=== PATIENT | female | born 1970 | race Caucasian/White ===

== ENCOUNTER → 2017-07-29 06:56 | Outpatient (CLI) | payer OTHER, SELFPAY ==
[2017-07-29 09:32] LABS: Progesterone Level 25.74 ng/mL (See Comment)
[2017-07-29 12:16] LABS: Estradiol 66.1 pg/mL; Free T3 7.5 pg/mL (2.18-3.98); T4 Free Direct 1.02 ng/dL (0.76-1.46); Thyroid Stim Hormone (TSH) < 0.01 uIU/mL (0.358-3.74)
[2017-08-05 11:05] LABS: Thyroglobulin RIA 2.9 ng/mL (.)
== END ==
PROVIDERS: Family Provider Internal Medicine; PCP Internal Medicine; Visit Provider Specialist
DX: E03.8 Other specified hypothyroidism (principal); N95.1 Menopausal and female climacteric states
CPT/HCPCS: 36415; 82670; 84144; 84403; 84432; 84439; 84443; 84481; 86800

== ENCOUNTER → 2017-11-23 10:04 | Outpatient (CLI) | payer OTHER, SELFPAY ==
[2017-11-23 12:10] LABS: Estradiol 43.5 pg/mL; Free T3 4.7 pg/mL (2.18-3.98); Thyroid Stim Hormone (TSH) 0.77 uIU/mL (0.358-3.74)
[2017-11-24 07:06] LABS: DHEA Sulfate 226.9 ug/dL (41.2-243.7)
[2017-11-25 12:39] LABS: Thyroid Peroxidase AB 56 IU/mL (0-34)
[2017-11-27 09:06] LABS: Progesterone Level 12.93 ng/mL (See Comment)
== END ==
PROVIDERS: Family Provider Internal Medicine; PCP Internal Medicine; Visit Provider Specialist
DX: E03.8 Other specified hypothyroidism (principal); N95.8 Other specified menopausal and perimenopausal disorders
CPT/HCPCS: 36415; 82627; 82670; 84144; 84403; 84439; 84443; 84481; 86376; 82626

== ENCOUNTER → 2018-01-13 07:36 | Outpatient (CLI) | payer OTHER, SELFPAY ==
--- NOTE | 2018-01-13 07:39 | BI_ITS ---
MAMMOGRAPHY - BILATERAL SCREENING REASON FOR EXAM: Female, 47 years old. Routine annual screening examination. PERTINENT HISTORY: Non-contributory. TECHNIQUE: Digital bilateral breast keyana (3D mammographic acquisition) in the CC and MLO projections. 2-D mediolateral oblique (MLO) and craniocaudad (CC) views of both breasts were obtained. CAD: Full Field Digital Mammography with Computer Added Detection was performed. COMPARISON: Comparison is made with prior study dated January 10, 2017 and January 27, 2016. FINDINGS: Breast Composition: There are scattered areas of fibroglandular density. There are no dominant masses or suspicious calcifications. Stable benign-appearing bilateral axillary lymph nodes. No other significant abnormalities are identified. There has been no significant change since the prior study. BI/SCREENING MAMM (CAD), BILAT IMPRESSION: Stable bilateral screening mammogram. Yearly follow-up mammogram recommended. (A) ASSESSMENT CATEGORY: BIRADS Category 2: Benign. A letter regarding these results will be sent to the patient by the facility within 30 days. Approximately 10% of breast cancers are not detected by mammography. A normal mammogram should not delay biopsy of a clinically suspicious abnormality. [id number] Electronically Signed: Roddy Dennis MD at 15:51 EDT Tel [phone], Service support ,
== END ==
PROVIDERS: Family Provider Internal Medicine; PCP Internal Medicine; Referring Provider Internal Medicine; Visit Provider Internal Medicine
DX: Z12.31 Encounter for screening mammogram for malignant neoplasm of breast (principal)
CPT/HCPCS: 77063; 77067

== ENCOUNTER → 2018-02-24 08:42 | Outpatient (CLI) | payer OTHER, SELFPAY ==
[2018-02-24 10:13] LABS: Estradiol 47.8 pg/mL
[2018-02-24 11:28] LABS: Vitamin D,25 Hydroxy 22.9 ng/mL (29.95-100.01)
[2018-02-27 10:03] LABS: Thyroid Peroxidase AB 43 IU/mL (0-34)
--- OUTSIDE RECORDS SUMMARY | 2018-04-19 10:08 | XMS RPT_ITS | Continuity of Care Document ---
:1970 Author Organization [facility] Address [address] [place] [address] Phone Care Team Providers Name Role Phone Raysa De Guzman DO Unavailable Long Dayana HUMMEL Unavailable Unavailable Katia Wahl Unavailable Unavailable Unavailable Unavailable Problems Name Dates Details Acute maxillary sinusitis, recurrence not specified (J01.00, 461.0) Status: Active Annual physical exam (Z00.00, V70.0) Status: Active BMI 40.0-44.9, adult (Z68.41, V85.41) Status: Active Cervical radiculopathy (M54.12, 723.4) Status: Active Dermatitis (L30.9, 692.9) Status: Active Dysuria (R30.0, 788.1) Status: Active Elevated blood-pressure reading without diagnosis of hypertension (R03.0, 796.2) Status: Active Encounter for screening for lipid disorder (Z13.220, V77.91) Status: Active Encounter for screening mammogram for breast cancer (Renamed from Encounter for screening mammogram for malignant neoplasm of breast) (Z12.31, V76.12) Status: Active Encounter for well adult exam with abnormal findings (Renamed from Encounter for general adult medical examination with abnormal findings) (Z00.01, V70.0) Status: Active Exposure (994.9) Comments: to influenza with children Status: Active Exposure to the flu (Z20.828, V01.79) Status: Active FAMILY HISTORY OF DIABETES MELLITUS (Z83.3, V18.0) Status: Active FAMILY HISTORY OF ISCHEMIC HEART DISEASE (Z82.49, V17.3) Status: Active Fatigue (R53.83, 780.79) Status: Active Hirsutism (L68.0, 704.1) Status: Active Hyperlipidemia (E78.5, 272.4) Status: Active Hypothyroidism (E03.9, 244.9) Comments: manage by dr Aravind Carranza - manages hormones and thyriod Status: Active Non-smoker (Z78.9, V49.89) Status: Active Obesity,unspecified (E66.9, 278.00) Status: Active Pharyngitis, acute (J02.9, 462) 12-Jan-2011 Status: Active PMS (premenstrual syndrome) (625.4) Comments: severe Status: Active Pruritic disorder (L29.9, 698.9) Status: Active Screening for malignant neoplasm of breast (Z12.39, V76.10) Status: Active Screening for malignant neoplasm of breast (Z12.39, V76.10) Status: Active SOB (R06.02, 786.05) Comments: difficulty taking deep breathon progesterone Status: Active Spasm of cervical paraspinous muscle (M62.838, 728.85) Status: Active Unspecified Diagnosis Status: Active Unspecified Diagnosis Status: Active Vitamin D deficiency (E55.9, 268.9) Status: Active Weight gain (R63.5, 783.1) Status: Active Medications Name Dates Details ARMOUR THYROID, 60MG (Oral Tablet) Active 1 qd (60 MG) Comments: Dr. Dinesh Kellogg ASPIRIN, 81MG (Oral Tablet) 1 Tablet qd for 90 days Refills: 0 Ordered:24-Jun-2014 Alicia De Guzman DO, DO, Kathleen Start : 24-Jun-2014 Active Metoprolol Tartrate 25 MG Oral Tablet 1 (one) Tablet PO Daily for 30 days Quantity: 30 {Tablet} Refills: 3 Ordered:21-Feb-2018 Alicia De Guzman DO, DO, Kathleen Start : 21-Feb-2018 Active Naltrexone HCl 50 MG Oral Tablet 4.5 mg daily for 90 days Quantity: 90 {Each} Refills: 2 Ordered:23-Jan-2018 Alicia De Guzman DO, DO, Kathleen Start : 23-Jan-2018 Active Progesterone 200mg subling. qd Active VITAMIN D3, 1000UNIT (Oral Capsule) 4 Capsule qd for 30 days Refills: 0 Ordered:24-Jun-2014 Alicia De Guzman DO, DO, Kathleen Start : 24-Jun-2014 Active Albuterol Sulfate 1.25 MG/3ML Inhalation Nebulization Solution 1 (one) Nebulized Soln Nebulized Soln q 6 hours prn for 0 days Quantity: 1 {Box} Refills: 0 Ordered:10-Apr-2017 Mita Salinas LPN Start : 28-Mar-2016 End : 10-Apr-2017 Inactive HERNANDEZ-D ALLERGY & CONGESTION, 60-120MG (Oral Tablet Extended Release 12 Hour) 1 Tablet ER 12HR bid prn for 0 days Quantity: 60 {Tablet_ER_12HR} Refills: 2 Ordered:21-Apr-2014 Mita Salinas LPN Start : 02-Jan-2013 End : 21-Apr-2014 Inactive AMOXIL, 875MG (Oral Tablet) 1 (one) Tablet Twice daily for 0 days Quantity: 20 {Tablet} Refills: 0 Ordered:27-Jul-2009 Mita Salinas LPN Start : 10-Feb-2009 Inactive Augmentin 875-125 MG Oral Tablet 1 (one) Tablet bid for 0 days Quantity: 28 {Tablet} Refills: 0 Ordered:30-Mar-2016 Annalee Devries Start : 28-Mar-2016 End : 30-Mar-2016 Inactive AUGMENTIN, 875-125MG (Oral Tablet) 1 Tablet Twice daily for 14 days Quantity: 28 {Tablet} Refills: 0 Ordered:06-May-2013 Fabiana JONES Natalee Start : 06-May-2013 End : 20-May-2013 Inactive Belviq 10 MG Oral Tablet 1 (one) Tablet Tablet bid for 0 days Quantity: 60 {Tablet} Refills: 3 Ordered:10-Apr-2017 Mita Salinas LPN Start : 18-Jan-2015 End : 10-Apr-2017 Inactive Comments:sixty BIAXIN XL PAC, 500MG (Oral Tablet Extended Release 24 Hour) 2 (two) Tablet ER 24HR daily for 14 days Quantity: 28 {Tablet_ER_24HR} Refills: 0 Ordered:27-Jul-2009 Violetta Jung CNP Start : 27-Jul-2009 End : 10-Aug-2009 Inactive BIAXIN XL, 500MG (Oral Tablet Extended Release 24 Hour) 2 (two) Tablet ER 24HR qd for 0 days Quantity: 20 {Tablet_ER_24HR} Refills: 0 Ordered:21-Jan-2009 Mita Salinas LPN Start : 21-Jan-2009 End : 10-Feb-2009 Inactive BIAXIN, 500MG (Oral Tablet) 1 Tablet Twice daily for 0 days Quantity: 20 {Tablet} Refills: 0 Ordered:30-Jun-2007 Mita Salinas LPN Start : 30-Jun-2007 End : 15-Jul-2008 Inactive Comments:please substitute generic BLEPH-10, 10% (Ophthalmic Solution) 2 (two) Q 3hr while awake for 0 days Quantity: 1 {Solution} Refills: 0 Ordered:30-Jun-2007 Mita Salinas LPN Start : 30-Jun-2007 End : 15-Jul-2008 Inactive BYSTOLIC, 5MG (Oral Tablet) 1 Tablet qd for 0 days Quantity: 30 {Tablet} Refills: 0 Ordered:07-May-2012 Mita Salinas LPN Start : 11-Apr-2012 End : 07-May-2012 Inactive Crestor 10 MG Oral Tablet 1 (one) Tablet qd for 90 days Quantity: 90 {Tablet} Refills: 0 Ordered:30-Jul-2017 Alicia De Guzman DO, DO, Kathleen Start : 30-Jul-2017 End : 28-Oct-2017 Inactive DIFLUCAN, 150MG (Oral Tablet) 1 Tablet qd for 0 days Quantity: 1 {Tablet} Refills: 0 Ordered:26-Jul-2008 Mita Salinas LPN End : 19-Nov-2008 Inactive Doxycycline Hyclate 100 MG Oral Tablet 1 (one) Tablet bid for 8 days Quantity: 16 {Tablet} Refills: 0 Ordered:05-Apr-2016 Dayana Richards LPN Start : 05-Apr-2016 End : 13-Apr-2016 Inactive ELIDEL, 1% (External Cream) apply Cream bid for 0 days Quantity: 30 {Cream} Refills: 1 Ordered:28-Aug-2010 Mita Salinas LPN Start : 19-Dec-2009 End : 28-Aug-2010 Inactive ETODOLAC ER, 400MG (Oral Tablet Extended Release 24 Hour) 2 (two) Tablet ER 24HR qd with food week of menses for 0 days Quantity: 30 {Tablet_ER_24HR} Refills: 3 Ordered:06-May-2013 Annalee Devries Start : 09-Jan-2013 End : 06-May-2013 Inactive FLEXERIL, 10MG (Oral Tablet) 1-1/2 Tablet QHS / HS for 0 days Quantity: 5 {Tablet} Refills: 0 Ordered:19-Nov-2008 Mita Salinas LPN Start : 19-Nov-2008 End : 10-Feb-2009 Inactive LASIX, 20MG (Oral Tablet) 1 Tablet qd for 0 days Quantity: 2 {Tablet} Refills: 0 Ordered:10-Mar-2012 Mita Salinas LPN Start : 06-Sep-2011 End : 10-Mar-2012 Inactive LEVOTHYROXINE SODIUM, 150MCG (Oral Tablet) 1 (one) Tablet daily except for Saturday for 30 days Quantity: 90 {Tablet} Refills: 1 Ordered:01-Aug-2011 Mita Salinas LPN Start : 22-Jan-2011 End : 01-Aug-2011 Inactive LEVOXYL, 125MCG (Oral Tablet) 1 Tablet QD for 0 days Quantity: 90 {Tablet} Refills: 3 Ordered:25-Apr-2006 Eliz Phillips Start : 25-Apr-2006 End : 25-Jun-2006 Inactive LODINE XL, 400MG (Oral Tablet Extended Release 24 Hour) 2 (two) Tablet ER 24HR Daily for 0 days Quantity: 20 {Tablet_ER_24HR} Refills: 0 Ordered:19-Nov-2008 Mita Salinas LPN Start : 19-Nov-2008 End : 10-Feb-2009 Inactive Magnesium 200 MG Oral Tablet 1 (one) Tablet qd for 30 days Refills: 0 Ordered:23-Jan-2018 Dayana Richards LPN Start : 24-Jun-2014 End : 23-Jan-2018 Inactive MAGNESIUM OXIDE, 400MG (Oral Capsule) 1 (one) Capsule qd for 30 days Refills: 0 Ordered:24-Jun-2014 Mita Salinas LPN Start : 21-Apr-2014 End : 24-Jun-2014 Inactive MELOXICAM, 15MG (Oral Tablet) 1 (one) Tablet daily for 0 days Quantity: 30 {Tablet} Refills: 0 Ordered:21-Apr-2014 Mita Salinas LPN Start : 12-Oct-2013 End : 21-Apr-2014 Inactive Comments:with food MERIDIA, 10MG (Oral Capsule) 1 (one) Capsule prn for 0 days Refills: 0 Ordered:15-Jul-2008 Mita Salinas LPN Start : 20-Nov-2006 End : 15-Jul-2008 Inactive NASONEX, 50MCG/ACT (Nasal Suspension) 2 (two) Suspension qd for 0 days Quantity: 1 {Suspension} Refills: 2 Ordered:07-May-2012 Mita Salinas LPN Start : 12-Jan-2011 End : 07-May-2012 Inactive PATANOL, 0.1% (Ophthalmic Solution) 1 (one) Solution gtt bid each eye for 0 days Quantity: 1 {Solution} Refills: 2 Ordered:10-Mar-2012 Mita Salinas LPN Start : 19-Dec-2009 End : 10-Mar-2012 Inactive PREGNENOLONE (Powder) 25mg qd Inactive Comments:Dr. Montiel PYRIDIUM, 100MG (Oral Tablet) 1 Tablet TID for 3 days Quantity: 9 {Tablet} Refills: 0 Ordered:07-Jun-2009 Mast Carlotta LAGOS Start : 07-Jun-2009 End : 10-Jun-2009 Inactive SYNTHROID, 112MCG (Oral Tablet) 1 Tablet qd for 0 days Quantity: 90 {Tablet} Refills: 2 Ordered:06-May-2013 Annalee Devries Start : 29-Dec-2012 End : 06-May-2013 Inactive TAMIFLU, 75MG (Oral Capsule) 1 Capsule qd for 10 days Quantity: 10 {Capsule} Refills: 0 Ordered:09-Apr-2014 Roma Valdez MD Start : 09-Apr-2014 End : 19-Apr-2014 Inactive TOPICORT, 0.25% (External Cream) apply verysparingly around eye Cream bid for 7 days Quantity: 35 {Cream} Refills: 0 Ordered:20-Jan-2010 Alicia De Guzman DO, DO, Kathleen Start : 20-Jan-2010 End : 27-Jan-2010 Inactive VITAMIN B COMPLEX (Oral Tablet) 1 (one) Tablet Tablet daily for 360 days Quantity: 30 {Tablet} Refills: 3 Ordered:24-Jun-2014 Mita Salinas LPN Start : 12-Oct-2013 End : 24-Jun-2014 Inactive Vitamin B12 100 MCG Oral Tablet 1 (one) Tablet qd sl for 30 days Refills: 0 Ordered:23-Jan-2018 Long Dayana HUMMEL Start : 24-Jun-2014 End : 23-Jan-2018 Inactive VITAMIN D3, 2000UNIT (Oral Capsule) 2 (two) Capsule Capsule qd for 360 days Refills: 0 Ordered:06-Jan-2014 Annalee Devries Start : 09-Jan-2013 End : 04-Jan-2014 Inactive HERNANDEZ-D 12 HOUR, 60-120MG (Oral Tablet Extended Release 12 Hour) 1 Tablet ER 12HR q12 hrs prn for 0 days Quantity: 30 {Tablet_ER_12HR} Refills: 0 Ordered:14-Jun-2010 Pat Hopper Start : 14-Jun-2010 End : 29-Nov-2010 Discontinued Comments:This order discontinued per [facility]. Levaquin 500 MG Oral Tablet 1 (one) Tablet qd for 7 days Quantity: 7 {Tablet} Refills: 0 Ordered:05-Apr-2016 Solitario Stubbs MD Start : 05-Apr-2016 End : 05-Apr-2016 Discontinued Comments:tendonitis RHINOCORT AQUA, 32MCG/ACT (Nasal Suspension) 1 (one) [place](s) Daily for 0 days Quantity: 1 {Suspension} Refills: 0 Ordered:12-Mar-2006 Eliz Phillips Start : 12-Mar-2006 End : 18-Sep-2006 Discontinued Allergies and Adverse Reactions Name Dates Details Levaquin *FLUOROQUINOLONES* (Allergy) Status: Active Comments: tendonitis No Known Drug Allergies (Allergy) Onset: 05-Apr-2016 Status: Inactive Seasonal (Allergy) Status: Active Past Medical History Name Dates Details Abnormal TSH (R79.89, 790.6) Status: Inactive as of 10-Apr-2017 Acute low back pain (M54.5, 724.2) Comments: musculoskeletal Status: Inactive as of 10-Apr-2017 Allergic reaction (T78.40XA, 995.3) Status: Inactive as of 10-Apr-2017 Allergic rhinitis (J30.9, 477.9) Status: Inactive as of 10-Apr-2017 Bronchitis (J40, 490) Status: Resolved as of 11-Aug-2008 Chest pain (R07.9, 786.59) Status: Inactive as of 07-May-2012 Cough (R05, 786.2) Status: Inactive as of 07-May-2012 Cutaneous skin tags (L91.8, 701.9) Status: Inactive as of 10-Apr-2017 Cystitis, acute (N30.00, 595.0) Status: Inactive as of 07-May-2012 Dysfunctional uterine bleeding (N93.8, 626.8) Status: Inactive as of 07-May-2012 Edema (R60.9, 782.3) Status: Inactive as of 07-May-2012 Headache (R51, 784.0) Status: Inactive as of 07-May-2012 Pain of hand, unspecified laterality (M79.643, 729.5) Status: Inactive as of 07-May-2012 Sinusitis, acute (J01.90, 461.9) Status: Inactive as of 07-May-2012 Stye (373.11) Status: Inactive as of 07-May-2012 Unspecified conjunctivitis (H10.9, 372.30) Status: Resolved as of 11-Aug-2008 Well woman exam with routine gynecological exam (Z01.419, V72.31) Status: Inactive as of 07-May-2012 Wheezing (R06.2, 786.07) Comments: recheck after treatment wheezing gone and she felt better Status: Inactive as of 21-Mar-2017 Procedures Date Value Details 13-Jan-2018 SCREENING MAMM (CAD), BILAT Result: Comments: See Note; NOTES: [facility] [place] Imaging Services [address] [place] [id number] SCREENING MAMM (CAD), BILAT MR#: [id number] Acct: [id number] Name: TITA CAMPOS Rep #: [id number] : 1970 F 47 From: Roddy Du MD PCP: Raysa De Guzman DO Status: REG CLI Study: SCREENING MAMM (CAD), BILAT Date of Exam: 01/13/18 Exam# [id number] Ordering Dr: Anurag De Guzman DO MAMMOGRAPHY - BILATERAL SCREENING REASON FOR EXAM: Female, 47 years old. Routine annual screening examination. PERTINENT HISTORY: Non-contributory. TECHNIQUE: Digital bilateral breast keyana (3D mammographic acquisition) in the CC and MLO projections. 2-D mediolateral oblique (MLO) and craniocaudad (CC) views of both breasts were obtained. CAD: Full Field Digital Mammography with Computer Adde d Detection was performed. COMPARISON: Comparison is made with prior study dated January 10, 2017 and January 27, 2016. FINDINGS: Breast Composition: There are scat tered areas of fibroglandular density. There are no dominant masses or suspicious calcifications. Stable benign-appearing bilateral axillary lymph nodes. No other significant abnormalities are identif ied. There has been no significant change since the prior study. BI/SCREENING MAMM (CAD), BILAT IMPRESSION: Stable bilateral screening mammogram. Yearly follow-up mammogram recommended. (A) ASSESSMENT CATEGORY: BIRADS Category 2: Benign. A letter regarding these results will be sent to the patient by the fac ility within 30 days. Approximately 10% of breast cancers are not detected by mammography. A normal mammogram should not delay biopsy of a clinically suspicious abnormality. [id number] Electronically Sig vanna: Roddy Du MD at 15:51 EDT Tel [phone], Service support , CC: Raysa De Guzman DO Nursery Worker: Signed 10-Jan-2017 SCREENING MAMM (CAD), BILAT Result: Comments: See Note; NOTES: [facility] [place] Imaging Services [address] [place] [id number] SCREENING MAMM (CAD), BILAT MR#: [id number] Acct: [id number] Name: TITA CAMPOS Rep #: [id number] : 1970 F 46 From: Roddy Du MD PCP: Raysa De Guzman DO Status: REG CLI Study: SCREENING MAMM (CAD), BILAT Date of Exam: 01/10/17 Exam# [id number] Ordering Dr: Rossy De Guzman DO MAMMOGRAPHY - BILATERAL SCREENING REASON FOR EXAM: Female, 46 years old. Routine annual screening examination. PERTINENT HISTORY: Aunt with breast cancer. TECHNIQUE: Digital bilateral breast keyana (3D mammographic acquisition) in the CC and MLO projections. 2-D mediolateral oblique (MLO) and craniocaudad (CC) views of both breasts were obtained. CAD: Full Field Digital Mammography with Compu ter Added Detection was performed. COMPARISON: Comparison is made with prior study dated January 27, 2016 and January 20, 2015. FINDINGS: Breast Composition: There are scattered areas of fibroglandular density. There are no dominant masses or suspicious calcifications. No other significant abnormalities are identified. There has been no significant change since the prior study. HPBI/SCREENING MAMM (CAD), BILAT IMPRESSION: Stable bilateral screening mammogram. Yearly follow-up mammogram recommended. (A) ASSESSMENT CATEGORY: BIRADS Category 1: Negative. A letter regarding these results will be sent to the patient by the facility within 30 days. Approximately 10% of breast cancers are not detected by mammography. A normal mammogram should not delay biopsy of a clinically suspicious abnormality. [id number] Electronically Signed: Roddy Du MD at 7: 51 EDT Tel [phone], Service support , CC: Raysa De Guzman DO Nursery Worker: Signed 27-Jan-2016 Bilat Scrn Digital AND CAD Result: Comments: See Note; NOTES: [facility] [place] Imaging Services [address] [place] [address] Verdana 4d Bilat Scrn Digital AND CAD MR#: [id number] Acct: [id number] Name: FELI CAMPOS Rep #: [id number] : 1970 F 45 From: Roddy Du MD PCP: Raysa De Guzman DO Status: REG CLI Study: Bilat Scrn Digital AND CAD Date of Exam: 01/27/16 Exam# [id number] Ordering Dr: Raysa David DO MAMMOGRAPHY - BILATERAL SCREENING REASON FOR EXAM: Female, 45 years old. Routine annual screening examination. PERTINENT HISTORY: Aunt with breast cancer. TECHNIQUE: Digital bilate ral breast keyana (3D mammographic acquisition) in the CC and MLO projections. 2- D mediolateral oblique (MLO) and craniocaudad (CC) views of both breasts were obtained. CAD: Full Field Digital Mammography with Computer Added Detection was performed. COMPARISON: Comparison is made with prior study dated January 18, 2015 and January 16, 2014. FINDINGS: Breast Composit ion: There are scattered areas of fibroglandular density. There are no dominant masses or suspicious calcifications. No other significant abnormalities are identified. There has been no significant ch isidoro since the prior study. 0010 BI/Bilat Scrn Digital AND CAD IMPRESSION: Stable bilateral screening mammogram. Yearly follow-up mammogram recomme nded. (A) ASSESSMENT CATEGORY: BIRADS Category 1: Negative. A letter regarding these results will be sent to the patient by the facility within 30 days. Approximat benny 10% of breast cancers are not detected by mammography. A normal mammogram should not delay biopsy of a clinically suspicious abnormality. [id number] Electronically Signed: Roddy Du MD 01/26 at 11:49 EDT Tel [phone], Service support [phone], CC: Raysa De Guzman DO Nursery Worker: Signed 20-Jan-2015 Breast Complete Unilateral Result: Comments: See Note; NOTES: [facility] [place] Imaging Services [address] [place] [address] Dane 4d Breast Complete Unilateral MR#: [id number] Acct: [id number] Name: TITA CAMPOS Rep #: [id number] : 1970 F 44 From: Roddy Du MD PCP: Raysa De Guzman DO Status: REG CLI Study: Breast Complete Unilateral Date of Exam: 01/20/15 Exam# [id number] O erasmo Dr: Raysa De Guzman DO STUDY: ULTRASOUND BREAST - LEFT REASON FOR EXAM: Female, 44 years old. Abnormal screening mammogram. TECHNIQUE: Axial and longitudinal images of the LEFT breast w ere performed with a high resolution ultrasound transducer. COMPARISON: Comparison is made with prior mammogram done earlier in the day. FINDINGS: LEFT Breas t: The entire left breast was examined. No solid or cystic mass lesion is seen. This is a unremarkable examination. Additional mammographic views will be obtained. _ IMPRESSION: Unremarkable ultrasound of the left breast. Additional mammographic views of the left breast will be obtained. ASSESSMENT CATEGORY: BIRADS Categ ory 1: Negative. A letter regarding these results will be sent to the patient by the facility within 30 days. Electronically Signed: Roddy Du MD at 11:24 EDT Tel [phone], Service support [phone], CC: Raysa De Guzman DO Nursery Worker: Signed 20-Jan-2015 Unilat Lt Diag Digital AND CAD Result: Comments: See Note; NOTES: [facility] [place] Imaging Services [address] [place] [address] Verdana 4d Unilat Lt Diag Digital AND CAD MR#: [id number] Acct: [id number] Na me: TITA CAMPOS Rep #: [id number] : 1970 F 44 From: Roddy Du MD PCP: Raysa De Guzman DO Status: REG CLI Study: Unilat Lt Diag Digital AND CAD Date of Exam: 01/20/15 Exam# [id number] Ordering Dr: Raysa De Guzman DO ADDENDUM by Roddy Du MD on 01/20/15 at 1503 ADDENDUM ========= This is an addendum report. Following the ultrasound examination of the breast, rolled medial and lateral views of the left breast were obtained. The questionable abnormality is not prod ucible and represents superimposition of tissue. Electronically Signed: Roddy Du MD at 15:03 EDT Tel [phone], Service support [phone], 5 [phone] Date cc: Raysa De Guzman DO * Signed MAMMOGRAPHY - UNILATERAL DIAGNOSTIC: LEFT BREAST REASON FOR EXAM: Female, 44 years old. Abnormal screening mammogram. PERTINENT HIST ORY: Non-contributory. TECHNIQUE: Digital examination. The patient was recalled for additional views. A repeat craniocaudad view as well as compression spot views of the left breast were obtained. C AD: CAD was performed on this study. COMPARISON: Comparison is made with prior study dated January 18, 2015 and January 16, 2014. FINDINGS: Breast Composition: There are scattered areas of fibroglandular density. Persistent focal area of architectural distortion is seen in the lateral aspect of the left breast. Correlation with ultrasound is recommended. No other significant abnormalities are identified. IMPRESSION: Persistent focal area of architectural distortion is seen in the left breast as described. Correl ation with ultrasound is recommended. ASSESSMENT CATEGORY: BIRADS Category 0: Incomplete. Need additional imaging evaluation. A letter regarding these results w ill be sent to the patient by the facility within 30 days. Approximately 10% of breast cancers are not detected by mammography. A normal mammogram should not delay biopsy of a clinically suspicious abnormality. Electronically Signed: Roddy Du MD at 9:59 EDT Tel [phone], Service support [phone], CC: Raysa De Guzman DO Nursery Worker: Signed 20-Jan-2015 Unilat Lt Diag Digital AND CAD Result: Comments: See Note; NOTES: [facility] [place] Imaging Services [address] [place] [address] Verdana 4d Unilat Lt Diag Digital AND CAD MR#: [id number] Acct: [id number] Na me: TITA CAMPOS Rep #: [id number] : 1970 F 44 From: Roddy Du MD PCP: Raysa De Guzman DO Status: REG CLI Study: Unilat Lt Diag Digital AND CAD Date of Exam: 01/20/15 Exam# [id number] Ordering Dr: Raysa De Guzman DO MAMMOGRAPHY - UNILATERAL DIAGNOSTIC: LEFT BREAST REASON FOR EXAM: Female, 44 years old. Abnormal screening mammogram. PERTINENT HISTORY: Non-contributory. TECHNIQUE: Digital examination. The patient was recalled for additional views. A repeat craniocaudad view as well as compression spot views of the left breast were obtained. CAD: CAD was performed on this study. COMPARISON: Comparison is made with prior study dated January 18, 2015 and January 16, 2014. FINDINGS: Breast Composition: There are scattered a reas of fibroglandular density. Persistent focal area of architectural distortion is seen in the lateral aspect of the left breast. Correlation with ultrasound is recommended. No other significant abnormalities are identified. IMPRESSION: Persistent focal area of architectural distortion is seen in the left breast as described. Correlation with ultrasound is recommended. ASSESSMENT CATEGORY: BIRADS Category 0: Incomplete. Need additional imaging evaluation. A letter regarding these results will be sent to the [facility] ient by the facility within 30 days. Approximately 10% of breast cancers are not detected by mammography. A normal mammogram should not delay biopsy of a clinically suspicious abnormality. Electr onically Signed: Roddy Du MD at 9:59 EDT Tel [phone], Service support [phone], CC: Raysa De Guzman DO Nursery Worker: Signed 18-Jan-2015 Bilat Scrn Digital AND CAD Result: Comments: See Note; NOTES: [facility] [place] Imaging Services [address] [place] [address] Verdana 4d Bilat Scrn Digital AND CAD MR#: [id number] Acct: [id number] Name: TITA CAMPOS Rep #: [id number] : 1970 F 44 From: Roddy Du MD PCP: Raysa De Guzman DO Status: REG CLI Study: Bilat Scrn Digital AND CAD Date of Exam: 01/18/15 Exam# [id number] O ering Dr: Raysa De Guzman DO MAMMOGRAPHY - BILATERAL SCREENING REASON FOR EXAM: Female, 44 years old. Routine annual screening examination. PERTINENT HISTORY: Aunt with breast cancer. TECH NIQUE: Digital examination. Mediolateral oblique (MLO) and craniocaudad (CC) views of both breasts were obtained. CAD: CAD was performed on this study. COMPARISON: Comparison is made with prior stud y dated January 16, 2014 and January 09, 2013. FINDINGS: Breast Composition: There are scattered areas of fibroglandular density. There now is evidence of a 6. 1 mm slightly irregular nodular density seen along the lateral portion of the cranial caudad view of the left breast. The patient will be recalled for additional views including compression spot view s. This is not seen on the mediolateral oblique view. No cluster of microcalcifications present. No other significant abnormalities are identified. IMPRESSION: 6.1 mm slightly irregular nodular density in the left breast as described seen only on the craniocaudad view. The patient will be recalled for additional views. Recall Side: Left Breast ASSESSMENT CATEGORY: BIRADS Category 0: Incomplete. Need additional imaging evaluation. A letter regarding these results will be sent to the patient by the facility within 30 days. Approximately 10% of breast cancers are not detected by mammography. A normal mammogram should not delay biopsy of a clinically suspicious abnormality. Electronically Signed: Roddy hauser MD at 10:59 EDT Tel [phone], Service support [phone], CC: Raysa De Guzman DO Nursery Worker: Signed 16-Jan-2014 Bilat Scrn Digital & CAD Result: Comments: See Note; NOTES: [facility] [place] Imaging Services [address] [place] [address] Breast Imaging Report MR#: [id number] Acct: [id number] Name: TITA CAMPOS Rep #: [id number] : 1970 F 43 From: Roddy Du MD PCP: Raysa De Guzman DO Status: REG CLI Exam# [id number] Ordering Dr: Raysa De Guzman DO MAMMOGRAPHY - BILATERAL SCREENING REASON F OR EXAM: Female, 43 years old. Routine annual screening examination. PERTINENT HISTORY: Aunt with breast cancer. TECHNIQUE: Digital examination. Mediolateral oblique (MLO) and craniocaudad (CC) vi ews of both breasts were obtained. CAD: CAD was performed on this study. COMPARISON: Comparison is made with prior study dated January 09, 2013 and August 23, 2011. FINDINGS: Breast Composition: There are scattered areas of fibroglandular density. There are no dominant masses or suspicious calcifications. No other significant abnormalities are identified. T here has been no significant change since the prior study. IMPRESSION: Stable bilateral screening mammogram. Yearly follow-up recommended. (A) ASSESSMENT CATEGORY: BIRADS Category 2: Benign finding(s). A letter regarding these results will be sent to the patient by the facility within 30 days. Approximately 10% of [address] cancers are not detected by mammography. A normal mammogram should not delay biopsy of a clinically suspicious abnormality. Electronically Signed: Roddy Du MD at 8:31 EDT Tel [phone], Service support [phone], CC: Raysa De Guzman DO Nursery Worker: Signed 12-Oct-2013 L/S Spine Min 4 Views Result: Comments: See Note; NOTES: [facility] [place] Imaging Services [address] [place] [id number] Radiology Report MR#: [id number] Acct: [id number] Name: TITA CAMPOS Rep #: [id number] : 1970 F 43 From: Cynthia Webster MD PCP: Status: REG CLI Study: L/S Spine Min 4 Views Date of Exam: 10/12/13 Exam# [id number] Ordering Dr: Violetta Jung STUDY: X-RAY - LUMBAR SPINE REASON FOR EXAM: Female, 43 years old. Lower back pain TECHNIQUE: 5 view(s) of the lumbar spine were obtained. COMPARISON: None FINDINGS: There is straighten ing of the normal lumbar lordosis. There is no substantial scoliosis. There is a normal alignment of the vertebrae. Normal vertebral bodies and endplates. Mild disc narrowing is noted at L4-5. The soft tissue structures are unremarkable. IMPRESSION: Mild disc narrowing at L4-5. Electronically Signed: Massimo Webster MD at 11:35 EDT Tel , Service support [phone], RAD/L/S Spine Min 4 Views IMPRESSION: Mild disc narrowing at L4-5. Electronically Signed: Massimo Webster MD 1 at 11:35 EDT Tel , Service support [phone], CC: Violetta Jung Nursery Worker: Signed 09-Jan-2013 Bilat Scrn Digital & CAD Result: Comments: See Note; NOTES: [facility] [place] Imaging Services [address] [place] [address] Breast Imaging Report MR#: [id number] Acct: [id number] Name: FERNANDOTITA Santy Rep #: [id number] : 1970 F 42 From: Roddy Du MD PCP: Status: REG CLI Exam# [id number] Ordering Dr: Raysa De Guzman DO MAMMOGRAPHY - BILATERAL SCREENING REASON FOR EXAM: Female, 42 years old. Routine annual screening examination. PERTINENT HISTORY: Aunt with breast cancer. TECHNIQUE: Digital examination. Mediolateral oblique (MLO) and craniocaudad (CC) views of both breasts were obtained. CAD: CAD was performed on this study. COMPARISON: Comparison is made with prior study dated August 23, 2011 and August 28, 2010. FINDINGS: The breas t composition is almost Entirely fat. Glandular tissue is less than 25%. There are no dominant masses or suspicious calcifications. No other significant abnormalities are identified. There has been no significant change since the prior study. IMPRESSION: Stable bilateral screening mammogram. Yearly follow-up recommended. (A) ASSESSMENT CATEGORY: BIRADS Category 2: Benign finding(s). A letter regarding these results will be sent to the patient by the facility within 30 days. Approximately 10% of breast cancers ar e not detected by mammography. A normal mammogram should not delay biopsy of a clinically suspicious abnormality. Signed: Roddy Du M.D. January 09, 2013 at 9:43:50 AM EDT [phone] Electronically Signed GP/GP If you are the referring physician and would like to consult with the radiologist who provided this interpretation, please contact Roddy Du M.D. at [phone]. If this radiologist is unavailable, you will be directed to another radiologist to assist. If you are a patient with a question regarding this report, please contact your referring physician lindsay ames. Professional Interpretation Provided By: [employer], Phone , These documents contain legally protected and confidential health information intended only for the use of the individual or entity named above. If you are not the intended recipient, you are hereby notified that any disclosure, copying, distribution, or other use of these documents is strictl y prohibited. If you have received this information in error, please notify the sender immediately and arrange for the return or destruction of these documents. CC: Raysa De Guzman DO Nursery Worker: Signed Immunization Name Dates Details DTP on: Nov-2011 Comments: Given at [facility] - see scanned in documentation - was a DPT Family History Unknown Family Member Name Dates Details Father Comments: High cholesterol Status: Active Mother Comments: Drug abuse, Emoitonal problems, Heart/lung disease, HBP, high cholesterol Status: Active Social History Name Dates Details Alcohol Use Comments: Occasional alcohol use Status: Active Caffeine Use Comments: 2 QD Status: Active Exercise History Comments: Light Status: Active Living Situation Comments: , Lives with spouse Status: Active No Drug Use Status: Active Non Smoker/No Tobacco Use Status: Active Tobacco use: Never smoker. Status: Active Smoking Status Name Dates Details Never smoker Vital Signs Date Test Result Details :19 Temperature 98.4 f Comments: Method: Temporal Pulse 88 /min Comments: Pattern: Regular Respiration Rate 15 /min Comments: Pattern: Unlabored O2 SAT 98 % Comments: Room air BP Systolic 148 mm[Hg] Comments: Patient Position: Sitting; Cuff Location: Left Arm; Cuff Size: Standard BP Diastolic 86 mm[Hg] Comments: Patient Position: Sitting; Cuff Location: Left Arm; Cuff Size: Standard Weight 249.125 lb Height 65 in Body Mass Index Calculated 41.46 kg/m2 Body Surface Area Calculated 2.17 m2 :26 Pulse 80 /min Comments: Pattern: Regular Respiration Rate 18 /min Comments: Pattern: Unlabored O2 SAT 98 % Comments: Room air BP Systolic 138 mm[Hg] Comments: Patient Position: Sitting; Cuff Location: Left Arm; Cuff Size: Large BP Diastolic 88 mm[Hg] Comments: Patient Position: Sitting; Cuff Location: Left Arm; Cuff Size: Large Weight 249.125 lb Height 65 in Body Mass Index Calculated 41.46 kg/m2 Body Surface Area Calculated 2.17 m2 :30 Temperature 97.3 f Comments: Method: Temporal Pulse 72 /min Comments: Pattern: Regular Respiration Rate 15 /min Comments: Pattern: Unlabored O2 SAT 98 % Comments: Room air BP Systolic 124 mm[Hg] Comments: Patient Position: Sitting; Cuff Location: Left Arm; Cuff Size: Standard BP Diastolic 75 mm[Hg] Comments: Patient Position: Sitting; Cuff Location: Left Arm; Cuff Size: Standard Weight 249 lb Height 65 in Body Mass Index Calculated 41.44 kg/m2 Body Surface Area Calculated 2.17 m2 :57 Temperature 97.6 f Comments: Method: Temporal Pulse 76 /min Comments: Pattern: Regular Respiration Rate 17 /min Comments: Pattern: Unlabored O2 SAT 98 % Comments: Room air BP Systolic 148 mm[Hg] Comments: Patient Position: Sitting; Cuff Location: Left Arm; Cuff Size: Large BP Diastolic 92 mm[Hg] Comments: Patient Position: Sitting; Cuff Location: Left Arm; Cuff Size: Large Weight 244 lb Height 65 in Body Mass Index Calculated 40.6 kg/m2 Body Surface Area Calculated 2.15 m2 :15 Temperature 96.8 f Comments: Method: Tympanic Pulse 66 /min Comments: Pattern: Regular Respiration Rate 18 /min Comments: Pattern: Unlabored O2 SAT 99 % Comments: Room air BP Systolic 122 mm[Hg] Comments: Patient Position: Sitting; Cuff Location: Left Arm; Cuff Size: Standard BP Diastolic 66 mm[Hg] Comments: Patient Position: Sitting; Cuff Location: Left Arm; Cuff Size: Standard Weight 207 lb Height 65 in Body Mass Index Calculated 34.45 kg/m2 Body Surface Area Calculated 2.01 m2 :18 Pulse 71 /min Comments: Pattern: Regular Respiration Rate 18 /min Comments: Pattern: Unlabored O2 SAT 98 % Comments: Room air BP Systolic 122 mm[Hg] Comments: Patient Position: Sitting; Cuff Location: Left Arm; Cuff Size: Large BP Diastolic 80 mm[Hg] Comments: Patient Position: Sitting; Cuff Location: Left Arm; Cuff Size: Large Weight 235 lb Height 65 in Body Mass Index Calculated 39.11 kg/m2 Body Surface Area Calculated 2.12 m2 :34 Pulse 76 /min Comments: Pattern: Regular Respiration Rate 18 /min Comments: Pattern: Unlabored O2 SAT 98 % Comments: Room air BP Systolic 140 mm[Hg] Comments: Patient Position: Sitting; Cuff Location: Left Arm; Cuff Size: Large BP Diastolic 88 mm[Hg] Comments: Patient Position: Sitting; Cuff Location: Left Arm; Cuff Size: Large Weight 252.4375 lb Height 65 in Body Mass Index Calculated 42.01 kg/m2 Body Surface Area Calculated 2.18 m2 :30 Temperature 98.9 f Comments: Method: Oral Pulse 68 /min Comments: Pattern: Regular Respiration Rate 18 /min O2 SAT 98 % Comments: Room air BP Systolic 138 mm[Hg] Comments: Patient Position: Sitting; Cuff Location: Left Arm; Cuff Size: Standard BP Diastolic 86 mm[Hg] Comments: Patient Position: Sitting; Cuff Location: Left Arm; Cuff Size: Standard Weight 241 lb Height 65 in Body Mass Index Calculated 40.1 kg/m2 Body Surface Area Calculated 2.14 m2 :02 Temperature 98.8 f Comments: Method: Oral Pulse 74 /min Comments: Pattern: Regular Respiration Rate 16 /min Comments: Pattern: Unlabored O2 SAT 98 % Comments: Room air BP Systolic 132 mm[Hg] Comments: Patient Position: Sitting; Cuff Location: Left Arm; Cuff Size: Standard BP Diastolic 68 mm[Hg] Comments: Patient Position: Sitting; Cuff Location: Left Arm; Cuff Size: Standard Weight 241 lb Height 65 in Body Mass Index Calculated 40.1 kg/m2 Body Surface Area Calculated 2.14 m2 :14 Temperature 98.4 f Comments: Method: Oral Pulse 63 /min Comments: Pattern: Regular Respiration Rate 20 /min Comments: Pattern: Unlabored O2 SAT 99 % Comments: Room air BP Systolic 120 mm[Hg] Comments: Patient Position: Sitting; Cuff Location: Left Arm; Cuff Size: Large BP Diastolic 80 mm[Hg] Comments: Patient Position: Sitting; Cuff Location: Left Arm; Cuff Size: Large Weight 241 lb Height 65 in Body Mass Index Calculated 40.1 kg/m2 Body Surface Area Calculated 2.14 m2 :11 BP Systolic 120 mm[Hg] Comments: Patient Position: Sitting; Cuff Location: Left Arm; Cuff Size: Standard BP Diastolic 82 mm[Hg] Comments: Patient Position: Sitting; Cuff Location: Left Arm; Cuff Size: Standard :23 Temperature 98.2 f Comments: Method: Oral Pulse 64 /min Comments: Pattern: Regular Respiration Rate 20 /min Comments: Pattern: Unlabored BP Systolic 142 mm[Hg] Comments: Patient Position: Sitting; Cuff Location: Left Arm; Cuff Size: Large BP Diastolic 90 mm[Hg] Comments: Patient Position: Sitting; Cuff Location: Left Arm; Cuff Size: Large Weight 244.25 lb Height 65 in Body Mass Index Calculated 40.64 kg/m2 Body Surface Area Calculated 2.15 m2 :23 Pulse 60 /min Comments: Pattern: Regular Respiration Rate 18 /min Comments: Pattern: Unlabored BP Systolic 150 mm[Hg] Comments: Patient Position: Sitting; Cuff Location: Left Arm; Cuff Size: Large BP Diastolic 108 mm[Hg] Comments: Patient Position: Sitting; Cuff Location: Left Arm; Cuff Size: Large Weight 224.375 lb Height 65 in Body Mass Index Calculated 37.34 kg/m2 Body Surface Area Calculated 2.08 m2 :46 Temperature 98.3 f Comments: Method: Oral Pulse 64 /min Comments: Pattern: Regular Respiration Rate 20 /min Comments: Pattern: Unlabored BP Systolic 138 mm[Hg] Comments: Patient Position: Sitting; Cuff Location: Left Arm; Cuff Size: Large BP Diastolic 90 mm[Hg] Comments: Patient Position: Sitting; Cuff Location: Left Arm; Cuff Size: Large Weight 224.375 lb Height 65 in Body Mass Index Calculated 37.34 kg/m2 Body Surface Area Calculated 2.08 m2 :56 Pulse 72 /min Comments: Pattern: Regular Respiration Rate 20 /min Comments: Pattern: Unlabored BP Systolic 122 mm[Hg] Comments: Patient Position: Sitting; Cuff Location: Left Arm; Cuff Size: Large BP Diastolic 80 mm[Hg] Comments: Patient Position: Sitting; Cuff Location: Left Arm; Cuff Size: Large Weight 224.375 lb Height 65 in Body Mass Index Calculated 37.34 kg/m2 Body Surface Area Calculated 2.08 m2 :31 Temperature 98.7 f Comments: Method: Oral Pulse 72 /min Comments: Pattern: Regular Respiration Rate 20 /min Comments: Pattern: Unlabored BP Systolic 128 mm[Hg] Comments: Patient Position: Sitting; Cuff Location: Left Arm; Cuff Size: Large BP Diastolic 70 mm[Hg] Comments: Patient Position: Sitting; Cuff Location: Left Arm; Cuff Size: Large Weight 224.375 lb Height 65 in Body Mass Index Calculated 37.34 kg/m2 Body Surface Area Calculated 2.08 m2 :00 Pulse 68 /min Comments: Pattern: Regular Respiration Rate 20 /min Comments: Pattern: Unlabored BP Systolic 128 mm[Hg] Comments: Patient Position: Sitting; Cuff Location: Left Arm; Cuff Size: Large BP Diastolic 80 mm[Hg] Comments: Patient Position: Sitting; Cuff Location: Left Arm; Cuff Size: Large Weight 227.1875 lb Height 65 in Body Mass Index Calculated 37.81 kg/m2 Body Surface Area Calculated 2.09 m2 :48 Pulse 72 /min Comments: Pattern: Regular Respiration Rate 20 /min Comments: Pattern: Unlabored BP Systolic 118 mm[Hg] Comments: Patient Position: Sitting; Cuff Location: Left Arm; Cuff Size: Large BP Diastolic 62 mm[Hg] Comments: Patient Position: Sitting; Cuff Location: Left Arm; Cuff Size: Large Weight 214 lb :02 Temperature 98.5 f Comments: Method: Oral Pulse 62 /min Comments: Pattern: Regular Respiration Rate 18 /min Comments: Pattern: Unlabored BP Systolic 108 mm[Hg] Comments: Patient Position: Sitting; Cuff Location: Left Arm; Cuff Size: Standard BP Diastolic 68 mm[Hg] Comments: Patient Position: Sitting; Cuff Location: Left Arm; Cuff Size: Standard Weight 214 lb :40 Temperature 97.8 f Comments: Method: Oral Pulse 64 /min Comments: Pattern: Regular Respiration Rate 20 /min Comments: Pattern: Unlabored BP Systolic 122 mm[Hg] Comments: Patient Position: Sitting; Cuff Location: Left Arm; Cuff Size: Large BP Diastolic 78 mm[Hg] Comments: Patient Position: Sitting; Cuff Location: Left Arm; Cuff Size: Large Weight 189 lb Height 65.5 in Body Mass Index Calculated 30.97 kg/m2 Body Surface Area Calculated 1.94 m2 :58 Pulse 72 /min Comments: Pattern: Regular Respiration Rate 20 /min Comments: Pattern: Unlabored BP Systolic 122 mm[Hg] Comments: Patient Position: Sitting; Cuff Location: Left Arm; Cuff Size: Large BP Diastolic 78 mm[Hg] Comments: Patient Position: Sitting; Cuff Location: Left Arm; Cuff Size: Large Weight 189 lb Height 65.5 in Body Mass Index Calculated 30.97 kg/m2 Body Surface Area Calculated 1.94 m2 Head Circumference 0.00 cm :17 Temperature 98.3 f Comments: Method: Undefined Pulse 64 /min Comments: Pattern: Regular Respiration Rate 18 /min Comments: Pattern: Undefined O2 SAT 99 % Comments: Room air BP Systolic 118 mm[Hg] Comments: Patient Position: Sitting; Cuff Location: Left Arm; Cuff Size: Large BP Diastolic 80 mm[Hg] Comments: Patient Position: Sitting; Cuff Location: Left Arm; Cuff Size: Large Weight 0 lb Height 0 in Head Circumference 0.00 cm :21 Pulse 64 /min Comments: Pattern: Regular Respiration Rate 18 /min Comments: Pattern: Unlabored BP Systolic 132 mm[Hg] Comments: Patient Position: Sitting; Cuff Location: Left Arm; Cuff Size: Large BP Diastolic 80 mm[Hg] Comments: Patient Position: Sitting; Cuff Location: Left Arm; Cuff Size: Large Weight 189 lb Height 65.5 in Body Mass Index Calculated 30.97 kg/m2 Body Surface Area Calculated 1.94 m2 Head Circumference 0.00 cm :44 Pulse 68 /min Comments: Pattern: Regular Respiration Rate 20 /min Comments: Pattern: Unlabored BP Systolic 122 mm[Hg] Comments: Patient Position: Sitting; Cuff Location: Left Arm; Cuff Size: Large BP Diastolic 82 mm[Hg] Comments: Patient Position: Sitting; Cuff Location: Left Arm; Cuff Size: Large Weight 189 lb Height 65.5 in Body Mass Index Calculated 30.97 kg/m2 Body Surface Area Calculated 1.94 m2 Head Circumference 0.00 cm :28 Temperature 98.5 f Comments: Method: Oral Pulse 60 /min Comments: Pattern: Regular Respiration Rate 20 /min Comments: Pattern: Unlabored BP Systolic 122 mm[Hg] Comments: Patient Position: Sitting; Cuff Location: Left Arm; Cuff Size: Standard BP Diastolic 80 mm[Hg] Comments: Patient Position: Sitting; Cuff Location: Left Arm; Cuff Size: Standard Weight 165.1875 lb Height 65.5 in Body Mass Index Calculated 27.07 kg/m2 Body Surface Area Calculated 1.83 m2 Head Circumference 0.00 cm :16 Temperature 97.6 f Comments: Method: Oral Pulse 74 /min Comments: Pattern: Regular Respiration Rate 18 /min Comments: Pattern: Unlabored BP Systolic 116 mm[Hg] Comments: Patient Position: Sitting; Cuff Location: Left Arm; Cuff Size: Standard BP Diastolic 78 mm[Hg] Comments: Patient Position: Sitting; Cuff Location: Left Arm; Cuff Size: Standard Weight 0 lb Height 0 in Head Circumference 0.00 cm :24 Pulse 60 /min Comments: Pattern: Regular Respiration Rate 16 /min Comments: Pattern: Unlabored BP Systolic 110 mm[Hg] Comments: Patient Position: Sitting; Cuff Location: Left Arm; Cuff Size: Standard BP Diastolic 60 mm[Hg] Comments: Patient Position: Sitting; Cuff Location: Left Arm; Cuff Size: Standard Weight 165.1875 lb Height 65.5 in Body Mass Index Calculated 27.07 kg/m2 Body Surface Area Calculated 1.83 m2 Head Circumference 0.00 cm :10 Pulse 72 /min Comments: Pattern: Regular Respiration Rate 16 /min Comments: Pattern: Unlabored BP Systolic 132 mm[Hg] Comments: Patient Position: Sitting; Cuff Location: Left Arm; Cuff Size: Standard BP Diastolic 76 mm[Hg] Comments: Patient Position: Sitting; Cuff Location: Left Arm; Cuff Size: Standard Weight 168.5625 lb Height 0 in Head Circumference 0.00 cm :46 Temperature 98 f Comments: Method: Oral Pulse 76 /min Comments: Pattern: Regular Respiration Rate 18 /min Comments: Pattern: Unlabored BP Systolic 120 mm[Hg] Comments: Patient Position: Sitting; Cuff Location: Right Arm; Cuff Size: Standard BP Diastolic 84 mm[Hg] Comments: Patient Position: Sitting; Cuff Location: Right Arm; Cuff Size: Standard Weight 181 lb Height 65.5 in Body Mass Index Calculated 29.66 kg/m2 Body Surface Area Calculated 1.91 m2 Head Circumference 0.00 cm :39 Temperature 98.3 f Comments: Method: Oral Pulse 64 /min Comments: Pattern: Regular Respiration Rate 16 /min Comments: Pattern: Unlabored BP Systolic 122 mm[Hg] Comments: Patient Position: Sitting; Cuff Location: Right Arm; Cuff Size: Standard BP Diastolic 82 mm[Hg] Comments: Patient Position: Sitting; Cuff Location: Right Arm; Cuff Size: Standard Weight 185 lb Height 65 in Body Mass Index Calculated 30.79 kg/m2 Body Surface Area Calculated 1.91 m2 Head Circumference 0.00 cm :47 Temperature 98 f Comments: Method: Oral Pulse 60 /min Comments: Pattern: Regular Respiration Rate 14 /min Comments: Pattern: Unlabored BP Systolic 128 mm[Hg] Comments: Patient Position: Sitting; Cuff Location: Left Arm; Cuff Size: Standard BP Diastolic 76 mm[Hg] Comments: Patient Position: Sitting; Cuff Location: Left Arm; Cuff Size: Standard Weight 198 lb Height 65 in Body Mass Index Calculated 32.95 kg/m2 Body Surface Area Calculated 1.97 m2 Head Circumference 0.00 cm :32 Temperature 97.7 f Comments: Method: Oral Pulse 68 /min Comments: Pattern: Regular Respiration Rate 16 /min Comments: Pattern: Unlabored BP Systolic 122 mm[Hg] Comments: Patient Position: Sitting; Cuff Location: Left Arm; Cuff Size: Standard BP Diastolic 78 mm[Hg] Comments: Patient Position: Sitting; Cuff Location: Left Arm; Cuff Size: Standard Weight 211.5625 lb Height 0 in Head Circumference 0.00 cm :38 Temperature 98 f Comments: Method: Oral Pulse 66 /min Comments: Pattern: Regular Respiration Rate 17 /min Comments: Pattern: Unlabored BP Systolic 120 mm[Hg] Comments: Patient Position: Sitting; Cuff Location: Left Arm; Cuff Size: Standard BP Diastolic 78 mm[Hg] Comments: Patient Position: Sitting; Cuff Location: Left Arm; Cuff Size: Standard Weight 217.0625 lb Height 0 in Head Circumference 0.00 cm :18 Temperature 98.4 f Comments: Method: Oral Pulse 64 /min Comments: Pattern: Regular Respiration Rate 17 /min Comments: Pattern: Unlabored BP Systolic 118 mm[Hg] Comments: Patient Position: Sitting; Cuff Location: Left Arm; Cuff Size: Standard BP Diastolic 74 mm[Hg] Comments: Patient Position: Sitting; Cuff Location: Left Arm; Cuff Size: Standard Weight 227.125 lb Height 0 in Head Circumference 0.00 cm :47 Temperature 98.3 f Comments: Method: Undefined Pulse 64 /min Comments: Pattern: Regular Respiration Rate 16 /min Comments: Pattern: Undefined BP Systolic 122 mm[Hg] Comments: Patient Position: Sitting; Cuff Location: Left Arm; Cuff Size: Standard BP Diastolic 74 mm[Hg] Comments: Patient Position: Sitting; Cuff Location: Left Arm; Cuff Size: Standard Weight 238 lb Height 0 in Head Circumference 0.00 cm :29 Temperature 97.7 f Comments: Method: Oral Pulse 60 /min Comments: Pattern: Regular Respiration Rate 17 /min Comments: Pattern: Unlabored BP Systolic 118 mm[Hg] Comments: Patient Position: Sitting; Cuff Location: Left Arm; Cuff Size: Standard BP Diastolic 82 mm[Hg] Comments: Patient Position: Sitting; Cuff Location: Left Arm; Cuff Size: Standard Weight 236.125 lb Height 65 in Body Mass Index Calculated 39.29 kg/m2 Body Surface Area Calculated 2.12 m2 Head Circumference 0.00 cm [id number] Temperature 98.4 f Comments: Method: Oral Pulse 68 /min Comments: Pattern: Regular Respiration Rate 18 /min Comments: Pattern: Undefined BP Systolic 108 mm[Hg] Comments: Patient Position: Sitting; Cuff Location: Left Arm; Cuff Size: Standard BP Diastolic 74 mm[Hg] Comments: Patient Position: Sitting; Cuff Location: Left Arm; Cuff Size: Standard Weight 237 lb Height 65 in Body Mass Index Calculated 39.44 kg/m2 Body Surface Area Calculated 2.13 m2 Head Circumference 0.00 cm Results Date Description Value Details :33 DHEA Sulfate Comments: Has Patient had Radioactive Injection for X-ray?: [facility] (refer to report for specific site)refer to report for address and phone number DHEA SULF 4020 226.9 ug/dL (Normal) Range: 41.2-243.7 :33 Estradiol Comments: [facility] [id number] [place], [address] ESTRADIOL 43.5 pg/mL (Normal) Comments: NORMAL REFERENCE RANGES FEMALE FOLLICULAR 21.4 - 164.8 pg/mL MID-CYCLE PEAK 49.9 - 367.2 pg/mL LUTEAL 40.2 - 259.0 pg/mL POST-MENOPAUSAL ON MHT <11.0 - 462.1 pg/mL NOT ON MHT <11.0 - 58.3 pg/mL MALE <11.0 - 52 .5 pg/mLNOTE:[facility] HAS CONFIRMED THE DRUG FULVETRANT (FASLODEX) MAYCAUSE FALSELY ELEVATED ESTRADIOL RESULTS WHEN USING THISTEST METHOD. IF PATIENT IS TAKING FULVESTRANT AN ALTERNATIVEMETHOD SHOULD BE USED TO DETERMINE ESTRADIOL CONCENTRATION. :33 Free T3 Comments: [facility] [address] [place], [address] FREE T3 4.7 pg/mL (Abnormal) Range: 2.18-3.98 :33 Progesterone Level Comments: [facility] [address] [place], [address] Progesterone 12.93 ng/mL (Normal) Comments: Progesterone Reference Table: UNITS Female: Follicular 0.15 - 1.40 ng/mL Luteal 3.34 - 25.56 ng/mL Mid-luteal 4.44 - 28.03 ng/mL Postmenopausal 0.0 - 0.73 ng/mL : 1st Trimester 11.22 - 90.00 ng /mL 2nd Trimester 25.55 - 89.40 ng/mL 3rd Trimester 48.40 -422.50 ng/mL 5-Ubx-099377:33 T4 Free Direct Comments: [facility] [address] [place], [address] T4 FREE DIRECT 0.70 ng/dL (Abnormal) Range: 0.76-1.46 5-Amt-123287:33 Testosterone, Serum Total Comments: [facility] [address] [place], [address] Testosterone 24.47 ng/dL (Normal) Comments: NORMAL REFERENCE RANGES MALE AGE <50 123.06 - 813.86 ng/dL MALE AGE >50 89.98 - 780.10 ng/dL FEMALE PREMENOPAUSE AGE 21 - 60 9.01 - 47.94 ng/dL FEMALE POSTMENOPAUSE AGE 45 - 89 <7.00 - 45.62 ng/dL REFERENCE RANGE AND METHODOLOGY CHANGED 03/13/201723-Nov-20179-Gut-276574:33 Thyroid Peroxidase AB Comments: Has Patient had Radioactive Injection for X-ray?: [facility] (refer to report for specific site)refer to report for address and phone number TPO AB 6678 56 {IU/mL} (Abnormal) Range: 0-34 Comments: Performed at: [facility] [address] [id number] Director: Deven Morris PhD, Phone: [phone] 1-Qvh-972427:33 Thyroid Stim Hormone (TSH) Comments: [facility] [address] [place], [address] TSH 0.77 {uIU/mL} (Normal) Range: 0.358-3.74 :01 Estradiol Comments: [facility] [address] [place], [place], [address] ESTRADIOL 66.1 pg/mL (Normal) Comments: NORMAL REFERENCE RANGES FEMALE FOLLICULAR 21.4 - 164.8 pg/mL MID-CYCLE PEAK 49.9 - 367.2 pg/mL LUTEAL 40.2 - 259.0 pg/mL POST-MENOPAUSAL ON MHT <11.0 - 462.1 pg/mL NOT ON MHT <11.0 - 58.3 pg/mL MALE <11.0 - 52 .5 pg/mLNOTE:[employer] HAS CONFIRMED THE DRUG FULVETRANT (FASLODEX) MAYCAUSE FALSELY ELEVATED ESTRADIOL RESULTS WHEN USING THISTEST METHOD. IF PATIENT IS TAKING FULVESTRANT AN ALTERNATIVEMETHOD SHOULD BE USED TO DETERMINE ESTRADIOL CONCENTRATION. :01 Free T3 Comments: [facility] [address] [place], [place], [id number] FREE T3 7.5 pg/mL (Abnormal) Range: 2.18-3.98 :01 Progesterone Level Comments: [address] [place], [place], [id number] Progesterone 25.74 ng/mL (Normal) Comments: Progesterone Reference Table: UNITS Female: Follicular 0.15 - 1.40 ng/mL Luteal 3.34 - 25.56 ng/mL Mid-luteal 4.44 - 28.03 ng/mL Postmenopausal 0.0 - 0.73 ng/mL : 1st Trimester 11.22 - 90.00 ng /mL 2nd Trimester 25.55 - 89.40 ng/mL 3rd Trimester 48.40 -422.50 ng/mL :01 T4 Free Direct Comments: [facility] [address] [place], [place], [address] T4 FREE DIRECT 1.02 ng/dL (Normal) Range: 0.76-1.46 :01 Testosterone, Serum Total Comments: [facility] [address] [place], [place], [address] Testosterone 22.30 ng/dL (Normal) Comments: NORMAL REFERENCE RANGES MALE AGE <50 123.06 - 813.86 ng/dL MALE AGE >50 89.98 - 780.10 ng/dL FEMALE PREMENOPAUSE AGE 21 - 60 9.01 - 47.94 ng/dL FEMALE POSTMENOPAUSE AGE 45 - 89 <7.00 - 45.62 ng/dL REFERENCE RANGE AND METHODOLOGY CHANGED 03/13/201729-Jul-20177:01 Thyroglobulin w/Anti-TG AB Comments: [facility] (refer to report for specific site)refer to report for address and phone number TG-SHARYN 2.9 ng/mL (Normal) Comments: Reference Range:Pubertal Childrenand Adults: <40According to the National Academy of Clinical Biochemistry,the reference interval for Thyroglobulin (TG) should berelated to euthyroid patients and not for patients whounderwent thyroidectomy. TG reference intervals for thesepatients depend on the residual mass of the thyroid tissueleft after surgery. Establishing a post-operative baselineis recomme nded. The assay quantitation limit is 2.0 ng/mL.Performed at: [facility] [address] [id number] Director: Deven Morris PhD, Phone: [phone] at: [facility] [address] [place] [address] [id number] Director: Jd Vernon MD, Phone: [phone] ANTI-TG AB 153.0 {IU/mL} (Abnormal) Range: 0.0-0.9 Comments: Thyroglobulin Antibody measured by Jass CoulterMethodology 29-Jul-20177:01 Thyroid Stim Hormone (TSH) Comments: [facility] [address] [place] [address], [address] TSH < 0.01 {uIU/mL} (Abnormal) Range: 0.358-3.74 66-Yjp-94675:19 CALCIFEDIOL (70189) Comments: PATIENT WAS FASTINGPERFORMED BY: [facility] [id number] Vitamin D, 25-Hydroxy 26.5 ng/mL (Abnormal) Range: 30.0-100.0 Comments: Vitamin D deficiency has been defined by the [place] ofMedicine and an Endocrine Society practice guideline as alevel of serum 25-OH vitamin D less than 20 ng/mL (1,2).The Endocrine Society went on to further define vitamin Dinsufficiency as a level between 21 and 29 ng/mL (2).1. IOM ([place] of Medicine). 2010. Dietary reference intakes for calcium and D. [place]: The National Academies Press.2. Yasemin MF, Coy CORNEJO, Edie BLACKWELL, et al. Evaluation, treatment, and prevention of vitamin D deficiency: an Endocrine Society clinical practice guideline. JCEM. 2010; 96(7):1911-30. 25-Tyw-71026:19 LIPID PANEL (85660) Comments: PATIENT WAS FASTINGPERFORMED BY: [facility] Oifqlv0231 [facility] [id number] LDL/HDL Ratio 2.1 {ratio_units} (Normal) Range: 0.0-3.2 Comments: LDL/HDL Ratio Men Women 1/2 Avg.Risk 1.0 1.5 Av g.Risk 3.6 3.2 2X Avg.Risk 6.2 5.0 3X Avg.Risk 8.0 6.1 LDL Cholesterol Calc 124 mg/dL (Abnormal) Range: 0-99 VLDL Cholesterol Ghulam 20 mg/dL (Normal) Range: 5-40 HDL Cholesterol 60 mg/dL (Normal) Triglycerides 99 mg/dL (Normal) Range: 0-149 Cholesterol, Total 204 mg/dL (Abnormal) Range: 100-199 79-Mmg-709863:29 Estradiol Comments: [facility] [address] [place], [address] ESTRADIOL 40.8 pg/mL (Normal) Comments: NORMAL REFERENCE RANGES FEMALE FOLLICULAR 21.4 - 164.8 pg/mL MID-CYCLE PEAK 49.9 - 367.2 pg/mL LUTEAL 40.2 - 259.0 pg/mL POST-MENOPAUSAL ON MHT <11.0 - 462.1 pg/mL NOT ON MHT <11.0 - 58.3 pg/mL MALE <11.0 - 52 .5 pg/mLNOTE:[employer] HAS CONFIRMED THE DRUG FULVETRANT (FASLODEX) MAYCAUSE FALSELY ELEVATED ESTRADIOL RESULTS WHEN USING THISTEST METHOD. IF PATIENT IS TAKING FULVESTRANT AN ALTERNATIVEMETHOD SHOULD BE USED TO DETERMINE ESTRADIOL CONCENTRATION. 53-Rzz-274742:29 Free T3 Comments: [facility] [address] [place], [address] FREE T3 4.3 pg/mL (Abnormal) Range: 2.18-3.98 57-Lyj-281651:29 Progesterone Level Comments: [facility] Cwejrsyxlv8[address] [place], [id number] Progesterone 11.02 ng/mL (Normal) Comments: Progesterone Reference Table: UNITS Female: Follicular 0.15 - 1.40 ng/mL Luteal 3.34 - 25.56 ng/mL Mid-luteal 4.44 - 28.03 ng/mL Postmenopausal 0.0 - 0.73 ng/mL : 1st Trimester 11.22 - 90.00 ng /mL 2nd Trimester 25.55 - 89.40 ng/mL 3rd Trimester 48.40 -422.50 ng/mL 94-Sua-384961:29 T4 Free Direct Comments: [facility] [address] [place], [address] T4 FREE DIRECT 0.80 ng/dL (Normal) Range: 0.76-1.46 42-Mxu-936422:29 Testosterone, Serum Total Comments: [facility] [address] [place], [id number] Testosterone 21.72 ng/dL (Normal) Comments: NORMAL REFERENCE RANGES MALE AGE <50 123.06 - 813.86 ng/dL MALE AGE >50 89.98 - 780.10 ng/dL FEMALE PREMENOPAUSE AGE 21 - 60 9.01 - 47.94 ng/dL FEMALE POSTMENOPAUSE AGE 45 - 89 <7.00 - 45.62 ng/dL REFERENCE RANGE AND METHODOLOGY CHANGED 03/13/201719-Mar-201709-Yss-339187:29 Thyroid Stim Hormone (TSH) Comments: [facility] [address] [place], [address] TSH 0.64 {uIU/mL} (Normal) Range: 0.358-3.74 79-Ygb-50468:51 Estradiol Comments: Has Patient had X-rays with Contrast this admission? [facility] [address] [place], [id number] ESTRADIOL 36.1 pg/mL (Normal) Comments: NORMAL REFERENCE RANGES FEMALE FOLLICULAR 21.4 - 164.8 pg/mL MID-CYCLE PEAK 49.9 - 367.2 pg/mL LUTEAL 40.2 - 259.0 pg/mL POST-MENOPAUSAL ON MHT <11.0 - 462.1 pg/mL NOT ON MHT <11.0 - 58.3 pg/mL MALE <11.0 - 52 .5 pg/mLNOTE:SIEMENS HAS CONFIRMED THE DRUG FULVETRANT (FASLODEX) MAYCAUSE FALSELY ELEVATED ESTRADIOL RESULTS WHEN USING THISTEST METHOD. IF PATIENT IS TAKING FULVESTRANT AN ALTERNATIVEMETHOD SHOULD BE USED TO DETERMINE ESTRADIOL CONCENTRATION. :51 Free T3 Comments: Has Patient had X-rays with Contrast this admission? [facility] [address] [place], [place], [phone] FREE T3 5.8 pg/mL (Abnormal) Range: 2.18-3.98 :51 Progesterone Level Comments: [facility] [address] [place], [address] Progesterone 19.85 ng/mL (Normal) Comments: Progesterone Reference Table: UNITS Female: Follicular 0.15 - 1.40 ng/mL Luteal 3.34 - 25.56 ng/mL Mid-luteal 4.44 - 28.03 ng/mL Postmenopausal 0.0 - 0.73 ng/mL : 1st Trimester 11.22 - 90.00 ng /mL 2nd Trimester 25.55 - 89.40 ng/mL 3rd Trimester 48.40 -422.50 ng/mL :51 T4 Free Direct Comments: Has Patient had X-rays with Contrast this admission? [facility] [address] [place], [place], [address] T4 FREE DIRECT 0.99 ng/dL (Normal) Range: 0.76-1.46 :51 Testosterone, Serum Total Comments: [facility] [address] [place], [place], [address] Testosterone 51 ng/dL (Normal) Range: 14-76 :51 Thyroid Stim Hormone (TSH) Comments: Has Patient had X-rays with Contrast this admission? [facility] [address] [place], [address] TSH 0.26 {uIU/mL} (Abnormal) Range: 0.358-3.74 34-Nvz-996305:04 Estradiol Comments: [facility] [address] [place], [address] ESTRADIOL 52.8 pg/mL (Normal) Comments: NORMAL REFERENCE RANGES FEMALE FOLLICULAR 21.4 - 164.8 pg/mL MID-CYCLE PEAK 49.9 - 367.2 pg/mL LUTEAL 40.2 - 259.0 pg/mL POST-MENOPAUSAL ON MHT <11.0 - 462.1 pg/mL NOT ON MHT <11.0 - 58.3 pg/mL MALE <11.0 - 52 .5 pg/mLNOTE:SIEMENS HAS CONFIRMED THE DRUG FULVETRANT (FASLODEX) MAYCAUSE FALSELY ELEVATED ESTRADIOL RESULTS WHEN USING THISTEST METHOD. IF PATIENT IS TAKING FULVESTRANT AN ALTERNATIVEMETHOD SHOULD BE USED TO DETERMINE ESTRADIOL CONCENTRATION. :04 Free T3 Comments: [facility] [address] [place], [address] FREE T3 2.4 pg/mL (Normal) Range: 2.18-3.98 :04 T4 Free Direct Comments: [facility] [address] [place], [address] T4 FREE DIRECT 0.80 ng/dL (Normal) Range: 0.76-1.46 38-Aof-204629:04 Testosterone, Serum Total Comments: [facility] [address] [place], [address] Testosterone 45 ng/dL (Normal) Range: 14-76 74-Aei-629335:04 Thyroid Stim Hormone (TSH) Comments: [facility] V[address] [place], [address] TSH 0.38 {uIU/mL} (Normal) Range: 0.358-3.74 :24 Estradiol Comments: [facility] [address] [place], [place], [address] ESTRADIOL 103.1 pg/mL (Normal) Comments: NORMAL REFERENCE RANGES FEMALE FOLLICULAR 21.4 - 164.8 pg/mL MID-CYCLE PEAK 49.9 - 367.2 pg/mL LUTEAL 40.2 - 259.0 pg/mL POST-MENOPAUSAL ON MHT <11.0 - 462.1 pg/mL NOT ON MHT <11.0 - 58.3 pg/mL MALE <11.0 - 52 .5 pg/mLNOTE:SIEMENS HAS CONFIRMED THE DRUG FULVETRANT (FASLODEX) MAYCAUSE FALSELY ELEVATED ESTRADIOL RESULTS WHEN USING THISTEST METHOD. IF PATIENT IS TAKING FULVESTRANT AN ALTERNATIVEMETHOD SHOULD BE USED TO DETERMINE ESTRADIOL CONCENTRATION. :24 Free T3 Comments: [address], [phone] FREE T3 5.7 pg/mL (Abnormal) Range: 2.18-3.98 :24 Progesterone Level Comments: [address], [id number] Progesterone 34.71 ng/mL (Normal) Comments: Progesterone Reference Table: UNITS Female: Follicular 0.15 - 1.40 ng/mL Luteal 3.34 - 25.56 ng/mL Mid-luteal 4.44 - 28.03 ng/mL Postmenopausal 0.0 - 0.73 ng/mL : 1st Trimester 11.22 - 90.00 ng /mL 2nd Trimester 25.55 - 89.40 ng/mL 3rd Trimester 48.40 -422.50 ng/mL :24 T4 Free Direct Comments: [facility] [address] [place] [address], [id number] T4 FREE DIRECT 0.88 ng/dL (Normal) Range: 0.76-1.46 :24 Thyroid Stim Hormone (TSH) Comments: [address] [place], [place], [address] TSH 0.67 {uIU/mL} (Normal) Range: 0.358-3.74 :56 DHEA Sulfate Comments: Has Patient had X-rays with Contrast this admission? NHas Patient had Radioactive Injection for X-ray?: [facility] (refer to report for specific site)refer to report for address and phone number DHEA SULF 4020 209.1 ug/dL (Normal) Range: 41.2-243.7 :56 Estrogen, Total, Serum Comments: Has Patient had X-rays with Contrast this admission? NHas Patient had Radioactive Injection for X-ray?: [facility] (refer to report for specific site)refer to report for address and phone number ESTROGEN 4549 78 pg/mL (Normal) Comments: Prepubertal <40 Female Cycle: 1-10 Days 61 - 394 11-20 Days 122 - 437 21-30 Days 156 - 350 Post-Menopausal <40 HMG Treatment for Ovulation Induction: 400 - 800Performed at: [facility] [id number] Director: Deven Morris PhD, Phone: [phone] at: [facility] [address] [id number] Director: David Pfeiffer MD, Phone: [phone] :56 Follicle Stimulating Hormone Comments: [facility] [address] [place], [address] FSH 5.5 m[iU]/mL (Normal) Comments: NORMAL REFERENCE RANGES FEMALE FOLLICULAR 2.3 - 12.6 mIU/mL MID-CYCLE PEAK 5.2 - 17.5 mIU/mL LUTEAL 1.7 - 12.9 mIU/mL POST-MENOPAUSAL ON MHT 5.9 - 72.8 mIU/mL NOT ON MHT 12.7 - 132.2 mlU/mL MALE 0.7 - 10.8 mIU/mLNEW TEST METHOD AND REFERENCE RANGES AUGUST 13, 2011:56 Progesterone Level Comments: [facility] [address] [place], [address] Progesterone 12.02 ng/mL (Normal) Comments: Progesterone Reference Table: UNITS Female: Follicular 0.15 - 1.40 ng/mL Luteal 3.34 - 25.56 ng/mL Mid-luteal 4.44 - 28.03 ng/mL Postmenopausal 0.0 - 0.73 ng/mL : 1st Trimester 11.22 - 90.00 ng /mL 2nd Trimester 25.55 - 89.40 ng/mL 3rd Trimester 48.40 -422.50 ng/mL 83-Ctr-185097:56 T3 Total - Triiodothyronine Comments: [facility] [address] [place], [place], [address] T3 Total 1.25 ng/mL (Normal) Range: 0.6-1.81 :56 T4 Total, Thyroxin Comments: [facility] [address] [place], [address] T4 THYROXIN 5.9 ug/dL (Normal) Range: 4.8-13.9 :56 Testosterone, Total / Free Comments: Has Patient had X-rays with Contrast this admission? NHas Patient had Radioactive Injection for X-ray?: [facility] (refer to report for specific site)refer to report for address and phone number TESTOSTER %FREE 2.16 % (Normal) Range: 0.50-2.80 TESTOSTER,FREE 0.39 ng/dL (Normal) Range: 0.10-0.85 COMMENT Test not performed (Normal) TESTOSTER,TOTAL 18 ng/dL (Normal) Range: 8-48 :56 Thyroid Stim Hormone (TSH) Comments: [facility] [address] [place], [place], [address] TSH 4.19 {uIU/mL} (Abnormal) Range: 0.358-3.74 49-Agy-83933:59 CALCIFIDIOL (70668) VIT D 25 Comments: PATIENT WAS FASTINGPERFORMED BY: [facility]vafpf4702 [facility] [id number] Vitamin D, 25-Hydroxy 31.8 ng/mL (Normal) Range: 30.0-100.0 Comments: Vitamin D deficiency has been defined by the [place] ofMedicine and an Endocrine Society practice guideline as alevel of serum 25-OH vitamin D less than 20 ng/mL (1,2).The Endocrine Society went on to further define vitamin Dinsufficiency as a level between 21 and 29 ng/mL (2).1. IOM ([place] of Medicine). 2010. Dietary reference intakes for calcium and D. [place]: The National Academies Press.2. Yasemin MF, Coy CORNEJO, Edie BLACKWELL, et al. Evaluation, treatment, and prevention of vitamin D deficiency: an Endocrine Society clinical practice guideline. JCEM. 2010; 96(7):1911-30. 25-Nmt-59422:59 LIPID PANEL (46956) Comments: PATIENT WAS FASTINGPERFORMED BY: [facility] [id number] Information: [id number] LDL/HDL Ratio 2.5 {ratio_units} (Normal) Range: 0.0-3.2 Comments: LDL/HDL Ratio Men Women 1/2 Avg.Risk 1.0 1.5 Av g.Risk 3.6 3.2 2X Avg.Risk 6.2 5.0 3X Avg.Risk 8.0 6.1 LDL Cholesterol Calc 153 mg/dL (Abnormal) Range: 0-99 Comments: Please note reference interval change VLDL Cholesterol Ghulam 22 mg/dL (Normal) Range: 5-40 HDL Cholesterol 61 mg/dL (Normal) Comments: According to ATP-III Guidelines, HDL-C >59 mg/dL is considered anegative risk factor for CHD. Triglycerides 109 mg/dL (Normal) Range: 0-149 Comments: Please note reference interval change Cholesterol, Total 236 mg/dL (Abnormal) Range: 100-199 Comments: Please note reference interval change 59-Qbm-243707:20 DHEA Sulfate Comments: Has Patient had Radioactive Injection for X-ray?: [facility] (refer to report for specific site)refer to report for address and phone number DHEA SULF 4020 227.4 ug/dL (Normal) Range: 57.3-279.2 Comments: Performed at: [facility] [id number] Director: Deven Morris PhD, Phone: [phone] 04-Uxd-936825:20 Estradiol Comments: [facility] [address] [place], [address] ESTRADIOL 48.0 pg/mL (Normal) Comments: NORMAL REFERENCE RANGES FEMALE FOLLICULAR 21.4 - 164.8 pg/mL MID-CYCLE PEAK 49.9 - 367.2 pg/mL LUTEAL 40.2 - 259.0 pg/mL POST-MENOPAUSAL ON MHT <11.0 - 462.1 pg/mL NOT ON MHT <11.0 - 58.3 pg/mL MALE <11.0 - 52 .5 pg/mLNEW TEST METHOD AND REFERENCE RANGE AUGUST 13, 201108-Jan-201593-Qpy-314980:20 Progesterone Level Comments: [facility] [address] [place], [address] Progesterone 22.89 ng/mL (Normal) Comments: Progesterone Reference Table: UNITS Female: Follicular 0.15 - 1.40 ng/mL Luteal 3.34 - 25.56 ng/mL Mid-luteal 4.44 - 28.03 ng/mL Postmenopausal 0.0 - 0.73 ng/mL : 1st Trimester 11.22 - 90.00 ng /mL 2nd Trimester 25.55 - 89.40 ng/mL 3rd Trimester 48.40 -422.50 ng/mL 44-Jtq-448723:20 T3 Total - Triiodothyronine Comments: [address], [address] T3 Total 1.61 ng/mL (Normal) Range: 0.6-1.81 5-Tao-541600:58 DHEA Sulfate Comments: Has pt arrived? YHas Patient had Radioactive Injection for X-ray?: NTest performed at:[facility] Frrybaqarz3559 [facility] [place], [place] [id number] DHEA SULF 4020 216.0 ug/dL (Normal) Range: 57.3-279.2 Comments: Performed at: [facility] [address] [id number] Director: Pasquale Hutton PhD, Phone: [phone] 8-Jrp-617131:58 Estradiol Comments: Has pt arrived? YTest performed at:[facility] [address] [place] [address] ESTRADIOL 71.1 pg/mL (Normal) Comments: NORMAL REFERENCE RANGES FEMALE FOLLICULAR 21.4 - 164.8 pg/mL MID-CYCLE PEAK 49.9 - 367.2 pg/mL LUTEAL 40.2 - 259.0 pg/mL POST-MENOPAUSAL ON MHT <11.0 - 462.1 pg/mL NOT ON MHT <11.0 - 58.3 pg/mL MALE <11.0 - 52 .5 pg/mLNEW TEST METHOD AND REFERENCE RANGE AUGUST 13, 201101-Apr-20142-Ano-407246:58 Free T3 Comments: Has pt arrived? YTest performed at:[facility] [address] [place] [address] FREE T3 2.8 pg/mL (Normal) Range: 2.18-3.98 13-Vdm-946695:25 DDIMQ < 0.27 {FEU/ug/m} (Abnormal) Range: 0.27-0.49 Comments: NORMAL D-Dimer level (<0.50) indicates no DVT or PE. 52-Fjt-66906:20 Urinalysis, Office (17687) UA - LEUKOCYTE ESTERASE Negative (Normal) UA - NITRITE Negative (Normal) URINE UROBILINGN WIN TIMED Normal mg/dL (Normal) UA - PROTEIN Negative mg/dL (Normal) UA - PH 7.5 (Normal) UA - BLOOD Negative (Normal) UA - SPECIFIC GRAVITY 1.020 (Normal) UA - KETONES Negative mg/dL (Normal) UA - BILIRUBIN Negative (Normal) UA - GLUCOSE Negative (Normal) 08-Olz-892862:29 Urine Culture,Comprehensive Comments: PATIENT NOT FASTINGPERFORMED BY: [facility] [id number] Information: [id number] Result 1 MUG (Normal) Comments: Mixed urogenital flora25,000-50,000 colony forming units per mL Urine Final report (Normal) Culture,Comprehensive 64-Jbk-185139:03 Rapid Strep Test, Office (12713) Rapid Strep Test, Office Negative (Normal) 25-Dec-20128:08 CALCIFIDIOL (97933) VIT D Comments: PATIENT WAS FASTINGPERFORMED BY: [facility] Jygnri6624 [facility] [id number] BY: [address] [id number] Vitamin D, 25-Hydroxy 23.8 ng/mL (Abnormal) Range: 30.0-100.0 Comments: Vitamin D deficiency has been defined by the [place] ofMedicine and an Endocrine Society practice guideline as alevel of serum 25-OH vitamin D less than 20 ng/mL (1,2).The Endocrine Society went on to further define vitamin Dinsufficiency as a level between 21 and 29 ng/mL (2).1. IOM ([place] of [employer]). 2010. Dietary reference intakes for calcium and D. [place]: The National Academies Press.2. Yasemin MF, Coy [place], Edie BLACKWELL, et al. Evaluation, treatment, and prevention of vitamin D deficiency: an Endocrine Society clinical practice guideline. JCEM. 2010; 96(7):1911-30. :08 Folate (30303) Comments: PATIENT WAS FASTINGPERFORMED BY: [employer] [facility] [id number] BY: [facility] [id number] Folate (Folic Acid), Serum 15.2 ng/mL (Normal) Comments: A serum folate concentration of less than 3.1 ng/mL isconsidered to represent clinical deficiency. 25-Dec-20128:08 VITAMIN B-12 (CYANOCOBALAMIN) Comments: PATIENT WAS FASTINGPERFORMED BY: [employer] Ysamuu7824 [facility] [id number] BY: [facility] [id number] (92348) Vitamin B12 499 pg/mL (Normal) Range: 211-946 :08 SED RATE ERYTHROCYTE Comments: PATIENT WAS FASTINGPERFORMED BY: [employer] [facility] [id number] BY: [facility] [id number] (20062) Sedimentation Rate-Westergren 11 mm/h (Normal) Range: 0-32 25-Dec-20128:08 RHEUMATOID FACTOR-QUANT Comments: PATIENT WAS FASTINGPERFORMED BY: [facility]6370 [facility] [id number] BY: [address] [id number] ([address]) RA Latex Turbid. 8.5 {IU/mL} (Normal) Range: 0.0-13.9 :08 METABOLIC PANEL, Comments: PATIENT WAS FASTINGPERFORMED BY: [facility]otherapySaint [facility] HospitalYkklsr3049 [facility] [id number] BY: [place]Der[place] [address] [facility] [id number] Inf ormation: [id number] COMPREHENSIVE (57886) ALT (SGPT) 19 [iU]/L (Normal) Range: 0-32 AST (SGOT) 15 [iU]/L (Normal) Range: 0-40 Alkaline Phosphatase, S 109 [iU]/L (Abnormal) Range: 42-107 Bilirubin, Total 0.8 mg/dL (Normal) Range: 0.0-1.2 A/G Ratio 1.7 (Normal) Range: 1.1-2.5 Globulin, Total 2.5 g/dL (Normal) Range: 1.5-4.5 Albumin, Serum 4.2 g/dL (Normal) Range: 3.5-5.5 Protein, Total, Serum 6.7 g/dL (Normal) Range: 6.0-8.5 Calcium, Serum 9.3 mg/dL (Normal) Range: 8.7-10.2 Carbon Dioxide, Total 22 mmol/L (Normal) Range: 19-28 Chloride, Serum 102 mmol/L (Normal) Range: 97-108 Potassium, Serum 4.2 mmol/L (Normal) Range: 3.5-5.2 Sodium, Serum 140 mmol/L (Normal) Range: 134-144 BUN/Creatinine Ratio 20 (Normal) Range: 9-23 eGFR If Africn Am 127 mL/min/1.73 (Normal) eGFR If NonAfricn Am 110 mL/min/1.73 (Normal) Creatinine, Serum 0.65 mg/dL (Normal) Range: 0.57-1.00 BUN 13 mg/dL (Normal) Range: 6-24 Glucose, Serum 89 mg/dL (Normal) Range: 65-99 25-Dec-20128:08 C-REACTIVE PROTEIN (83452) Comments: PATIENT WAS FASTINGPERFORMED BY: Advanced OncotherapySaint Peter's University HospitalOkpqjj9078 [facility] [id number] BY: [address] [id number] C-Reactive Protein, Quant 9.7 mg/L (Abnormal) Range: 0.0-4.9 :08 CBC (AUTO) (05567) Comments: PATIENT WAS FASTINGPERFORMED BY: Advanced OncotherapyDzilth-Na-O-Dith-Hle Health CenterJysteu2743 [facility] [id number] BY: [address] [id number] Platelets 186 {x10E3/uL} (Normal) Range: 155-379 RDW 13.4 % (Normal) Range: 12.3-15.4 MCHC 32.4 g/dL (Normal) Range: 31.5-35.7 MCH 27.7 pg (Normal) Range: 26.6-33.0 MCV 85 fL (Normal) Range: 79-97 Hematocrit 43.8 % (Normal) Range: 34.0-46.6 Hemoglobin 14.2 g/dL (Normal) Range: 11.1-15.9 RBC 5.13 {x10E6/uL} (Normal) Range: 3.77-5.28 WBC 6.7 {x10E3/uL} (Normal) Range: 3.4-10.8 25-Dec-20128:08 SUZAN (ANTINUCLEAR ANTIBODY) Comments: PATIENT WAS FASTINGPERFORMED BY: [facility] OncotherapySaint Peter's University HospitalYwbxms2250 [facility] [id number] BY: [address] [id number] (93776) SUZAN Direct Negative (Normal) :08 T3, FREE (TRIDOTHYRONINE) Comments: PATIENT WAS FASTINGPERFORMED BY: [facility] OncotherapySaint Peter's University HospitalVsiett0482 [facility] [id number] BY: [address] [id number] ([id number]) Triiodothyronine,Free,Serum 2.9 pg/mL (Normal) Range: 2.0-4.4 :08 T4, FREE (THYROXINE) Comments: PATIENT WAS FASTINGPERFORMED BY: [address] [id number] BY: [address] [id number] (20606) T4,Free(Direct) 1.13 ng/dL (Normal) Range: 0.82-1.77 :08 TSH (43461) Comments: PATIENT WAS FASTINGPERFORMED BY: [address] [id number] BY: [address] [id number] TSH 0.777 {uIU/mL} (Normal) Range: 0.450-4.500 25-Dec-20128:08 REVERSE TRIDOTHYRONINE Comments: PATIENT WAS FASTINGPERFORMED BY: [address] [id number] BY: [address] [id number] (67176) Reverse T3, Serum 17.6 ng/dL (Normal) Range: 9.2-24.1 08-Pjs-194490:08 Hemoglobin Glyclated (HGB A1C) Comments: PATIENT NOT FASTINGPERFORMED BY: [address] [id number] (49663) Hemoglobin A1c 5.0 % (Normal) Range: 4.8-5.6 Comments: . Increased risk for diabetes: 5.7 - 6.4 Diabetes: >6.4 Glycemic control for adults with diabetes: <7.0 :08 LIPID PANEL (29467) Comments: PATIENT NOT FASTINGPERFORMED BY: [address] [id number] Information: [id number] LDL/HDL Ratio 2.2 {ratio_units} (Normal) Range: 0.0-3.2 LDL Cholesterol Calc 114 mg/dL (Abnormal) Range: 0-99 HDL Cholesterol 53 mg/dL (Normal) Comments: According to ATP-III Guidelines, HDL-C >59 mg/dL is considered anegative risk factor for CHD. VLDL Cholesterol Ghulam 16 mg/dL (Normal) Range: 5-40 Triglycerides 78 mg/dL (Normal) Range: 0-149 Cholesterol, Total 183 mg/dL (Normal) Range: 100-199 31-Yyg-345148:03 Microscopic Examination Comments: PATIENT NOT FASTINGPERFORMED BY: Advanced OncotherapyRichard Ville [id number] [facility] [id number] Bacteria Few (Normal) Mucus Threads Present (Normal) Epithelial Cells (non renal) 0-10 {/hpf} (Normal) Range: 0 - 10 RBC None seen {/hpf} (Normal) Range: 0 - 3 WBC 0-5 {/hpf} (Normal) Range: 0 - 5 :03 URINALYSIS, W/ MICRO Comments: PATIENT NOT FASTINGPERFORMED BY: Advanced OncotherapySaint Peter's University HospitalVxwwne3887 [facility] [id number] Information: [id number] ([id number]) Microscopic Examination See below: (Normal) Microscopic Examination MICRON (Normal) Comments: Microscopic follows if indicated. Nitrite, Urine Negative (Normal) Urobilinogen,Semi-Qn 0.2 mg/dL (Normal) Range: 0.0-1.9 Bilirubin Negative (Normal) Occult Blood Negative (Normal) Ketones Negative (Normal) Glucose Negative (Normal) Protein Negative (Normal) WBC Esterase Negative (Normal) Appearance Clear (Normal) Urine-Color Yellow (Normal) pH 6.0 (Normal) Range: 5.0-7.5 Specific Leslie 1.016 (Normal) Range: 1.005-1.030 :47 CBCMD ANC 5.7 3/uL (Normal) Range: 2.0-7.7 IG# 0.020 3/ul (Abnormal) Range: 0.0-0.0 IG% 0.20 % (Abnormal) Range: 0.0-0.0 B% 0.4 % (Normal) Range: 0-1 E% 2.0 % (Normal) Range: 0-5 M% 5.9 % (Normal) Range: 0-10 L% 21.2 % (Normal) Range: 19-41 N% 70.3 % (Abnormal) Range: 47-70 MPV 13.6 fL (Abnormal) Range: 6.2-12.0 PLT 189 K/mm3 (Normal) Range: 150-450 RDWSD 38.5 fL (Normal) Range: 35.1-43.9 RDWCV 12.7 % (Normal) Range: 11.6-14.6 MCHC 33.1 g/dL (Normal) Range: 32-36 MCH 27.7 pg (Normal) Range: 27.0-32.0 MCV 83.6 fL (Normal) Range: 81-99 HCT 45.3 % (Normal) Range: 37-47 HGB 15.0 g/dL (Normal) Range: 12.0-15.0 RBC 5.42 {M/mm3} (Abnormal) Range: 4.2-5.4 WBC 8.1 {k/mm3} (Normal) Range: 4.4-11.0 :47 CMP GAP 11 (Normal) Range: 5-15 CO2 28.0 mmol/L (Normal) Range: 21.0-32.0 CL 100 mmol/L (Normal) Range: 98-107 K 4.2 mmol/L (Normal) Range: 3.5-5.1 NA 139 mmol/L (Normal) Range: 136-145 BIT 0.60 mg/dL (Normal) Range: 0.00-1.00 ALT 45 U/L (Normal) Range: 12-78 ALK 102 U/L (Normal) Range: 50-136 AST 22 U/L (Normal) Range: 15-37 CA 9.1 mg/dL (Normal) Range: 8.5-10.1 AG 1.3 {RATIO} (Normal) Range: 0.9-2.4 GLOB 3.1 g/dL (Normal) Range: 2.7-4.2 ALB 3.9 g/dL (Normal) Range: 3.4-5.0 TPROT 7.0 g/dL (Normal) Range: 6.4-8.2 BC 26.7 {RATIO} (Abnormal) Range: 10-20 GFRAA 142 mL/min (Normal) GFR 117 mL/min (Normal) CREAT 0.6 mg/dL (Normal) Range: 0.6-1.0 BUN 16 mg/dL (Normal) Range: 7-18 GLU 74 mg/dL (Normal) Range: 70-110 :47 DDIMQ 0.34 {FEUug/mL} (Normal) Range: 0.22-0.48 Comments: NORMAL D-Dimer level indicates no DVT or PE. :47 TSH 0.81 {uIU/mL} (Normal) Range: 0.358-3.74 91-Wbg-084852:06 Influenza A&B Viral Comments: PATIENT NOT FASTINGPERFORMED BY: [address] [id number] Information: SRC:NOS ADD [id number] Culture (12802) Viral Culture,Rapid,Influenza FLUABN (Normal) Comments: Negative:No Influenza A or B detected. 05-Nxb-97426:40 Rapid Flu (82929 x 2) Influenza A Ag negative (Normal) 20-Sxm-136618:19 TSH (77796) Comments: PATIENT NOT FASTINGPERFORMED BY: [address] [id number] Information: [id number] TSH 0.310 {uIU/mL} (Abnormal) Range: 0.450-4.500 :55 BILAT SCRN DIGITAL & CAD Radiology Report See Note (Normal) Comments: MAMMOGRAPHY - BILATERAL SCREENING REASON FOR EXAM: Female, 40 years old. Routine annual screeningexamination. PERTINENT HISTORY: Aunt with breast cancer. TECHNIQUE: Digital examination. Mediolat eral oblique (MLO) andcraniocaudad (CC) views of both breasts were obtained. CAD: CAD wasperformed on this study. COMPARISON: Comparison is made with prior studies dated August 28ndMay 2009. FI NDINGS:The breast composition is composed of scattered fibroglandular densities. There are no dominant masses or suspicious calcifications. No other significant abnormalities are identified. There has been nosignificant change since the prior study. IMPRESSION:Stable bilateral screening mammogram. Yearly follow-up recommended. (A) ASSESSMENT CATEGORY:BIRADS Category 2: Benign finding(s). A lette r regarding these resultswill be sent to the patient by the facility within 30 days. Approximately 10% of breast cancers are not detected by mammography. Anormal mammogram should not delay biopsy of a clinically suspiciousabnormality. Signed:Roddy Du M.D.August 23, 2011 at 8:51:04 AM EDTElectronically Signed GP/GP Professional Interpretation Provided By: [employer] [facility], , To consult with a radiologist regarding this report, please call our [id number] line @ Dictated on 08/23/11 0813 by Jeannie GIBBS,Bellari bed on 08/23/11 0856 by ITS IMPORTSign by Jeannie GIBBS,Roddy on 08/23/11856 Sign by: Roddy Du MD 18-Kzu-806810:48 GILBERT CULTURE-OTHER (48859) Comments: PATIENT NOT FASTINGPERFORMED BY: [facility] Rztzwj5012 [facility] [id number] Information: SRC:THRGomez [id number] Result 1 RRF (Normal) Comments: Routine respiratory dez Upper Respiratory Culture Final report (Normal) :34 Rapid Strep Test, Office (45862) Rapid Strep Test, Office Negative (Normal) 29-Aug-20109:14 Thin prep Pap Comments: Source.............Cervical;EndocervicalNo. of containers..01 CYTYC Thin Prep VialPATIENT NOT FASTINGPERFORMED BY: [facility] [address] [id number] Information: [id number] ([id number]) Note: PAPSMR (Normal) Comments: The Pap smear is a screening test designed to aid in the detection ofpremalignant and malignant conditions of the uterine cervix. It is not adiagnostic procedure and should not be used as the sole mean s of detectingcervical cancer. Both false-positive and false-negative reports do occur. .This liquid based ThinPrep(R) pap test w as screened with theuse of an image guided system.The HPV DNA reflex criteria were not met with this specimen resulttherefore, no HPV testing was performed. . See Note . (Normal) DIAGNOSIS: SPRCS (Normal) Comments: NEGATIVE FOR INTRAEPITHELIAL LESION AND MALIGNANCY.Satisfactory for evaluation. Endocervical and/or squamous metaplasticcells (endocervical component) are present.V72.31 ; Routine gynecolog ical examina [employer] (ASCP) 28-Aug-20100:00 BILAT SCRN DIGITAL & CAD Radiology Report See Note (Normal) Comments: MAMMOGRAPHY - BILATERAL SCREENING INDICATION:Female, 40 years old. Routine annual screening examination. PERTINENT HISTORY:Non-contributory. TECHNIQUE:Digital examination. Mediolateral oblique (MLO) a nd craniocaudad (CC)views of both breasts were obtained. CAD: CAD was performed on thisstudy. COMPARISON:July 29, 2009 FINDINGS:The breast composition is composed of scattered fibroglandular densities. Th ere are no masses or suspicious microcalcifications. No other significant abnormalities are identified. IMPRESSION:Normal bilateral screening mammogram. One year follow-up recommended. (1) ASSESSMENT C ATEGORY:BIRADS Category 1: Negative. A letter regarding these results will besent to the patient by the facility within 30 days. Approximately 10% of breast cancers are not detected by mammography. A normal mammogram should not delay biopsy of a clinically suspiciousabnormality. Dictated on 08/28/10 1525 by JJ CHACON MDTranscribed on 08/30/10 0943 by ITS IMPORTSign by JJ CHACON MD on 08/30/10 0944 Sign by: JJ CHACON MD : TSH 1.52 {uIU/mL} Range: 0.358-3.74 10 (Normal) 8-Pmo-820377:51 BILAT SCRN DIGITAL & CAD Radiology Report See Note (Normal) Comments: Exam Number: [id number] DIGITAL BILATERAL MAMMOGRAM Digital oblique and craniocaudal views were obtained. Comparison ismade with the prior examination dated May 24, 2006. Interpretationwas made with t jareth benefit of the CAD system. HISTORYThis is a 38-year-old female patient with history of routine annualscreening. FINDINGSThere is a small amount of fibroglandular tissue. No dominant masslesion is se en. No cluster of microcalcification is present. Theoverlying skin is not thickened. There has been no change since priorexamination. Routine annual mammographic followup is suggested. IMPRESSION1. There is no mammographic evidence of neoplastic disease.2. Routine annual mammographic followup is suggested.3. Negative. BIRADS Category 1. [facility] the [facility] This interpretation was rendered by a radiologist certified under theMammography Quality Standards Act of 1992 (MQSA). The mammograms werealso examined with computer-aided detection software (Image radio program checker, [employer] Reported By: RODDY DU :51 URINE GILBERT CULTURE-IDENTIFICATN Comments: PATIENT NOT FASTINGClinical Information: [id number] PERFORMED BY: [facility]6370 [facility] [id number] ([id number]) Result 1 MUG (Normal) Comments: Mixed urogenital flora1,000 Colonies/mL Urine Culture,Comprehensive Final report (Normal) 33-Gyh-918126:45 Urinalysis, Office (71736) Comments: done ak UA - BILIRUBIN Negative (Normal) UA - BLOOD Negative (Normal) UA - GLUCOSE Negative (Normal) UA - KETONES Small mg/dL (Normal) UA - LEUKOCYTE ESTERASE Small (Normal) UA - NITRITE Negative (Normal) UA - PH 6.0 (Normal) UA - PROTEIN Negative mg/dL (Normal) UA - SPECIFIC GRAVITY 1.025 (Normal) URINE UROBILINGN WIN Normal mg/dL TIMED (Normal) 19-Sgy-700576: C-REACTIVE PROT 5.79 mg/L (Abnormal) Comments: RESULTS FAXED 01/21/09 5586 MARY GUERRA. 18 Range: 0.0-3.0 Comments: C-Reactive Protein (CRP) provides useful information for thediagnosis, therapy and monitoring of inflammatory processesand associated diseases. For the evaluation of Relative Riskfor Cardiovascular Dise ase, a High Sensitivity CRP (HSCRP)should be ordered. 67-Gjs-269749:18 CBCD,SMEAR DIFF BAND 2 % (Normal) Range: 0-5 CELLS COUNTED 100 (Normal) EOS 2 % (Normal) Range: 0-5 HCT 36.3 % (Abnormal) Range: 37-47 HGB 11.7 g/dL (Abnormal) Range: 12.0-16.0 LYMPH 17 % (Abnormal) Range: 19-41 MCH 25.5 pg (Abnormal) Range: 27.0-32.0 MCHC 32.3 g/dL (Normal) Range: 32-36 MCV 79.0 fL (Abnormal) Range: 81-99 MICROCYTES 1+ (Normal) MONOCYTE 8 % (Normal) Range: 0-10 PLT 166 K/mm3 (Normal) Range: 150-450 PLT EST SeeNote (Normal) Comments: Result: ADEQUATE RBC 4.60 {M/mm3} (Normal) Range: 4.2-5.4 RDW 14.9 % (Abnormal) Range: 11.6-14.6 RED CELL MORPH N CHROM {NORMAL} (Normal) SEGS 71 % (Abnormal) Range: 47-70 WBC 7.3 K/mm3 (Normal) Range: 4.4-11.0 91-Neh-862994:18 D-DIMER QUANT <200 ng/mL (Normal) Comments: NORMAL D-Dimer level indicates no DVT or PE. RESULTS CALLED TO DR IZAGUIRRE'S OFFICE 01/21/09 ANTHONY ROBB.REPORT READ BACK BY SAME . 02-Hvd-769788:18 ESR SED RATE 14 (Normal) Range: 0-20 41-Ymw-558223:46 Rapid Flu (16677 x 2) INFLUENZA IMMUNOASSY DIRECT OPTICAL OBSERV negative (Normal) 99-Lrn-982493:46 Rapid Strep Test, Office (64947) Rapid Strep Test, Office Negative (Normal) 3-Syv-721139:26 PELVIC (NON-PREG) (HP) Radiology Report See Note (Normal) Comments: Exam Number: [id number] Transabdominal pelvic ultrasound History: Heavy menses Findings: No prior imaging for comparison. The uterus measures 10.4 x 4.4 x 6.4 cm. Myometrium is normal in echogenicity w ithout focal lesion. Endometrial echo complex is within normal limits for a premenopausal female, measuring up to 15 mm in thickness. The ovaries are normal in size and morphology bilaterally. The ri ght ovary measures 3.2 x 1.5 x 2 .2 cm, the left ovary measures 3.2 x 1.9 x 3.1 cm. Physiologic follicles are seen. Normal vascular signal seen with Doppler ultrasound. There is no free fluid in the p og. IMPRESSION: Normal pelvic ultrasound Reported By: KERRY WILKINSON M.D. 33-Hkn-717768:10 T4, FREE (THYROXINE) (45577) Comments: PATIENT NOT FASTINGPERFORMED BY: [employer]6370 [facility] [id number] T4,Free(Direct) 1.38 ng/dL (Normal) Range: 0.61-1.76 :10 T3, FREE (TRIDOTHYRONINE) (56287) Comments: PATIENT NOT FASTINGPERFORMED BY: [employer] Xnmwua5507 [facility] [id number] Triiodothyronine,Free,Serum 3.4 pg/mL (Normal) Range: 2.3-4.2 23-Fyq-822437:10 GONADOTROPIN-LH (89943) Comments: PATIENT NOT FASTINGPERFORMED BY: [employer] Lab[employer]obliQ Grouprp Ngqxbf5271 [facility] [id number] LH 14.5 m[iU]/mL (Normal) Range: 0.0-76.3 Comments: Age Male Female 0- 1 yr. 0.5 - 1.9 0.0 - 0.5 2- 5 yrs. 0.0 - 0.5 0.0 - 0.5 6- 10 yrs. 0.0 - 0.5 0.0 - 0.5 11- 19 yrs. 0.5 - 5.3 0.5 - 9.0 20- 69 yrs. 1.5 - 9.3 0.0 - 76.3 70-100 yrs. 3.1 - 34.6 5.0 - 52.3 Female Follicular 1.9 - 12.5 Midcycle 8.7 - 76.3 Luteal 0.5 - 16.9 0.0 - 1.5 Postmenopausa l 15.9 - 54.0 Contraceptives 0.7 - 5.6 06-Ejq-791207:10 GONADOTROPIN-FSH (48871) Comments: PATIENT NOT FASTINGPERFORMED BY: XanodyneMichael [place] [id number] [facility] [id number] FSH 4.8 m[iU]/mL (Normal) Comments: . Age Male Female 5th day <0.2 - 4.6 <0.2 - 4.6 2 mo- 3 yrs. 0.2 - 2.7 1.4 - 9.2 4- 6 yrs. 0.2 - 2.7 0.4 - 6.6 7- 9 yrs. 0.2 - 2.7 0.4 - 5.0 10-11 yrs. 0.4 - 5.0 Not Estab 12-13 yrs. 0.4 - 6.6 Not Estab 14-15 yrs. 0.7 - 13.2 Not Estab >15 yrs. 1.4 - 18.1 See Below Female Follicular 2.5 - 10.2 Midcycle 3.4 - 33.4 Lut eal 1.5 - 9.1 <0.2 Postmenopausal 23.0 - 116.3 77-Wtd-225579:10 TEST - SERUM Comments: PATIENT NOT FASTINGPERFORMED BY: [facility]neAsc[facility] Hospital6370 [facility] [id number] QUANTITATIVE (HCG) (98615) hCG,Beta Subunit,Qual,Serum Negative m[iU]/mL (Normal) Comments: Negative < 5 Borderline 5 - 20 Positive >20 45-Rxo-294178:10 CBC (AUTO) (58528) Comments: PATIENT NOT FASTINGPERFORMED BY: [facility]6370 [facility] [id number] Hematocrit 36.3 % (Normal) Range: 34.0-44.0 Hemoglobin 11.5 g/dL (Normal) Range: 11.5-15.0 MCH 23.7 pg (Abnormal) Range: 27.0-34.0 MCHC 31.6 g/dL (Abnormal) Range: 32.0-36.0 MCV 75 fL (Abnormal) Range: 80-98 Platelets 180 {x10E3/uL} (Normal) Range: 140-415 RBC 4.84 {x10E6/uL} (Normal) Range: 3.80-5.10 RDW 14.1 % (Normal) Range: 11.7-15.0 WBC 5.2 {x10E3/uL} (Normal) Range: 4.0-10.5 50-Wfy-140867:10 METABOLIC PANEL, COMPREHENSIVE Comments: PATIENT NOT FASTINGClinical Information: ADD DRAW FEE 846538 ADD J 70785 PERFORMED BY: LabCoSaint [facility]'s University HospitalUkzhpf1129 [facility] [id number] (15693) A/G Ratio 1.7 (Normal) Range: 1.1-2.5 Albumin, Serum 4.4 g/dL (Normal) Range: 3.5-5.5 Alkaline Phosphatase, S 86 [iU]/L (Normal) Range: 25-150 ALT (SGPT) 10 [iU]/L (Normal) Range: 0-40 AST (SGOT) 14 [iU]/L (Normal) Range: 0-40 Bilirubin, Total 0.6 mg/dL (Normal) Range: 0.1-1.2 BUN 14 mg/dL (Normal) Range: 5-26 BUN/Creatinine Ratio 19 (Normal) Range: 8-27 Calcium, Serum 9.4 mg/dL (Normal) Range: 8.5-10.6 Carbon Dioxide, Total 24 mmol/L (Normal) Range: 20-32 Chloride, Serum 100 mmol/L (Normal) Range: 97-108 Creatinine, Serum 0.73 mg/dL (Normal) Range: 0.57-1.00 Globulin, Total 2.6 g/dL (Normal) Range: 1.5-4.5 Glom Filt Rate, Est >59 mL/min/1.73 (Normal) Glucose, Serum 64 mg/dL (Abnormal) Range: 65-99 If -[place] Islander >59 mL/min/1.73 Comments: Note: Persistent reduction for 3 months or more in an eGFR<60 mL/min/1.73 m2 defines CKD. Patients with eGFR values>/=60 mL/min/1.73 m2 may also have CKD if evidence of persistentproteinur ia is (Normal) present. Additional information may be found [email or web address]. Potassium, Serum 4.1 mmol/L (Normal) Range: 3.5-5.2 Protein, Total, Serum 7.0 g/dL (Normal) Range: 6.0-8.5 Sodium, Serum 141 mmol/L (Normal) Range: 135-145 58-Ivg-179248:10 PROLACTIN (94063) Comments: PATIENT NOT FASTINGPERFORMED BY: [facility] OncotherapySaint Peter's University HospitalHfvjqb3387 [facility] [id number] Prolactin 8.1 ng/mL (Normal) Range: 2.8-29.2 Comments: Age Male Female 0- 1 mon. 3.7 - 81.2 0.3 - 95.0 1-12 mons. 0.3 - 28.9 0.2 - 29.9 1- 3 yrs. 2.3 - 13.2 1.0 - 17.0 4- 6 yrs. 0.8 - 16.9 1.6 - 13.1 7- 9 yrs. 1.9 - 11.6 0.3 - 12.9 10-12 yrs. 0.9 - 12.9 1.9 - 9.6 13-15 yrs. 1.6 - 16.6 3.0 - 14.4 Adult 2.1 - 17.7 2.8 - 29.2 Female: Non- 2.8 - 29.2 9.7 - 208.5 Postmenopausal 1.8 - 20.3 70-Idd-960448:10 PT (PROTHROMBIN TIME) (18526) Comments: PATIENT NOT FASTINGPERFORMED BY: [facility] OncotherapySaint Peter's University HospitalZthbjc7386 [facility] [id number] INR 1.0 (Normal) Range: 0.8-1.2 Comments: Reference interval is for non-anticoagulated patients. . Suggested INR therapeutic range for Vitamin K anta gonist therapy: Standard Dose (moderate intensity therapeutic range): 2.0 - 3.0 Higher intensity therapeutic range 2.5 - 3.5 Prothrombin Time 10.4 {sec} (Normal) Range: 8.7-11.5 15-Czb-497908:10 PTT (ACTIVATED PARTIAL Comments: PATIENT NOT FASTINGPERFORMED BY: XanodyneMichael [place] [id number] [facility] [id number] THROMBOPLASTIN TIME) (53567) aPTT 25 {sec} (Normal) Range: 24-33 Comments: This test has not been validated for monitoring unfractionated heparintherapy. aPTT-based therapeutic ranges for unfractionated heparintherapy have not been established. For general guidelines onHeparin monitoring, refer to the [facility] Directory of Services. 04-Zvr-382043:10 TSH (86550) Comments: PATIENT NOT FASTINGPERFORMED BY: [facility]6370 [facility] [id number] TSH 0.426 {uIU/mL} (Abnormal) Range: 0.450-4.500 :48 TSH 0.352 {uIU/mL} (Abnormal) Comments: PERFORMED BY: [facility] [place] [address] [id number] Range: 0.450-4.500 5-Zqx-094340:48 TSH 29.50 {uIU/mL} (Abnormal) Range: 0.34-4.82 4-Zcn-573883:10 Rapid Strep Test, Office (21091) Rapid Strep Test, Office Negative (Normal) 30-Jun-20070:00 CULTURE, THROAT See Note (Normal) Comments: Normal throat dez isolated. No beta-hemolyticstreptococcus isolated. 7-Pbi-669356:40 HAND,MIN 3 VIEWS Radiology Report See Note (Normal) Comments: Exam Number: [id number] RIGHT HAND HISTORYHand pain. 3 views of the right hand were obtained. There is no fracture ordislocation identified. There is minimal swelling at the proximalinterphalangeal peggy nt of the 5th finger. Reported By: JJ CHACON M.D. TSH 2.07 {uIU/mL} Range: 0.34-4.82 :57 (Normal) CULTURE, THROAT See Note (Normal) Comments: Penicillin is the drug of choice for Beta Streptococcalinfections. For Penicillin allergic patients, Erythromycinmay be used. AMOUNT GROWTH RARE ORGANISM 1: GROUP A BETA STREPTOCOCCUS :00 51-Ldh-023275:32 Rapid Strep Test, Office (10032) Comments: ABN signedpositive Rapid Strep Test, Office Positive (Normal) 92-Ntg-245671:24 T3UP Comments: ADD ON T3 UPTAKE 32 % (Normal) Range: 30-39 T7 (FTI) 2.0 (Normal) Range: 1.4-4.5 99-Ynw-914721:24 T4 THYROXIN 6.1 ug/dL (Normal) Comments: ADD ON Range: 4.8-13.9 :21 TSH 1.21 {uIU/mL} (Normal) Range: 0.34-4.82 Plan of Care Name Dates Details Instructions Elevated blood-pressure reading without diagnosis of hypertension : Follow up in 2 weeks Indication: Elevated blood-pressure reading without diagnosis of hypertension Elevated blood-pressure reading without diagnosis of hypertension : HTN/CAD Red Flags Indication: Elevated blood-pressure reading without diagnosis of hypertension Elevated blood-pressure reading without diagnosis of hypertension : Diet, Exercise, and Wt loss Indication: Elevated blood-pressure reading without diagnosis of hypertension BMI 40.0-44.9, adult : Eprescribed prescriptions (G8553) Indication: BMI 40.0-44.9, adult Hypothyroidism : Reviewed Lab Indication: Hypothyroidism Elevated blood-pressure reading without diagnosis of hypertension : BP MONITORING - SELF Indication: Elevated blood-pressure reading without diagnosis of hypertension Elevated blood-pressure reading without diagnosis of hypertension : Follow up in 6 weeks- wt ck bp ck Indication: Elevated blood-pressure reading without diagnosis of hypertension Cutaneous skin tags : Skin Tags- #7 removed both sides of neck and gluteal fold of left leg Indication: Cutaneous skin tags BMI 40.0-44.9, adult : Eprescribed prescriptions (G8553) Indication: BMI 40.0-44.9, adult BMI 40.0-44.9, adult : Eprescribed prescriptions (G8553) Indication: BMI 40.0-44.9, adult Weight gain : Follow up in 2 months- bp and wt ck Indication: Weight gain Weight gain : Follow up in 2 months Indication: Weight gain Weight gain : Continue Current Prescription(s) Indication: Weight gain Elevated blood-pressure reading without diagnosis of hypertension : BP MONITORING - SELF Indication: Elevated blood-pressure reading without diagnosis of hypertension Weight gain : Follow up in 1 month Indication: Weight gain Fatigue : Follow up in 2 weeks Indication: Fatigue SOB : Low Back Pain Red Flags Indication: SOB SOB : exercises Indication: SOB Pharyngitis, acute : *Antibiotic Usage Education - Female Indication: Pharyngitis, acute Pharyngitis, acute : *URI Symptoms Indication: Pharyngitis, acute Hypothyroidism : Follow up in 6 months Indication: Hypothyroidism Hypothyroidism : Continue Current Prescription(s) Indication: Hypothyroidism Hypothyroidism : Reviewed Lab Indication: Hypothyroidism Fatigue : Reviewed Lab Indication: Fatigue Elevated blood-pressure reading without diagnosis of hypertension : Follow up in 2 weeks Indication: Elevated blood-pressure reading without diagnosis of hypertension Elevated blood-pressure reading without diagnosis of hypertension : Diet, Exercise, and Wt loss Indication: Elevated blood-pressure reading without diagnosis of hypertension Elevated blood-pressure reading without diagnosis of hypertension : HTN/CAD Red Flags Indication: Elevated blood-pressure reading without diagnosis of hypertension Cough : Flu (Influenza) *: upper respiratory infection Indication: Cough Edema : Diet, Exercise, and Wt loss Indication: Edema Well woman exam with routine gynecological exam : SELF BREAST EXAM Indication: Well woman exam with routine gynecological exam Well woman exam with routine gynecological exam : *Well Female Maintenance (KF) Indication: Well woman exam with routine gynecological exam Well woman exam with routine gynecological exam : Pap/Pelvic/Bimanual/Rectal/Breast Exam was done. Indication: Well woman exam with routine gynecological exam Sinusitis, acute : *Antibiotic Usage Education - Female Indication: Sinusitis, acute Cystitis, acute : UTI treatment Indication: Cystitis, acute Cervical radiculopathy : PT - exercises Indication: Cervical radiculopathy Pharyngitis, acute : *URI Treatment Indication: Pharyngitis, acute Pharyngitis, acute : Sore throat: diagnosis and treatment Indication: Pharyngitis, acute Bronchitis : *URI Treatment Indication: Bronchitis Bronchitis : Antibiotic Usage Education - Female Indication: Bronchitis Bronchitis : URI Symptoms Indication: Bronchitis Obesity,unspecified : FOLLOW UP IN 1 MONTH Indication: Obesity,unspecified Pharyngitis, acute : Sore throat: diagnosis and treatment Indication: Pharyngitis, acute Pharyngitis, acute : URI treament Indication: Pharyngitis, acute Well woman exam with routine gynecological exam : FOLLOW UP IN 1 MONTH Indication: Well woman exam with routine gynecological exam Obesity,unspecified : Weight Loss Discussion Indication: Obesity,unspecified Obesity,unspecified : Meridia Education Indication: Obesity,unspecified Well woman exam with routine gynecological exam : Well Female Maintenance ([facility]) Indication: Well woman exam with routine gynecological exam Well woman exam with routine gynecological exam : Pap/Pelvic/Bimanual/Rectal/Breast Exam was done. Indication: Well woman exam with routine gynecological exam Well woman exam with routine gynecological exam : Self Breast Exam Education Indication: Well woman exam with routine gynecological exam Sinusitis, acute : Antibiotic Usage Education - Female Indication: Sinusitis, acute Sinusitis, acute : URI Symptoms Indication: Sinusitis, acute Sinusitis, acute : URI treament Indication: Sinusitis, acute Hypothyroidism : FOLLOW UP NEEDED Indication: Hypothyroidism Planned Observations CALCIFEDIOL ([id number])Indication: Vitamin D deficiency On: 65-Epe-498408:03 Request HEPATIC FUNCTION PANEL ([id number])Indication: Hyperlipidemia On: :03 Request Lipid Panel ([id number])Indication: Hyperlipidemia On: 88-Vfp-899655:02 Request LIPID PANEL ([id number])Indication: Hyperlipidemia On: 78-Szh-826394:19 Request D-Dimer ([id number])Indication: SOB On: :56 Request METABOLIC PANEL, COMPREHENSIVE ([id number])Indication: Elevated blood-pressure reading without diagnosis of hypertension On: :21 Request CBC WITH MANUAL DIFF ([id number])Indication: Elevated blood-pressure reading without diagnosis of hypertension On: :21 Request D-Dimer ([id number])Indication: SOB On: :20 Request TSH ([id number])Indication: Hypothyroidism On: :18 Request TSH ([id number])Indication: Hypothyroidism On: :39 Request TSH ([id number])Indication: Abnormal TSH On: :28 Request BACT CULTURE ANY-ANAEROBIC ([id number])Indication: Pharyngitis, acute On: :35 Request TSH (THYROID STIMULATING HORMONE) ([id number])Indication: Hypothyroidism On: 33-Zfx-476127:20 Request TSH ([id number])Indication: Hypothyroidism On: :52 Request T4, FREE (THYROXINE) ([id number])Indication: Hypothyroidism On: :52 Request T3, FREE (TRIDOTHYRONINE) ([id number])Indication: Hypothyroidism On: :52 Request TSH ([id number])Indication: Hypothyroidism On: :09 Request T4, FREE (THYROXINE) ([id number])Indication: Hypothyroidism On: :09 Request T3, FREE (TRIDOTHYRONINE) ([id number])Indication: Hypothyroidism On: 17-Cxq-303716:09 Request SED RATE ERYTHROCYTE ([id number])Indication: Pruritic disorder On: 52-Zwr-650800:07 Request C-REACTIVE PROTEIN ([id number])Indication: Pruritic disorder On: 13-Ijp-811249:07 Request SUZAN (ANTINUCLEAR ANTIBODY) ([id number])Indication: Pruritic disorder On: 93-Ovh-485652:07 Request TSH ([id number])Indication: Pruritic disorder On: 12-Bay-210203:07 Request METABOLIC PANEL, COMPREHENSIVE ([id number])Indication: Pruritic disorder On: 02-Vjj-490623:07 Request CBC WITH MANUAL DIFF ([id number])Indication: Pruritic disorder On: 05-Vhe-454235:07 Request C-REACTIVE PROTEIN ([id number])Indication: Chest pain On: 75-Mrm-778863:56 Request CBC WITH MANUAL DIFF ([id number])Indication: Chest pain On: 40-Ejo-531943:56 Request Comments: stat call D-Dimer ([id number])Indication: Chest pain On: 00-Wzi-751097:56 Request Comments: statcall results GILBERT CULTURE-OTHER ([id number])Indication: Pharyngitis, acute On: 3-Dsc-210983:10 Request GILBERT CULTURE-OTHER ([id number])Indication: Pharyngitis, acute On: 06-Tth-839250:45 Request Thin prep Pap ([id number])Indication: Well woman exam with routine gynecological exam On: 0-Hlk-407330:05 Request TSH ([id number])Indication: Hypothyroidism On: 57-Isz-624477:35 Request T4, FREE (THYROXINE) ([id number])Indication: Hypothyroidism On: 02-Muf-888883:35 Request T3, FREE (TRIDOTHYRONINE) ([id number])Indication: Hypothyroidism On: 01-Vyw-315544:35 Request Planned Encounters Medical; PHYSICAL, ROUTINE - On: 11-Apr-2018 14:30 [facility] Raysa De Guzman DO, DO, Kathleen Planned Procedures ELECTROCARDIOGRAM, COMPLETE (ECG) On: 23-Jan-2018 Intent ([id number])By: Mita Montanez Comments: NSR-HR 63 MAMMOGRAM BREAST BILATERAL SCREENING On: 24-Dec-2017 Intent DIGITAL ([id number])By: Raysa De Guzman DO, DO, Kathleen SCREENING DIGITAL TOMOSYNTHESIS OF On: 27-Dec-2016 Intent BREAST ([id number])By: Raysa De Guzman DO, DO, Kathleen Aerosol Treatment ([id number])By: Solomon BLAND, On: 28-Mar-2016 Intent Keysha A BILATERAL MAMMOGRAMS ([id number])By: Gab On: 16-Jan-2016 Intent Raysa BLAND DO, Raysa BILATERAL MAMMOGRAMS ([id number])By: Gab On: 31-Dec-2014 Intent Raysa BLAND DO, Kathleen BILATERAL MAMMOGRAMS ([id number])By: Gab On: 01-Jan-2014 Intent Raysa BLAND DO, Kathleen Radiology - Lumbar SpineBy: Fabiana JONES, On: 12-Oct-2013 Intent Violetta Alves Toradol Injection, 30 mg ([id number])By: On: 12-Oct-2013 Intent Fabiana JONES Violetta Alves Comments: lot: [id number]: 05/24/15ite/route: RGM/IMamt: 30mgVIS signed when applicableChelseaRUFINO Eprescribed prescriptions ([id number])By: On: 06-May-2013 Intent Fabiana JONES Violetta Alves Breast Screening - BilateralBy: Gab On: 25-Dec-2012 Intent Raysa BLAND DO, Kathleen EKG ([id number])By: Raysa De Guzman DO On: 11-Apr-2012 Intent Raysa De Guzman DO Comments: nsr no acute sinus changes Pulse Oximetry ([id number])By: Gab BLAND, On: 11-Apr-2012 Intent Raysa Fountain DO MRI /MRA- Brain (IV Contrast On: 11-Apr-2012 Intent Needed)By: Raysa De Guzman DO, DO, Kathleen Eprescribed prescriptions ([id number])By: On: 10-Mar-2012 Intent Mita Salinas LPN Doppler Ultrasound b/lBy: Gab BLAND, On: 06-Sep-2011 Intent Raysa Fountain DO Breast Screening - BilateralBy: Gab On: 17-Aug-2011 Intent Raysa BLAND DO, Kathleen MAMMOGRAM, SCREENING, BOTH BREASTS On: 19-Jul-2010 Intent ([id number])By: Raysa De Guzman DO, DO, Kathleen MAMMOGRAM, SCREENING, BOTH BREASTS On: 27-Jul-2009 Intent ([id number])By: Violetta Jung CNP Radiology - Chest- PA and LatBy: Fast On: 21-Jan-2009 Intent Keysha BLAND Pulse Oximetry ([id number])By: Maryuri On: 21-Jan-2009 Intent Katia Comments: 99% Spirometry ([id number])By: Maryuri, On: 21-Jan-2009 Intent Katia Comments: good effort and curve normal EKG ([id number])By: Katia Wahl On: 21-Jan-2009 Intent Comments: ekg showed normal sinus fay, normal axis, no acute st/t wave changes Ultrasound - PelvisBy: Gab BLAND, On: 15-Jul-2008 Intent Raysa Fountain DO SPECIMEN HNDLNG/TRNSPRT, OFFC > LAB On: 30-Jun-2007 Intent ([id number])By: Raysa De Guzman DO, DO, Kathleen Radiology - Hand - RightBy: Bonezzi On: 01-May-2007 Intent Roma GIBBS Comments: attention 5 th digit ? avulsion fracturecall wet read to office SPECIMEN HNDLNG/TRNSPRT, OFFC > LAB On: 05-Jul-2006 Intent ([id number])By: Raysa De Guzman DO, DO, Kathleen MAMMOGRAM, SCREENING, BOTH BREASTS On: 01-May-2006 Intent ([id number])By: MEDARDO DEL VALLE CNP Comments: Screening for baseline. Planned Medications INJECTION, KETOROLAC TROMETHAMINE, PER 15 MG Ordered: 12-Oct-2013 Pending Violetta Jung CNP Instructions Name Dates Details BMI 40.0-44.9, adult : How to access health information online Indication: BMI 40.0-44.9, adult BMI 40.0-44.9, adult : How to access health information online - Detail Indication: BMI 40.0-44.9, adult Elevated blood-pressure reading without diagnosis of hypertension : Patient Instructions Indication: Elevated blood-pressure reading without diagnosis of hypertension Non-smoker : How to access health information online Indication: Non-smoker Non-smoker : How to access health information online - Detail Indication: Non-smoker Non-smoker : Patient Instructions Indication: Non-smoker BMI 40.0-44.9, adult : How to access health information online Indication: BMI 40.0-44.9, adult BMI 40.0-44.9, adult : How to access health information online - Detail Indication: BMI 40.0-44.9, adult BMI 40.0-44.9, adult : Patient Instructions Indication: BMI 40.0-44.9, adult BMI 40.0-44.9, adult : How to access health information online Indication: BMI 40.0-44.9, adult BMI 40.0-44.9, adult : How to access health information online - Detail Indication: BMI 40.0-44.9, adult BMI 40.0-44.9, adult : Patient Instructions Indication: BMI 40.0-44.9, adult Weight gain : Patient Instructions Indication: Weight gain Pharyngitis, acute : Patient Instructions Indication: Pharyngitis, acute Obesity,unspecified : obesity counseling Indication: Obesity,unspecified Elevated blood-pressure reading without diagnosis of hypertension : Patient Instructions Indication: Elevated blood-pressure reading without diagnosis of hypertension Cough : Patient Instructions Indication: Cough Encounters Office Visit On: 23-Jan-2018 7:19 Encounter Reason: elevated - Noticed yesterday that she felt like blood pressure was elevated-pressure behind eyes-took blood pressure at work and it was 167/112 and monitored bp throughout the day which ran between 167 End: 23-Jan-2018 12:54 /112-131/87. No headache, CP, SOB, no palpitations. A lot of stress at work and home on a daily basis. Has been on bystolic in the past (2012). Has been taking magnesium, vit b 12, d 3-has been out of a nd just ordered. Sees OBGYN for her thyroid. Had TSH drawn in Nov. Last EKG-2012. Would like to get on something for blood pressure. Encounter Diagnosis: BMI 40.0-44.9, adult, Non-smoker, Elevated blood-pressure reading without diagnosis of hypertension [facility] Phone Encounter On: 24-Dec-2017 14:50 Encounter Diagnosis: Encounter for screening mammogram for breast cancer (Renamed from Encounter for screening mammogram for malignant neoplasm of breast) End: 24-Dec-2017 14:52 [facility] Phone Encounter On: 12-Apr-2017 16:01 Encounter Diagnosis: Hyperlipidemia, Vitamin D deficiency (268.9) End: 12-Apr-2017 16:03 [facility] Office Visit On: 10-Apr-2017 8:23 Encounter Reason: Physical female exam - Last seen less than 1 month ago. General health: feels well with minor complaints, has good energy level and is sleeping well. The patient's appetite is normal. Nutrition: normal/ End: 10-Apr-2017 8:57 adequate. Exercises 0 days per week. Sleeps on average 7 hours per night. Normal bowel and bladder habits. Safety measures include appropriate use of safety belts and home smoke detectors. There are no current emotional problems. screening, mammography (01/08) and screening, Pap smear (2017).Encounter Diagnosis: Non-smoker, BMI 40.0-44.9, adult, Encounter for screening for lipid disorder, Vitamin D deficiency (268.9), Elevated blood-pressure reading without diagnosis of hypertension, Encounter for well adult exam with abnormal findings (Renamed from Encounter for general adult medical examination with abnormal findings), Hypothyroidism [facility] Office Visit On: 21-Mar-2017 12:30 Encounter Reason: Skin LesionsEncounter Diagnosis: Non-smoker, BMI 40.0-44.9, adult, Cutaneous skin tags End: 21-Mar-2017 15:30 [facility] Phone Encounter On: 27-Dec-2016 14:08 Encounter Diagnosis: Encounter for screening mammogram for breast cancer (Renamed from Encounter for screening mammogram for malignant neoplasm of breast) End: 27-Dec-2016 14:16 [facility] Phone Encounter On: 05-Apr-2016 16:09 Encounter Diagnosis: Unspecified Diagnosis End: 05-Apr-2016 16:12 [facility] Phone Encounter On: 30-Mar-2016 13:10 Encounter Diagnosis: Wheezing End: 30-Mar-2016 13:14 [facility] Phone Encounter On: 30-Mar-2016 11:43 Encounter Diagnosis: Wheezing End: 30-Mar-2016 11:50 [facility] Office Visit On: 28-Mar-2016 8:53 Encounter Reason: Cold Symptoms - Symptoms include sneezing, nasal congestion, runny nose, sore throat, hoarseness, productive cough, facial pressure and headache, while symptoms do not include facial pain. Onset was kiki End: 28-Mar-2016 9:22 den 5 day(s) ago. Onset followed exposure to someone at work with upper respiratory symptoms. The symptoms occur constantly. The patient describes this as severe and worsening. Associated symptoms inclu de wheezing, shortness of breath, fatigue, weakness and diarrhea, while associated symptoms do not include plugged ear(s), ear pain, nausea, vomiting, fever or chills. Current treatment includes non-pre scription cold medication. Note for Cold symptoms: using sudafed making bp up avoid- bp last week normal- diarrhea improved no preg concerns -discuss take probitoicEncounter Diagnosis: BMI 40.0-44.9, adult, Non-smoker, Acute maxillary sinusitis, recurrence not specified, Wheezing [facility] Phone Encounter On: 16-Jan-2016 12:02 Encounter Diagnosis: Screening for malignant neoplasm of breast End: 16-Jan-2016 12:03 [facility] Phone Encounter On: 20-Jan-2015 15:17 Encounter Diagnosis: Hyperlipidemia End: 20-Jan-2015 15:19 [facility] Office Visit On: 18-Jan-2015 8:11 Encounter Reason: Physical female exam - General health: feels well with no complaints, has good energy level and is sleeping poorly. The patient's appetite is normal. Nutrition: normal/adequate. Exercises 3 days per wee End: 18-Jan-2015 8:41 k. Sleeps on average 4 hours per night. Normal bowel and bladder habits. Safety measures include appropriate use of safety belts, appropriate use of helmets and home smoke detectors , but do not include counseling regarding safe sex/HIV or counseling regarding substance abuse. There are no current emotional problems. screening, mammography (01/18/15).Encounter Diagnosis: Hypothyroidism, Vitamin D deficiency (268.9), Weight gain, Annual physical exam (V70.0), Encounter for screening for lipid disorder [facility] Phone Encounter On: 31-Dec-2014 8:47 Encounter Diagnosis: Screening for malignant neoplasm of breast End: 31-Dec-2014 8:49 [facility] Office Visit On: 24-Jun-2014 8:02 Encounter Reason: Weight Gain - The last clinic visit was 12 month(s) ago. No changes in management were made at the last visit. Patient reports weight gain of between 10 and 19 pounds. Symptoms include weight gain. Luci End: 24-Jun-2014 9:30 ent describes the symptoms as worsening.Encounter Diagnosis: Weight gain, Obesity,unspecified (278.00) [facility] Office Visit On: 21-Apr-2014 15:13 Encounter Reason: Weight Gain - The last clinic visit was 12 month(s) ago. No changes in management were made at the last visit. Patient reports weight gain of between 10 and 19 pounds. Symptoms include weight gain. Luci End: 21-Apr-2014 16:24 ent describes the symptoms as worsening.Encounter Diagnosis: Weight gain, BMI 40.0- 44.9, adult, Obesity,unspecified (278.00), Elevated Blood Pressure without diagnosis of Hypertension (796.2) [facility] Refill Request On: 09-Apr-2014 14:24 Encounter Diagnosis: Exposure to the flu End: 09-Apr-2014 14:27 [facility] Phone Encounter On: 01-Jan-2014 14:49 Encounter Diagnosis: SCREENING FOR MLIG NEOP, BREAST, NOS (V76.10) End: 01-Jan-2014 14:51 [facility] Office Visit On: 12-Oct-2013 9:19 Encounter Reason: Flank Pain - Symptoms include flank pain and back pain, while symptoms do not include abdominal pain. The pain is located in the right flank. There is no radiation. The patient describes the pain as sha End: 12-Oct-2013 15:29 rp and stinging ( stabbing ). Onset was sudden. The symptoms occur constantly. The patient describes symptoms as severe and worsening. Associated symptoms do not include fatigue.Encounter Diagnosis: Fatigue (780.79), Acute low back pain, SOB (786.05) [facility] Office Visit On: 06-May-2013 9:56 Encounter Reason: Sore Throat - Symptoms include sore throat, dysphagia, nasal congestion and postnasal drainage, while symptoms do not include fever or chills. The symptoms are symmetrical. The patient describes the farzana End: 06-May-2013 10:20 n as sharp and burning. Onset was 3 day(s) ago. The patient describes this as unchanged. Associated symptoms do not include headache.Encounter Diagnosis: ACUTE PHARYNGITIS (462.) [facility] Office Visit On: 09-Jan-2013 8:11 Encounter Reason: Follow up tests - Date: (12/25/12 labs)., [ADDITIONAL REASON] Follow up for chronic medical issues - The patient does not feel well, has decre End: 09-Jan-2013 9:02 ased energy level and is sleeping poorly. Patient has been compliant with instructions. Current medication use: no side effects and compliant with dosing regimen. Patient sleeps 5 hours per night. Nutri tion: balanced diet and no supplemental vitamins & iron. The medical issues the patient is following up for include All identified problems below and hypothyroid. Encounter Diagnosis: Hypothyroidism (244.9), Fatigue (780.79), Vitamin D deficiency (268.9), Obesity,unspecified (278.00), PMS (premenstrual syndrome) (625.4), Allergic Rhinitis(477.9) [facility] Phone Encounter On: 25-Dec-2012 8:11 Encounter Reason: BP nurse visitEncounter Diagnosis: SCREENING FOR MLIG NEOP, BREAST, NOS (V76.10) End: 25-Dec-2012 8:33 [facility] Phone Encounter On: 24-Dec-2012 16:35 Encounter Diagnosis: Hypothyroidism (244.9), Fatigue (780.79) End: 24-Dec-2012 16:54 [facility] Office Visit On: 07-May-2012 9:17 Encounter Reason: Physical female exam - Last seen between 1-3 months ago. General health: feels well with minor complaints, has decreased energy level and is sleeping poorly. The patient's appetite is normal. Nutrition: End: 07-May-2012 9:46 normal/adequate. Exercises 0 days per week. Sleeps on average 6 hours per night. Normal bowel and bladder habits. Safety measures include appropriate use of safety belts and home smoke detectors. Curre nt emotional problems include depression (crying at times). screening, mammography (due in august) and screening, Pap smear (due in august).Encounter Diagnosis: Elevated Blood Pressure without diagnosis of Hypertension (796.2), Annual physical exam (V70.0), FAMILY HISTORY OF DIABETES MELLITUS (V18.0) [facility] Office Visit On: 11-Apr-2012 13:23 Encounter Reason: high blood pressure - The patient has experienced high blood pressure for 1 week (has had h/a x 1 week). The symptoms have been associated with anxiety and obesity, while the symptoms have not been ass End: 11-Apr-2012 15:56 ociated with excessive caffeine intake. blood pressure range : (140 to 150/90's).Encounter Diagnosis: FAMILY HISTORY OF ISCHEMIC HEART DISEASE (V17.3), Headache (784.0), Elevated Blood Pressure without diagnosis of Hypertension (796.2), Hypothyroidism (244.9), SOB (786.05) [facility] Office Visit On: 10-Mar-2012 9:38 Encounter Reason: Flu Like Symptoms - The last clinic visit was 1 day(s) ago. No changes in management were made at the last visit. Symptoms include nasal congestion, runny nose, sore throat, dry cough and headache, whil End: 10-Mar-2012 10:24 e symptoms do not include fever, chills or body aches. Onset was sudden day(s) ago. There is no known event that preceded symptom onset. The symptoms occur constantly. The patient describes this as moderate in severity and worsening. Encounter Diagnosis: Cough (786.2), ACUTE PHARYNGITIS (462.), Exposure (994.9) [facility] Phone Encounter On: 05-Feb-2012 11:39 Encounter Diagnosis: Hypothyroidism (244.9) End: 05-Feb-2012 11:39 [facility] Phone Encounter On: 29-Nov-2011 14:55 Encounter Diagnosis: Hypothyroidism (244.9) End: 29-Nov-2011 14:56 [facility] Office Visit On: 06-Sep-2011 14:55 Encounter Reason: Leg Pain - This condition occurred without any known injury. The patient sustained an injury to the right hip and right thigh. This occurred 1 day(s) ago. The last clinic visit was 1 day(s) ago. No mckinney End: 06-Sep-2011 15:08 ges in management were made at the last visit. Symptoms include leg pain and swelling (ankles and feet), while symptoms do not include difficulty bearing weight or difficulty ambulating.Encounter Diagnosis: Edema (782.3), Cervical radiculopathy (723.4) [facility] Phone Encounter On: 17-Aug-2011 13:05 Encounter Diagnosis: SCREENING FOR MLIG NEOP, BREAST, NOS (V76.10) End: 17-Aug-2011 13:08 [facility] Phone Encounter On: 01-Aug-2011 17:27 Encounter Diagnosis: Abnormal TSH (794.5) End: 01-Aug-2011 17:29 [facility] Phone Encounter On: 12-Jan-2011 10:42 Encounter Diagnosis: ACUTE PHARYNGITIS (462.) End: 12-Jan-2011 10:43 [facility] Office Visit On: 12-Jan-2011 7:31 Encounter Reason: Sore Throat - The last clinic visit was 5 day(s) ago. No changes in management were made at the last visit. Symptoms include sore throat, nasal congestion, postnasal drainage, swollen glands, myalgias, End: 12-Jan-2011 8:26 fever and chills, while symptoms do not include stridor. The symptoms are symmetrical. There is no radiation. The patient describes the pain as aching. Onset was gradual. The symptoms occur constantly. The patient describes this as moderate in severity and unchanged. Symptoms are not relieved by antihistamines, decongestants, drinking liquids or non-prescription throat lozenges. Associated symptoms in clude headache, hoarseness, nausea, vomiting and cough. Current treatment includes decongestants and antihistamines.Encounter Diagnosis: ACUTE PHARYNGITIS (462.) [facility] Phone Encounter On: 10-Jan-2011 14:20 Encounter Diagnosis: Hypothyroidism (244.9) End: 10-Jan-2011 14:20 [facility] Office Visit On: 20-Nov-2010 17:45 Encounter Diagnosis: Hypothyroidism (244.9) End: 20-Nov-2010 17:52 [facility] Phone Encounter On: 06-Nov-2010 11:06 Encounter Diagnosis: Hypothyroidism (244.9) End: 06-Nov-2010 11:11 [facility] Office Visit On: 28-Aug-2010 15:36 Encounter Reason: Well Women Exam - The patient feels well with minor complaints, has good energy level and is sleeping poorly. Pap smear: date of last pap: (03/02). Contraceptive history: The patient is not using any me End: 28-Aug-2010 16:55 thod of contraception at this time. Patient does not exercise. The patient reports that she does not perform monthly breast self exam. Calcium intake includes >2 serving(s) milk daily. The patient de nies the use of oral contraceptives or hormone replacement therapy. Menstruation: Last menstrual period date: (08/02).Encounter Diagnosis: Well Woman Exam (V72.31) (Pap,Mammo,Routine Female) [facility] Phone Encounter On: 19-Jul-2010 13:28 Encounter Diagnosis: Well Woman Exam (V72.31) (Pap,Mammo,Routine Female) End: 19-Jul-2010 13:30 [facility] Office Visit On: 20-Jan-2010 9:28 Encounter Reason: Eye pain - The onset of the pain has been sudden and has been occurring in a persistent pattern for 4 weeks. The course has been constant. The pain is described as moderate (5th one in 4 weeks).Encounter Diagnosis: End: 20-Jan-2010 10:18 PRURITIC DISORDER NOS (698.9), Stye (373.11), Sinusitis,acute (461.9), Dermatitis (692.9) [facility] Office Visit On: 19-Dec-2009 16:57 Encounter Reason: Itching - The onset of the itching has been gradual and has been occurring in a persistent pattern for 6 days. The course has been constant. The itching is severe. The itching occurs all the time. The i End: 19-Dec-2009 17:41 tching is located on the face. The symptoms have no aggravating factors. The symptoms have no relieving factors. The symptoms have been associated with dry skin. Note for Itching: had reaction from [place]- and then didnt wear any and then got out in sun- so alot of itchy burning- tried benadryl made her woozy- eyes itchyEncounter Diagnosis: ALLERGIC REACTION, NOS (995.3) [facility] Office Visit On: 27-Jul-2009 16:12 Encounter Diagnosis: Unspecified Diagnosis End: 27-Jul-2009 16:14 [facility] Office Visit On: 27-Jul-2009 15:39 Encounter Reason: Sinusitis/ - The duration of the symptoms are 3 weeks The course has been worsening. The sinusitis/ has no relieving factors. Associated features include The symptoms have been associated with cough ,ea End: 27-Jul-2009 16:12 r pain and sinus pain. No previous evaluations were reported. Encounter Diagnosis: Sinusitis,acute (461.9), Allergic Rhinitis(477.9) [facility] Phone Encounter On: 07-Jun-2009 18:00 [facility] End: 07-Jun-2009 18:02 Office Visit On: 10-Feb-2009 15:44 Encounter Reason: UTI - The urinary symptoms are described as painful urination ,frequency and burning. The symptoms have been occurring for 3 days and have been increasing. The urine is described as clear. The symptoms End: 10-Feb-2009 16:15 have been associated with low back pain, while the symptoms have not been associated with abdominal pain. There is no medical history of current ,vaginitis ,kidney stones or recurrent urinary tract infections. The patient denies the use of oral contraceptives ,antibiotics ,hormone replacement therapy or pyridium/uristat. Encounter Diagnosis: SYMPTOMS INVOLVING URINARY SYSTEM; DYSURIA (788.1), Cystitis,Acute (595.0) [facility] Office Visit On: 21-Jan-2009 11:11 Encounter Reason: Chest pain - The onset of the pain has been sudden and has been occurring in a decreasing pattern for 2 days. The pain is described as a mild pressure sensation and tightness. The pain is described as b End: 22-Jan-2009 20:46 eing located in the right chest. The pain does not radiate. There are no precipitating factors. The symptoms have no aggravating factors. The symptoms are relieved by rest. The symptoms have been associ ated with cough ,headache and wheezing, while the symptoms have not been associated with abdominal pain ,emotional stress ,fever ,hypertension ,nausea ,neck pain ,palpitations ,shoulder pain ,syncope or vomiting. Note for Chest pain: woke up with sharp chest pain right side this am - thought she breathed in dust from [employer] going down on sat- she has dry cough since then - sob- worse wed- no f ever- headhe this week and sore throat worse at night- body aches mon night- no recent travel no control - no hx of clots- nonsmoker-pleuritic in natureEncounter Diagnosis: Chest pain (786.59), Cough (786.2) [facility] Office Visit On: 19-Nov-2008 14:19 Encounter Reason: Neck pain - The onset of the neck pain has been gradual and has been occurring in a persistent pattern for 1 years. The course has been gradually worsening. The neck pain is described as a severe pierci End: 19-Nov-2008 14:56 ng. The neck pain is described as being located in the right over cervical spine. There have been no aggravating factors. The back pain is relieved by change in position. The symptoms have been associat ed with neck stiffness. There have been no previous diagnostic tests. There have been no previous evalutations. There has been no previous physical therapy. There has been no previous spine surgery. The re has been no use of assistive devices. Previous medications have included Ibuprofen. Encounter Diagnosis: Cervical radiculopathy (723.4), Cervical Spasm (728.85), Hypothyroidism (244.9) [facility] Historical Summary On: 26-Jul-2008 12:23 [facility] End: 26-Jul-2008 12:24 Office Visit On: 15-Jul-2008 15:38 Encounter Reason: Menstrual problems - The menstrual problem is characterized as irregular menses and has been occurring for 4 days. The problem has been occurring in an irregular pattern. Last menstrual period: Date: (l End: 15-Jul-2008 16:10 mp=06-23-08 and stopped the ). Currently : no There has been no associated abdominal pain or low back pain The patient denies the use of oral contraceptives Note for Menstrual problems: she s aid with this time she has been passing clots the first one was the size of a 1/2 dollar and she said that for the last week she has been really emotinalEncounter Diagnosis: Dysfunctional uterine bleeding (626.8), Abnormal TSH (794.5) [facility] Historical Summary On: 01-Apr-2008 12:04 Encounter Diagnosis: BRONCHITIS, NOT SPECIFIED ACUTE OR CHRONIC (490.) End: 01-Apr-2008 12:06 [facility] Office Visit On: 30-Jun-2007 16:27 Encounter Reason: Eye redness - The onset of the eye redness has been sudden and has been occurring in a persistent pattern for 3 days. The course has been constant. The eye redness is described as moderate (right eye). , End: 30-Jun-2007 17:25 [ADDITIONAL REASON] Cough - The onset of the cough has been sudden. The cough is characterized as dry. The amount of sputum produced is scanty. The cough occurs all the time. The symptoms are aggravate d by supine posture and particular position, but not by meals. The symptoms have been associated with headache ,hoarseness ,runny nose and sore throat, while the symptoms have not been associated with fever or wheezing. Encounter Diagnosis: BRONCHITIS, NOT SPECIFIED ACUTE OR CHRONIC (490.), Conjunctivitis, unspecified (372.30), ACUTE PHARYNGITIS (462.) [facility] Office Visit On: 01-May-2007 11:16 Encounter Reason: Finger problems - The onset of the finger problems has been acute and they have been occurring in a persistent pattern for 5 hours. The course has been increasing. The finger problems are described as m End: 01-May-2007 11:33 ild. Note for Finger problems: jammed right pinky finger in refrigerator door this am , swollen and ecchymotic right 5th digit. right forearm mad hit arm down and instant swell and purpleEncounter Diagnosis: Hand Pain (719.44) [facility] Office Visit On: 12-Mar-2007 11:22 Encounter Reason: Sherry visit - Exercises 3 times per week. The patient's dietary intake is no fast food ,no fried food ,no regular soda and restricting calories. Encounter Diagnosis: Obesity,unspecified (278.00) End: 12-Mar-2007 12:13 [facility] Nurse Visit On: 16-Jan-2007 12:10 Encounter Diagnosis: Obesity,unspecified (278.00) End: 16-Jan-2007 12:12 [facility] Office Visit On: 20-Nov-2006 10:53 Encounter Reason: Sherry visit - Exercises 7 times per week. The patient's dietary intake is no fast food ,no fried food ,no regular soda and restricting calories. other (has dry mouth with medication but has not been ta End: 20-Nov-2006 12:07 fox for 2 months and has not had during that time.). Encounter Diagnosis: Obesity,unspecified (278.00) [facility] Recovered Encounter On: 19-Nov-2006 9:25 Encounter Diagnosis: Obesity,unspecified (278.00) End: 19-Nov-2006 9:25 [facility] Office Visit On: 18-Sep-2006 11:38 Encounter Reason: Follow up Meds - The patient feels well with no complaints. Patient has been compliant with instructions. Current medication use: experiencing side effects (dry mouth- Meridia). Patient sleeps 5 hours p End: 18-Sep-2006 16:33 er night. Nutrition: balanced diet. Note for Follow up Meds: Continues to do well on Meridia. Has lost about 49 lbs and is not taking the med every day. She has adapted a healthy lifestyle and continu es to look great. She is following a low calorie diet. Encounter Diagnosis: Hypothyroidism (244.9), Obesity,unspecified (278.00) [facility] Office Visit On: 21-Aug-2006 11:46 Encounter Reason: Follow up for chronic medical issues - The patient feels well with no complaints. Patient has been compliant with instructions. Current medication use: experiencing side effects (dry mouth, headaches) , End: 21-Aug-2006 13:35 compliant with dosing regimen and considered effective by patient. Patient sleeps 6 hours per night. Nutrition: balanced diet. The medical issues the patient is following up for include other (obesity Acute pharyngitis). Encounter Diagnosis: Obesity,unspecified (278.00), ACUTE PHARYNGITIS (462.), Hypothyroidism (244.9) [facility] Office Visit On: 05-Jul-2006 14:19 Encounter Reason: Sherry visit - The patient's dietary intake is restricting calories. other (sherry). , [ADDITIONAL REASON] Sore throat - The onset of the sore throat has been sudden and has been occurrin End: 05-Jul-2006 14:59 g in a persistent pattern for 2 days. The course has been worsening. The symptoms have been associated with chills ,difficulty in swallowing ,ear pain (plugged) ,recent contact with a person with sore t hroat (son) ,runny nose (clear) ,sinus pain and swelling of neck glands, while the symptoms have not been associated with cough ,difficulty in breathing or fever. Encounter Diagnosis: ACUTE PHARYNGITIS (462.), Obesity,unspecified (278.00) [facility] Phone Encounter On: 25-Jun-2006 1:36 Encounter Diagnosis: Unspecified Diagnosis End: 25-Jun-2006 9:29 [facility] Nurse Visit On: 17-Jun-2006 15:34 Encounter Diagnosis: Obesity,unspecified (278.00) End: 17-Jun-2006 16:04 [facility] Office Visit On: 27-May-2006 15:15 [facility] End: 27-May-2006 20:41 Office Visit On: 01-May-2006 13:47 Encounter Reason: Well Women Exam - The patient feels well with minor complaints (Tightness in chest- sob- coughing is hard to do- almost feels wheezy) ,has good energy level and is sleeping poorly. Pap smear: date of la End: 01-May-2006 17:02 st pap: (8-02). Contraceptive history: The current method of contraception is tubal ligation. Patient exercises a weekly. The patient's libido is normal. The patient reports that she does not perform monthly breast self exam. , [ADDITIONAL REASON] Obesity - The patient's appetite is normal. The patient's dietary intake is normal. There has been no associated abdominal pain ,amenorrhea ,cold intolerance ,decreased libido ,dysp jagdish ,easy bruisability ,edema ,family history of obesity ,fatigue ,headache ,hirsutism ,hoarseness ,striae or visual disturbances. Note for Obesity: Ongoing issue for many years. Had discussed last visit. Insurance to cover Sherry. Pt to start. Encounter Diagnosis: Well Woman Exam (V72.31) (Pap,Mammo,Routine Female), Obesity,unspecified (278.00) [facility] Phone Encounter On: 25-Apr-2006 9:41 Encounter Diagnosis: Hypothyroidism (244.9) End: 25-Apr-2006 9:44 [facility] Office Visit On: 12-Mar-2006 14:29 Encounter Reason: Sinusitis/ - The duration of the symptoms are 2 days The course has been worsening. The sinusitis/ has no relieving factors. Associated features include The symptoms have been associated with cough ,ear End: 12-Mar-2006 15:04 pain ,nasal discharge/stuffy nose ,none reported ,purulent discharge from ear ,purulent nasal discharge (greenish yellow) ,red eyes ,sinus pain ,sore throat ,swollen lymph glands and teeth pain. allergies (seasonal). Encounter Diagnosis: Sinusitis,acute (461.9), Obesity,unspecified (278.00) [facility] Office Visit On: 07-Mar-2006 14:56 Encounter Reason: Follow up Meds - The patient feels well with minor complaints and has decreased energy level. Patient has been compliant with instructions. Patient sleeps 5 hours per night. Nutrition: balanced diet. No End: 07-Mar-2006 21:29 te for Follow up Meds: She needs refill on thyroid medication.Encounter Diagnosis: Hypothyroidism (244.9) [facility] Historical Summary On: 06-Mar-2006 12:16 [facility] End: 06-Mar-2006 12:22 Payers Marah Campos; willie guarantor
--- OUTSIDE RECORDS SUMMARY | 2018-04-19 10:09 | XMS RPT_ITS | Continuity of Care Document ---
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, Dayana L Start : 24-Jun-2014 End : 23-Jan-2018 Inactive [...] 05-Apr-2016 End : 05-Apr-2016 Discontinued Comments:tendonitis RHINOCORT JASMINEA, 32MCG/ACT (Nasal Suspension) 1 (one) [place](s) Daily for 0 days Quantity: 1 {Suspension} [...] (CAD), BILAT Result: Comments: See Note; NOTES: [facility] Imaging Services [address] [place] [address] SCREENING MAMM (CAD), BILAT MR#: [id number] Acct: [id number] Name: TITA CAMPOS Santy Rep #: [id number] : 1970 F 47 From: Roddy Du MD PCP: Raysa De Guzman DO Status: REG CLI Study: SCREENING MAMM (CAD), BILAT Date of Exam: 01/13/18 Exam# [id number] Ordering Dr: Anurag De Guzman DO MAMMOGRAPHY [...] delay biopsy of a clinically suspicious abnormality. [id number] Electronically Sig vanna: Roddy Du MD at 15:51 EDT Tel [phone], Service support , CC: Raysa De Guzman DO Nutrition Educator: Signed 10-Jan-2017 SCREENING MAMM (CAD), BILAT Result: Comments: See Note; NOTES: [facility] Imaging Services [address] [place] [address] SCREENING MAMM (CAD), BILAT MR#: [id number] Acct: [id number] Name: TITA CAMPOS Rep #: [id number] : 1970 F 46 From: Roddy Du MD PCP: Raysa De Guzman DO Status: [facility] CLI Study: SCREENING MAMM (CAD), BILAT Date of Exam: 01/10/17 Exam# [id number] Ordering Dr: Rossy De Guzman DO MAMMOGRAPHY [...] delay biopsy of a clinically suspicious abnormality. [id number] Electronically Signed: Roddy Du MD at 7: 51 EDT Tel [phone], Service support , CC: Raysa De Guzman DO Nutrition Educator: Signed 27-Jan-2016 Bilat Scrn Digital AND CAD Result: Comments: See Note; NOTES: [facility] Imaging Services [address] [place] [address] Verdana 4d Bilat Scrn Digital AND CAD MR#: [id number] Acct: [id number] Name: FELI CAMPOS Rep #: [id number] : 1970 F 45 From: Roddy Du MD PCP: Raysa De Guzman DO Status: REG CLI Study: Brandyn Kitchen Digital AND CAD Date of Exam: 01/27/16 Exam# [id number] Ordering Dr: Raysa David DO MAMMOGRAPHY - [...] ch isidoro since the prior study. 0010 BI/Brandyn Kitchen Digital AND CAD IMPRESSION: Stable bilateral screening mammogram. Yearly follow-up mammogram recomme nded. (A) ASSESSMENT CATEGORY: BIRADS Category 1: Negative. A letter regarding these results will be sent to the patient by the facility within 30 days. Approximat benny 10% of breast cancers are not detected by mammography. A normal mammogram should not delay biopsy of a clinically suspicious abnormality. [id number] Electronically Signed: Roddy Du MD 01/26 at 11:49 EDT Tel [phone], Service support [phone], CC: Raysa De Guzman DO Nutrition Educator: Signed 20-Jan-2015 Breast Complete Unilateral Result: Comments: See Note; NOTES: [facility] Imaging Services [address] [place] [address] Dane 4d Breast Complete Unilateral MR#: [id number] Acct: [id number] Name: TITA CAMPOS Rep #: [id number] : 1970 F 44 From: Roddy Du MD PCP: Raysa De Guzman DO Status: REG CLI Study: Breast Complete Unilateral Date of Exam: 01/20/15 Exam# [id number] O erasmo Dr: Raysa De Guzman DO [...] Roddy Du MD at 11:24 EDT Tel [phone], Service support [phone], CC: Raysa De Guzman DO Nutrition Educator: Signed 20-Jan-2015 Unilat Lt Diag Digital AND CAD Result: Comments: See Note; NOTES: [facility] Imaging Services [address] [place] [address] Verdana 4d Unilat Lt Diag Digital AND CAD MR#: [id number] Acct: [id number] Na me: TITA CAMPOS Rep #: [id number] : 1970 F 44 From: Roddy Du MD PCP: Raysa De Guzman DO Status: REG CLI Study: Unilat Lt Diag Digital AND CAD Date of Exam: 01/20/15 Exam# [id number] Ordering Dr: Raysa De Guzman DO ADDENDUM by Roddy Du MD on 01/20/15 at 1503 ADDENDUM ========= This is an addendum report. Following the ultrasound examination of the breast, rolled medial and lateral views of the left breast were obtained. The questionable abnormality is not prod ucible and represents superimposition of tissue. Electronically Signed: Roddy Du MD at 15:03 EDT Tel [phone], Service support [phone], 5 1502 Date cc: Raysa De Guzman DO * [...] Roddy Du MD at 9:59 EDT Tel [phone], Service support [phone], CC: Raysa De Guzman DO Nutrition Educator: Signed 20-Jan-2015 Unilat Lt Diag Digital AND CAD Result: Comments: See Note; NOTES: [facility] Imaging Services [address] [place] [address] Verdana 4d Unilat Lt Diag Digital AND CAD MR#: [id number] Acct: [id number] Na me: TITA CAMPOS Rep #: [id number] : 1970 F 44 From: Roddy Du MD PCP: Raysa De Guzman DO Status: REG CLI Study: Unilat Lt Diag Digital AND CAD Date of Exam: 01/20/15 Exam# [id number] Ordering Dr: Raysa De Guzman DO MAMMOGRAPHY [...] these results [facility] by the facility within 30 days. Approximately 10% of breast cancers are not detected by mammography. A normal mammogram should not delay biopsy of a clinically suspicious abnormality. Electr onically Signed: Roddy Du MD at 9:59 EDT Tel [phone], Service support [phone], CC: Raysa De Guzman DO Nutrition Educator: Signed 18-Jan-2015 Bilat Scrn Digital AND CAD Result: Comments: See Note; NOTES: [facility] Imaging Services [address] [place] [address] Verdana 4d Bilat Scrn Digital AND CAD MR#: [id number] Acct: [id number] Name: TITA CAMPOS Rep #: [id number] : 1970 F 44 From: Roddy Du MD PCP: Raysa De Guzman DO Status: REG CLI Study: Bilat Scrn Digital AND CAD Date of Exam: 01/18/15 Exam# [id number] Elenita zimmerman Dr: Raysa De Guzman DO MAMMOGRAPHY - [...] Roddy hauser MD at 10:59 EDT Tel [phone], Service support [phone], CC: Raysa De Guzman DO Nutrition Educator: Signed 16-Jan-2014 Bilat Scrn Digital & CAD Result: Comments: See Note; NOTES: [facility] Imaging Services [address] [place] [address] Breast Imaging Report MR#: [id number] Acct: [id number] Name: TITA CAMPOS Rep #: [id number] : 1970 F 43 From: Roddy Du MD PCP: Raysa De Guzman DO Status: REG CLI Exam# [id number] Ordering Dr: Raysa De Guzman DO MAMMOGRAPHY [...] Roddy Du MD at 8:31 EDT Tel [phone], Service support [phone], CC: Raysa De Guzman DO Nutrition Educator: Signed 12-Oct-2013 L/S Spine Min 4 Views Result: Comments: See Note; NOTES: [facility] Imaging Services [address] [place], [place] [address] Radiology Report MR#: [id number] Acct: [id number] Name: TITA CAMPOS Rep #: [id number] : 1970 F 43 From: Cynthia Webster MD PCP: Status: REG CLI Study: L/S Spine Min 4 Views Date of Exam: 10/12/13 Exam# [id number] Ordering Dr: Violetta Jung STUDY: X-RAY - [...] at 11:35 EDT Tel , Service support [phone], RAD/L/S Spine Min 4 Views IMPRESSION: Mild disc narrowing at L4-5. Electronically Signed: Massimo Webster MD 1 at 11:35 EDT Tel , Service support [phone], CC: Violetta Jung Nutrition Educator: Signed 09-Jan-2013 Bilat Scrn Digital & CAD Result: Comments: See Note; NOTES: [facility] Imaging Services [address] [place] [address] Breast Imaging Report MR#: [id number] Acct: [id number] Name: TITA CAMPOS Rep #: [id number] : 1970 F 42 From: Roddy Du MD PCP: Status: REG CLI Exam# [id number] Ordering Dr: Raysa De Guzman DO MAMMOGRAPHY [...] January 09, 2013 at 9:43:50 AM EDT [phone] Electronically Signed GP/GP If you are the referring physician and would like to consult with the radiologist who provided this interpretation, please contact Roddy Du M.D. at [phone]. If this radiologist is unavailable, you will be directed to another radiologist to assist. If you are a patient with a question regarding this report, please contact your referring physician d roxanactly. Professional Interpretation Provided By: [employer], Phone , These documents contain legally protected [...] these documents. CC: Raysa De Guzman DO Nutrition Educator: Signed Immunization Name Dates Details DTP on: Nov-2011 Comments: Given at [facility] - see scanned in documentation - [...] Calculated 2.12 m2 Head Circumference 0.00 cm 21-Ehl-051401:56 Temperature 98.4 f Comments: Method: Oral Pulse [...] ug/dL (Normal) Range: 41.2-243.7 :33 Estradiol Comments: [facility] [address] [place], [address] ESTRADIOL 43.5 pg/mL (Normal) Comments: [...] DETERMINE ESTRADIOL CONCENTRATION. :33 Free T3 Comments: [facility] [address] [place], [address] FREE T3 4.7 pg/mL (Abnormal) Range: 2.18-3.98 :33 Progesterone Level Comments: [facility] [address] [place], [address] Progesterone 12.93 ng/mL (Normal) Comments: Progesterone Reference Table: UNITS Female: Follicular 0.15 - 1.40 ng/mL Luteal 3.34 - 25.56 ng/mL Mid-luteal 4.44 - 28.03 ng/mL Postmenopausal 0.0 - 0.73 ng/mL : 1st Trimester 11.22 - 90.00 ng /mL 2nd Trimester 25.55 - 89.40 ng/mL 3rd Trimester 48.40 -422.50 ng/mL 4-Cbk-233974:33 T4 Free Direct Comments: [facility] [address] [place], [place], [address] T4 FREE DIRECT 0.70 ng/dL (Abnormal) Range: 0.76-1.46 0-Vqc-148551:33 Testosterone, Serum Total Comments: [facility] [address] [place], [place], [address] Testosterone 24.47 ng/dL (Normal) Comments: NORMAL REFERENCE RANGES MALE AGE <50 123.06 - 813.86 ng/dL MALE AGE >50 89.98 - 780.10 ng/dL FEMALE PREMENOPAUSE AGE 21 - 60 9.01 - 47.94 ng/dL FEMALE POSTMENOPAUSE AGE 45 - 89 <7.00 - 45.62 ng/dL REFERENCE RANGE AND METHODOLOGY CHANGED 03/13/201723-Nov-20170-Xrq-934322:33 Thyroid Peroxidase AB Comments: Has Patient had Radioactive Injection for X-ray?: [facility] (refer to report for specific site)refer to report for address and phone number TPO AB [phone] 56 {IU/mL} (Abnormal) Range: 0-34 Comments: Performed at: [address] [id number] Director: Deven Morris PhD, Phone: [phone] 2-Mkk-539236:33 Thyroid Stim Hormone (TSH) Comments: [facility] [address] [place], [address] TSH 0.77 {uIU/mL} (Normal) Range: 0.358-3.74 29-Jul-20177:01 Estradiol Comments: [facility] [address] [place], [address] ESTRADIOL 66.1 pg/mL (Normal) Comments: NORMAL REFERENCE [...] DETERMINE ESTRADIOL CONCENTRATION. :01 Free T3 Comments: [facility] [address] [place], [place], [address] FREE T3 7.5 pg/mL (Abnormal) Range: 2.18-3.98 :01 Progesterone Level Comments: [facility] [address] [place], [address] Progesterone 25.74 ng/mL (Normal) Comments: Progesterone Reference Table: UNITS Female: Follicular 0.15 - 1.40 ng/mL Luteal 3.34 - 25.56 ng/mL Mid-luteal 4.44 - 28.03 ng/mL Postmenopausal 0.0 - 0.73 ng/mL : 1st Trimester 11.22 - 90.00 ng /mL 2nd Trimester 25.55 - 89.40 ng/mL 3rd Trimester 48.40 -422.50 ng/mL :01 T4 Free Direct Comments: [facility] [address] [place], [place], [address] T4 FREE DIRECT 1.02 ng/dL (Normal) Range: 0.76-1.46 :01 Testosterone, Serum Total Comments: [facility] [address] [place], [address] Testosterone 22.30 ng/dL (Normal) Comments: NORMAL REFERENCE RANGES MALE AGE <50 123.06 - 813.86 ng/dL MALE AGE >50 89.98 - 780.10 ng/dL FEMALE PREMENOPAUSE AGE 21 - 60 9.01 - 47.94 ng/dL FEMALE POSTMENOPAUSE AGE 45 - 89 <7.00 - 45.62 ng/dL REFERENCE RANGE AND METHODOLOGY CHANGED 03/13/201729-Jul-20177:01 Thyroglobulin w/Anti-TG AB Comments: [facility] (refer to report for specific site)refer to [...] assay quantitation limit is 2.0 ng/mL.Performed at: [address] [id number] Director: Deven Morris PhD, Phone: [phone] at: [facility] [address] [place] [id number] Director: Jd Vernon MD, Phone: [phone] ANTI-TG AB 153.0 {IU/mL} (Abnormal) Range: 0.0-0.9 Comments: Thyroglobulin Antibody measured by Jass CoulterMethodology 29-Jul-20177:01 Thyroid Stim Hormone (TSH) Comments: [facility] [address] [place] [address], [id number] TSH < 0.01 {uIU/mL} (Abnormal) Range: 0.358-3.74 33-Vhf-20639:19 CALCIFEDIOL (17030) Comments: PATIENT WAS FASTINGPERFORMED BY: [address] [id number] Vitamin D, 25-Hydroxy 26.5 ng/mL (Abnormal) Range: 30.0-100.0 Comments: Vitamin D deficiency has been defined by the [place] of[place]icine and an Endocrine Society practice guideline as alevel of serum 25-OH vitamin D less than 20 ng/mL (1,2).The Endocrine Society went on to further define vitamin Dinsufficiency as a level between 21 and 29 ng/mL (2).1. IOM ([place] of Medicine). 2010. Dietary reference intakes for calcium and D. [place]: The National Academies Press.2. Yasemin MF, Coy CORNEJO, Edie BLACKWELL, et al. Evaluation, treatment, and prevention of vitamin D deficiency: an Endocrine Society clinical practice guideline. JCEM. 2010; 96(7):1911-30. 84-Hen-96428:19 LIPID PANEL (97850) Comments: PATIENT WAS FASTINGPERFORMED BY: [facility] Bryzsg90[address] [facility] [id number] LDL/HDL Ratio 2.1 {ratio_units} (Normal) Range: 0.0-3.2 Comments: LDL/HDL Ratio Men Women 1/2 Avg.Risk 1.0 1.5 Av g.Risk 3.6 3.2 2X Avg.Risk 6.2 5.0 3X Avg.Risk 8.0 6.1 LDL Cholesterol Calc 124 mg/dL (Abnormal) Range: 0-99 VLDL Cholesterol Ghulam 20 mg/dL (Normal) Range: 5-40 HDL Cholesterol 60 mg/dL (Normal) Triglycerides 99 mg/dL (Normal) Range: 0-149 Cholesterol, Total 204 mg/dL (Abnormal) Range: 100-199 97-Veu-629968:29 Estradiol Comments: [facility] Dvqwqcftcs7189 [facility] [place], [place], [address] ESTRADIOL 40.8 pg/mL (Normal) Comments: NORMAL REFERENCE [...] SHOULD BE USED TO DETERMINE ESTRADIOL CONCENTRATION. 09-Qgb-575357:29 Free T3 Comments: [facility] [address] [place], [place], [id number] FREE T3 4.3 pg/mL (Abnormal) Range: 2.18-3.98 90-Gwq-833066:29 Progesterone Level Comments: [facility] [address] [place], [address] Progesterone 11.02 ng/mL (Normal) Comments: Progesterone Reference Table: UNITS Female: Follicular 0.15 - 1.40 ng/mL Luteal 3.34 - 25.56 ng/mL Mid-luteal 4.44 - 28.03 ng/mL Postmenopausal 0.0 - 0.73 ng/mL : 1st Trimester 11.22 - 90.00 ng /mL 2nd Trimester 25.55 - 89.40 ng/mL 3rd Trimester 48.40 -422.50 ng/mL 30-Oti-696429:29 T4 Free Direct Comments: [facility] [address] [place], [address] T4 FREE DIRECT 0.80 ng/dL (Normal) Range: 0.76-1.46 41-Ztq-598457:29 Testosterone, Serum Total Comments: [facility] [address], [address] Testosterone 21.72 ng/dL (Normal) Comments: NORMAL REFERENCE RANGES MALE AGE <50 123.06 - 813.86 ng/dL MALE AGE >50 89.98 - 780.10 ng/dL FEMALE PREMENOPAUSE AGE 21 - 60 9.01 - 47.94 ng/dL FEMALE POSTMENOPAUSE AGE 45 - 89 <7.00 - 45.62 ng/dL REFERENCE RANGE AND METHODOLOGY CHANGED 03/13/201719-Mar-201760-Ydq-304101:29 Thyroid Stim Hormone (TSH) Comments: [facility] [address] [place], [address] TSH 0.64 {uIU/mL} (Normal) Range: 0.358-3.74 49-Grv-72354:51 Estradiol Comments: Has Patient had X-rays with Contrast this admission? [facility] [address] [place], [address] ESTRADIOL 36.1 pg/mL (Normal) Comments: NORMAL REFERENCE [...] Patient had X-rays with Contrast this admission? [facility] Dxiivjstwc2908 [facility] [address] [place], [place], [address] FREE T3 5.8 pg/mL (Abnormal) Range: 2.18-3.98 :51 Progesterone Level Comments: [facility] Vvtybrfnfu[address] [facility] [place], [place], [address] Progesterone 19.85 ng/mL (Normal) Comments: Progesterone Reference Table: UNITS Female: Follicular 0.15 - 1.40 ng/mL Luteal 3.34 - 25.56 ng/mL Mid-luteal 4.44 - 28.03 ng/mL Postmenopausal 0.0 - 0.73 ng/mL : 1st Trimester 11.22 - 90.00 ng /mL 2nd Trimester 25.55 - 89.40 ng/mL 3rd Trimester 48.40 -422.50 ng/mL :51 T4 Free Direct Comments: Has Patient had X-rays with Contrast this admission? [facility] [address] [place], [place], [address] T4 FREE DIRECT 0.99 ng/dL (Normal) Range: 0.76-1.46 :51 Testosterone, Serum Total Comments: [facility] [address] [place], [place], [address] Testosterone 51 ng/dL (Normal) Range: 14-76 :51 Thyroid Stim Hormone (TSH) Comments: Has Patient had X-rays with Contrast this admission? [facility] [address] [place], [address] TSH 0.26 {uIU/mL} (Abnormal) Range: 0.358-3.74 :04 Estradiol Comments: [facility] [address] [place], [id number]) ESTRADIOL 52.8 pg/mL (Normal) Comments: NORMAL REFERENCE [...] DETERMINE ESTRADIOL CONCENTRATION. :04 Free T3 Comments: [facility] [address] [place], [address] FREE T3 2.4 pg/mL (Normal) Range: 2.18-3.98 :04 T4 Free Direct Comments: [facility] [address] [place], [address] T4 FREE DIRECT 0.80 ng/dL (Normal) Range: 0.76-1.46 :04 Testosterone, Serum Total Comments: [facility] [address] [place], [address] Testosterone 45 ng/dL (Normal) Range: 14-76 :04 Thyroid Stim Hormone (TSH) Comments: [facility] [address] [place], [address] TSH 0.38 {uIU/mL} (Normal) Range: 0.358-3.74 :24 Estradiol Comments: [facility] [address] [place], [phone] ESTRADIOL 103.1 pg/mL (Normal) Comments: NORMAL REFERENCE [...] DETERMINE ESTRADIOL CONCENTRATION. :24 Free T3 Comments: [address] [place], [address] FREE T3 5.7 pg/mL (Abnormal) Range: 2.18-3.98 :24 Progesterone Level Comments: [address] [place], [address] Progesterone 34.71 ng/mL (Normal) Comments: Progesterone Reference Table: UNITS Female: Follicular 0.15 - 1.40 ng/mL Luteal 3.34 - 25.56 ng/mL Mid-luteal 4.44 - 28.03 ng/mL Postmenopausal 0.0 - 0.73 ng/mL : 1st Trimester 11.22 - 90.00 ng /mL 2nd Trimester 25.55 - 89.40 ng/mL 3rd Trimester 48.40 -422.50 ng/mL :24 T4 Free Direct Comments: [facility] [address] [place], [address] T4 FREE DIRECT 0.88 ng/dL (Normal) Range: 0.76-1.46 :24 Thyroid Stim Hormone (TSH) Comments: [address] [place], [address] TSH 0.67 {uIU/mL} (Normal) Range: 0.358-3.74 :56 DHEA Sulfate Comments: Has Patient had X-rays with Contrast this admission? [facility] Patient had Radioactive Injection for X-ray?: [facility] (refer to report for specific site)refer to report for address and phone number DHEA SULF 4020 209.1 ug/dL (Normal) Range: 41.2-243.7 :56 Estrogen, Total, Serum Comments: Has Patient had X-rays with Contrast this admission? [facility] Patient had Radioactive Injection for X-ray?: [facility] (refer to report for specific site)refer to report for address and phone number ESTROGEN 4549 78 pg/mL (Normal) Comments: Prepubertal <40 Female Cycle: 1-10 Days 61 - 394 11-20 Days 122 - 437 21-30 Days 156 - 350 Post-Menopausal <40 HMG Treatment for Ovulation Induction: 400 - 800Performed at: [facility] [address] [id number] Director: Deven Morris PhD, Phone: [phone] at: [facility] [address] [id number] Director: David Pfeiffer MD, Phone: [phone] 73-Qpl-942565:56 Follicle Stimulating Hormone Comments: [facility] [address] [place], [address] FSH 5.5 m[iU]/mL (Normal) Comments: NORMAL REFERENCE RANGES FEMALE FOLLICULAR 2.3 - 12.6 mIU/mL MID-CYCLE PEAK 5.2 - 17.5 mIU/mL LUTEAL 1.7 - 12.9 mIU/mL POST-MENOPAUSAL ON MHT 5.9 - 72.8 mIU/mL NOT ON MHT 12.7 - 132.2 mlU/mL MALE 0.7 - 10.8 mIU/mLNEW TEST METHOD AND REFERENCE RANGES AUGUST 13, 201104-Nov-201565-Wxu-698716:56 Progesterone Level Comments: [facility] [address] [place], [address] Progesterone 12.02 ng/mL (Normal) Comments: Progesterone Reference Table: UNITS Female: Follicular 0.15 - 1.40 ng/mL Luteal 3.34 - 25.56 ng/mL Mid-luteal 4.44 - 28.03 ng/mL Postmenopausal 0.0 - 0.73 ng/mL : 1st Trimester 11.22 - 90.00 ng /mL 2nd Trimester 25.55 - 89.40 ng/mL 3rd Trimester 48.40 -422.50 ng/mL 38-Jjp-335648:56 T3 Total - Triiodothyronine Comments: [facility] [address] [place], [address] T3 Total 1.25 ng/mL (Normal) Range: 0.6-1.81 :56 T4 Total, Thyroxin Comments: [facility] [address] [place], [address] T4 THYROXIN 5.9 ug/dL (Normal) Range: 4.8-13.9 [...] 8-48 :56 Thyroid Stim Hormone (TSH) Comments: [facility] [address] [place], [address] TSH 4.19 {uIU/mL} (Abnormal) Range: 0.358-3.74 28-Yil-63962:59 CALCIFIDIOL (44798) VIT D 25 Comments: PATIENT WAS FASTINGPERFORMED BY: [facility] Upywlw3354 [facility] [id number] Vitamin D, 25-Hydroxy 31.8 ng/mL (Normal) Range: 30.0-100.0 Comments: Vitamin D deficiency has been defined by the [place] of[place]icine and an Endocrine Society practice guideline as alevel of serum 25-OH vitamin D less than 20 ng/mL (1,2).The Endocrine Society went on to further define vitamin Dinsufficiency as a level between 21 and 29 ng/mL (2).1. IOM ([place] of [employer]). 2010. Dietary reference intakes for calcium and D. [place]: The National Academies Press.2. Yasemin MF, Coy CORNEJO, Edie BLACKWELL, et al. Evaluation, treatment, and prevention of vitamin D deficiency: an Endocrine Society clinical practice guideline. JCEM. 2010; 96(7):1911-30. 37-Rlz-33822:59 LIPID PANEL (32054) Comments: PATIENT WAS FASTINGPERFORMED BY: [facility] [id number] Information: [id number] LDL/HDL Ratio 2.5 {ratio_units} (Normal) Range: 0.0-3.2 [...] 100-199 Comments: Please note reference interval change 05-Yhq-005045:20 DHEA Sulfate Comments: Has Patient had Radioactive Injection for X-ray?: [facility] (refer to report for specific site)refer to report for address and phone number DHEA SULF 4020 227.4 ug/dL (Normal) Range: 57.3-279.2 Comments: Performed at: [employer] [id number] Director: Deven Morris PhD, Phone: [phone] 74-Cpf-251986:20 Estradiol Comments: [facility] [address] [place], [place], [id number] ESTRADIOL 48.0 pg/mL (Normal) Comments: NORMAL REFERENCE RANGES FEMALE FOLLICULAR 21.4 - 164.8 pg/mL MID-CYCLE PEAK 49.9 - 367.2 pg/mL LUTEAL 40.2 - 259.0 pg/mL POST-MENOPAUSAL ON MHT <11.0 - 462.1 pg/mL NOT ON MHT <11.0 - 58.3 pg/mL MALE <11.0 - 52 .5 pg/mLNEW TEST METHOD AND REFERENCE RANGE AUGUST 13, 201108-Jan-201507-Rfz-140501:20 Progesterone Level Comments: [facility] Lavjbrmqic[address] [facility] [place], [place], [address] Progesterone 22.89 ng/mL (Normal) Comments: Progesterone Reference Table: UNITS Female: Follicular 0.15 - 1.40 ng/mL Luteal 3.34 - 25.56 ng/mL Mid-luteal 4.44 - 28.03 ng/mL Postmenopausal 0.0 - 0.73 ng/mL : 1st Trimester 11.22 - 90.00 ng /mL 2nd Trimester 25.55 - 89.40 ng/mL 3rd Trimester 48.40 -422.50 ng/mL 96-Gwz-783958:20 T3 Total - Triiodothyronine Comments: [facility] [address] [place], [address] T3 Total 1.61 ng/mL (Normal) Range: 0.6-1.81 3-Cet-936883:58 DHEA Sulfate Comments: Has pt arrived? YHas Patient had Radioactive Injection for X-ray?: N[facility] performed [facility] [facility] Lrdyyhgsks0114 [facility] [place] [address] DHEA SULF 4020 216.0 ug/dL (Normal) Range: 57.3-279.2 Comments: Performed at: - [facility] [id number] Director: Pasquale Hutton PhD, Phone: [phone] 9-Hwq-100938:58 Estradiol Comments: Has pt arrived? YTest performed at:[facility] Xxbzmpmrmg1407 [facility] [place] [address] ESTRADIOL 71.1 pg/mL (Normal) Comments: NORMAL REFERENCE RANGES FEMALE FOLLICULAR 21.4 - 164.8 pg/mL MID-CYCLE PEAK 49.9 - 367.2 pg/mL LUTEAL 40.2 - 259.0 pg/mL POST-MENOPAUSAL ON MHT <11.0 - 462.1 pg/mL NOT ON MHT <11.0 - 58.3 pg/mL MALE <11.0 - 52 .5 pg/mLNEW TEST METHOD AND REFERENCE RANGE AUGUST 13, 201101-Apr-20143-Jnz-931985:58 Free T3 Comments: Has pt arrived? YTest performed at:[facility] [address] [place] [address] FREE T3 2.8 pg/mL (Normal) Range: 2.18-3.98 36-Ubn-536579:25 DDIMQ < 0.27 {FEU/ug/m} (Abnormal) Range: 0.27-0.49 Comments: NORMAL D-Dimer level (<0.50) indicates no DVT or PE. 10-Emr-26899:20 Urinalysis, Office (18251) UA - LEUKOCYTE ESTERASE Negative (Normal) UA - NITRITE Negative (Normal) URINE UROBILINGN WIN TIMED Normal mg/dL (Normal) UA - PROTEIN Negative mg/dL (Normal) UA - PH 7.5 (Normal) UA - BLOOD Negative (Normal) UA - SPECIFIC GRAVITY 1.020 (Normal) UA - KETONES Negative mg/dL (Normal) UA - BILIRUBIN Negative (Normal) UA - GLUCOSE Negative (Normal) 57-Rqc-151195:29 Urine Culture,Comprehensive Comments: PATIENT NOT FASTINGPERFORMED BY: [employer] [id number] Information: [id number] Result 1 MUG (Normal) Comments: Mixed urogenital flora25,000-50,000 colony forming units per mL Urine Final report (Normal) Culture,Comprehensive 07-Ubv-108456:03 Rapid Strep Test, Office (82841) Rapid Strep Test, Office Negative (Normal) 25-Dec-20128:08 CALCIFIDIOL (54654) VIT D Comments: PATIENT WAS FASTINGPERFORMED BY: [employer] [id number] BY: [address] [id number] 25 Vitamin D, 25-Hydroxy 23.8 ng/mL (Abnormal) Range: 30.0-100.0 Comments: Vitamin D deficiency has been defined by the [place] of[place]icine and an Endocrine Society practice guideline as alevel of serum 25-OH vitamin D less than 20 ng/mL (1,2).The Endocrine Society went on to further define vitamin Dinsufficiency as a level between 21 and 29 ng/mL (2).1. IOM ([place] of Medicine). 2010. Dietary reference intakes for calcium and D. [place]: The National AcademMePIN / [employer] Press.2. Yasemin MF, Coy CORNEJO, Edie BLACKWELL, et al. Evaluation, treatment, and prevention of vitamin D deficiency: an Endocrine Society clinical practice guideline. JCEM. 2010; 96(7):1911-30. :08 Folate (37372) Comments: PATIENT WAS FASTINGPERFORMED BY: [facility] [id number] BY: [facility] [id number] Folate (Folic Acid), Serum 15.2 ng/mL (Normal) Comments: A serum folate concentration of less than 3.1 ng/mL isconsidered to represent clinical deficiency. :08 VITAMIN B-12 (CYANOCOBALAMIN) Comments: PATIENT WAS FASTINGPERFORMED BY: [employer]70 RSP ToolingAtrium Health Pine[facility] Hospital [id number] BY: Invrep[address] [id number] (98550) Vitamin B12 499 pg/mL (Normal) Range: 211-946 :08 SED RATE ERYTHROCYTE Comments: PATIENT WAS FASTINGPERFORMED BY: [facility] [id number] BY: [employer] [id number] (90654) Sedimentation Rate-Westergren 11 mm/h (Normal) Range: 0-32 :08 RHEUMATOID FACTOR-QUANT Comments: PATIENT WAS FASTINGPERFORMED BY: [employer] Semiconductor4meeeHackensack University Medical CenterByhsrf8[address] [facility] [id number] BY: Yuyuto[address] [id number] (05792) RA Latex Turbid. 8.5 {IU/mL} (Normal) Range: 0.0-13.9 25-Dec-20128:08 METABOLIC PANEL, Comments: PATIENT WAS FASTINGPERFORMED BY: Lab4meeeHackensack University Medical CenterKuvhil023[address] [facility] [id number] BY: Lab4meee[address] [id number] Inf ormation: [id number] [facility] (91057) ALT (SGPT) 19 [iU]/L (Normal) Range: 0-32 [...] mg/dL (Normal) Range: 65-99 25-Dec-20128:08 C-REACTIVE PROTEIN (55235) Comments: PATIENT WAS FASTINGPERFORMED BY: [employer] Wpzxmq1536 [facility] [id number] BY: [address] [id number] C-Reactive Protein, Quant 9.7 mg/L (Abnormal) Range: 0.0-4.9 25-Dec-20128:08 CBC (AUTO) (91675) Comments: PATIENT WAS FASTINGPERFORMED BY: KiwiTechUNM Cancer CenterMjcohq14[address] [facility] [id number] BY: [address] [id number] Platelets 186 {x10E3/uL} (Normal) Range: 155-379 RDW 13.4 % (Normal) Range: 12.3-15.4 MCHC 32.4 g/dL (Normal) Range: 31.5-35.7 MCH 27.7 pg (Normal) Range: 26.6-33.0 MCV 85 fL (Normal) Range: 79-97 Hematocrit 43.8 % (Normal) Range: 34.0-46.6 Hemoglobin 14.2 g/dL (Normal) Range: 11.1-15.9 RBC 5.13 {x10E6/uL} (Normal) Range: 3.77-5.28 WBC 6.7 {x10E3/uL} (Normal) Range: 3.4-10.8 :08 SUZAN (ANTINUCLEAR ANTIBODY) Comments: PATIENT WAS FASTINGPERFORMED BY: KiwiTechUNM Cancer CenterJooipd4627 [facility] [id number] BY: [address] [id number] (22859) SUZAN Direct Negative (Normal) :08 T3, FREE (TRIDOTHYRONINE) Comments: PATIENT WAS FASTINGPERFORMED BY: KiwiTechHackensack University Medical CenterCvxrzo14[address] [facility] [id number] BY: [address] [id number] (41711) Triiodothyronine,Free,Serum 2.9 pg/mL (Normal) Range: 2.0-4.4 :08 T4, FREE (THYROXINE) Comments: PATIENT WAS FASTINGPERFORMED BY: [place] [address]99[address] [facility] [id number] BY: [address] [id number] (18573) T4,Free(Direct) 1.13 ng/dL (Normal) Range: 0.82-1.77 :08 TSH (76334) Comments: PATIENT WAS FASTINGPERFORMED BY: [place] [address]99[address] [facility] [id number] BY: [address] [id number] TSH 0.777 {uIU/mL} (Normal) Range: 0.450-4.500 :08 REVERSE TRIDOTHYRONINE Comments: PATIENT WAS FASTINGPERFORMED BY: [place] [address]99[address] [facility] [id number] BY: [address] [id number] (07791) Reverse T3, Serum 17.6 ng/dL (Normal) Range: 9.2-24.1 68-Xed-921509:08 Hemoglobin Glyclated (HGB A1C) Comments: PATIENT NOT FASTINGPERFORMED BY: [place] [address]99[address] [facility] [id number] (73209) Hemoglobin A1c 5.0 % (Normal) Range: 4.8-5.6 Comments: . Increased risk for diabetes: 5.7 - 6.4 Diabetes: >6.4 Glycemic control for adults with diabetes: <7.0 :08 LIPID PANEL (54353) Comments: PATIENT NOT FASTINGPERFORMED BY: [place] [address]99[address] [facility] [id number] Information: [id number] LDL/HDL Ratio 2.2 {ratio_units} (Normal) Range: 0.0-3.2 LDL Cholesterol Calc 114 mg/dL (Abnormal) Range: 0-99 HDL Cholesterol 53 mg/dL (Normal) Comments: According to ATP-III Guidelines, HDL-C >59 mg/dL is considered anegative risk factor for CHD. VLDL Cholesterol Ghulam 16 mg/dL (Normal) Range: 5-40 Triglycerides 78 mg/dL (Normal) Range: 0-149 Cholesterol, Total 183 mg/dL (Normal) Range: 100-199 22-Cah-012365:03 Microscopic Examination Comments: PATIENT NOT FASTINGPERFORMED BY: BrightContextHackensack University Medical CenterMktaut034[address] [facility] [id number] Bacteria Few (Normal) Mucus Threads Present (Normal) Epithelial Cells (non renal) 0-10 {/hpf} (Normal) Range: 0 - 10 RBC None seen {/hpf} (Normal) Range: 0 - 3 WBC 0-5 {/hpf} (Normal) Range: 0 - 5 :03 URINALYSIS, W/ MICRO Comments: PATIENT NOT FASTINGPERFORMED BY: MOLI6370 Deluca YatraFirstHealth [facility] [id number] Information: [id number] (10677) Microscopic Examination See below: (Normal) Microscopic Examination MICRON (Normal) Comments: Microscopic follows if indicated. Nitrite, Urine Negative (Normal) Urobilinogen,Semi-Qn 0.2 mg/dL (Normal) Range: 0.0-1.9 Bilirubin Negative (Normal) Occult Blood Negative (Normal) Ketones Negative (Normal) Glucose Negative (Normal) Protein Negative (Normal) WBC Esterase Negative (Normal) Appearance Clear (Normal) Urine-Color Yellow (Normal) pH 6.0 (Normal) Range: 5.0-7.5 Specific [place] 1.016 (Normal) Range: 1.005-1.030 :47 CBCMD ANC [...] :47 TSH 0.81 {uIU/mL} (Normal) Range: 0.358-3.74 15-Gvr-056378:06 Influenza A&B Viral Comments: PATIENT NOT FASTINGPERFORMED BY: [address] [id number] Information: SRC:NOS ADD [id number] Culture (20463) Viral Culture,Rapid,Influenza FLUABN (Normal) Comments: Negative:No Influenza A or B detected. 49-Dxj-96864:40 Rapid Flu (49040 x 2) Influenza A Ag negative (Normal) 83-Dzx-399417:19 TSH (98414) Comments: PATIENT NOT FASTINGPERFORMED BY: [place] [address]99[address] [facility] [id number] Information: [id number] TSH 0.310 {uIU/mL} (Abnormal) Range: 0.450-4.500 :55 [...] is made with prior studies dated August 28ndMa2009. FI NDINGS:The breast composition is composed of [...] EDTElectronically Signed GP/GP Professional Interpretation Provided By: wywyMapp [facility], , To consult with a radiologist regarding this report, please call our [id number] line @ Dictated on 08/23/11812 by Jeannie GIBBS,Kris bed on 08/23/1156 by ITS IMPORTSign by Jeannie GIBBS,Roddy on 08/23/11856 Sign by: Roddy Du MD 91-Wet-097263:48 GILBERT CULTURE-OTHER (60639) Comments: PATIENT NOT FASTINGPERFORMED BY: [facility] Kvidik[address] [facility] [id number] Information: SRC:THRGomez [id number] Result 1 RRF (Normal) Comments: Routine respiratory dez Upper Respiratory Culture Final report (Normal) :34 Rapid Strep Test, Office (40528) Rapid Strep Test, Office Negative (Normal) 29-Aug-20109:14 Thin prep Pap Comments: Source.............Cervical;EndocervicalNo. of containers..01 CYTYC Thin Prep VialPATIENT NOT FASTINGPERFORMED BY: [facility] [address] [id number] Information: [id number] (47893) Note: PAPSMR (Normal) Comments: The Pap smear [...] present.V72.31 ; Routine gynecolog ical examina Elver Barron, Capacitor Assembler (ASCP) 28-Aug-20100:00 BILAT SCRN DIGITAL & CAD [...] TSH 1.52 {uIU/mL} Range: 0.358-3.74 10 (Normal) 9-Elf-241361:51 BILAT SCRN DIGITAL & CAD Radiology Report See Note (Normal) Comments: Exam Number: [id number] DIGITAL BILATERAL MAMMOGRAM Digital oblique and craniocaudal [...] the results [facility] This interpretation was rendered by a radiologist certified under theMammography Quality Standards Act of 1992 (MQSA). The mammograms werealso examined with computer-aided detection software (Image instrument checker, 99times.cn.). Reported By: RODDY DU 75-Egq-58982:51 URINE GILBERT CULTURE-IDENTIFICATN Comments: PATIENT NOT FASTINGClinical Information: [id number] PERFORMED BY: [facility] Xlgsnk8156 [facility] [id number] (20286) Result 1 MUG (Normal) Comments: Mixed urogenital flora1,000 Colonies/mL Urine Culture,Comprehensive Final report (Normal) 26-Lxe-312419:45 Urinalysis, Office (92110) Comments: done ak UA - BILIRUBIN Negative (Normal) UA - BLOOD Negative (Normal) UA - GLUCOSE Negative (Normal) UA - KETONES Small mg/dL (Normal) UA - LEUKOCYTE ESTERASE Small (Normal) UA - NITRITE Negative (Normal) UA - PH 6.0 (Normal) UA - PROTEIN Negative mg/dL (Normal) UA - SPECIFIC GRAVITY 1.025 (Normal) URINE UROBILINGN WIN Normal mg/dL TIMED (Normal) : C-REACTIVE PROT 5.79 mg/L (Abnormal) Comments: RESULTS FAXED 01/21/09 2559 MARY GUERRA. 18 Range: 0.0-3.0 Comments: C-Reactive Protein (CRP) provides useful information for thediagnosis, therapy and monitoring of inflammatory processesand associated diseases. For the evaluation of Relative Riskfor Cardiovascular Dise ase, a High Sensitivity CRP (HSCRP)should be ordered. 38-Ttp-877875:18 CBCD,SMEAR DIFF BAND 2 % (Normal) Range: [...] 47-70 WBC 7.3 K/mm3 (Normal) Range: 4.4-11.0 36-Xyv-137135:18 D-DIMER QUANT <200 ng/mL (Normal) Comments: NORMAL D-Dimer level indicates no DVT or PE. RESULTS CALLED TO DR IZAGUIRRE'S OFFICE 01/21/09 ANTHONY ROBB.REPORT READ BACK BY SAME . 32-Fwu-468241:18 ESR SED RATE 14 (Normal) Range: 0-20 55-Ntl-294585:46 Rapid Flu (70062 x 2) INFLUENZA IMMUNOASSY DIRECT OPTICAL OBSERV negative (Normal) 22-Aqb-308595:46 Rapid Strep Test, Office (45661) Rapid Strep Test, Office Negative (Normal) 1-Ipk-214029:26 PELVIC (NON-PREG) (HP) Radiology Report See Note (Normal) Comments: Exam Number: [id number] Transabdominal pelvic ultrasound History: Heavy menses Findings: [...] pelvic ultrasound Reported By: KERRY WILKINSON M.D. 47-Pgt-101697:10 T4, FREE (THYROXINE) (75955) Comments: PATIENT NOT FASTINGPERFORMED BY: MOLI6370 Deluca YatraFirstHealth Moore [facility] [id number] T4,Free(Direct) 1.38 ng/dL (Normal) Range: 0.61-1.76 :10 T3, FREE (TRIDOTHYRONINE) (80712) Comments: PATIENT NOT FASTINGPERFORMED BY: [employer] Votapn3421 Deluca YatraFirstHealth [facility] [id number] Triiodothyronine,Free,Serum 3.4 pg/mL (Normal) Range: 2.3-4.2 :10 GONADOTROPIN-LH (23487) Comments: PATIENT NOT FASTINGPERFORMED BY: [employer] Lcjong[address] [facility] [id number] LH 14.5 m[iU]/mL (Normal) Range: 0.0-76.3 Comments: [...] 15.9 - 54.0 Contraceptives 0.7 - 5.6 56-Iag-167041:10 GONADOTROPIN-FSH (44433) Comments: PATIENT NOT FASTINGPERFORMED BY: [facility] [facility] [id number] FSH 4.8 m[iU]/mL (Normal) Comments: . Age [...] - 9.1 <0.2 Postmenopausal 23.0 - 116.3 18-Rpi-380965:10 TEST - SERUM Comments: PATIENT NOT FASTINGPERFORMED BY: [facility] [facility] [id number] QUANTITATIVE (HCG) (86329) hCG,Beta Subunit,Qual,Serum Negative m[iU]/mL (Normal) Comments: Negative < 5 Borderline 5 - 20 Positive >20 28-Jbv-726944:10 CBC (AUTO) (26968) Comments: PATIENT NOT FASTINGPERFORMED BY: [facility] [facility] [id number] Hematocrit 36.3 % (Normal) Range: 34.0-44.0 Hemoglobin 11.5 g/dL (Normal) Range: 11.5-15.0 MCH 23.7 pg (Abnormal) Range: 27.0-34.0 MCHC 31.6 g/dL (Abnormal) Range: 32.0-36.0 MCV 75 fL (Abnormal) Range: 80-98 Platelets 180 {x10E3/uL} (Normal) Range: 140-415 RBC 4.84 {x10E6/uL} (Normal) Range: 3.80-5.10 RDW 14.1 % (Normal) Range: 11.7-15.0 WBC 5.2 {x10E3/uL} (Normal) Range: 4.0-10.5 79-Coy-164892:10 METABOLIC PANEL, COMPREHENSIVE Comments: PATIENT NOT FASTINGClinical Information: ADD DRAW FEE [id number] ADD J 13313 PERFORMED BY: ROLF LabCoHackensack University Medical CenterFofqms4328 [facility] [id number] (51241) A/G Ratio 1.7 (Normal) Range: 1.1-2.5 Albumin, [...] Serum 64 mg/dL (Abnormal) Range: 65-99 If -Salvadorean >59 mL/min/1.73 Comments: Note: Persistent reduction for [...] Sodium, Serum 141 mmol/L (Normal) Range: 135-145 03-Rrx-205265:10 PROLACTIN (65830) Comments: PATIENT NOT FASTINGPERFORMED BY: KiwiTechZachary Ville 7615170 [facility] [id number] Prolactin 8.1 ng/mL (Normal) Range: 2.8-29.2 Comments: [...] 9.7 - 208.5 Postmenopausal 1.8 - 20.3 13-Afi-487085:10 PT (PROTHROMBIN TIME) (36678) Comments: PATIENT NOT FASTINGPERFORMED BY: KiwiTechHackensack University Medical CenterTlqqjg4055 [facility] [id number] INR 1.0 (Normal) Range: 0.8-1.2 Comments: Reference interval is for non-anticoagulated patients. . Suggested INR therapeutic range for Vitamin K anta gonist therapy: Standard Dose (moderate intensity therapeutic range): 2.0 - 3.0 Higher intensity therapeutic range 2.5 - 3.5 Prothrombin Time 10.4 {sec} (Normal) Range: 8.7-11.5 64-Hop-213173:10 PTT (ACTIVATED PARTIAL Comments: PATIENT NOT FASTINGPERFORMED BY: KiwiTechZachary [place] 7615170 [facility] [id number] THROMBOPLASTIN TIME) (79605) aPTT 25 {sec} (Normal) Range: 24-33 Comments: This test has not been validated for monitoring unfractionated heparintherapy. aPTT-based therapeutic ranges for unfractionated heparintherapy have not been established. For general guidelines onHeparin monitoring, refer to the [facility] Directory of Services. 84-Uve-453318:10 TSH (85209) Comments: PATIENT NOT FASTINGPERFORMED BY: [facility] [facility] [id number] TSH 0.426 {uIU/mL} (Abnormal) Range: 0.450-4.500 :48 TSH 0.352 {uIU/mL} (Abnormal) Comments: PERFORMED BY: [address] [id number] Range: 0.450-4.500 2-Tsj-397119:48 TSH 29.50 {uIU/mL} (Abnormal) Range: 0.34-4.82 5-Pvi-625726:10 Rapid Strep Test, Office (34776) Rapid Strep Test, Office Negative (Normal) 30-Jun-20070:00 CULTURE, THROAT See Note (Normal) Comments: Normal throat dez isolated. No beta-hemolyticstreptococcus isolated. 9-Alm-225748:40 HAND,MIN 3 VIEWS Radiology Report See Note (Normal) Comments: Exam Number: [id number] RIGHT HAND HISTORYHand pain. 3 views of [...] ORGANISM 1: GROUP A BETA STREPTOCOCCUS :00 33-Lxo-441287:32 Rapid Strep Test, Office (76826) Comments: ABN signedpositive Rapid Strep Test, Office Positive (Normal) 11-Hgf-058541:24 T3UP Comments: ADD ON T3 UPTAKE 32 % (Normal) Range: 30-39 T7 (FTI) 2.0 (Normal) Range: 1.4-4.5 41-Aqp-511089:24 T4 THYROXIN 6.1 ug/dL (Normal) Comments: ADD [...] UP NEEDED Indication: Hypothyroidism Planned Observations CALCIFEDIOL (59281)Indication: Vitamin D deficiency On: 51-Vvt-465317:03 Request HEPATIC FUNCTION PANEL (62758)Indication: Hyperlipidemia On: 43-Rpj-043202:03 Request Lipid Panel (03537)Indication: Hyperlipidemia On: :02 Request LIPID PANEL (72336)Indication: Hyperlipidemia On: 05-Gtu-239512:19 Request D-Dimer (08196)Indication: SOB On: :56 Request METABOLIC PANEL, COMPREHENSIVE (96018)Indication: Elevated blood-pressure reading without diagnosis of hypertension On: :21 Request CBC WITH MANUAL DIFF (19760)Indication: Elevated blood-pressure reading without diagnosis of hypertension On: :21 Request D-Dimer (08951)Indication: SOB On: :20 Request TSH (28941)Indication: Hypothyroidism On: :18 Request TSH (99986)Indication: Hypothyroidism On: 31-Fxv-945573:39 Request TSH (36698)Indication: Abnormal TSH On: :28 Request BACT CULTURE ANY-ANAEROBIC (08913)Indication: Pharyngitis, acute On: :35 Request TSH (THYROID STIMULATING HORMONE) (28668)Indication: Hypothyroidism On: :20 Request TSH (12190)Indication: Hypothyroidism On: :52 Request T4, FREE (THYROXINE) (00897)Indication: Hypothyroidism On: :52 Request T3, FREE (TRIDOTHYRONINE) (15159)Indication: Hypothyroidism On: :52 Request TSH (39362)Indication: Hypothyroidism On: :09 Request T4, FREE (THYROXINE) (49836)Indication: Hypothyroidism On: :09 Request T3, FREE (TRIDOTHYRONINE) (86978)Indication: Hypothyroidism On: :09 Request SED RATE ERYTHROCYTE (26458)Indication: Pruritic disorder On: 41-Vxd-471136:07 Request C-REACTIVE PROTEIN (10645)Indication: Pruritic disorder On: 68-Rmd-080011:07 Request SUZAN (ANTINUCLEAR ANTIBODY) (38960)Indication: Pruritic disorder On: 05-Nue-479509:07 Request TSH (85711)Indication: Pruritic disorder On: 17-Obl-012850:07 Request METABOLIC PANEL, COMPREHENSIVE (91114)Indication: Pruritic disorder On: 43-Shg-751129:07 Request CBC WITH MANUAL DIFF (39580)Indication: Pruritic disorder On: 05-Vwn-283669:07 Request C-REACTIVE PROTEIN (06346)Indication: Chest pain On: :56 Request CBC WITH MANUAL DIFF (97377)Indication: Chest pain On: 99-Cwq-322094:56 Request Comments: stat call D-Dimer (04035)Indication: Chest pain On: :56 Request Comments: statcall results GILBERT CULTURE-OTHER (82453)Indication: Pharyngitis, acute On: 4-Ydo-075047:10 Request GILBERT CULTURE-OTHER (66694)Indication: Pharyngitis, acute On: 40-Kub-010779:45 Request Thin prep Pap (11344)Indication: Well woman exam with routine gynecological exam On: 1-Dib-928790:05 Request TSH (95266)Indication: Hypothyroidism On: 24-Kiv-144362:35 Request T4, FREE (THYROXINE) (20181)Indication: Hypothyroidism On: 88-Zha-263978:35 Request T3, FREE (TRIDOTHYRONINE) (99867)Indication: Hypothyroidism On: 11-Jjg-092594:35 Request Planned Encounters Medical; 2 Week FU - On: 07-Feb-2018 14:15 [facility] Raysa De Guzman DO, DO, Kathleen Planned Procedures ELECTROCARDIOGRAM, COMPLETE (ECG) On: 23-Jan-2018 Intent (05402)By: Mita Montanez Comments: NSR-HR 63 MAMMOGRAM BREAST BILATERAL SCREENING On: 24-Dec-2017 Intent DIGITAL (79118)By: Raysa De Guzman DO, DO, Kathleen SCREENING DIGITAL TOMOSYNTHESIS OF On: 27-Dec-2016 Intent BREAST (91074)By: Raysa De Guzman DO, DO, Raysa Aerosol Treatment (23048)By: Solomon BLAND, On: 28-Mar-2016 Intent Keysha A BILATERAL MAMMOGRAMS (83074)By: Gab On: 16-Jan-2016 Intent Raysa BLAND DO, Raysa BILATERAL MAMMOGRAMS (93111)By: Gab On: 31-Dec-2014 Intent Raysa BLAND DO, Raysa BILATERAL MAMMOGRAMS (82311)By: Gab On: 01-Jan-2014 Intent Raysa BLAND DO, Kathleen Radiology - Lumbar SpineBy: Fabiana JONES, On: 12-Oct-2013 Intent Violetta Alves Toradol Injection, 30 mg (J1885)By: On: 12-Oct-2013 Intent Fabiana JONES Violetta Alves Comments: lot: 57-833-BVwnw: 05/24/15ite/route: RGM/IMamt: 30mgVIS signed when applicableChelsRUFINO dove Eprescribed prescriptions (G8553)By: On: 06-May-2013 Intent Fabiana JONES Violetta Alves Breast Screening - BilateralBy: Gab On: 25-Dec-2012 Intent Raysa BLAND DO, Kathleen EKG (41340)By: Raysa De Guzman DO On: 11-Apr-2012 Intent Raysa De Guzman DO Comments: nsr no acute sinus changes Pulse Oximetry (76488)By: Gab BLAND, On: 11-Apr-2012 Intent Raysa Fountain DO MRI /MRA- Brain (IV Contrast On: 11-Apr-2012 Intent Needed)By: Raysa De Guzman DO, DO, Kathleen Eprescribed prescriptions (G8553)By: On: 10-Mar-2012 Intent Mita Salinas LPN Doppler Ultrasound b/lBy: Gab BLAND, On: 06-Sep-2011 Intent Raysa Fountain DO Breast Screening - BilateralBy: Gab On: 17-Aug-2011 Intent Raysa BLAND DO, Raysa MAMMOGRAM, SCREENING, BOTH BREASTS On: 19-Jul-2010 Intent (65594)By: Rasya De Guzman DO, DO, Kathleen MAMMOGRAM, SCREENING, BOTH BREASTS On: 27-Jul-2009 Intent (54693)By: Violetta Jung CNP Radiology - Chest- PA and LatBy: Fast On: 21-Jan-2009 Intent Keysha BLAND Pulse Oximetry (54428)By: Maryuri, On: 21-Jan-2009 Intent Katia Comments: 99% Spirometry (85149)By: Maryuri, On: 21-Jan-2009 Intent Katia Comments: good effort and curve normal EKG (30627)By: Katia Wahl On: 21-Jan-2009 Intent Comments: ekg showed normal sinus fay, normal axis, no acute st/t wave changes Ultrasound - PelvisBy: Gab BLAND, On: 15-Jul-2008 Intent Raysa Fountain DO SPECIMEN HNDLNG/TRNSPRT, OFFC > LAB On: 30-Jun-2007 Intent (06896)By: Raysa De Guzman DO, DO, Kathleen Radiology - Hand - RightBy: Bonezzi On: 01-May-2007 Intent Roma GIBBS Comments: attention 5 th digit ? avulsion fracturecall wet read to office SPECIMEN HNDLNG/TRNSPRT, OFFC > LAB On: 05-Jul-2006 Intent (84437)By: Raysa De Guzman DO, DO, Kathleen MAMMOGRAM, SCREENING, BOTH BREASTS On: 01-May-2006 Intent (42924)By: MEDARDO DEL VALLE CNP Comments: Screening for [...] in dust from freedlnaders going down on mon- she has dry cough since then - [...]
--- OUTSIDE RECORDS SUMMARY | 2018-04-19 10:10 | XMS RPT_ITS | Continuity of Care Document ---
:1970 Author Organization [facility] Address [address] [facility] [address] [place] [address] Phone Care Team Providers Name Role Phone [...] for 30 days Refills: 0 Ordered:24-Jun-2014 Mita Salinsa LPN Start : 21-Apr-2014 End : 24-Jun-2014 [...] for 30 days Refills: 0 Ordered:23-Jan-2018 Long GUEST ADVISOR, Dayana L Start : 24-Jun-2014 End : [...] RHINOCORT JASMINEA, 32MCG/ACT (Nasal Suspension) 1 (one) [place](s) Daily for 0 days Quantity: 1 {Suspension} [...] (CAD), BILAT Result: Comments: See Note; NOTES: [facility] Imaging Services [address] [place] [address] SCREENING MAMM (CAD), BILAT MR#: [id number] Acct: [id number] Name: TITA CAMPOS Santy Rep #: [id number] : 1970 F 47 From: Roddy Du MD PCP: Raysa De Guzman DO Status: REG CLI Study: SCREENING MAMM (CAD), BILAT Date of Exam: 01/13/18 Exam# [id number] Ordering Dr: Anurag De Guzman DO MAMMOGRAPHY [...] delay biopsy of a clinically suspicious abnormality. [id number] Electronically Sig vanna: Roddy Du MD at 15:51 EDT Tel [phone], Service support , CC: Raysa De Guzman DO Carbon Accountant: Signed 10-Jan-2017 SCREENING MAMM (CAD), BILAT Result: Comments: See Note; NOTES: [facility] Imaging Services [address] [place] [address] SCREENING MAMM (CAD), BILAT MR#: [id number] Acct: [id number] Name: TITA CAMPOS Rep #: [id number] : 1970 F 46 From: Roddy Du MD PCP: Raysa De Guzman DO Status: [facility] CLI Study: SCREENING MAMM (CAD), BILAT Date of Exam: 01/10/17 Exam# [id number] Ordering Dr: Rossy De Guzman DO MAMMOGRAPHY [...] delay biopsy of a clinically suspicious abnormality. [id number] Electronically Signed: Roddy Du MD at 7: 51 EDT Tel [phone], Service support , CC: Raysa De Guzman DO Carbon Accountant: Signed 27-Jan-2016 Bilat Scrn Digital AND CAD Result: Comments: See Note; NOTES: [facility] Imaging Services [address] [place] [address] Verdana 4d Bilat Scrn Digital AND CAD MR#: [id number] Acct: [id number] Name: FELI CAMPOS Rep #: [id number] : 1970 F 45 From: Roddy Du MD PCP: Raysa De Guzman DO Status: REG CLI Study: Brandyn Kitchen Digital AND CAD Date of Exam: 01/27/16 Exam# [id number] Ordering Dr: Raysa David DO MAMMOGRAPHY - [...] delay biopsy of a clinically suspicious abnormality. [id number] Electronically Signed: Roddy Du MD 01/26 at 11:49 EDT Tel [phone], Service support [phone], CC: Raysa De Guzman DO Carbon Accountant: Signed 20-Jan-2015 Breast Complete Unilateral Result: Comments: See Note; NOTES: [facility] Imaging Services [address] [place] [address] Dane 4d Breast Complete Unilateral MR#: [id number] Acct: [id number] Name: TITA CAMPOS Rep #: [id number] : 1970 F 44 From: Roddy Du MD PCP: Raysa De Guzman DO Status: REG CLI Study: Breast Complete Unilateral Date of Exam: 01/20/15 Exam# [id number] O erasmo Dr: Raysa De Guzman DO [...] Roddy Du MD at 11:24 EDT Tel [phone], Service support [phone], CC: Raysa De Guzman DO Carbon Accountant: Signed 20-Jan-2015 Unilat Lt Diag Digital AND CAD Result: Comments: See Note; NOTES: [facility] Imaging Services [address] [place] [address] Verdana 4d Unilat Lt Diag Digital AND CAD MR#: [id number] Acct: [id number] Na me: TITA CAMPOS Rep #: [id number] : 1970 F 44 From: Roddy Du MD PCP: Raysa De Guzman DO Status: REG CLI Study: Unilat Lt Diag Digital AND CAD Date of Exam: 01/20/15 Exam# [id number] Ordering Dr: Raysa De Guzman DO ADDENDUM by Roddy Du MD on 01/20/15 at 1503 ADDENDUM ========= This is an addendum report. Following the ultrasound examination of the breast, rolled medial and lateral views of the left breast were obtained. The questionable abnormality is not prod ucible and represents superimposition of tissue. Electronically Signed: Roddy Du MD at 15:03 EDT Tel [phone], Service support [phone], 5 1502 Date cc: Raysa De Guzman [...] Roddy Du MD at 9:59 EDT Tel [phone], Service support [phone], CC: Raysa De Guzman DO Carbon Accountant: Signed 20-Jan-2015 Unilat Lt Diag Digital AND CAD Result: Comments: See Note; NOTES: [facility] Imaging Services [address] [place] [address] Verdana 4d Unilat Lt Diag Digital AND CAD MR#: [id number] Acct: [id number] Na me: TITA CAMPOS Rep #: [id number] : 1970 F 44 From: Roddy Du MD PCP: Raysa De Guzman DO Status: REG CLI Study: Unilat Lt Diag Digital AND CAD Date of Exam: 01/20/15 Exam# [id number] Ordering Dr: Raysa De Guzman DO MAMMOGRAPHY [...] these results will be sent to the [facility] ient by the facility within 30 days. Approximately 10% of breast cancers are not detected by mammography. A normal mammogram should not delay biopsy of a clinically suspicious abnormality. Electr onically Signed: Roddy Du MD at 9:59 EDT Tel [phone], Service support [phone], CC: Raysa De Guzman DO Carbon Accountant: Signed 18-Jan-2015 Bilat Scrn Digital AND CAD Result: Comments: See Note; NOTES: [facility] Imaging Services [address] [place] [address] Verdana 4d Bilat Scrn Digital AND CAD MR#: [id number] Acct: [id number] Name: TITA CAMPOS Rep #: [id number] : 1970 F 44 From: Roddy Du MD PCP: Raysa De Guzman DO Status: REG CLI Study: Bilat Scrn Digital AND CAD Date of Exam: 01/18/15 Exam# [id number] Elenita zimmerman Dr: Raysa De Guzman DO [...] Roddy hauser MD at 10:59 EDT Tel [phone], Service support [phone], CC: Raysa De Guzman DO Carbon Accountant: Signed 16-Jan-2014 Bilat Scrn Digital & CAD Result: Comments: See Note; NOTES: [facility] Imaging Services [address] [place] [address] Breast Imaging Report MR#: [id number] Acct: [id number] Name: TITA CAMPOS Rep #: [id number] : 1970 F 43 From: Roddy Du MD PCP: Raysa De Guzman DO Status: REG CLI Exam# [id number] Ordering Dr: Raysa De Guzman DO MAMMOGRAPHY [...] Roddy Du MD at 8:31 EDT Tel [phone], Service support [phone], CC: Raysa De Guzman DO Carbon Accountant: Signed 12-Oct-2013 L/S Spine Min 4 Views Result: Comments: See Note; NOTES: [facility] Imaging Services [address] [place], [place] [address] Radiology Report MR#: [id number] Acct: [id number] Name: TITA CAMPOS Rep #: [id number] : 1970 F 43 From: Cynthia Webster MD PCP: Status: REG CLI Study: L/S Spine Min 4 Views Date of Exam: 10/12/13 Exam# [id number] Ordering Dr: Violetta Jung STUDY: X-RAY - [...] at 11:35 EDT Tel , Service support [phone], RAD/L/S Spine Min 4 Views IMPRESSION: Mild disc narrowing at L4-5. Electronically Signed: Massimo Webster MD 1 at 11:35 EDT Tel , Service support [phone], CC: Violetta Jung Carbon Accountant: Signed 09-Jan-2013 Bilat Scrn Digital & CAD Result: Comments: See Note; NOTES: [facility] Imaging Services [address] [place] [address] Breast Imaging Report MR#: [id number] Acct: [id number] Name: TITA CAMPOS Rep #: [id number] : 1970 F 42 From: Roddy Du MD PCP: Status: REG CLI Exam# [id number] Ordering Dr: Raysa De Guzman DO MAMMOGRAPHY [...] January 09, 2013 at 9:43:50 AM EDT [phone] Electronically Signed GP/GP If you are the referring physician and would like to consult with the radiologist who provided this interpretation, please contact Roddy Du M.D. at . If this radiologist is unavailable, you will be directed to another radiologist to assist. If you are a patient with a question regarding this report, please contact your referring physician d roxanactly. Professional Interpretation Provided By: [facility], Phone , These documents contain legally protected [...] these documents. CC: Raysa De Guzman DO Carbon Accountant: Signed Immunization Name Dates Details DTP on: Nov-2011 Comments: Given at [facility] - see scanned in documentation - [...] Calculated 2.12 m2 Head Circumference 0.00 cm 51-Hpw-360516:56 Temperature 98.4 f Comments: Method: Oral Pulse [...] ug/dL (Normal) Range: 41.2-243.7 :33 Estradiol Comments: [facility] [address]ns[address] [place], [address] ESTRADIOL 43.5 pg/mL (Normal) Comments: [...] DETERMINE ESTRADIOL CONCENTRATION. :33 Free T3 Comments: [facility] Pnalmvffdc67[address] [place], [address] FREE T3 4.7 pg/mL (Abnormal) Range: 2.18-3.98 :33 Progesterone Level Comments: [facility] Jronmxmbcx[address] [place], [address] Progesterone 12.93 ng/mL (Normal) Comments: Progesterone Reference Table: UNITS Female: Follicular 0.15 - 1.40 ng/mL Luteal 3.34 - 25.56 ng/mL Mid-luteal 4.44 - 28.03 ng/mL Postmenopausal 0.0 - 0.73 ng/mL : 1st Trimester 11.22 - 90.00 ng /mL 2nd Trimester 25.55 - 89.40 ng/mL 3rd Trimester 48.40 -422.50 ng/mL 7-Rrc-937077:33 T4 Free Direct Comments: [facility] [address] [place], [place], [id number] T4 FREE DIRECT 0.70 ng/dL (Abnormal) Range: 0.76-1.46 2-Xaa-179075:33 Testosterone, Serum Total Comments: [facility] [address]jrkuvsobv[address] [place], [place], [address] Testosterone 24.47 ng/dL (Normal) Comments: NORMAL REFERENCE RANGES MALE AGE <50 123.06 - 813.86 ng/dL MALE AGE >50 89.98 - 780.10 ng/dL FEMALE PREMENOPAUSE AGE 21 - 60 9.01 - 47.94 ng/dL FEMALE POSTMENOPAUSE AGE 45 - 89 <7.00 - 45.62 ng/dL REFERENCE RANGE AND METHODOLOGY CHANGED 03/13/201723-Nov-20175-Lzc-321060:33 Thyroid Peroxidase AB Comments: Has Patient had Radioactive Injection for X-ray?: [facility] (refer to report for specific site)refer to report for address and phone number TPO AB [phone] 56 {IU/mL} (Abnormal) Range: 0-34 Comments: Performed at: [address] [id number] Director: Deven Morris PhD, Phone: [phone] 1-Gao-310010:33 Thyroid Stim Hormone (TSH) Comments: [facility] [address]exk[address] [place], [address] TSH 0.77 {uIU/mL} (Normal) Range: 0.358-3.74 29-Jul-20177:01 Estradiol Comments: [facility] M[address]ij[address]ulg[address] [place], [address] ESTRADIOL 66.1 pg/mL (Normal) Comments: NORMAL REFERENCE [...] DETERMINE ESTRADIOL CONCENTRATION. :01 Free T3 Comments: [facility] [address]vbqegbb[address] [place], [place], [address] FREE T3 7.5 pg/mL (Abnormal) Range: 2.18-3.98 :01 Progesterone Level Comments: [facility] M[address]cxrnqxv8[address] [place], [address] Progesterone 25.74 ng/mL (Normal) Comments: Progesterone Reference Table: UNITS Female: Follicular 0.15 - 1.40 ng/mL Luteal 3.34 - 25.56 ng/mL Mid-luteal 4.44 - 28.03 ng/mL Postmenopausal 0.0 - 0.73 ng/mL : 1st Trimester 11.22 - 90.00 ng /mL 2nd Trimester 25.55 - 89.40 ng/mL 3rd Trimester 48.40 -422.50 ng/mL :01 T4 Free Direct Comments: [facility] [address]rklx[address] [place], [place], [address] T4 FREE DIRECT 1.02 ng/dL (Normal) Range: 0.76-1.46 :01 Testosterone, Serum Total Comments: [facility] Cqxkopbccr[address] [place], [address] Testosterone 22.30 ng/dL (Normal) Comments: [...] assay quantitation limit is 2.0 ng/mL.Performed at: [address] [id number] Director: Deven Morris PhD, Phone: [phone] at: [facility] [address] [place] [address] [id number] Director: Jd Vernon MD, Phone: [phone] ANTI-TG AB 153.0 {IU/mL} (Abnormal) Range: 0.0-0.9 Comments: Thyroglobulin Antibody measured by Jass CoulterMethodology 29-Jul-20177:01 Thyroid Stim Hormone (TSH) Comments: [facility] [address] [place] [address], [id number] TSH < 0.01 {uIU/mL} (Abnormal) Range: 0.358-3.74 70-Bnl-66547:19 CALCIFEDIOL (31728) Comments: PATIENT WAS FASTINGPERFORMED BY: [address] [id number] Vitamin D, 25-Hydroxy 26.5 ng/mL (Abnormal) Range: 30.0-100.0 Comments: Vitamin D deficiency has been defined by the [place] of[place]icine and an Endocrine Society practice guideline as alevel of serum 25-OH vitamin D less than 20 ng/mL (1,2).The Endocrine Society went on to further define vitamin Dinsufficiency as a level between 21 and 29 ng/mL (2).1. IOM ([place] of Medicine). 2010. Dietary reference intakes for calcium and D. [place]: The National Academies Press.2. Yasemin MF, Coy CORNEJO, Edie BLACKWELL, et al. Evaluation, treatment, and prevention of vitamin D deficiency: an Endocrine Society clinical practice guideline. JCEM. 2010; 96(7):1911-30. 02-Tot-43570:19 LIPID PANEL (81975) Comments: PATIENT WAS FASTINGPERFORMED BY: [facility] Iblkna8977 [facility] [id number] LDL/HDL Ratio 2.1 {ratio_units} (Normal) Range: 0.0-3.2 Comments: LDL/HDL Ratio Men Women 1/2 Avg.Risk 1.0 1.5 Av g.Risk 3.6 3.2 2X Avg.Risk 6.2 5.0 3X Avg.Risk 8.0 6.1 LDL Cholesterol Calc 124 mg/dL (Abnormal) Range: 0-99 VLDL Cholesterol Ghulam 20 mg/dL (Normal) Range: 5-40 HDL Cholesterol 60 mg/dL (Normal) Triglycerides 99 mg/dL (Normal) Range: 0-149 Cholesterol, Total 204 mg/dL (Abnormal) Range: 100-199 09-Hpx-820292:29 Estradiol Comments: [facility] Shfbobqoay5103 [facility] [place], [place], [address] ESTRADIOL 40.8 pg/mL (Normal) Comments: NORMAL REFERENCE [...] SHOULD BE USED TO DETERMINE ESTRADIOL CONCENTRATION. 80-Dqn-229536:29 Free T3 Comments: [facility] [address] [place], [place], [id number] FREE T3 4.3 pg/mL (Abnormal) Range: 2.18-3.98 06-Tde-056953:29 Progesterone Level Comments: [facility] [address]xiwkjgwcl[address] [place], [address] Progesterone 11.02 ng/mL (Normal) Comments: Progesterone Reference Table: UNITS Female: Follicular 0.15 - 1.40 ng/mL Luteal 3.34 - 25.56 ng/mL Mid-luteal 4.44 - 28.03 ng/mL Postmenopausal 0.0 - 0.73 ng/mL : 1st Trimester 11.22 - 90.00 ng /mL 2nd Trimester 25.55 - 89.40 ng/mL 3rd Trimester 48.40 -422.50 ng/mL 11-Dnh-553694:29 T4 Free Direct Comments: [facility] [address] [place], [address] T4 FREE DIRECT 0.80 ng/dL (Normal) Range: 0.76-1.46 61-Lsh-264534:29 Testosterone, Serum Total Comments: [facility] [address]cr[address] [place], [address] Testosterone 21.72 ng/dL (Normal) Comments: NORMAL REFERENCE RANGES MALE AGE <50 123.06 - 813.86 ng/dL MALE AGE >50 89.98 - 780.10 ng/dL FEMALE PREMENOPAUSE AGE 21 - 60 9.01 - 47.94 ng/dL FEMALE POSTMENOPAUSE AGE 45 - 89 <7.00 - 45.62 ng/dL REFERENCE RANGE AND METHODOLOGY CHANGED 03/13/201719-Mar-201742-Iwj-846666:29 Thyroid Stim Hormone (TSH) Comments: [facility] [address]ompo[address] [place], [address] TSH 0.64 {uIU/mL} (Normal) Range: 0.358-3.74 51-Zxt-66296:51 Estradiol Comments: Has Patient had X-rays with Contrast this admission? [facility] [address]of[address] [place], [address] ESTRADIOL 36.1 pg/mL (Normal) Comments: NORMAL REFERENCE [...] Patient had X-rays with Contrast this admission? [facility] Rfcxdcaurs4825 [facility] [address] [place], [place], [address] FREE T3 5.8 pg/mL (Abnormal) Range: 2.18-3.98 :51 Progesterone Level Comments: [facility] Tfeftpifuo0563 [facility] [place], [place], [address] Progesterone 19.85 ng/mL (Normal) Comments: Progesterone Reference Table: UNITS Female: Follicular 0.15 - 1.40 ng/mL Luteal 3.34 - 25.56 ng/mL Mid-luteal 4.44 - 28.03 ng/mL Postmenopausal 0.0 - 0.73 ng/mL : 1st Trimester 11.22 - 90.00 ng /mL 2nd Trimester 25.55 - 89.40 ng/mL 3rd Trimester 48.40 -422.50 ng/mL :51 T4 Free Direct Comments: Has Patient had X-rays with Contrast this admission? [facility] [address] [place], [place], [address] T4 FREE DIRECT 0.99 ng/dL (Normal) Range: 0.76-1.46 :51 Testosterone, Serum Total Comments: [facility] Q[address]ct[address]shrl[address] [place], [place], [address] Testosterone 51 ng/dL (Normal) Range: 14-76 :51 Thyroid Stim Hormone (TSH) Comments: Has Patient had X-rays with Contrast this admission? [facility] [address]twzqc[address] [place], [address] TSH 0.26 {uIU/mL} (Abnormal) Range: 0.358-3.74 :04 Estradiol Comments: [facility] Vsuojptrdb[address] [place], [id number]) ESTRADIOL 52.8 pg/mL (Normal) Comments: NORMAL REFERENCE [...] DETERMINE ESTRADIOL CONCENTRATION. :04 Free T3 Comments: [facility] [address]wdu[address] [place], [address] FREE T3 2.4 pg/mL (Normal) Range: 2.18-3.98 :04 T4 Free Direct Comments: [facility] [address]ravm[address] [place], [address] T4 FREE DIRECT 0.80 ng/dL (Normal) Range: 0.76-1.46 :04 Testosterone, Serum Total Comments: [facility] [address] [place], [address] Testosterone 45 ng/dL (Normal) Range: 14-76 :04 Thyroid Stim Hormone (TSH) Comments: [facility] [address]hw[address] [place], [address] TSH 0.38 {uIU/mL} (Normal) Range: 0.358-3.74 :24 Estradiol Comments: [facility] [address]qoma[address] [place], [address] ESTRADIOL 103.1 pg/mL (Normal) Comments: NORMAL REFERENCE [...] DETERMINE ESTRADIOL CONCENTRATION. :24 Free T3 Comments: [address] [place], [address] FREE T3 5.7 pg/mL (Abnormal) Range: 2.18-3.98 :24 Progesterone Level Comments: [address] [place], [address] Progesterone 34.71 ng/mL (Normal) Comments: Progesterone Reference Table: UNITS Female: Follicular 0.15 - 1.40 ng/mL Luteal 3.34 - 25.56 ng/mL Mid-luteal 4.44 - 28.03 ng/mL Postmenopausal 0.0 - 0.73 ng/mL : 1st Trimester 11.22 - 90.00 ng /mL 2nd Trimester 25.55 - 89.40 ng/mL 3rd Trimester 48.40 -422.50 ng/mL :24 T4 Free Direct Comments: [facility] [address] [place], [address] T4 FREE DIRECT 0.88 ng/dL (Normal) Range: 0.76-1.46 :24 Thyroid Stim Hormone (TSH) Comments: [address] [place], [address] TSH 0.67 {uIU/mL} (Normal) Range: 0.358-3.74 :56 DHEA Sulfate Comments: Has Patient had X-rays with Contrast this admission? [facility] Patient had Radioactive Injection for X-ray?: [facility] (refer to report for specific site)refer to report for address and phone number DHEA SULF 4020 209.1 ug/dL (Normal) Range: 41.2-243.7 :56 Estrogen, Total, Serum Comments: Has Patient had X-rays with Contrast this admission? [facility] Patient had Radioactive Injection for X-ray?: [facility] (refer to report for specific site)refer to report for address and phone number ESTROGEN 4549 78 pg/mL (Normal) Comments: Prepubertal <40 Female Cycle: 1-10 Days 61 - 394 11-20 Days 122 - 437 21-30 Days 156 - 350 Post-Menopausal <40 HMG Treatment for Ovulation Induction: 400 - 800Performed at: [facility] [address] [id number] Director: Deven Morris PhD, Phone: [phone] at: [facility] [address] [id number] Director: David Pfeiffer MD, Phone: [phone] 30-The-437044:56 Follicle Stimulating Hormone Comments: [facility] [address]acg[address] [place], [address] FSH 5.5 m[iU]/mL (Normal) Comments: NORMAL REFERENCE RANGES FEMALE FOLLICULAR 2.3 - 12.6 mIU/mL MID-CYCLE PEAK 5.2 - 17.5 mIU/mL LUTEAL 1.7 - 12.9 mIU/mL POST-MENOPAUSAL ON MHT 5.9 - 72.8 mIU/mL NOT ON MHT 12.7 - 132.2 mlU/mL MALE 0.7 - 10.8 mIU/mLNEW TEST METHOD AND REFERENCE RANGES AUGUST 13, 201104-Nov-201584-Ish-881073:56 Progesterone Level Comments: [facility] [address]ouhlj[address] [place], [address] Progesterone 12.02 ng/mL (Normal) Comments: Progesterone Reference Table: UNITS Female: Follicular 0.15 - 1.40 ng/mL Luteal 3.34 - 25.56 ng/mL Mid-luteal 4.44 - 28.03 ng/mL Postmenopausal 0.0 - 0.73 ng/mL : 1st Trimester 11.22 - 90.00 ng /mL 2nd Trimester 25.55 - 89.40 ng/mL 3rd Trimester 48.40 -422.50 ng/mL 45-Iqn-192500:56 T3 Total - Triiodothyronine Comments: [facility] [address] [place], [address] T3 Total 1.25 ng/mL (Normal) Range: 0.6-1.81 :56 T4 Total, Thyroxin Comments: [facility] [address]vdzbrlnac[address] [place], [address] T4 THYROXIN 5.9 ug/dL (Normal) Range: 4.8-13.9 [...] 8-48 :56 Thyroid Stim Hormone (TSH) Comments: [facility] [address]nqrspkorl[address] [place], [address] TSH 4.19 {uIU/mL} (Abnormal) Range: 0.358-3.74 43-Kyo-13417:59 CALCIFIDIOL (60491) VIT D 25 Comments: PATIENT WAS FASTINGPERFORMED BY: [facility] Gjuyao3553 [facility] [id number] Vitamin D, 25-Hydroxy 31.8 ng/mL (Normal) Range: 30.0-100.0 Comments: Vitamin D deficiency has been defined by the [place] ofMedicine and an Endocrine Society practice guideline as alevel of serum 25-OH vitamin D less than 20 ng/mL (1,2).The Endocrine Society went on to further define vitamin Dinsufficiency as a level between 21 and 29 ng/mL (2).1. IOM ([place] of [employer]). 2010. Dietary reference intakes for calcium and D. [place]: The National Academies Press.2. Yasemin MF, Coy CORNEJO, Edie BLACKWELL, et al. Evaluation, treatment, and prevention of vitamin D deficiency: an Endocrine Society clinical practice guideline. JCEM. 2010; 96(7):1911-30. 91-Fxh-03148:59 LIPID PANEL (46623) Comments: PATIENT WAS FASTINGPERFORMED BY: [facility] [id number] Information: [id number] LDL/HDL Ratio 2.5 {ratio_units} (Normal) Range: 0.0-3.2 [...] 100-199 Comments: Please note reference interval change 86-Gkd-459661:20 DHEA Sulfate Comments: Has Patient had Radioactive Injection for X-ray?: [facility] (refer to report for specific site)refer to report for address and phone number DHEA SULF 4020 227.4 ug/dL (Normal) Range: 57.3-279.2 Comments: Performed at: [employer] [facility] [id number] Director: Deven Morris PhD, Phone: [phone] 82-Fos-143115:20 Estradiol Comments: [facility] [address] [place], [place], [address] ESTRADIOL 48.0 pg/mL (Normal) Comments: NORMAL REFERENCE RANGES FEMALE FOLLICULAR 21.4 - 164.8 pg/mL MID-CYCLE PEAK 49.9 - 367.2 pg/mL LUTEAL 40.2 - 259.0 pg/mL POST-MENOPAUSAL ON MHT <11.0 - 462.1 pg/mL NOT ON MHT <11.0 - 58.3 pg/mL MALE <11.0 - 52 .5 pg/mLNEW TEST METHOD AND REFERENCE RANGE AUGUST 13, 201108-Jan-201500-Rvk-174912:20 Progesterone Level Comments: [facility] Szwfuweoth4404 [facility] [place], [place], [address] Progesterone 22.89 ng/mL (Normal) Comments: Progesterone Reference Table: UNITS Female: Follicular 0.15 - 1.40 ng/mL Luteal 3.34 - 25.56 ng/mL Mid-luteal 4.44 - 28.03 ng/mL Postmenopausal 0.0 - 0.73 ng/mL : 1st Trimester 11.22 - 90.00 ng /mL 2nd Trimester 25.55 - 89.40 ng/mL 3rd Trimester 48.40 -422.50 ng/mL 12-Tzp-503428:20 T3 Total - Triiodothyronine Comments: [facility] [address] [place], [address] T3 Total 1.61 ng/mL (Normal) Range: 0.6-1.81 4-Upu-177562:58 DHEA Sulfate Comments: Has pt arrived? YHas Patient had Radioactive Injection for X-ray?: NTest performed at:[facility] Zdrdagwgxn3882 [facility] [place] [address] DHEA SULF 4020 216.0 ug/dL (Normal) Range: 57.3-279.2 Comments: Performed at: - [facility] [id number] Director: Pasquale Hutton PhD, Phone: [phone] 7-Nrg-743803:58 Estradiol Comments: Has pt arrived? YTest performed at:[facility] Sihanwgleu9856 [facility] [place] [address] ESTRADIOL 71.1 pg/mL (Normal) Comments: NORMAL REFERENCE RANGES FEMALE FOLLICULAR 21.4 - 164.8 pg/mL MID-CYCLE PEAK 49.9 - 367.2 pg/mL LUTEAL 40.2 - 259.0 pg/mL POST-MENOPAUSAL ON MHT <11.0 - 462.1 pg/mL NOT ON MHT <11.0 - 58.3 pg/mL MALE <11.0 - 52 .5 pg/mLNEW TEST METHOD AND REFERENCE RANGE AUGUST 13, 201101-Apr-20147-Cne-187175:58 Free T3 Comments: Has pt arrived? YTest performed at:[facility] [address]jmnqtpb8[address] [place] [address] FREE T3 2.8 pg/mL (Normal) Range: 2.18-3.98 77-Riu-612749:25 DDIMQ < 0.27 {FEU/ug/m} (Abnormal) Range: 0.27-0.49 Comments: NORMAL D-Dimer level (<0.50) indicates no DVT or PE. [id number] Urinalysis, Office ([id number]) UA - LEUKOCYTE ESTERASE Negative (Normal) UA - NITRITE Negative (Normal) URINE UROBILINGN WIN TIMED Normal mg/dL (Normal) UA - PROTEIN Negative mg/dL (Normal) UA - PH 7.5 (Normal) UA - BLOOD Negative (Normal) UA - SPECIFIC GRAVITY 1.020 (Normal) UA - KETONES Negative mg/dL (Normal) UA - BILIRUBIN Negative (Normal) UA - GLUCOSE Negative (Normal) 11-Ehl-399801:29 Urine Culture,Comprehensive Comments: PATIENT NOT FASTINGPERFORMED BY: ColdWatt[address] [id number] Information: [id number] Result 1 MUG (Normal) Comments: Mixed urogenital flora25,000-50,000 colony forming units per mL Urine Final report (Normal) Culture,Comprehensive 18-Opi-622972:03 Rapid Strep Test, Office (18246) Rapid Strep Test, Office Negative (Normal) 25-Dec-20128:08 CALCIFIDIOL (06433) VIT D Comments: PATIENT WAS FASTINGPERFORMED BY: ColdWatt[address] [id number] BY: [address] [id number] 25 Vitamin D, 25-Hydroxy 23.8 ng/mL (Abnormal) Range: 30.0-100.0 Comments: Vitamin D deficiency has been defined by the [place] ofMedicine and an Endocrine Society practice guideline as alevel of serum 25-OH vitamin D less than 20 ng/mL (1,2).The Endocrine Society went on to further define vitamin Dinsufficiency as a level between 21 and 29 ng/mL (2).1. IOM ([place] of Medicine). 2010. Dietary reference intakes for calcium and D. [place]: The National AcademHoffman Family Cellars Press.2. Yasemin MF, Coy CORNEJO, Edie BLACKWELL, et al. Evaluation, treatment, and prevention of vitamin D deficiency: an Endocrine Society clinical practice guideline. JCEM. 2010; 96(7):1911-30. :08 Folate (27500) Comments: PATIENT WAS FASTINGPERFORMED BY: [facility] [facility] [id number] BY: [employer] [id number] Folate (Folic Acid), Serum 15.2 ng/mL (Normal) Comments: A serum folate concentration of less than 3.1 ng/mL isconsidered to represent clinical deficiency. :08 VITAMIN B-12 (CYANOCOBALAMIN) Comments: PATIENT WAS FASTINGPERFORMED BY: [employer]70 OpenCurriculumSelect Specialty Hospital [facility] [id number] BY: [employer] [id number] (81652) Vitamin B12 499 pg/mL (Normal) Range: 211-946 :08 SED RATE ERYTHROCYTE Comments: PATIENT WAS FASTINGPERFORMED BY: [employer] [facility] [id number] BY: ColdWatt[address] [id number] (14676) Sedimentation Rate-Westergren 11 mm/h (Normal) Range: 0-32 :08 RHEUMATOID FACTOR-QUANT Comments: PATIENT WAS FASTINGPERFORMED BY: NextStep.ioPressySpecialty Hospital at MonmouthIzevhu2155 [facility] [id number] BY: Tattva[address] [id number] (68713) RA Latex Turbid. 8.5 {IU/mL} (Normal) Range: 0.0-13.9 25-Dec-20128:08 METABOLIC PANEL, Comments: PATIENT WAS FASTINGPERFORMED BY: LabPressySpecialty Hospital at MonmouthUmmkgq5461 [facility] [id number] BY: LabPressy[address] [id number] Inf ormation: [id number],[id number] [facility] (96865) ALT (SGPT) 19 [iU]/L (Normal) Range: 0-32 [...] mg/dL (Normal) Range: 65-99 25-Dec-20128:08 C-REACTIVE PROTEIN (94793) Comments: PATIENT WAS FASTINGPERFORMED BY: [employer]Watt Wvjpni5784 [facility] [id number] BY: [address] [id number] C-Reactive Protein, Quant 9.7 mg/L (Abnormal) Range: 0.0-4.9 25-Dec-20128:08 CBC (AUTO) (22239) Comments: PATIENT WAS FASTINGPERFORMED BY: ColdWattMemorial Medical CenterEtqxjj3701 [facility] [id number] BY: [address] [id number] Platelets 186 {x10E3/uL} (Normal) Range: 155-379 RDW 13.4 % (Normal) Range: 12.3-15.4 MCHC 32.4 g/dL (Normal) Range: 31.5-35.7 MCH 27.7 pg (Normal) Range: 26.6-33.0 MCV 85 fL (Normal) Range: 79-97 Hematocrit 43.8 % (Normal) Range: 34.0-46.6 Hemoglobin 14.2 g/dL (Normal) Range: 11.1-15.9 RBC 5.13 {x10E6/uL} (Normal) Range: 3.77-5.28 WBC 6.7 {x10E3/uL} (Normal) Range: 3.4-10.8 :08 SUZAN (ANTINUCLEAR ANTIBODY) Comments: PATIENT WAS FASTINGPERFORMED BY: ColdWattMemorial Medical CenterJyfxgq6716 [facility] [id number] BY: [address] [id number] (04321) SUZAN Direct Negative (Normal) :08 T3, FREE (TRIDOTHYRONINE) Comments: PATIENT WAS FASTINGPERFORMED BY: ColdWattSpecialty Hospital at MonmouthRbqsxm3978 [facility] [id number] BY: [address] [id number] (07618) Triiodothyronine,Free,Serum 2.9 pg/mL (Normal) Range: 2.0-4.4 :08 T4, FREE (THYROXINE) Comments: PATIENT WAS FASTINGPERFORMED BY: [place] 7749470 [facility] [id number] BY: [address] [id number] (66933) T4,Free(Direct) 1.13 ng/dL (Normal) Range: 0.82-1.77 :08 TSH (61587) Comments: PATIENT WAS FASTINGPERFORMED BY: [place] 7749470 [facility] [id number] BY: [address] [id number] TSH 0.777 {uIU/mL} (Normal) Range: 0.450-4.500 :08 REVERSE TRIDOTHYRONINE Comments: PATIENT WAS FASTINGPERFORMED BY: [place] 7749470 [facility] [id number] BY: [address] [id number] (35627) Reverse T3, Serum 17.6 ng/dL (Normal) Range: 9.2-24.1 81-Dgq-253197:08 Hemoglobin Glyclated (HGB A1C) Comments: PATIENT NOT FASTINGPERFORMED BY: [place] 7749470 [facility] [id number] (83738) Hemoglobin A1c 5.0 % (Normal) Range: 4.8-5.6 Comments: . Increased risk for diabetes: 5.7 - 6.4 Diabetes: >6.4 Glycemic control for adults with diabetes: <7.0 :08 LIPID PANEL (83910) Comments: PATIENT NOT FASTINGPERFORMED BY: [place] 7749470 [facility] [id number] Information: [id number] LDL/HDL Ratio 2.2 {ratio_units} (Normal) Range: 0.0-3.2 LDL Cholesterol Calc 114 mg/dL (Abnormal) Range: 0-99 HDL Cholesterol 53 mg/dL (Normal) Comments: According to ATP-III Guidelines, HDL-C >59 mg/dL is considered anegative risk factor for CHD. VLDL Cholesterol Ghulam 16 mg/dL (Normal) Range: 5-40 Triglycerides 78 mg/dL (Normal) Range: 0-149 Cholesterol, Total 183 mg/dL (Normal) Range: 100-199 93-Tkr-153046:03 Microscopic Examination Comments: PATIENT NOT FASTINGPERFORMED BY: BioVascularSpecialty Hospital at MonmouthPmuxqh2416 [facility] [id number] Bacteria Few (Normal) Mucus Threads Present (Normal) Epithelial Cells (non renal) 0-10 {/hpf} (Normal) Range: 0 - 10 RBC None seen {/hpf} (Normal) Range: 0 - 3 WBC 0-5 {/hpf} (Normal) Range: 0 - 5 :03 URINALYSIS, W/ MICRO Comments: PATIENT NOT FASTINGPERFORMED BY: [employer] noFeeRealEstateSales.comDorothea Dix Hospital [id number] Information: [id number] (37493) Microscopic Examination See below: (Normal) Microscopic Examination MICRON (Normal) Comments: Microscopic follows if indicated. Nitrite, Urine Negative (Normal) Urobilinogen,Semi-Qn 0.2 mg/dL (Normal) Range: 0.0-1.9 Bilirubin Negative (Normal) Occult Blood Negative (Normal) Ketones Negative (Normal) Glucose Negative (Normal) Protein Negative (Normal) WBC Esterase Negative (Normal) Appearance Clear (Normal) Urine-Color Yellow (Normal) pH 6.0 (Normal) Range: 5.0-7.5 Specific [place] 1.016 (Normal) Range: 1.005-1.030 :47 CBCMD ANC [...] :47 TSH 0.81 {uIU/mL} (Normal) Range: 0.358-3.74 34-Ior-274095:06 Influenza A&B Viral Comments: PATIENT NOT FASTINGPERFORMED BY: [address] [id number] Information: SRC:NOS ADD [id number] Culture (07328) Viral Culture,Rapid,Influenza FLUABN (Normal) Comments: Negative:No Influenza A or B detected. 00-Feg-36811:40 Rapid Flu (77735 x 2) Influenza A Ag negative (Normal) 98-Wvs-274600:19 TSH (04895) Comments: PATIENT NOT FASTINGPERFORMED BY: [place] 7749470 [facility] [id number] Information: [id number] TSH 0.310 {uIU/mL} (Abnormal) Range: 0.450-4.500 :55 [...] EDTElectronically Signed GP/GP Professional Interpretation Provided By: LeadspaceInSequent [facility], , To consult with a radiologist regarding this report, please call our [id number] line @ Dictated on 08/23/11812 by Jeannie GIBBS,Kris bed on 08/23/1156 by ITS IMPORTSign by Jeannie GIBBS,Roddy on 08/23/11856 Sign by: Roddy Du MD 68-Cjg-380205:48 GILBERT CULTURE-OTHER (51753) Comments: PATIENT NOT FASTINGPERFORMED BY: [facility] Wpianm4011 [facility] [id number] Information: SRC:THRGomez [id number] Result 1 RRF (Normal) Comments: Routine respiratory dez Upper Respiratory Culture Final report (Normal) :34 Rapid Strep Test, Office (43503) Rapid Strep Test, Office Negative (Normal) 29-Aug-20109:14 Thin prep Pap Comments: Source.............Cervical;EndocervicalNo. of containers..01 CYTYC Thin Prep VialPATIENT NOT FASTINGPERFORMED BY: [facility] [address] [id number] Information: [id number] (86071) Note: PAPSMR (Normal) Comments: The Pap smear [...] ; Routine gynecolog ical examina Elver Barron, Drying Unit Felting Machine Operator (ASCP) 28-Aug-20100:00 BILAT SCRN DIGITAL & CAD [...] TSH 1.52 {uIU/mL} Range: 0.358-3.74 10 (Normal) 7-Xgy-856623:51 BILAT SCRN DIGITAL & CAD Radiology Report See Note (Normal) Comments: Exam Number: [id number] DIGITAL BILATERAL MAMMOGRAM Digital oblique and craniocaudal [...] the results has been sent to the [facility]. This interpretation was rendered by a radiologist certified under theMammography Quality Standards Act of 1992 (MQSA). The mammograms werealso examined with computer-aided detection software (Image tool checker, [employer].). Reported By: RODDY DU 87-Pzp-33133:51 URINE GILBERT CULTURE-IDENTIFICATN Comments: PATIENT NOT FASTINGClinical Information: [id number] PERFORMED BY: [facility] Jbnpov9573 [facility] [id number] (83320) Result 1 MUG (Normal) Comments: Mixed urogenital flora1,000 Colonies/mL Urine Culture,Comprehensive Final report (Normal) 04-Ryp-286838:45 Urinalysis, Office (10483) Comments: done ak UA - BILIRUBIN Negative [...] 5.79 mg/L (Abnormal) Comments: RESULTS FAXED 01/21/09 6573 MARY GUERRA. 18 Range: 0.0-3.0 Comments: C-Reactive Protein (CRP) provides useful information for thediagnosis, therapy and monitoring of inflammatory processesand associated diseases. For the evaluation of Relative Riskfor Cardiovascular Dise ase, a High Sensitivity CRP (HSCRP)should be ordered. 71-Hbs-132474:18 CBCD,SMEAR DIFF BAND 2 % (Normal) Range: [...] 47-70 WBC 7.3 K/mm3 (Normal) Range: 4.4-11.0 61-Vps-325892:18 D-DIMER QUANT <200 ng/mL (Normal) Comments: NORMAL D-Dimer level indicates no DVT or PE. RESULTS CALLED TO DR IZAGUIRRE'S OFFICE 01/21/09 ANTHONY ROBB.REPORT READ BACK BY SAME . 71-Qra-145874:18 ESR SED RATE 14 (Normal) Range: 0-20 35-Gqv-679154:46 Rapid Flu (22851 x 2) INFLUENZA IMMUNOASSY DIRECT OPTICAL OBSERV negative (Normal) 87-Tjj-747675:46 Rapid Strep Test, Office (01791) Rapid Strep Test, Office Negative (Normal) 4-Ccu-643552:26 PELVIC (NON-PREG) (HP) Radiology Report See Note (Normal) Comments: Exam Number: [id number] Transabdominal pelvic ultrasound History: Heavy menses Findings: [...] pelvic ultrasound Reported By: KERRY WILKINSON M.D. 87-Beu-632117:10 T4, FREE (THYROXINE) (84304) Comments: PATIENT NOT FASTINGPERFORMED BY: [employer] noFeeRealEstateSales.comDorothea Dix Hospital [id number] T4,Free(Direct) 1.38 ng/dL (Normal) Range: 0.61-1.76 :10 T3, FREE (TRIDOTHYRONINE) (23349) Comments: PATIENT NOT FASTINGPERFORMED BY: [employer]att Sbxmjk5740 [place] noFeeRealEstateSales.comDorothea Dix Hospital [id number] Triiodothyronine,Free,Serum 3.4 pg/mL (Normal) Range: 2.3-4.2 :10 GONADOTROPIN-LH (55463) Comments: PATIENT NOT FASTINGPERFORMED BY: [employer] Twscfn5559 [facility] [id number] LH 14.5 m[iU]/mL (Normal) Range: 0.0-76.3 Comments: [...] 15.9 - 54.0 Contraceptives 0.7 - 5.6 12-Gpt-613637:10 GONADOTROPIN-FSH (37167) Comments: PATIENT NOT FASTINGPERFORMED BY: [facility]6370 [facility] [id number] FSH 4.8 m[iU]/mL (Normal) Comments: . Age [...] - 9.1 <0.2 Postmenopausal 23.0 - 116.3 61-Rms-132309:10 TEST - SERUM Comments: PATIENT NOT FASTINGPERFORMED BY: [facility]6370 [facility] [id number] QUANTITATIVE (HCG) (20841) hCG,Beta Subunit,Qual,Serum Negative m[iU]/mL (Normal) Comments: Negative < 5 Borderline 5 - 20 Positive >20 57-Xpu-775111:10 CBC (AUTO) (32980) Comments: PATIENT NOT FASTINGPERFORMED BY: [facility]6370 [facility] [id number] Hematocrit 36.3 % (Normal) Range: 34.0-44.0 Hemoglobin 11.5 g/dL (Normal) Range: 11.5-15.0 MCH 23.7 pg (Abnormal) Range: 27.0-34.0 MCHC 31.6 g/dL (Abnormal) Range: 32.0-36.0 MCV 75 fL (Abnormal) Range: 80-98 Platelets 180 {x10E3/uL} (Normal) Range: 140-415 RBC 4.84 {x10E6/uL} (Normal) Range: 3.80-5.10 RDW 14.1 % (Normal) Range: 11.7-15.0 WBC 5.2 {x10E3/uL} (Normal) Range: 4.0-10.5 26-Wft-084779:10 METABOLIC PANEL, COMPREHENSIVE Comments: PATIENT NOT FASTINGClinical Information: ADD DRAW FEE 284543 ADD J 72916 PERFORMED BY: ROLF LabCoSpecialty Hospital at MonmouthRqwyui0232 [facility] [id number] (89734) A/G Ratio 1.7 (Normal) Range: 1.1-2.5 Albumin, [...] Serum 64 mg/dL (Abnormal) Range: 65-99 If -Cook Islander >59 mL/min/1.73 Comments: Note: Persistent reduction [...] Sodium, Serum 141 mmol/L (Normal) Range: 135-145 97-Nbi-203132:10 PROLACTIN (37873) Comments: PATIENT NOT FASTINGPERFORMED BY: ColdWattChrist[place] 1484570 [facility] [id number] Prolactin 8.1 ng/mL (Normal) Range: 2.8-29.2 Comments: [...] 9.7 - 208.5 Postmenopausal 1.8 - 20.3 25-Spq-138349:10 PT (PROTHROMBIN TIME) (40902) Comments: PATIENT NOT FASTINGPERFORMED BY: ColdWattSpecialty Hospital at MonmouthJmsljj1962 [facility] [id number] INR 1.0 (Normal) Range: 0.8-1.2 Comments: Reference interval is for non-anticoagulated patients. . Suggested INR therapeutic range for Vitamin K anta gonist therapy: Standard Dose (moderate intensity therapeutic range): 2.0 - 3.0 Higher intensity therapeutic range 2.5 - 3.5 Prothrombin Time 10.4 {sec} (Normal) Range: 8.7-11.5 92-Fxj-189164:10 PTT (ACTIVATED PARTIAL Comments: PATIENT NOT FASTINGPERFORMED BY: ColdWattChrist[place] 1484570 [facility] [id number] THROMBOPLASTIN TIME) (63676) aPTT 25 {sec} (Normal) Range: 24-33 Comments: This test has not been validated for monitoring unfractionated heparintherapy. aPTT-based therapeutic ranges for unfractionated heparintherapy have not been established. For general guidelines onHeparin monitoring, refer to the [facility] Directory of Services. 50-Rsv-641427:10 TSH (41550) Comments: PATIENT NOT FASTINGPERFORMED BY: [facility]6370 [facility] [id number] TSH 0.426 {uIU/mL} (Abnormal) Range: 0.450-4.500 :48 TSH 0.352 {uIU/mL} (Abnormal) Comments: PERFORMED BY: [address] [id number] Range: 0.450-4.500 9-Ifk-646417:48 TSH 29.50 {uIU/mL} (Abnormal) Range: 0.34-4.82 7-Gdg-061294:10 Rapid Strep Test, Office (04054) Rapid Strep Test, Office Negative (Normal) 30-Jun-20070:00 CULTURE, THROAT See Note (Normal) Comments: Normal throat dez isolated. No beta-hemolyticstreptococcus isolated. 1-Tud-399955:40 HAND,MIN 3 VIEWS Radiology Report See Note (Normal) Comments: Exam Number: [id number] RIGHT HAND HISTORYHand pain. 3 views of [...] ORGANISM 1: GROUP A BETA STREPTOCOCCUS :00 13-Lcl-952036:32 Rapid Strep Test, Office (75905) Comments: ABN signedpositive Rapid Strep Test, Office Positive (Normal) 37-Cbg-459699:24 T3UP Comments: ADD ON T3 UPTAKE 32 % (Normal) Range: 30-39 T7 (FTI) 2.0 (Normal) Range: 1.4-4.5 34-Wjw-556029:24 T4 THYROXIN 6.1 ug/dL (Normal) Comments: ADD [...] UP NEEDED Indication: Hypothyroidism Planned Observations CALCIFEDIOL (74034)Indication: Vitamin D deficiency On: 68-Edy-320486:03 Request HEPATIC FUNCTION PANEL (44712)Indication: Hyperlipidemia On: 88-Jqs-596611:03 Request Lipid Panel (33550)Indication: Hyperlipidemia On: :02 Request LIPID PANEL (19038)Indication: Hyperlipidemia On: 80-Eis-541475:19 Request D-Dimer (67998)Indication: SOB On: :56 Request METABOLIC PANEL, COMPREHENSIVE (91041)Indication: Elevated blood-pressure reading without diagnosis of hypertension On: :21 Request CBC WITH MANUAL DIFF (60005)Indication: Elevated blood-pressure reading without diagnosis of hypertension On: :21 Request D-Dimer (48023)Indication: SOB On: :20 Request TSH (61492)Indication: Hypothyroidism On: :18 Request TSH (09246)Indication: Hypothyroidism On: 16-Zuy-716265:39 Request TSH (64611)Indication: Abnormal TSH On: :28 Request BACT CULTURE ANY-ANAEROBIC (19422)Indication: Pharyngitis, acute On: :35 Request TSH (THYROID STIMULATING HORMONE) (73714)Indication: Hypothyroidism On: :20 Request TSH (31618)Indication: Hypothyroidism On: :52 Request T4, FREE (THYROXINE) (29451)Indication: Hypothyroidism On: :52 Request T3, FREE (TRIDOTHYRONINE) (12869)Indication: Hypothyroidism On: :52 Request TSH (52317)Indication: Hypothyroidism On: :09 Request T4, FREE (THYROXINE) (00064)Indication: Hypothyroidism On: :09 Request T3, FREE (TRIDOTHYRONINE) (64593)Indication: Hypothyroidism On: :09 Request SED RATE ERYTHROCYTE (80994)Indication: Pruritic disorder On: 74-Drv-360397:07 Request C-REACTIVE PROTEIN (72131)Indication: Pruritic disorder On: 70-Lcf-560442:07 Request SUZAN (ANTINUCLEAR ANTIBODY) (87557)Indication: Pruritic disorder On: 15-Ppz-819833:07 Request TSH (45478)Indication: Pruritic disorder On: 62-Tup-533273:07 Request METABOLIC PANEL, COMPREHENSIVE (06849)Indication: Pruritic disorder On: 39-Dmd-538524:07 Request CBC WITH MANUAL DIFF (04712)Indication: Pruritic disorder On: 26-Pxn-783557:07 Request C-REACTIVE PROTEIN (88625)Indication: Chest pain On: :56 Request CBC WITH MANUAL DIFF (57427)Indication: Chest pain On: 05-Gsu-463936:56 Request Comments: stat call D-Dimer (74768)Indication: Chest pain On: :56 Request Comments: statcall results GILBERT CULTURE-OTHER (22530)Indication: Pharyngitis, acute On: 9-Xxj-355917:10 Request GILBERT CULTURE-OTHER (66623)Indication: Pharyngitis, acute On: 38-Eze-922364:45 Request Thin prep Pap (99218)Indication: Well woman exam with routine gynecological exam On: 0-Hbp-357635:05 Request TSH (25331)Indication: Hypothyroidism On: 92-Icd-516526:35 Request T4, FREE (THYROXINE) (45758)Indication: Hypothyroidism On: 25-Faw-253973:35 Request T3, FREE (TRIDOTHYRONINE) (08649)Indication: Hypothyroidism On: 16-Fjj-014347:35 Request Planned Encounters Medical; 2 Week FU - On: 07-Feb-2018 14:15 [facility] Raysa De Guzman DO, DO, Kathleen Planned Procedures ELECTROCARDIOGRAM, COMPLETE (ECG) On: 23-Jan-2018 Intent (75946)By: Mita Montanez Comments: NSR-HR 63 MAMMOGRAM BREAST BILATERAL SCREENING On: 24-Dec-2017 Intent DIGITAL (44335)By: Raysa De Guzman DO, DO, Kathleen SCREENING DIGITAL TOMOSYNTHESIS OF On: 27-Dec-2016 Intent BREAST (10972)By: Raysa De Guzman DO, DO, Raysa Aerosol Treatment (46308)By: Solomon BLAND, On: 28-Mar-2016 Intent Keysha A BILATERAL MAMMOGRAMS (21996)By: Gab On: 16-Jan-2016 Intent Raysa BLAND DO, Raysa BILATERAL MAMMOGRAMS (90017)By: Gab On: 31-Dec-2014 Intent Raysa BLAND DO, Raysa BILATERAL MAMMOGRAMS (36571)By: Gab On: 01-Jan-2014 Intent Raysa BLAND DO, Kathleen Radiology - Lumbar SpineBy: Fabiana JONES, On: 12-Oct-2013 Intent Violetta Alves Toradol Injection, 30 mg (J1885)By: On: 12-Oct-2013 Intent Fabiana JONES Violetta Alves Comments: lot: 88-542-QGmnj: 05/24/15ite/route: RGM/IMamt: 30mgVIS signed when applicableChelsRUFINO dove Eprescribed prescriptions (G8553)By: On: 06-May-2013 Intent Fabiana JONES Violetta Alves Breast Screening - BilateralBy: Gab On: 25-Dec-2012 Intent Raysa BLAND DO, Kathleen EKG (10370)By: Raysa De Guzman DO On: 11-Apr-2012 Intent Raysa De Guzman DO Comments: nsr no acute sinus changes Pulse Oximetry (44754)By: Gab BLAND, On: 11-Apr-2012 Intent Raysa Fountain DO MRI /MRA- Brain (IV Contrast On: 11-Apr-2012 Intent Needed)By: Raysa De Guzman DO, DO, Kathleen Eprescribed prescriptions (G8553)By: On: 10-Mar-2012 Intent Mita Salinas LPN Doppler Ultrasound b/lBy: Gab BLAND, On: 06-Sep-2011 Intent Raysa Fountain DO Breast Screening - BilateralBy: Gab On: 17-Aug-2011 Intent Raysa BLAND DO, Raysa MAMMOGRAM, SCREENING, BOTH BREASTS On: 19-Jul-2010 Intent (94428)By: Raysa De Guzman DO, DO, Kathleen MAMMOGRAM, SCREENING, BOTH BREASTS On: 27-Jul-2009 Intent (11699)By: Violetta Jung CNP Radiology - Chest- PA and LatBy: Fast On: 21-Jan-2009 Intent Keysha BLAND Pulse Oximetry (13574)By: Maryuri, On: 21-Jan-2009 Intent Katia Comments: 99% Spirometry (74523)By: Maryuri, On: 21-Jan-2009 Intent Katia Comments: good effort and curve normal EKG (78367)By: Katia Wahl On: 21-Jan-2009 Intent Comments: ekg showed normal sinus fay, normal axis, no acute st/t wave changes Ultrasound - PelvisBy: Gab BLAND, On: 15-Jul-2008 Intent Raysa Fountain DO SPECIMEN HNDLNG/TRNSPRT, OFFC > LAB On: 30-Jun-2007 Intent (90732)By: Raysa De Guzman DO, DO, Kathleen Radiology - Hand - RightBy: Bonezzi On: 01-May-2007 Intent Roma GIBBS Comments: attention 5 th digit ? avulsion fracturecall wet read to office SPECIMEN HNDLNG/TRNSPRT, OFFC > LAB On: 05-Jul-2006 Intent (69747)By: Raysa De Guzman DO, DO, Kathleen MAMMOGRAM, SCREENING, BOTH BREASTS On: 01-May-2006 Intent (26860)By: MEDARDO DEL VALLE CNP Comments: Screening for [...]
--- OUTSIDE RECORDS SUMMARY | 2018-04-19 10:11 | XMS RPT_ITS | Continuity of Care Document ---
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, Dayana L Start : 24-Jun-2014 End : [...] RHINOCORT JASMINEA, 32MCG/ACT (Nasal Suspension) 1 (one) [place](s) Daily for 0 days Quantity: 1 {Suspension} [...] (CAD), BILAT Result: Comments: See Note; NOTES: [facility] [address] [place] [address] SCREENING MAMM (CAD), BILAT MR#: [id number] Acct: [id number] Name: TITA CAMPOS Santy Rep #: [id number] : 1970 F 47 From: Roddy Du MD PCP: Raysa De Guzman DO Status: REG CLI Study: SCREENING MAMM (CAD), BILAT Date of Exam: 01/13/18 Exam# [id number] Ordering Dr: Anurag De Guzman DO MAMMOGRAPHY [...] delay biopsy of a clinically suspicious abnormality. [id number] Electronically Sig vanna: Roddy Du MD at 15:51 EDT Tel [phone], Service support , CC: Raysa De Guzman DO Radiocommunications Technician: Signed 10-Jan-2017 SCREENING MAMM (CAD), BILAT Result: Comments: See Note; NOTES: [facility] [address] [place] [address] SCREENING MAMM (CAD), BILAT MR#: [id number] Acct: [id number] Name: TITA CAMPOS Rep #: [id number] : 1970 F 46 From: Roddy Du MD PCP: Raysa De Guzman DO Status: [facility] CLI Study: SCREENING MAMM (CAD), BILAT Date of Exam: 01/10/17 Exam# [id number] Ordering Dr: Rossy De Guzman DO MAMMOGRAPHY [...] delay biopsy of a clinically suspicious abnormality. [id number] Electronically Signed: Roddy Du MD at 7: 51 EDT Tel [phone], Service support , CC: Raysa De Guzman DO Radiocommunications Technician: Signed 27-Jan-2016 Bilat Scrn Digital AND CAD Result: Comments: See Note; NOTES: [facility] [address] [place] [address] Verdana 4d Bilat Scrn Digital AND CAD MR#: [id number] Acct: [id number] Name: FELI CAMPOS Rep #: [id number] : 1970 F 45 From: Roddy Du MD PCP: Raysa De Guzman DO Status: REG CLI Study: Brandyn Kitchen Digital AND CAD Date of Exam: 01/27/16 Exam# [id number] Ordering Dr: Raysa David DO MAMMOGRAPHY - [...] delay biopsy of a clinically suspicious abnormality. [id number] Electronically Signed: Roddy Du MD 01/26 at 11:49 EDT Tel [phone], Service support [phone], CC: Raysa De Guzman DO Radiocommunications Technician: Signed 20-Jan-2015 Breast Complete Unilateral Result: Comments: See Note; NOTES: [facility] [address] [place] [address] Dane 4d Breast Complete Unilateral MR#: [id number] Acct: [id number] Name: TITA CAMPOS Rep #: [id number] : 1970 F 44 From: Roddy Du MD PCP: Raysa De Guzman DO Status: REG CLI Study: Breast Complete Unilateral Date of Exam: 01/20/15 Exam# [id number] O erasmo Dr: Raysa De Guzman DO [...] Roddy Du MD at 11:24 EDT Tel [phone], Service support [phone], CC: Raysa De Guzman DO Radiocommunications Technician: Signed 20-Jan-2015 Unilat Lt Diag Digital AND CAD Result: Comments: See Note; NOTES: [facility] [address] [place] [address] Verdana 4d Unilat Lt Diag Digital AND CAD MR#: [id number] Acct: [id number] Na me: TITA CAMPOS Rep #: [id number] : 1970 F 44 From: Roddy Du MD PCP: Raysa De Guzman DO Status: REG CLI Study: Unilat Lt Diag Digital AND CAD Date of Exam: 01/20/15 Exam# [id number] Ordering Dr: Raysa De Guzman DO ADDENDUM by Roddy uD MD on 01/20/15 at 1503 ADDENDUM ========= This is an addendum report. Following the ultrasound examination of the breast, rolled medial and lateral views of the left breast were obtained. The questionable abnormality is not prod ucible and represents superimposition of tissue. Electronically Signed: Roddy Du MD at 15:03 EDT Tel [phone], Service support [phone], 5 1501 Date cc: Raysa De Guzman DO * [...] Roddy Du MD at 9:59 EDT Tel [phone], Service support [phone], CC: Raysa De Guzman DO Radiocommunications Technician: Signed 20-Jan-2015 Unilat Lt Diag Digital AND CAD Result: Comments: See Note; NOTES: [facility] [address] [place] [address] Verdana 4d Unilat Lt Diag Digital AND CAD MR#: [id number] Acct: [id number] Na me: TITA CAMPOS Rep #: [id number] : 1970 F 44 From: Roddy Du MD PCP: Raysa De Guzman DO Status: REG CLI Study: Unilat Lt Diag Digital AND CAD Date of Exam: 01/20/15 Exam# [id number] Ordering Dr: Raysa De Guzman DO MAMMOGRAPHY [...] these results will be sent to the [facility] ient by the facility within 30 days. Approximately 10% of breast cancers are not detected by mammography. A normal mammogram should not delay biopsy of a clinically suspicious abnormality. Electr onically Signed: Roddy Du MD at 9:59 EDT Tel [phone], Service support [phone], CC: Raysa De Guzman DO Radiocommunications Technician: Signed 18-Jan-2015 Bilat Scrn Digital AND CAD Result: Comments: See Note; NOTES: [facility] [address] [place] [address] Verdana 4d Bilat Scrn Digital AND CAD MR#: [id number] Acct: [id number] Name: TITA CAMPOS Rep #: [id number] : 1970 F 44 From: Roddy Du MD PCP: Raysa De Guzman DO Status: REG CLI Study: Bilat Scrn Digital AND CAD Date of Exam: 01/18/15 Exam# [id number] Elenita zimmerman Dr: Raysa De Guzman DO [...] Roddy hauser MD at 10:59 EDT Tel [phone], Service support [phone], CC: Raysa De Guzman DO Radiocommunications Technician: Signed 16-Jan-2014 Bilat Scrn Digital & CAD Result: Comments: See Note; NOTES: [facility] [address] [place] [address] Breast Imaging Report MR#: [id number] Acct: [id number] Name: TITA CAMPOS Rep #: [id number] : 1970 F 43 From: Roddy Du MD PCP: Raysa De Guzman DO Status: REG CLI Exam# [id number] Ordering Dr: Raysa De Guzman DO MAMMOGRAPHY [...] Roddy Du MD at 8:31 EDT Tel [phone], Service support [phone], CC: Raysa De Guzman DO Radiocommunications Technician: Signed 12-Oct-2013 L/S Spine Min 4 Views Result: Comments: See Note; NOTES: [facility] [address] [place], [place] [address] Radiology Report MR#: [id number] Acct: [id number] Name: TITA CAMPOS Rep #: [id number] : 1970 F 43 From: Cynthia Webster MD PCP: Status: REG CLI Study: L/S Spine Min 4 Views Date of Exam: 10/12/13 Exam# [id number] Ordering Dr: Violetta Jung STUDY: X-RAY - [...] at 11:35 EDT Tel , Service support [phone], RAD/L/S Spine Min 4 Views IMPRESSION: Mild disc narrowing at L4-5. Electronically Signed: Massimo Webster MD 1 at 11:35 EDT Tel , Service support [phone], CC: Violetta Jung Radiocommunications Technician: Signed 09-Jan-2013 Bilat Scrn Digital & CAD Result: Comments: See Note; NOTES: [facility] [address] [place] [address] Breast Imaging Report MR#: [id number] Acct: [id number] Name: TITA CAMPOS Rep #: [id number] : 1970 F 42 From: Roddy Du MD PCP: Status: REG CLI Exam# [id number] Ordering Dr: Raysa De Guzman DO MAMMOGRAPHY [...] January 09, 2013 at 9:43:50 AM EDT [phone] Electronically Signed GP/GP If you are the [...] physician d roxanactly. Professional Interpretation Provided By: [employer], Phone , These documents contain legally protected [...] these documents. CC: Raysa De Guzman DO Radiocommunications Technician: Signed Immunization Name Dates Details DTP on: Nov-2011 Comments: Given at [facility] - see scanned in documentation - [...] Calculated 2.12 m2 Head Circumference 0.00 cm 26-Qyx-538068:56 Temperature 98.4 f Comments: Method: Oral Pulse [...] ug/dL (Normal) Range: 41.2-243.7 :33 Estradiol Comments: [facility] [address] [place], [address] ESTRADIOL 43.5 pg/mL (Normal) Comments: [...] DETERMINE ESTRADIOL CONCENTRATION. :33 Free T3 Comments: [facility] Rnmmwvbqzr[address] [place], [address] FREE T3 4.7 pg/mL (Abnormal) Range: 2.18-3.98 :33 Progesterone Level Comments: [facility] Gvstlujtrq[address] [place], [address] Progesterone 12.93 ng/mL (Normal) Comments: Progesterone Reference Table: UNITS Female: Follicular 0.15 - 1.40 ng/mL Luteal 3.34 - 25.56 ng/mL Mid-luteal 4.44 - 28.03 ng/mL Postmenopausal 0.0 - 0.73 ng/mL : 1st Trimester 11.22 - 90.00 ng /mL 2nd Trimester 25.55 - 89.40 ng/mL 3rd Trimester 48.40 -422.50 ng/mL 8-Ldi-406947:33 T4 Free Direct Comments: [facility] [address] [place], [place], [id number] T4 FREE DIRECT 0.70 ng/dL (Abnormal) Range: 0.76-1.46 6-Poe-180981:33 Testosterone, Serum Total Comments: [facility] [address]kvgotu[address] [place], [place], [id number] Testosterone 24.47 ng/dL (Normal) Comments: NORMAL REFERENCE RANGES MALE AGE <50 123.06 - 813.86 ng/dL MALE AGE >50 89.98 - 780.10 ng/dL FEMALE PREMENOPAUSE AGE 21 - 60 9.01 - 47.94 ng/dL FEMALE POSTMENOPAUSE AGE 45 - 89 <7.00 - 45.62 ng/dL REFERENCE RANGE AND METHODOLOGY CHANGED 03/13/201723-Nov-20174-Tcr-492418:33 Thyroid Peroxidase AB Comments: Has Patient had Radioactive Injection for X-ray?: [facility] (refer to report for specific site)refer to report for address and phone number TPO AB [phone] 56 {IU/mL} (Abnormal) Range: 0-34 Comments: Performed at: [address] [id number] Director: Deven Morris PhD, Phone: [phone] 8-Xvr-548776:33 Thyroid Stim Hormone (TSH) Comments: [facility] [address] [place], [address] TSH 0.77 {uIU/mL} (Normal) Range: 0.358-3.74 29-Jul-20177:01 Estradiol Comments: [facility] [address]jcl[address]hwuz[address] [place], [address] ESTRADIOL 66.1 pg/mL (Normal) Comments: NORMAL REFERENCE [...] DETERMINE ESTRADIOL CONCENTRATION. :01 Free T3 Comments: [facility] [address] [place], [place], [address] FREE T3 7.5 pg/mL (Abnormal) Range: 2.18-3.98 :01 Progesterone Level Comments: [facility] Cstgvtibwi[address] [place], [address] Progesterone 25.74 ng/mL (Normal) Comments: Progesterone Reference Table: UNITS Female: Follicular 0.15 - 1.40 ng/mL Luteal 3.34 - 25.56 ng/mL Mid-luteal 4.44 - 28.03 ng/mL Postmenopausal 0.0 - 0.73 ng/mL : 1st Trimester 11.22 - 90.00 ng /mL 2nd Trimester 25.55 - 89.40 ng/mL 3rd Trimester 48.40 -422.50 ng/mL :01 T4 Free Direct Comments: [facility] [address] [place], [place], [address] T4 FREE DIRECT 1.02 ng/dL (Normal) Range: 0.76-1.46 :01 Testosterone, Serum Total Comments: [facility] Qbyfvlcjzr07[address] [place], [address] Testosterone 22.30 ng/dL (Normal) Comments: [...] assay quantitation limit is 2.0 ng/mL.Performed at: [address] [id number] Director: Deven Morris PhD, Phone: [phone] at: [facility] [address] [place] [id number] Director: Jd Vernon MD, Phone: [phone] ANTI-TG AB 153.0 {IU/mL} (Abnormal) Range: 0.0-0.9 Comments: Thyroglobulin Antibody measured by Jass CoulterMethodology 29-Jul-20177:01 Thyroid Stim Hormone (TSH) Comments: [facility] [address] [place] [address], [id number] TSH < 0.01 {uIU/mL} (Abnormal) Range: 0.358-3.74 49-Odp-88248:19 CALCIFEDIOL (02521) Comments: PATIENT WAS FASTINGPERFORMED BY: [address] [id number] Vitamin D, 25-Hydroxy 26.5 ng/mL (Abnormal) Range: 30.0-100.0 Comments: Vitamin D deficiency has been defined by the Leon ofMedicine and an Endocrine Society practice guideline as alevel of serum 25-OH vitamin D less than 20 ng/mL (1,2).The Endocrine Society went on to further define vitamin Dinsufficiency as a level between 21 and 29 ng/mL (2).1. IOM (Leon of Medicine). 2010. Dietary reference intakes for calcium and D. [place]: The National Academies Press.2. Yasemin MF, Coy CORNEJO, Edie BLACKWELL, et al. Evaluation, treatment, and prevention of vitamin D deficiency: an Endocrine Society clinical practice guideline. JCEM. 2010; 96(7):1911-30. 59-Tgi-68715:19 LIPID PANEL (66079) Comments: PATIENT WAS FASTINGPERFORMED BY: [facility] Zzeucm2959 [facility] [id number] LDL/HDL Ratio 2.1 {ratio_units} (Normal) Range: 0.0-3.2 Comments: LDL/HDL Ratio Men Women 1/2 Avg.Risk 1.0 1.5 Av g.Risk 3.6 3.2 2X Avg.Risk 6.2 5.0 3X Avg.Risk 8.0 6.1 LDL Cholesterol Calc 124 mg/dL (Abnormal) Range: 0-99 VLDL Cholesterol Ghulam 20 mg/dL (Normal) Range: 5-40 HDL Cholesterol 60 mg/dL (Normal) Triglycerides 99 mg/dL (Normal) Range: 0-149 Cholesterol, Total 204 mg/dL (Abnormal) Range: 100-199 89-Xkk-856772:29 Estradiol Comments: [facility] Ismjmwjhsr6073 [facility] [place], [place], [address] ESTRADIOL 40.8 pg/mL (Normal) Comments: NORMAL REFERENCE [...] SHOULD BE USED TO DETERMINE ESTRADIOL CONCENTRATION. 08-Krc-622182:29 Free T3 Comments: [facility] [address]em[address] [place], [place], [address] FREE T3 4.3 pg/mL (Abnormal) Range: 2.18-3.98 97-Qix-390103:29 Progesterone Level Comments: [facility] [address]rbndkm[address] [place], [address] Progesterone 11.02 ng/mL (Normal) Comments: Progesterone Reference Table: UNITS Female: Follicular 0.15 - 1.40 ng/mL Luteal 3.34 - 25.56 ng/mL Mid-luteal 4.44 - 28.03 ng/mL Postmenopausal 0.0 - 0.73 ng/mL : 1st Trimester 11.22 - 90.00 ng /mL 2nd Trimester 25.55 - 89.40 ng/mL 3rd Trimester 48.40 -422.50 ng/mL 73-Bjj-708413:29 T4 Free Direct Comments: [facility] [address] [place], [address] T4 FREE DIRECT 0.80 ng/dL (Normal) Range: 0.76-1.46 41-Psy-538404:29 Testosterone, Serum Total Comments: [facility] [address]ak[address] [place], [address] Testosterone 21.72 ng/dL (Normal) Comments: NORMAL REFERENCE RANGES MALE AGE <50 123.06 - 813.86 ng/dL MALE AGE >50 89.98 - 780.10 ng/dL FEMALE PREMENOPAUSE AGE 21 - 60 9.01 - 47.94 ng/dL FEMALE POSTMENOPAUSE AGE 45 - 89 <7.00 - 45.62 ng/dL REFERENCE RANGE AND METHODOLOGY CHANGED 03/13/201719-Mar-201765-Pxg-712420:29 Thyroid Stim Hormone (TSH) Comments: [facility] [address] [place], [address] TSH 0.64 {uIU/mL} (Normal) Range: 0.358-3.74 98-Oor-53303:51 Estradiol Comments: Has Patient had X-rays with Contrast this admission? [facility] [address] [place], [address] ESTRADIOL 36.1 pg/mL (Normal) Comments: NORMAL REFERENCE [...] Patient had X-rays with Contrast this admission? [facility] Ymnkbrnhzg4425 [facility] [address]. [place], [place], [address] FREE T3 5.8 pg/mL (Abnormal) Range: 2.18-3.98 :51 Progesterone Level Comments: [facility] Srweiquzvo8168 [facility] [place], [place], [address] Progesterone 19.85 ng/mL (Normal) Comments: Progesterone Reference Table: UNITS Female: Follicular 0.15 - 1.40 ng/mL Luteal 3.34 - 25.56 ng/mL Mid-luteal 4.44 - 28.03 ng/mL Postmenopausal 0.0 - 0.73 ng/mL : 1st Trimester 11.22 - 90.00 ng /mL 2nd Trimester 25.55 - 89.40 ng/mL 3rd Trimester 48.40 -422.50 ng/mL :51 T4 Free Direct Comments: Has Patient had X-rays with Contrast this admission? [facility] [address] [place], [place], [id number] T4 FREE DIRECT 0.99 ng/dL (Normal) Range: 0.76-1.46 :51 Testosterone, Serum Total Comments: [facility] [address]pqcwich[address] [place], [place], [address] Testosterone 51 ng/dL (Normal) Range: 14-76 :51 Thyroid Stim Hormone (TSH) Comments: Has Patient had X-rays with Contrast this admission? [facility] [address]vefvv[address] [place], [id number] TSH 0.26 {uIU/mL} (Abnormal) Range: 0.358-3.74 :04 Estradiol Comments: [facility] Zbxrijqhcd[address] [place], [id number]) ESTRADIOL 52.8 pg/mL (Normal) Comments: NORMAL REFERENCE [...] DETERMINE ESTRADIOL CONCENTRATION. :04 Free T3 Comments: [facility] [address] [place], [address] FREE T3 2.4 pg/mL (Normal) Range: 2.18-3.98 :04 T4 Free Direct Comments: [facility] [address]rysxopa[address] [place], [address] T4 FREE DIRECT 0.80 ng/dL (Normal) Range: 0.76-1.46 :04 Testosterone, Serum Total Comments: [facility] Z[address] [place], [address] Testosterone 45 ng/dL (Normal) Range: 14-76 :04 Thyroid Stim Hormone (TSH) Comments: [facility] [address]unevyz[address] [place], [address] TSH 0.38 {uIU/mL} (Normal) Range: 0.358-3.74 :24 Estradiol Comments: [facility] [address]btat[address] [place], [address] ESTRADIOL 103.1 pg/mL (Normal) Comments: NORMAL REFERENCE [...] DETERMINE ESTRADIOL CONCENTRATION. :24 Free T3 Comments: [address] [place], [address] FREE T3 5.7 pg/mL (Abnormal) Range: 2.18-3.98 :24 Progesterone Level Comments: [address] [place], [address] Progesterone 34.71 ng/mL (Normal) Comments: Progesterone Reference Table: UNITS Female: Follicular 0.15 - 1.40 ng/mL Luteal 3.34 - 25.56 ng/mL Mid-luteal 4.44 - 28.03 ng/mL Postmenopausal 0.0 - 0.73 ng/mL : 1st Trimester 11.22 - 90.00 ng /mL 2nd Trimester 25.55 - 89.40 ng/mL 3rd Trimester 48.40 -422.50 ng/mL :24 T4 Free Direct Comments: [facility] [address] [place], [address] T4 FREE DIRECT 0.88 ng/dL (Normal) Range: 0.76-1.46 :24 Thyroid Stim Hormone (TSH) Comments: [address] [place], [address] TSH 0.67 {uIU/mL} (Normal) Range: 0.358-3.74 :56 DHEA Sulfate Comments: Has Patient had X-rays with Contrast this admission? [facility] Patient had Radioactive Injection for X-ray?: [facility] (refer to report for specific site)refer to report for address and phone number DHEA SULF 4020 209.1 ug/dL (Normal) Range: 41.2-243.7 :56 Estrogen, Total, Serum Comments: Has Patient had X-rays with Contrast this admission? [facility] Patient had Radioactive Injection for X-ray?: [facility] (refer to report for specific site)refer to report for address and phone number ESTROGEN 4549 78 pg/mL (Normal) Comments: Prepubertal <40 Female Cycle: 1-10 Days 61 - 394 11-20 Days 122 - 437 21-30 Days 156 - 350 Post-Menopausal <40 HMG Treatment for Ovulation Induction: 400 - 800Performed at: [facility] [address] [id number] Director: Deven Morris PhD, Phone: [phone] at: [facility] [address] [id number] Director: David Pfeiffer MD, Phone: [phone] 40-Zqy-707446:56 Follicle Stimulating Hormone Comments: [facility] [address]kvfob[address] [place], [address] FSH 5.5 m[iU]/mL (Normal) Comments: NORMAL REFERENCE RANGES FEMALE FOLLICULAR 2.3 - 12.6 mIU/mL MID-CYCLE PEAK 5.2 - 17.5 mIU/mL LUTEAL 1.7 - 12.9 mIU/mL POST-MENOPAUSAL ON MHT 5.9 - 72.8 mIU/mL NOT ON MHT 12.7 - 132.2 mlU/mL MALE 0.7 - 10.8 mIU/mLNEW TEST METHOD AND REFERENCE RANGES AUGUST 13, 201104-Nov-201591-Dxo-272233:56 Progesterone Level Comments: [facility] [address]qexsrfw[address] [place], [address] Progesterone 12.02 ng/mL (Normal) Comments: Progesterone Reference Table: UNITS Female: Follicular 0.15 - 1.40 ng/mL Luteal 3.34 - 25.56 ng/mL Mid-luteal 4.44 - 28.03 ng/mL Postmenopausal 0.0 - 0.73 ng/mL : 1st Trimester 11.22 - 90.00 ng /mL 2nd Trimester 25.55 - 89.40 ng/mL 3rd Trimester 48.40 -422.50 ng/mL 97-Wdv-706087:56 T3 Total - Triiodothyronine Comments: [facility] [address]vwc[address] [place], [address] T3 Total 1.25 ng/mL (Normal) Range: 0.6-1.81 :56 T4 Total, Thyroxin Comments: [facility] Oxdifsfaux[address] [place], [address] T4 THYROXIN 5.9 ug/dL (Normal) Range: 4.8-13.9 [...] 8-48 :56 Thyroid Stim Hormone (TSH) Comments: [facility] X[address]xgfclb6[address] [place], [address] TSH 4.19 {uIU/mL} (Abnormal) Range: 0.358-3.74 62-Uja-83135:59 CALCIFIDIOL (70226) VIT D 25 Comments: PATIENT WAS FASTINGPERFORMED BY: [facility] Jezwyk6018 [facility] [id number] Vitamin D, 25-Hydroxy 31.8 ng/mL (Normal) Range: 30.0-100.0 Comments: Vitamin D deficiency has been defined by the Leon ofMedicine and an Endocrine Society practice guideline as alevel of serum 25-OH vitamin D less than 20 ng/mL (1,2).The Endocrine Society went on to further define vitamin Dinsufficiency as a level between 21 and 29 ng/mL (2).1. IOM (Leon of Medicine). 2010. Dietary reference intakes for calcium and D. [place]: The National Academies Press.2. Yasemin MF, Coy CORNEJO, Edie BLACKWELL, et al. Evaluation, treatment, and prevention of vitamin D deficiency: an Endocrine Society clinical practice guideline. JCEM. 2010; 96(7):1911-30. 82-Dkk-93800:59 LIPID PANEL (95892) Comments: PATIENT WAS FASTINGPERFORMED BY: [employer] [id number] Information: [id number],U60963 LDL/HDL Ratio 2.5 {ratio_units} (Normal) Range: 0.0-3.2 [...] 100-199 Comments: Please note reference interval change 19-Rcm-747797:20 DHEA Sulfate Comments: Has Patient had Radioactive Injection for X-ray?: [facility] (refer to report for specific site)refer to report for address and phone number DHEA SULF 4020 227.4 ug/dL (Normal) Range: 57.3-279.2 Comments: Performed at: [facility] [id number] Director: Deven Morris PhD, Phone: [phone] 92-Adp-526520:20 Estradiol Comments: [facility] [address] [place], [place], [address] ESTRADIOL 48.0 pg/mL (Normal) Comments: NORMAL REFERENCE RANGES FEMALE FOLLICULAR 21.4 - 164.8 pg/mL MID-CYCLE PEAK 49.9 - 367.2 pg/mL LUTEAL 40.2 - 259.0 pg/mL POST-MENOPAUSAL ON MHT <11.0 - 462.1 pg/mL NOT ON MHT <11.0 - 58.3 pg/mL MALE <11.0 - 52 .5 pg/mLNEW TEST METHOD AND REFERENCE RANGE AUGUST 13, 201108-Jan-201526-Xte-866072:20 Progesterone Level Comments: [facility] Socwcrkpyp6370 [facility] [place], [place], [address] Progesterone 22.89 ng/mL (Normal) Comments: Progesterone Reference Table: UNITS Female: Follicular 0.15 - 1.40 ng/mL Luteal 3.34 - 25.56 ng/mL Mid-luteal 4.44 - 28.03 ng/mL Postmenopausal 0.0 - 0.73 ng/mL : 1st Trimester 11.22 - 90.00 ng /mL 2nd Trimester 25.55 - 89.40 ng/mL 3rd Trimester 48.40 -422.50 ng/mL 02-Uzz-517260:20 T3 Total - Triiodothyronine Comments: [facility] [address] [place], [address] T3 Total 1.61 ng/mL (Normal) Range: 0.6-1.81 3-Nek-301988:58 DHEA Sulfate Comments: Has pt arrived? YHas Patient had Radioactive Injection for X-ray?: NTest performed at:[facility] Tykuzypagf2879 [facility] [place] [address] DHEA SULF 4020 216.0 ug/dL (Normal) Range: 57.3-279.2 Comments: Performed at: - [facility] [id number] Director: Pasquale Hutton PhD, Phone: [phone] 0-Owv-263988:58 Estradiol Comments: Has pt arrived? YTest performed at:[facility] Rysjuinfvy2089 [facility] [place] [address] ESTRADIOL 71.1 pg/mL (Normal) Comments: NORMAL REFERENCE RANGES FEMALE FOLLICULAR 21.4 - 164.8 pg/mL MID-CYCLE PEAK 49.9 - 367.2 pg/mL LUTEAL 40.2 - 259.0 pg/mL POST-MENOPAUSAL ON MHT <11.0 - 462.1 pg/mL NOT ON MHT <11.0 - 58.3 pg/mL MALE <11.0 - 52 .5 pg/mLNEW TEST METHOD AND REFERENCE RANGE AUGUST 13, 201101-Apr-20148-Sih-726305:58 Free T3 Comments: Has pt arrived? YTest performed at:[facility] Uvkaythigr97[address] [place] [address] FREE T3 2.8 pg/mL (Normal) Range: 2.18-3.98 64-Hrt-968650:25 DDIMQ < 0.27 {FEU/ug/m} (Abnormal) Range: 0.27-0.49 Comments: NORMAL D-Dimer level (<0.50) indicates no DVT or PE. 95-Tml-61539:20 Urinalysis, Office (00854) UA - LEUKOCYTE ESTERASE Negative (Normal) UA - NITRITE Negative (Normal) URINE UROBILINGN WIN TIMED Normal mg/dL (Normal) UA - PROTEIN Negative mg/dL (Normal) UA - PH 7.5 (Normal) UA - BLOOD Negative (Normal) UA - SPECIFIC GRAVITY 1.020 (Normal) UA - KETONES Negative mg/dL (Normal) UA - BILIRUBIN Negative (Normal) UA - GLUCOSE Negative (Normal) [id number] Urine Culture,Comprehensive Comments: PATIENT NOT FASTINGPERFORMED BY: [employer] [id number] Information: [id number] Result 1 MUG (Normal) Comments: Mixed urogenital flora25,000-50,000 colony forming units per mL Urine Final report (Normal) Culture,Comprehensive 98-Mhn-144098:03 Rapid Strep Test, Office (93041) Rapid Strep Test, Office Negative (Normal) 25-Dec-20128:08 CALCIFIDIOL (35810) VIT D Comments: PATIENT WAS FASTINGPERFORMED BY: [employer] [id number] BY: [address] [id number] 25 Vitamin D, 25-Hydroxy 23.8 ng/mL (Abnormal) Range: 30.0-100.0 Comments: Vitamin D deficiency has been defined by the Leon ofMedicine and an Endocrine Society practice guideline as alevel of serum 25-OH vitamin D less than 20 ng/mL (1,2).The Endocrine Society went on to further define vitamin Dinsufficiency as a level between 21 and 29 ng/mL (2).1. IOM (Leon of Medicine). 2010. Dietary reference intakes for calcium and D. [place]: The National AcademStratatech Corporation Press.2. Yasemin MF, Coy CORNEJO, Edie BLACKWELL, et al. Evaluation, treatment, and prevention of vitamin D deficiency: an Endocrine Society clinical practice guideline. JCEM. 2010; 96(7):1911-30. :08 Folate (33417) Comments: PATIENT WAS FASTINGPERFORMED BY: [employer] [facility] [id number] BY: [employer] [id number] Folate (Folic Acid), Serum 15.2 ng/mL (Normal) Comments: A serum folate concentration of less than 3.1 ng/mL isconsidered to represent clinical deficiency. :08 VITAMIN B-12 (CYANOCOBALAMIN) Comments: PATIENT WAS FASTINGPERFORMED BY: [employer]70 [facility]Nov[facility] [id number] BY: [employer] [id number] (86297) Vitamin B12 499 pg/mL (Normal) Range: 211-946 :08 SED RATE ERYTHROCYTE Comments: PATIENT WAS FASTINGPERFORMED BY: [email or web address] [facility] [id number] BY: [employer] [id number] (15440) Sedimentation Rate-Westergren 11 mm/h (Normal) Range: 0-32 :08 RHEUMATOID FACTOR-QUANT Comments: PATIENT WAS FASTINGPERFORMED BY: FamiliarLikeWhereHampton Behavioral Health CenterRhxdum5051 [facility] [id number] BY: [employer] [id number] (62387) RA Latex Turbid. 8.5 {IU/mL} (Normal) Range: 0.0-13.9 25-Dec-20128:08 METABOLIC PANEL, Comments: PATIENT WAS FASTINGPERFORMED BY: LabLikeWhereHampton Behavioral Health CenterExxekq6077 [facility] [id number] BY: LabLikeWhere[address] [id number] Inf ormation: [id number] [facility] (54689) ALT (SGPT) 19 [iU]/L (Normal) Range: 0-32 [...] mg/dL (Normal) Range: 65-99 25-Dec-20128:08 C-REACTIVE PROTEIN (67172) Comments: PATIENT WAS FASTINGPERFORMED BY: [employer] Wegjpo0498 [facility] [id number] BY: [address] [id number] C-Reactive Protein, Quant 9.7 mg/L (Abnormal) Range: 0.0-4.9 25-Dec-20128:08 CBC (AUTO) (33816) Comments: PATIENT WAS FASTINGPERFORMED BY: [employer] PharmaceuticalsUNM Psychiatric CenterOiuxuj6937 [facility] [id number] BY: [address] [id number] Platelets 186 {x10E3/uL} (Normal) Range: 155-379 RDW 13.4 % (Normal) Range: 12.3-15.4 MCHC 32.4 g/dL (Normal) Range: 31.5-35.7 MCH 27.7 pg (Normal) Range: 26.6-33.0 MCV 85 fL (Normal) Range: 79-97 Hematocrit 43.8 % (Normal) Range: 34.0-46.6 Hemoglobin 14.2 g/dL (Normal) Range: 11.1-15.9 RBC 5.13 {x10E6/uL} (Normal) Range: 3.77-5.28 WBC 6.7 {x10E3/uL} (Normal) Range: 3.4-10.8 :08 SUZAN (ANTINUCLEAR ANTIBODY) Comments: PATIENT WAS FASTINGPERFORMED BY: [employer] PharmaceuticalsUNM Psychiatric CenterCcdeee9094 [facility] [id number] BY: [address] [id number] (65561) SUZAN Direct Negative (Normal) :08 T3, FREE (TRIDOTHYRONINE) Comments: PATIENT WAS FASTINGPERFORMED BY: Peck[facility]on PharmaceuticalsHampton Behavioral Health CenterSsfgan7583 [facility] [id number] BY: [address] [id number] (80063) Triiodothyronine,Free,Serum 2.9 pg/mL (Normal) Range: 2.0-4.4 :08 T4, FREE (THYROXINE) Comments: PATIENT WAS FASTINGPERFORMED BY: [place] 5954870 [facility] [id number] BY: [address] [id number] (32092) T4,Free(Direct) 1.13 ng/dL (Normal) Range: 0.82-1.77 :08 TSH (36753) Comments: PATIENT WAS FASTINGPERFORMED BY: [place] 5954870 [facility] [id number] BY: [address] [id number] TSH 0.777 {uIU/mL} (Normal) Range: 0.450-4.500 :08 REVERSE TRIDOTHYRONINE Comments: PATIENT WAS FASTINGPERFORMED BY: [place] 5954870 [facility] [id number] BY: [address] [id number] (35947) Reverse T3, Serum 17.6 ng/dL (Normal) Range: 9.2-24.1 13-Erw-273596:08 Hemoglobin Glyclated (HGB A1C) Comments: PATIENT NOT FASTINGPERFORMED BY: [place] 5954870 [facility] [id number] (63132) Hemoglobin A1c 5.0 % (Normal) Range: 4.8-5.6 Comments: . Increased risk for diabetes: 5.7 - 6.4 Diabetes: >6.4 Glycemic control for adults with diabetes: <7.0 :08 LIPID PANEL (46794) Comments: PATIENT NOT FASTINGPERFORMED BY: [place] 5954870 [facility] [id number] Information: [id number] LDL/HDL Ratio 2.2 {ratio_units} (Normal) Range: 0.0-3.2 LDL Cholesterol Calc 114 mg/dL (Abnormal) Range: 0-99 HDL Cholesterol 53 mg/dL (Normal) Comments: According to ATP-III Guidelines, HDL-C >59 mg/dL is considered anegative risk factor for CHD. VLDL Cholesterol Ghulam 16 mg/dL (Normal) Range: 5-40 Triglycerides 78 mg/dL (Normal) Range: 0-149 Cholesterol, Total 183 mg/dL (Normal) Range: 100-199 72-Das-943434:03 Microscopic Examination Comments: PATIENT NOT FASTINGPERFORMED BY: Northcore TechnologiesHampton Behavioral Health CenterUitnfh7476 [facility] [id number] Bacteria Few (Normal) Mucus Threads Present (Normal) Epithelial Cells (non renal) 0-10 {/hpf} (Normal) Range: 0 - 10 RBC None seen {/hpf} (Normal) Range: 0 - 3 WBC 0-5 {/hpf} (Normal) Range: 0 - 5 :03 URINALYSIS, W/ MICRO Comments: PATIENT NOT FASTINGPERFORMED BY: LinguaLeo6370 [address] VeridUNC Health Caldwell [id number] Information: [id number] (49048) Microscopic Examination See below: (Normal) Microscopic Examination MICRON (Normal) Comments: Microscopic follows if indicated. Nitrite, Urine Negative (Normal) Urobilinogen,Semi-Qn 0.2 mg/dL (Normal) Range: 0.0-1.9 Bilirubin Negative (Normal) Occult Blood Negative (Normal) Ketones Negative (Normal) Glucose Negative (Normal) Protein Negative (Normal) WBC Esterase Negative (Normal) Appearance Clear (Normal) Urine-Color Yellow (Normal) pH 6.0 (Normal) Range: 5.0-7.5 Specific Overgaard 1.016 (Normal) Range: 1.005-1.030 :47 CBCMD ANC [...] :47 TSH 0.81 {uIU/mL} (Normal) Range: 0.358-3.74 64-Grw-150342:06 Influenza A&B Viral Comments: PATIENT NOT FASTINGPERFORMED BY: [address] [id number] Information: SRC:NOS ADD [id number] Culture (12329) Viral Culture,Rapid,Influenza FLUABN (Normal) Comments: Negative:No Influenza A or B detected. 56-Kid-45993:40 Rapid Flu (44705 x 2) Influenza A Ag negative (Normal) 06-Qpj-207804:19 TSH (44193) Comments: PATIENT NOT FASTINGPERFORMED BY: [place] 5954870 [facility] [id number] Information: [id number] TSH 0.310 {uIU/mL} (Abnormal) Range: 0.450-4.500 :55 [...] EDTElectronically Signed GP/GP Professional Interpretation Provided By: [employer] [facility], , To consult with a radiologist regarding this report, please call our 56I7ixavtfv line @ Dictated on 08/23/11812 by Jeannie GIBBS,Kris bed on 08/23/1156 by ITS IMPORTSign by Jeannie GIBBS,Roddy on 08/23/11856 Sign by: Roddy Du MD 78-Fkv-070995:48 GILBERT CULTURE-OTHER (91437) Comments: PATIENT NOT FASTINGPERFORMED BY: [facility] Djagav4560 [facility] [id number] Information: SRC:THRGomez [id number] Result 1 RRF (Normal) Comments: Routine respiratory edz Upper Respiratory Culture Final report (Normal) :34 Rapid Strep Test, Office (56639) Rapid Strep Test, Office Negative (Normal) 29-Aug-20109:14 Thin prep Pap Comments: Source.............Cervical;EndocervicalNo. of containers..01 CYTYC Thin Prep VialPATIENT NOT FASTINGPERFORMED BY: [facility] [address] [id number] Information: [id number] (13657) Note: PAPSMR (Normal) Comments: The Pap smear [...] ; Routine gynecolog ical examina Elver Barron, Technician Preventative Medicine (ASCP) 28-Aug-20100:00 BILAT SCRN DIGITAL & CAD [...] TSH 1.52 {uIU/mL} Range: 0.358-3.74 10 (Normal) 5-Fbl-525382:51 BILAT SCRN DIGITAL & CAD Radiology Report See Note (Normal) Comments: Exam Number: [id number] DIGITAL BILATERAL MAMMOGRAM Digital oblique and craniocaudal [...] the results [facility] This interpretation was rendered by a radiologist certified under theMammography Quality Standards Act of 1992 (MQSA). The mammograms werealso examined with computer-aided detection software (Image color checker roving or yarn, SnappCloud.). Reported By: RODDY DU 72-Gct-22402:51 URINE GILBERT CULTURE-IDENTIFICATN Comments: PATIENT NOT FASTINGClinical Information: [id number] PERFORMED BY: [facility] Bcwhoa1502 [facility] [id number] (61144) Result 1 MUG (Normal) Comments: Mixed urogenital flora1,000 Colonies/mL Urine Culture,Comprehensive Final report (Normal) 76-Put-395454:45 Urinalysis, Office (83701) Comments: done ak UA - BILIRUBIN Negative [...] 5.79 mg/L (Abnormal) Comments: RESULTS FAXED 01/21/09 0435 MARY GUERRA. 18 Range: 0.0-3.0 Comments: C-Reactive Protein (CRP) provides useful information for thediagnosis, therapy and monitoring of inflammatory processesand associated diseases. For the evaluation of Relative Riskfor Cardiovascular Dise ase, a High Sensitivity CRP (HSCRP)should be ordered. 40-Gop-970676:18 CBCD,SMEAR DIFF BAND 2 % (Normal) Range: [...] 47-70 WBC 7.3 K/mm3 (Normal) Range: 4.4-11.0 92-Okl-334311:18 D-DIMER QUANT <200 ng/mL (Normal) Comments: NORMAL D-Dimer level indicates no DVT or PE. RESULTS CALLED TO DR IZAGUIRRE'S OFFICE 01/21/09 ANTHONY ROBB.REPORT READ BACK BY SAME . 38-Nye-580700:18 ESR SED RATE 14 (Normal) Range: 0-20 93-Kgu-456598:46 Rapid Flu (83498 x 2) INFLUENZA IMMUNOASSY DIRECT OPTICAL OBSERV negative (Normal) 80-Fcc-474287:46 Rapid Strep Test, Office (63950) Rapid Strep Test, Office Negative (Normal) 4-Zda-397343:26 PELVIC (NON-PREG) (HP) Radiology Report See Note (Normal) Comments: Exam Number: [id number] Transabdominal pelvic ultrasound History: Heavy menses Findings: [...] pelvic ultrasound Reported By: KERRY WILKINSON M.D. 59-Yrz-100281:10 T4, FREE (THYROXINE) (80802) Comments: PATIENT NOT FASTINGPERFORMED BY: LinguaLeo6370 [address] VeridUNC Health [facility]dwell [id number] T4,Free(Direct) 1.38 ng/dL (Normal) Range: 0.61-1.76 :10 T3, FREE (TRIDOTHYRONINE) (02236) Comments: PATIENT NOT FASTINGPERFORMED BY: [employer] Ccpebw8139 [address] VeridUNC [facility] [id number] Triiodothyronine,Free,Serum 3.4 pg/mL (Normal) Range: 2.3-4.2 :10 GONADOTROPIN-LH (58981) Comments: PATIENT NOT FASTINGPERFORMED BY: [employer] Shlnru6405 [facility] [id number] LH 14.5 m[iU]/mL (Normal) Range: 0.0-76.3 Comments: [...] 15.9 - 54.0 Contraceptives 0.7 - 5.6 53-Oth-363524:10 GONADOTROPIN-FSH (07370) Comments: PATIENT NOT FASTINGPERFORMED BY: [facility]6370 [facility] [id number] FSH 4.8 m[iU]/mL (Normal) Comments: . Age [...] - 9.1 <0.2 Postmenopausal 23.0 - 116.3 43-Uan-044735:10 TEST - SERUM Comments: PATIENT NOT FASTINGPERFORMED BY: [facility]6370 [facility] [id number] QUANTITATIVE (HCG) (84793) hCG,Beta Subunit,Qual,Serum Negative m[iU]/mL (Normal) Comments: Negative < 5 Borderline 5 - 20 Positive >20 95-Cvf-009565:10 CBC (AUTO) (36949) Comments: PATIENT NOT FASTINGPERFORMED BY: [facility]6370 [facility] [id number] Hematocrit 36.3 % (Normal) Range: 34.0-44.0 Hemoglobin 11.5 g/dL (Normal) Range: 11.5-15.0 MCH 23.7 pg (Abnormal) Range: 27.0-34.0 MCHC 31.6 g/dL (Abnormal) Range: 32.0-36.0 MCV 75 fL (Abnormal) Range: 80-98 Platelets 180 {x10E3/uL} (Normal) Range: 140-415 RBC 4.84 {x10E6/uL} (Normal) Range: 3.80-5.10 RDW 14.1 % (Normal) Range: 11.7-15.0 WBC 5.2 {x10E3/uL} (Normal) Range: 4.0-10.5 30-Paj-167366:10 METABOLIC PANEL, COMPREHENSIVE Comments: PATIENT NOT FASTINGClinical Information: ADD DRAW FEE 095557 ADD J 93806 PERFORMED BY: ROLF LabCoHampton Behavioral Health CenterTuxaui6310 [facility] [id number] (67784) A/G Ratio 1.7 (Normal) Range: 1.1-2.5 Albumin, [...] Serum 64 mg/dL (Abnormal) Range: 65-99 If -Guamanian >59 mL/min/1.73 Comments: Note: Persistent reduction for [...] Sodium, Serum 141 mmol/L (Normal) Range: 135-145 49-Mcm-563708:10 PROLACTIN (74432) Comments: PATIENT NOT FASTINGPERFORMED BY: [employer] PharmaceuticalsSara Ville 6395370 [facility] [id number] Prolactin 8.1 ng/mL (Normal) Range: 2.8-29.2 Comments: [...] 9.7 - 208.5 Postmenopausal 1.8 - 20.3 24-Qnc-655390:10 PT (PROTHROMBIN TIME) (21649) Comments: PATIENT NOT FASTINGPERFORMED BY: [facility]ckforton PharmaceuticalsHampton Behavioral Health CenterZcutcw4450 [facility] [id number] INR 1.0 (Normal) Range: 0.8-1.2 Comments: Reference interval is for non-anticoagulated patients. . Suggested INR therapeutic range for Vitamin K anta gonist therapy: Standard Dose (moderate intensity therapeutic range): 2.0 - 3.0 Higher intensity therapeutic range 2.5 - 3.5 Prothrombin Time 10.4 {sec} (Normal) Range: 8.7-11.5 88-Gmy-267022:10 PTT (ACTIVATED PARTIAL Comments: PATIENT NOT FASTINGPERFORMED BY: [employer] PharmaceuticalsSara V[place] 6395370 [facility] [id number] THROMBOPLASTIN TIME) (57855) aPTT 25 {sec} (Normal) Range: 24-33 Comments: This test has not been validated for monitoring unfractionated heparintherapy. aPTT-based therapeutic ranges for unfractionated heparintherapy have not been established. For general guidelines onHeparin monitoring, refer to the [facility] Directory of Services. 85-Rcf-250191:10 TSH (98482) Comments: PATIENT NOT FASTINGPERFORMED BY: [facility]6370 [facility] [id number] TSH 0.426 {uIU/mL} (Abnormal) Range: 0.450-4.500 :48 TSH 0.352 {uIU/mL} (Abnormal) Comments: PERFORMED BY: [address] [id number] Range: 0.450-4.500 4-Jqy-693133:48 TSH 29.50 {uIU/mL} (Abnormal) Range: 0.34-4.82 5-Gzx-657226:10 Rapid Strep Test, Office (73900) Rapid Strep Test, Office Negative (Normal) 30-Jun-20070:00 CULTURE, THROAT See Note (Normal) Comments: Normal throat dez isolated. No beta-hemolyticstreptococcus isolated. 6-Bic-617730:40 HAND,MIN 3 VIEWS Radiology Report See Note (Normal) Comments: Exam Number: [id number] RIGHT HAND HISTORYHand pain. 3 views of [...] ORGANISM 1: GROUP A BETA STREPTOCOCCUS :00 16-Ggv-288806:32 Rapid Strep Test, Office (25358) Comments: ABN signedpositive Rapid Strep Test, Office Positive (Normal) 02-Syo-027002:24 T3UP Comments: ADD ON T3 UPTAKE 32 % (Normal) Range: 30-39 T7 (FTI) 2.0 (Normal) Range: 1.4-4.5 16-Dfs-615376:24 T4 THYROXIN 6.1 ug/dL (Normal) Comments: ADD [...] UP NEEDED Indication: Hypothyroidism Planned Observations CALCIFEDIOL (44360)Indication: Vitamin D deficiency On: 00-Pup-135621:03 Request HEPATIC FUNCTION PANEL (21185)Indication: Hyperlipidemia On: 85-Tte-126454:03 Request Lipid Panel (61174)Indication: Hyperlipidemia On: :02 Request LIPID PANEL (62293)Indication: Hyperlipidemia On: 39-Mtx-593733:19 Request D-Dimer (30447)Indication: SOB On: :56 Request METABOLIC PANEL, COMPREHENSIVE (55383)Indication: Elevated blood-pressure reading without diagnosis of hypertension On: :21 Request CBC WITH MANUAL DIFF (01580)Indication: Elevated blood-pressure reading without diagnosis of hypertension On: :21 Request D-Dimer (66714)Indication: SOB On: :20 Request TSH (68739)Indication: Hypothyroidism On: :18 Request TSH (46327)Indication: Hypothyroidism On: 01-Hqx-327494:39 Request TSH (59692)Indication: Abnormal TSH On: :28 Request BACT CULTURE ANY-ANAEROBIC (93444)Indication: Pharyngitis, acute On: :35 Request TSH (THYROID STIMULATING HORMONE) (57283)Indication: Hypothyroidism On: :20 Request TSH (13551)Indication: Hypothyroidism On: :52 Request T4, FREE (THYROXINE) (13936)Indication: Hypothyroidism On: :52 Request T3, FREE (TRIDOTHYRONINE) (46221)Indication: Hypothyroidism On: :52 Request TSH (50820)Indication: Hypothyroidism On: :09 Request T4, FREE (THYROXINE) (72454)Indication: Hypothyroidism On: :09 Request T3, FREE (TRIDOTHYRONINE) (81327)Indication: Hypothyroidism On: :09 Request SED RATE ERYTHROCYTE (45571)Indication: Pruritic disorder On: 50-Uwe-093323:07 Request C-REACTIVE PROTEIN (98115)Indication: Pruritic disorder On: 84-Yps-999573:07 Request SUZAN (ANTINUCLEAR ANTIBODY) (00632)Indication: Pruritic disorder On: 89-Vlr-754730:07 Request TSH (26161)Indication: Pruritic disorder On: 80-Ant-760460:07 Request METABOLIC PANEL, COMPREHENSIVE (50644)Indication: Pruritic disorder On: 56-Uio-203990:07 Request CBC WITH MANUAL DIFF (84996)Indication: Pruritic disorder On: 67-Hyn-349723:07 Request C-REACTIVE PROTEIN (30579)Indication: Chest pain On: :56 Request CBC WITH MANUAL DIFF (07808)Indication: Chest pain On: 04-Fcv-056215:56 Request Comments: stat call D-Dimer (99562)Indication: Chest pain On: :56 Request Comments: statcall results GILBERT CULTURE-OTHER (29342)Indication: Pharyngitis, acute On: 2-Lgk-505172:10 Request GILBERT CULTURE-OTHER (57349)Indication: Pharyngitis, acute On: 24-Zvt-240967:45 Request Thin prep Pap (14359)Indication: Well woman exam with routine gynecological exam On: 1-Ktn-285303:05 Request TSH (20546)Indication: Hypothyroidism On: 95-Gbn-492020:35 Request T4, FREE (THYROXINE) (14060)Indication: Hypothyroidism On: 60-Pzx-840605:35 Request T3, FREE (TRIDOTHYRONINE) (44135)Indication: Hypothyroidism On: 02-Jja-449030:35 Request Planned Encounters Medical; 2 Week FU - On: 07-Feb-2018 14:15 [facility] Raysa De Guzman DO, DO, Kathleen Planned Procedures ELECTROCARDIOGRAM, COMPLETE (ECG) On: 23-Jan-2018 Intent (69239)By: Mita Montanez Comments: NSR-HR 63 MAMMOGRAM BREAST BILATERAL SCREENING On: 24-Dec-2017 Intent DIGITAL (46122)By: Raysa De Guzman DO, DO, Kathleen SCREENING DIGITAL TOMOSYNTHESIS OF On: 27-Dec-2016 Intent BREAST (22256)By: Raysa De Guzman DO, DO, Raysa Aerosol Treatment (88710)By: Solomon BLAND, On: 28-Mar-2016 Intent Keysha A BILATERAL MAMMOGRAMS (60280)By: Gab On: 16-Jan-2016 Intent Raysa BLAND DO, Raysa BILATERAL MAMMOGRAMS (79847)By: Gab On: 31-Dec-2014 Intent Raysa BLAND DO, Raysa BILATERAL MAMMOGRAMS (53634)By: Gab On: 01-Jan-2014 Intent Raysa BLAND DO, Kathleen Radiology - Lumbar SpineBy: Fabiana JONES, On: 12-Oct-2013 Intent Violetta Alves Toradol Injection, 30 mg (J1885)By: On: 12-Oct-2013 Intent Fabiana JONES Violetta Alves Comments: lot: 21-824-DThfe: 05/24/15ite/route: RGM/IMamt: 30mgVIS signed when applicableChelsRUFINO dove Eprescribed prescriptions (G8553)By: On: 06-May-2013 Intent Fabiana JONES Violetta Alves Breast Screening - BilateralBy: Gab On: 25-Dec-2012 Intent Raysa BLAND DO, Kathleen EKG (67804)By: Raysa De Guzman DO On: 11-Apr-2012 Intent Raysa De Guzman DO Comments: nsr no acute sinus changes Pulse Oximetry (80113)By: Gab BLAND, On: 11-Apr-2012 Intent Raysa Fountain DO MRI /MRA- Brain (IV Contrast On: 11-Apr-2012 Intent Needed)By: Raysa De Guzman DO, DO, Kathleen Eprescribed prescriptions (G8553)By: On: 10-Mar-2012 Intent Mita Salinas LPN Doppler Ultrasound b/lBy: Gab BLAND, On: 06-Sep-2011 Intent Raysa Fountain DO Breast Screening - BilateralBy: Gab On: 17-Aug-2011 Intent Raysa BLAND DO, Raysa MAMMOGRAM, SCREENING, BOTH BREASTS On: 19-Jul-2010 Intent (99455)By: Raysa De Guzman DO, DO, Kathleen MAMMOGRAM, SCREENING, BOTH BREASTS On: 27-Jul-2009 Intent (90635)By: Violetta Jung CNP Radiology - Chest- PA and LatBy: Fast On: 21-Jan-2009 Intent Keysha BLAND Pulse Oximetry (61581)By: Maryuri, On: 21-Jan-2009 Intent Katia Comments: 99% Spirometry (66294)By: Maryuri, On: 21-Jan-2009 Intent Katia Comments: good effort and curve normal EKG (19099)By: Katia Wahl On: 21-Jan-2009 Intent Comments: ekg showed normal sinus fay, normal axis, no acute st/t wave changes Ultrasound - PelvisBy: Gab BLAND, On: 15-Jul-2008 Intent Raysa Fountain DO SPECIMEN HNDLNG/TRNSPRT, OFFC > LAB On: 30-Jun-2007 Intent (96483)By: Raysa De Guzman DO, DO, Kathleen Radiology - Hand - RightBy: Bonezzi On: 01-May-2007 Intent Roma GIBBS Comments: attention 5 th digit ? avulsion fracturecall wet read to office SPECIMEN HNDLNG/TRNSPRT, OFFC > LAB On: 05-Jul-2006 Intent (82292)By: Raysa De Guzman DO, DO, Kathleen MAMMOGRAM, SCREENING, BOTH BREASTS On: 01-May-2006 Intent (65270)By: MEDARDO DEL VALLE CNP Comments: Screening for [...]
--- OUTSIDE RECORDS SUMMARY | 2018-04-19 10:12 | XMS RPT_ITS | Continuity of Care Document ---
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 [place], Dayana L Start : 24-Jun-2014 End : [...] RHINOCORT JASMINEA, 32MCG/ACT (Nasal Suspension) 1 (one) [place](s) Daily for 0 days Quantity: 1 {Suspension} [...] (CAD), BILAT Result: Comments: See Note; NOTES: [facility] Imaging Services [address] [place] [address] SCREENING MAMM (CAD), BILAT MR#: [id number] Acct: [id number] Name: TITA CAMPOS Santy Rep #: [id number] : 1970 F 47 From: Roddy Du MD PCP: Raysa De Guzman DO Status: REG CLI Study: SCREENING MAMM (CAD), BILAT Date of Exam: 01/13/18 Exam# [id number] Ordering Dr: Anurag De Guzman DO MAMMOGRAPHY [...] delay biopsy of a clinically suspicious abnormality. [id number] Electronically Sig vanna: Roddy Du MD at 15:51 EDT Tel [phone], Service support , CC: Raysa De Guzman DO Balance Bridge Assembler: Signed 10-Jan-2017 SCREENING MAMM (CAD), BILAT Result: Comments: See Note; NOTES: [facility] Imaging Services [address] [place] [address] SCREENING MAMM (CAD), BILAT MR#: [id number] Acct: [id number] Name: TITA CAMPOS Rep #: [id number] : 1970 F 46 From: Roddy Du MD PCP: Raysa De Guzman DO Status: [facility] CLI Study: SCREENING MAMM (CAD), BILAT Date of Exam: 01/10/17 Exam# [id number] Ordering Dr: Rossy De Guzman DO MAMMOGRAPHY [...] delay biopsy of a clinically suspicious abnormality. [id number] Electronically Signed: Roddy Du MD at 7: 51 EDT Tel [phone], Service support , CC: Raysa De Guzman DO Balance Bridge Assembler: Signed 27-Jan-2016 Bilat Scrn Digital AND CAD Result: Comments: See Note; NOTES: [facility] Imaging Services [address] [place] [address] Verdana 4d Bilat Scrn Digital AND CAD MR#: [id number] Acct: [id number] Name: FELI CAMPOS Rep #: [id number] : 1970 F 45 From: Roddy Du MD PCP: Raysa De Guzman DO Status: REG CLI Study: Brandyn Kitchen Digital AND CAD Date of Exam: 01/27/16 Exam# [id number] Ordering Dr: Raysa David DO MAMMOGRAPHY - [...] delay biopsy of a clinically suspicious abnormality. [id number] Electronically Signed: Roddy Du MD 01/26 at 11:49 EDT Tel [phone], Service support [phone], CC: Raysa De Guzman DO Balance Bridge Assembler: Signed 20-Jan-2015 Breast Complete Unilateral Result: Comments: See Note; NOTES: [facility] Imaging Services [address] [place] [address] Dane 4d Breast Complete Unilateral MR#: [id number] Acct: [id number] Name: TITA CAMPOS Rep #: [id number] : 1970 F 44 From: Roddy Du MD PCP: Raysa De Guzman DO Status: REG CLI Study: Breast Complete Unilateral Date of Exam: 01/20/15 Exam# [id number] O erasmo Dr: Raysa De Guzman DO [...] Roddy Du MD at 11:24 EDT Tel [phone], Service support [phone], CC: Raysa De Guzman DO Balance Bridge Assembler: Signed 20-Jan-2015 Unilat Lt Diag Digital AND CAD Result: Comments: See Note; NOTES: [facility] Imaging Services [address] [place] [address] Verdana 4d Unilat Lt Diag Digital AND CAD MR#: [id number] Acct: [id number] Na me: TITA CAMPOS Rep #: [id number] : 1970 F 44 From: Roddy Du MD PCP: Raysa De Guzman DO Status: REG CLI Study: Unilat Lt Diag Digital AND CAD Date of Exam: 01/20/15 Exam# [id number] Ordering Dr: Raysa De Guzman DO ADDENDUM by Rdody Du MD on 01/20/15 at 1503 ADDENDUM ========= This is an addendum report. Following the ultrasound examination of the breast, rolled medial and lateral views of the left breast were obtained. The questionable abnormality is not prod ucible and represents superimposition of tissue. Electronically Signed: Roddy Du MD at 15:03 EDT Tel [phone], Service support [phone], 5 1500 Date cc: Raysa De Guzman DO * [...] Roddy Du MD at 9:59 EDT Tel [phone], Service support [phone], CC: Raysa De Guzman DO Balance Bridge Assembler: Signed 20-Jan-2015 Unilat Lt Diag Digital AND CAD Result: Comments: See Note; NOTES: [facility] Imaging Services [address] [place] [address] Verdana 4d Unilat Lt Diag Digital AND CAD MR#: [id number] Acct: [id number] Na me: TITA CAMPOS Rep #: [id number] : 1970 F 44 From: Roddy Du MD PCP: Raysa De Guzman DO Status: REG CLI Study: Unilat Lt Diag Digital AND CAD Date of Exam: 01/20/15 Exam# [id number] Ordering Dr: Raysa De Guzman DO MAMMOGRAPHY [...] these results will be sent to the [facility] ient by the facility within 30 days. Approximately 10% of breast cancers are not detected by mammography. A normal mammogram should not delay biopsy of a clinically suspicious abnormality. Electr onically Signed: Roddy Du MD at 9:59 EDT Tel [phone], Service support [phone], CC: Raysa De Guzman DO Balance Bridge Assembler: Signed 18-Jan-2015 Bilat Scrn Digital AND CAD Result: Comments: See Note; NOTES: [facility] Imaging Services [address] [place] [address] Verdana 4d Bilat Scrn Digital AND CAD MR#: [id number] Acct: [id number] Name: TITA CAMPOS Rep #: [id number] : 1970 F 44 From: Roddy Du MD PCP: Raysa De Guzman DO Status: REG CLI Study: Bilat Scrn Digital AND CAD Date of Exam: 01/18/15 Exam# [id number] Elenita zimmermna Dr: Raysa De Guzman DO MAMMOGRAPHY - [...] Roddy hauser MD at 10:59 EDT Tel [phone], Service support [phone], CC: Raysa De Guzman DO Balance Bridge Assembler: Signed 16-Jan-2014 Bilat Scrn Digital & CAD Result: Comments: See Note; NOTES: [facility] Imaging Services [address] [place] [address] Breast Imaging Report MR#: [id number] Acct: [id number] Name: TITA CAMPOS Rep #: [id number] : 1970 F 43 From: Roddy Du MD PCP: Raysa De Guzman DO Status: REG CLI Exam# [id number] Ordering Dr: Raysa De Guzman DO MAMMOGRAPHY [...] Roddy Du MD at 8:31 EDT Tel [phone], Service support [phone], CC: Raysa De Guzman DO Balance Bridge Assembler: Signed 12-Oct-2013 L/S Spine Min 4 Views Result: Comments: See Note; NOTES: [facility] Imaging Services [address] [place], [place] [address] Radiology Report MR#: [id number] Acct: [id number] Name: TITA CAMPOS Rep #: [id number] : 1970 F 43 From: Cynthia Webster MD PCP: Status: REG CLI Study: L/S Spine Min 4 Views Date of Exam: 10/12/13 Exam# [id number] Ordering Dr: Violetta Jung STUDY: X-RAY - [...] at 11:35 EDT Tel , Service support [phone], RAD/L/S Spine Min 4 Views IMPRESSION: Mild disc narrowing at L4-5. Electronically Signed: Massimo Webster MD 1 at 11:35 EDT Tel , Service support [phone], CC: Violetta Jung Balance Bridge Assembler: Signed 09-Jan-2013 Bilat Scrn Digital & CAD Result: Comments: See Note; NOTES: [facility] Imaging Services [address] [place] [address] Breast Imaging Report MR#: [id number] Acct: [id number] Name: TITA CAMPOS Rep #: [id number] : 1970 F 42 From: Roddy Du MD PCP: Status: REG CLI Exam# [id number] Ordering Dr: Raysa De Guzman DO MAMMOGRAPHY [...] January 09, 2013 at 9:43:50 AM EDT [phone] Electronically Signed GP/GP If you are the [...] physician d roxanactly. Professional Interpretation Provided By: [employer], Phone , These documents contain legally protected [...] these documents. CC: Raysa De Guzman DO Balance Bridge Assembler: Signed Immunization Name Dates Details DTP on: Nov-2011 Comments: Given at [facility] - see scanned in documentation - [...] Calculated 2.12 m2 Head Circumference 0.00 cm 22-Btc-135856:56 Temperature 98.4 f Comments: Method: Oral Pulse [...] ug/dL (Normal) Range: 41.2-243.7 :33 Estradiol Comments: [facility] [address] [place], [address] ESTRADIOL 43.5 pg/mL (Normal) Comments: [...] DETERMINE ESTRADIOL CONCENTRATION. :33 Free T3 Comments: [facility] [address] [place], [address] FREE T3 4.7 pg/mL (Abnormal) Range: 2.18-3.98 :33 Progesterone Level Comments: [facility] [address] [place], [address] Progesterone 12.93 ng/mL (Normal) Comments: Progesterone Reference Table: UNITS Female: Follicular 0.15 - 1.40 ng/mL Luteal 3.34 - 25.56 ng/mL Mid-luteal 4.44 - 28.03 ng/mL Postmenopausal 0.0 - 0.73 ng/mL : 1st Trimester 11.22 - 90.00 ng /mL 2nd Trimester 25.55 - 89.40 ng/mL 3rd Trimester 48.40 -422.50 ng/mL 8-Tmw-714351:33 T4 Free Direct Comments: [facility] [address] [place], [place], [address] T4 FREE DIRECT 0.70 ng/dL (Abnormal) Range: 0.76-1.46 2-Xwn-672082:33 Testosterone, Serum Total Comments: [facility] [address] [place], [place], [address] Testosterone 24.47 ng/dL (Normal) Comments: NORMAL REFERENCE RANGES MALE AGE <50 123.06 - 813.86 ng/dL MALE AGE >50 89.98 - 780.10 ng/dL FEMALE PREMENOPAUSE AGE 21 - 60 9.01 - 47.94 ng/dL FEMALE POSTMENOPAUSE AGE 45 - 89 <7.00 - 45.62 ng/dL REFERENCE RANGE AND METHODOLOGY CHANGED 03/13/201723-Nov-20179-Aas-312780:33 Thyroid Peroxidase AB Comments: Has Patient had Radioactive Injection for X-ray?: [facility] (refer to report for specific site)refer to report for address and phone number TPO AB [phone] 56 {IU/mL} (Abnormal) Range: 0-34 Comments: Performed at: [address] [id number] Director: Deven Morris PhD, Phone: [phone] 6-Szp-575451:33 Thyroid Stim Hormone (TSH) Comments: [facility] [address] [place], [address] TSH 0.77 {uIU/mL} (Normal) Range: 0.358-3.74 29-Jul-20177:01 Estradiol Comments: [facility] [address] [place], [address] ESTRADIOL 66.1 pg/mL (Normal) Comments: NORMAL REFERENCE [...] DETERMINE ESTRADIOL CONCENTRATION. :01 Free T3 Comments: [facility] [address] [place], [place], [id number] FREE T3 7.5 pg/mL (Abnormal) Range: 2.18-3.98 :01 Progesterone Level Comments: [facility] [address] [place], [address] Progesterone 25.74 ng/mL (Normal) Comments: Progesterone Reference Table: UNITS Female: Follicular 0.15 - 1.40 ng/mL Luteal 3.34 - 25.56 ng/mL Mid-luteal 4.44 - 28.03 ng/mL Postmenopausal 0.0 - 0.73 ng/mL : 1st Trimester 11.22 - 90.00 ng /mL 2nd Trimester 25.55 - 89.40 ng/mL 3rd Trimester 48.40 -422.50 ng/mL :01 T4 Free Direct Comments: [facility] [address] [place], [place], [address] T4 FREE DIRECT 1.02 ng/dL (Normal) Range: 0.76-1.46 :01 Testosterone, Serum Total Comments: [facility] [address] [place], [address] Testosterone 22.30 ng/dL (Normal) Comments: [...] assay quantitation limit is 2.0 ng/mL.Performed at: [address] [id number] Director: Deven Morris PhD, Phone: [phone] at: [facility] [address] [place] [id number] Director: Jd Vernon MD, Phone: [phone] ANTI-TG AB 153.0 {IU/mL} (Abnormal) Range: 0.0-0.9 Comments: Thyroglobulin Antibody measured by Jass CoulterMethodology 29-Jul-20177:01 Thyroid Stim Hormone (TSH) Comments: [facility] [address] [place] [address], [id number] TSH < 0.01 {uIU/mL} (Abnormal) Range: 0.358-3.74 01-Hyg-79506:19 CALCIFEDIOL (58058) Comments: PATIENT WAS FASTINGPERFORMED BY: [address] [id number] Vitamin D, 25-Hydroxy 26.5 ng/mL (Abnormal) Range: 30.0-100.0 Comments: Vitamin D deficiency has been defined by the Union ofMedicine and an Endocrine Society practice guideline as alevel of serum 25-OH vitamin D less than 20 ng/mL (1,2).The Endocrine Society went on to further define vitamin Dinsufficiency as a level between 21 and 29 ng/mL (2).1. IOM (Union of Medicine). 2010. Dietary reference intakes for calcium and D. [place]: The National Academies Press.2. Yasemin MF, Coy CORNEJO, Edie BLACKWELL, et al. Evaluation, treatment, and prevention of vitamin D deficiency: an Endocrine Society clinical practice guideline. JCEM. 2010; 96(7):1911-30. 82-Svj-41291:19 LIPID PANEL (63175) Comments: PATIENT WAS FASTINGPERFORMED BY: [facility] Ziwwtp3165 [facility] [id number] LDL/HDL Ratio 2.1 {ratio_units} (Normal) Range: 0.0-3.2 Comments: LDL/HDL Ratio Men Women 1/2 Avg.Risk 1.0 1.5 Av g.Risk 3.6 3.2 2X Avg.Risk 6.2 5.0 3X Avg.Risk 8.0 6.1 LDL Cholesterol Calc 124 mg/dL (Abnormal) Range: 0-99 VLDL Cholesterol Ghulam 20 mg/dL (Normal) Range: 5-40 HDL Cholesterol 60 mg/dL (Normal) Triglycerides 99 mg/dL (Normal) Range: 0-149 Cholesterol, Total 204 mg/dL (Abnormal) Range: 100-199 62-Awe-827331:29 Estradiol Comments: [facility] Lxtljvlqgr3455 [facility] [place], [place], [address] ESTRADIOL 40.8 pg/mL (Normal) Comments: NORMAL REFERENCE [...] SHOULD BE USED TO DETERMINE ESTRADIOL CONCENTRATION. 41-Jcx-559599:29 Free T3 Comments: [facility] [address] [place], [place], [id number] FREE T3 4.3 pg/mL (Abnormal) Range: 2.18-3.98 51-Plz-789917:29 Progesterone Level Comments: [facility] [address] [place], [address] Progesterone 11.02 ng/mL (Normal) Comments: Progesterone Reference Table: UNITS Female: Follicular 0.15 - 1.40 ng/mL Luteal 3.34 - 25.56 ng/mL Mid-luteal 4.44 - 28.03 ng/mL Postmenopausal 0.0 - 0.73 ng/mL : 1st Trimester 11.22 - 90.00 ng /mL 2nd Trimester 25.55 - 89.40 ng/mL 3rd Trimester 48.40 -422.50 ng/mL 39-Mkr-965802:29 T4 Free Direct Comments: [facility] [address] [place], [address] T4 FREE DIRECT 0.80 ng/dL (Normal) Range: 0.76-1.46 26-Oqj-277683:29 Testosterone, Serum Total Comments: [facility] [address], [address] Testosterone 21.72 ng/dL (Normal) Comments: NORMAL REFERENCE RANGES MALE AGE <50 123.06 - 813.86 ng/dL MALE AGE >50 89.98 - 780.10 ng/dL FEMALE PREMENOPAUSE AGE 21 - 60 9.01 - 47.94 ng/dL FEMALE POSTMENOPAUSE AGE 45 - 89 <7.00 - 45.62 ng/dL REFERENCE RANGE AND METHODOLOGY CHANGED 03/13/201719-Mar-201756-Xsy-178967:29 Thyroid Stim Hormone (TSH) Comments: [facility] [address] [place], [address] TSH 0.64 {uIU/mL} (Normal) Range: 0.358-3.74 93-Bli-26938:51 Estradiol Comments: Has Patient had X-rays with Contrast this admission? [facility] [address] [place], [address] ESTRADIOL 36.1 pg/mL (Normal) Comments: NORMAL REFERENCE [...] with Contrast this admission? [facility] [address]ogvv49[address] [facility] [address] [place], [place], [phone] FREE T3 5.8 pg/mL (Abnormal) Range: 2.18-3.98 :51 Progesterone Level Comments: [facility] Cknwtabcne7232 [facility] [place], [place], [address] Progesterone 19.85 ng/mL (Normal) Comments: Progesterone Reference [...] with Contrast this admission? [facility] [address] [place], [place], [id number] T4 FREE DIRECT 0.99 ng/dL (Normal) Range: 0.76-1.46 :51 Testosterone, Serum Total Comments: [facility] [address] [place], [place], [address] Testosterone 51 ng/dL (Normal) Range: 14-76 :51 Thyroid Stim Hormone (TSH) Comments: Has Patient had X-rays with Contrast this admission? [facility] [address] [place], [id number] TSH 0.26 {uIU/mL} (Abnormal) Range: 0.358-3.74 :04 Estradiol Comments: [facility] [address] [place], [id number](420) ESTRADIOL 52.8 pg/mL (Normal) Comments: NORMAL REFERENCE [...] DETERMINE ESTRADIOL CONCENTRATION. :04 Free T3 Comments: [facility] [address] [place], [address] FREE T3 2.4 pg/mL (Normal) Range: 2.18-3.98 :04 T4 Free Direct Comments: [facility] [address] [place], [address] T4 FREE DIRECT 0.80 ng/dL (Normal) Range: 0.76-1.46 :04 Testosterone, Serum Total Comments: [facility] [address] [place], [address] Testosterone 45 ng/dL (Normal) Range: 14-76 :04 Thyroid Stim Hormone (TSH) Comments: [facility] [address] [place], [address] TSH 0.38 {uIU/mL} (Normal) Range: 0.358-3.74 :24 Estradiol Comments: [facility] [address] [place], [address] ESTRADIOL 103.1 pg/mL (Normal) Comments: NORMAL REFERENCE [...] DETERMINE ESTRADIOL CONCENTRATION. :24 Free T3 Comments: [address] [place], [address] FREE T3 5.7 pg/mL (Abnormal) Range: 2.18-3.98 :24 Progesterone Level Comments: [address] [place], [address] Progesterone 34.71 ng/mL (Normal) Comments: Progesterone Reference Table: UNITS Female: Follicular 0.15 - 1.40 ng/mL Luteal 3.34 - 25.56 ng/mL Mid-luteal 4.44 - 28.03 ng/mL Postmenopausal 0.0 - 0.73 ng/mL : 1st Trimester 11.22 - 90.00 ng /mL 2nd Trimester 25.55 - 89.40 ng/mL 3rd Trimester 48.40 -422.50 ng/mL :24 T4 Free Direct Comments: [facility] [address] [place], [address] T4 FREE DIRECT 0.88 ng/dL (Normal) Range: 0.76-1.46 :24 Thyroid Stim Hormone (TSH) Comments: [address] [place], [address] TSH 0.67 {uIU/mL} (Normal) Range: 0.358-3.74 :56 DHEA Sulfate Comments: Has Patient had X-rays with Contrast this admission? [facility] Patient had Radioactive Injection for X-ray?: [facility] (refer to report for specific site)refer to report for address and phone number DHEA SULF 4020 209.1 ug/dL (Normal) Range: 41.2-243.7 :56 Estrogen, Total, Serum Comments: Has Patient had X-rays with Contrast this admission? [facility] Patient had Radioactive Injection for X-ray?: [facility] (refer to report for specific site)refer to report for address and phone number ESTROGEN 4549 78 pg/mL (Normal) Comments: Prepubertal <40 Female Cycle: 1-10 Days 61 - 394 11-20 Days 122 - 437 21-30 Days 156 - 350 Post-Menopausal <40 HMG Treatment for Ovulation Induction: 400 - 800Performed at: [facility] [address] [id number] Director: Deven Morris PhD, Phone: [phone] at: [facility] [address] [id number] Director: David Pfeiffer MD, Phone: [phone] 05-Mts-829015:56 Follicle Stimulating Hormone Comments: [facility] [address] [place], [address] FSH 5.5 m[iU]/mL (Normal) Comments: NORMAL REFERENCE RANGES FEMALE FOLLICULAR 2.3 - 12.6 mIU/mL MID-CYCLE PEAK 5.2 - 17.5 mIU/mL LUTEAL 1.7 - 12.9 mIU/mL POST-MENOPAUSAL ON MHT 5.9 - 72.8 mIU/mL NOT ON MHT 12.7 - 132.2 mlU/mL MALE 0.7 - 10.8 mIU/mLNEW TEST METHOD AND REFERENCE RANGES AUGUST 13, 201104-Nov-201543-Oeb-663665:56 Progesterone Level Comments: [facility] [address] [place], [address] Progesterone 12.02 ng/mL (Normal) Comments: Progesterone Reference Table: UNITS Female: Follicular 0.15 - 1.40 ng/mL Luteal 3.34 - 25.56 ng/mL Mid-luteal 4.44 - 28.03 ng/mL Postmenopausal 0.0 - 0.73 ng/mL : 1st Trimester 11.22 - 90.00 ng /mL 2nd Trimester 25.55 - 89.40 ng/mL 3rd Trimester 48.40 -422.50 ng/mL 33-Fep-507006:56 T3 Total - Triiodothyronine Comments: [facility] [address] [place], [address] T3 Total 1.25 ng/mL (Normal) Range: 0.6-1.81 :56 T4 Total, Thyroxin Comments: [facility] [address] [place], [address] T4 THYROXIN 5.9 ug/dL (Normal) Range: 4.8-13.9 [...] 8-48 :56 Thyroid Stim Hormone (TSH) Comments: [facility] [address] [place], [address] TSH 4.19 {uIU/mL} (Abnormal) Range: 0.358-3.74 61-Ujg-48950:59 CALCIFIDIOL (33816) VIT D 25 Comments: PATIENT WAS FASTINGPERFORMED BY: [facility] Oxfhry1876 [facility] [id number] Vitamin D, 25-Hydroxy 31.8 ng/mL (Normal) Range: 30.0-100.0 Comments: Vitamin D deficiency has been defined by the Union ofMedicine and an Endocrine Society practice guideline as alevel of serum 25-OH vitamin D less than 20 ng/mL (1,2).The Endocrine Society went on to further define vitamin Dinsufficiency as a level between 21 and 29 ng/mL (2).1. IOM (Union of Medicine). 2010. Dietary reference intakes for calcium and D. [place]: The National Academies Press.2. Yasemin MF, Coy CORNEJO, Edie BLACKWELL, et al. Evaluation, treatment, and prevention of vitamin D deficiency: an Endocrine Society clinical practice guideline. JCEM. 2010; 96(7):1911-30. 89-Sks-99309:59 LIPID PANEL (63202) Comments: PATIENT WAS FASTINGPERFORMED BY: [facility] [id number] Information: 427115,[id number] LDL/HDL Ratio 2.5 {ratio_units} (Normal) Range: 0.0-3.2 [...] 100-199 Comments: Please note reference interval change 80-Bab-843753:20 DHEA Sulfate Comments: Has Patient had Radioactive Injection for X-ray?: [facility] (refer to report for specific site)refer to report for address and phone number DHEA SULF 4020 227.4 ug/dL (Normal) Range: 57.3-279.2 Comments: Performed at: [facility] [id number] Director: Deven Morris PhD, Phone: [phone] 02-Lbk-125457:20 Estradiol Comments: [facility] [address] [place], [place], [address] ESTRADIOL 48.0 pg/mL (Normal) Comments: NORMAL REFERENCE RANGES FEMALE FOLLICULAR 21.4 - 164.8 pg/mL MID-CYCLE PEAK 49.9 - 367.2 pg/mL LUTEAL 40.2 - 259.0 pg/mL POST-MENOPAUSAL ON MHT <11.0 - 462.1 pg/mL NOT ON MHT <11.0 - 58.3 pg/mL MALE <11.0 - 52 .5 pg/mLNEW TEST METHOD AND REFERENCE RANGE AUGUST 13, 201108-Jan-201540-Vdc-199375:20 Progesterone Level Comments: [facility] Phtnvtttic1599 [facility] [place], [place], [address] Progesterone 22.89 ng/mL (Normal) Comments: Progesterone Reference Table: UNITS Female: Follicular 0.15 - 1.40 ng/mL Luteal 3.34 - 25.56 ng/mL Mid-luteal 4.44 - 28.03 ng/mL Postmenopausal 0.0 - 0.73 ng/mL : 1st Trimester 11.22 - 90.00 ng /mL 2nd Trimester 25.55 - 89.40 ng/mL 3rd Trimester 48.40 -422.50 ng/mL 54-Gev-464698:20 T3 Total - Triiodothyronine Comments: [facility] [address] [place], [address] T3 Total 1.61 ng/mL (Normal) Range: 0.6-1.81 8-Caq-889898:58 DHEA Sulfate Comments: Has pt arrived? YHas Patient had Radioactive Injection for X-ray?: NTest performed at:[facility] Jgwviqaaie4647 [facility] [place] [address] DHEA SULF 4020 216.0 ug/dL (Normal) Range: 57.3-279.2 Comments: Performed at: - [facility] [id number] Director: Pasquale Hutton PhD, Phone: [phone] 6-Flw-680173:58 Estradiol Comments: Has pt arrived? YTest performed at:[facility] Wffjeugxln0687 [facility] [address] ESTRADIOL 71.1 pg/mL (Normal) Comments: NORMAL REFERENCE RANGES FEMALE FOLLICULAR 21.4 - 164.8 pg/mL MID-CYCLE PEAK 49.9 - 367.2 pg/mL LUTEAL 40.2 - 259.0 pg/mL POST-MENOPAUSAL ON MHT <11.0 - 462.1 pg/mL NOT ON MHT <11.0 - 58.3 pg/mL MALE <11.0 - 52 .5 pg/mLNEW TEST METHOD AND REFERENCE RANGE AUGUST 13, 201101-Apr-20145-Nez-187448:58 Free T3 Comments: Has pt arrived? YTest performed at:[facility] [address]rs[address] [place] [address] FREE T3 2.8 pg/mL (Normal) Range: 2.18-3.98 89-Koq-268684:25 DDIMQ < 0.27 {FEU/ug/m} (Abnormal) Range: 0.27-0.49 Comments: NORMAL D-Dimer level (<0.50) indicates no DVT or PE. 65-Bgj-46425:20 Urinalysis, Office (76668) UA - LEUKOCYTE ESTERASE Negative (Normal) UA - NITRITE Negative (Normal) URINE UROBILINGN WIN TIMED Normal mg/dL (Normal) UA - PROTEIN Negative mg/dL (Normal) UA - PH 7.5 (Normal) UA - BLOOD Negative (Normal) UA - SPECIFIC GRAVITY 1.020 (Normal) UA - KETONES Negative mg/dL (Normal) UA - BILIRUBIN Negative (Normal) UA - GLUCOSE Negative (Normal) [id number] Urine Culture,Comprehensive Comments: PATIENT NOT FASTINGPERFORMED BY: [facility] [id number] Information: [id number] Result 1 MUG (Normal) Comments: Mixed urogenital flora25,000-50,000 colony forming units per mL Urine Final report (Normal) Culture,Comprehensive [id number] Rapid Strep Test, Office (99216) Rapid Strep Test, Office Negative (Normal) 25-Dec-20128:08 CALCIFIDIOL (23673) VIT D Comments: PATIENT WAS FASTINGPERFORMED BY: [facility] [id number] BY: [address] [id number] 25 Vitamin D, 25-Hydroxy 23.8 ng/mL (Abnormal) Range: 30.0-100.0 Comments: Vitamin D deficiency has been defined by the Union ofMedicine and an Endocrine Society practice guideline as alevel of serum 25-OH vitamin D less than 20 ng/mL (1,2).The Endocrine Society went on to further define vitamin Dinsufficiency as a level between 21 and 29 ng/mL (2).1. IOM (Union of Medicine). 2010. Dietary reference intakes for calcium and D. [place]: The National AcademPISTIS Consult Press.2. Yasemin MF, Coy CORNEJO, Edie BLACKWELL, et al. Evaluation, treatment, and prevention of vitamin D deficiency: an Endocrine Society clinical practice guideline. JCEM. 2010; 96(7):1911-30. :08 Folate (09903) Comments: PATIENT WAS FASTINGPERFORMED BY: [employer] [facility] [id number] BY: Photetica[address] [id number] Folate (Folic Acid), Serum 15.2 ng/mL (Normal) Comments: A serum folate concentration of less than 3.1 ng/mL isconsidered to represent clinical deficiency. :08 VITAMIN B-12 (CYANOCOBALAMIN) Comments: PATIENT WAS FASTINGPERFORMED BY: Elpas70 [facility] [id number] BY: Photetica[address] [id number] (65542) Vitamin B12 499 pg/mL (Normal) Range: 211-946 :08 SED RATE ERYTHROCYTE Comments: PATIENT WAS FASTINGPERFORMED BY: [employer] [facility] [id number] BY: [facility] [id number] (07540) Sedimentation Rate-Westergren 11 mm/h (Normal) Range: 0-32 :08 RHEUMATOID FACTOR-QUANT Comments: PATIENT WAS FASTINGPERFORMED BY: FloqPristine.ioSt. Lawrence Rehabilitation CenterDcouhm4256 [facility] [id number] BY: Profig[address] [id number] (73179) RA Latex Turbid. 8.5 {IU/mL} (Normal) Range: 0.0-13.9 25-Dec-20128:08 METABOLIC PANEL, Comments: PATIENT WAS FASTINGPERFORMED BY: LabPristine.ioSt. Lawrence Rehabilitation CenterDwflqv8725 [facility] [id number] BY: LabPristine.io[address] [id number] Inf ormation: [id number] [facility] (18302) ALT (SGPT) 19 [iU]/L (Normal) Range: 0-32 [...] mg/dL (Normal) Range: 65-99 25-Dec-20128:08 C-REACTIVE PROTEIN (35137) Comments: PATIENT WAS FASTINGPERFORMED BY: [facility] Hsodbn9052 [facility] [id number] BY: [address] [id number] C-Reactive Protein, Quant 9.7 mg/L (Abnormal) Range: 0.0-4.9 25-Dec-20128:08 CBC (AUTO) (52594) Comments: PATIENT WAS FASTINGPERFORMED BY: [facility]-RayNor-Lea General HospitalNhmjer1250 [facility] [id number] BY: [address] [id number] Platelets 186 {x10E3/uL} (Normal) Range: 155-379 RDW 13.4 % (Normal) Range: 12.3-15.4 MCHC 32.4 g/dL (Normal) Range: 31.5-35.7 MCH 27.7 pg (Normal) Range: 26.6-33.0 MCV 85 fL (Normal) Range: 79-97 Hematocrit 43.8 % (Normal) Range: 34.0-46.6 Hemoglobin 14.2 g/dL (Normal) Range: 11.1-15.9 RBC 5.13 {x10E6/uL} (Normal) Range: 3.77-5.28 WBC 6.7 {x10E3/uL} (Normal) Range: 3.4-10.8 :08 SUZAN (ANTINUCLEAR ANTIBODY) Comments: PATIENT WAS FASTINGPERFORMED BY: [facility]-RayNor-Lea General HospitalMosrog6249 [facility] [id number] BY: [address] [id number] (20803) SUZAN Direct Negative (Normal) :08 T3, FREE (TRIDOTHYRONINE) Comments: PATIENT WAS FASTINGPERFORMED BY: [facility]-RaySt. Lawrence Rehabilitation CenterJyheuf5236 [facility] [id number] BY: [address] [id number] (37034) Triiodothyronine,Free,Serum 2.9 pg/mL (Normal) Range: 2.0-4.4 :08 T4, FREE (THYROXINE) Comments: PATIENT WAS FASTINGPERFORMED BY: [place] 9746570 [facility] [id number] BY: [address] [id number] (07084) T4,Free(Direct) 1.13 ng/dL (Normal) Range: 0.82-1.77 :08 TSH (65031) Comments: PATIENT WAS FASTINGPERFORMED BY: [place] 9746570 [facility] [id number] BY: [address] [id number] TSH 0.777 {uIU/mL} (Normal) Range: 0.450-4.500 :08 REVERSE TRIDOTHYRONINE Comments: PATIENT WAS FASTINGPERFORMED BY: [place] 9746570 [facility] [id number] BY: [address] [id number] (22582) Reverse T3, Serum 17.6 ng/dL (Normal) Range: 9.2-24.1 07-Owy-636495:08 Hemoglobin Glyclated (HGB A1C) Comments: PATIENT NOT FASTINGPERFORMED BY: [place] 9746570 [facility] [id number] (71770) Hemoglobin A1c 5.0 % (Normal) Range: 4.8-5.6 Comments: . Increased risk for diabetes: 5.7 - 6.4 Diabetes: >6.4 Glycemic control for adults with diabetes: <7.0 :08 LIPID PANEL (17831) Comments: PATIENT NOT FASTINGPERFORMED BY: [place] 9746570 [facility] [id number] Information: [id number] LDL/HDL Ratio 2.2 {ratio_units} (Normal) Range: 0.0-3.2 LDL Cholesterol Calc 114 mg/dL (Abnormal) Range: 0-99 HDL Cholesterol 53 mg/dL (Normal) Comments: According to ATP-III Guidelines, HDL-C >59 mg/dL is considered anegative risk factor for CHD. VLDL Cholesterol Ghulam 16 mg/dL (Normal) Range: 5-40 Triglycerides 78 mg/dL (Normal) Range: 0-149 Cholesterol, Total 183 mg/dL (Normal) Range: 100-199 94-Woz-465040:03 Microscopic Examination Comments: PATIENT NOT FASTINGPERFORMED BY: ClearMyMailSt. Lawrence Rehabilitation CenterLnqwng0624 [facility] [id number] Bacteria Few (Normal) Mucus Threads Present (Normal) Epithelial Cells (non renal) 0-10 {/hpf} (Normal) Range: 0 - 10 RBC None seen {/hpf} (Normal) Range: 0 - 3 WBC 0-5 {/hpf} (Normal) Range: 0 - 5 :03 URINALYSIS, W/ MICRO Comments: PATIENT NOT FASTINGPERFORMED BY: DVDPlay6370 [address] [facility]onAt[facility] [id number] Information: [id number] (51537) Microscopic Examination See below: (Normal) Microscopic Examination MICRON (Normal) Comments: Microscopic follows if indicated. Nitrite, Urine Negative (Normal) Urobilinogen,Semi-Qn 0.2 mg/dL (Normal) Range: 0.0-1.9 Bilirubin Negative (Normal) Occult Blood Negative (Normal) Ketones Negative (Normal) Glucose Negative (Normal) Protein Negative (Normal) WBC Esterase Negative (Normal) Appearance Clear (Normal) Urine-Color Yellow (Normal) pH 6.0 (Normal) Range: 5.0-7.5 Specific [place] 1.016 (Normal) Range: 1.005-1.030 :47 CBCMD ANC [...] :47 TSH 0.81 {uIU/mL} (Normal) Range: 0.358-3.74 05-Aug-804927:06 Influenza A&B Viral Comments: PATIENT NOT FASTINGPERFORMED BY: [address] [id number] Information: SRC:NOS ADD [id number] Culture (41357) Viral Culture,Rapid,Influenza FLUABN (Normal) Comments: Negative:No Influenza A or B detected. 37-Pzi-61297:40 Rapid Flu (07008 x 2) Influenza A Ag negative (Normal) 28-Ioj-166556:19 TSH (80053) Comments: PATIENT NOT FASTINGPERFORMED BY: [place] 9746570 [facility] [id number] Information: [id number] TSH 0.310 {uIU/mL} (Abnormal) Range: 0.450-4.500 :55 [...] EDTElectronically Signed GP/GP Professional Interpretation Provided By: PodclassMeBeam [facility], , To consult with a radiologist regarding this report, please call our 48M9eazygrd line @ Dictated on 08/23/11812 by Jeannie GIBBS,Kris bed on 08/23/1156 by ITS IMPORTSign by Jeannie GIBBS,Roddy on 08/23/11856 Sign by: Roddy Du MD 53-Pdh-134208:48 GILBERT CULTURE-OTHER (86551) Comments: PATIENT NOT FASTINGPERFORMED BY: [facility] Iuawbu0516 [facility] [id number] Information: SRC:THRGomez [id number] Result 1 RRF (Normal) Comments: Routine respiratory dez Upper Respiratory Culture Final report (Normal) :34 Rapid Strep Test, Office (41004) Rapid Strep Test, Office Negative (Normal) 29-Aug-20109:14 Thin prep Pap Comments: Source.............Cervical;EndocervicalNo. of containers..01 CYTYC Thin Prep VialPATIENT NOT FASTINGPERFORMED BY: [facility] [address] [id number] Information: [id number] ([id number]) Note: PAPSMR (Normal) Comments: The Pap smear [...] ; Routine gynecolog ical examina Elver Barron, Vp Patient (ASCP) 28-Aug-20100:00 BILAT SCRN DIGITAL & CAD [...] TSH 1.52 {uIU/mL} Range: 0.358-3.74 10 (Normal) 6-Egf-407091:51 BILAT SCRN DIGITAL & CAD Radiology Report See Note (Normal) Comments: Exam Number: [id number] DIGITAL BILATERAL MAMMOGRAM Digital oblique and craniocaudal [...] the [facility] This interpretation was rendered by a radiologist certified under theMammography Quality Standards Act of 1992 (MQSA). The mammograms werealso examined with computer-aided detection software (Image checker stocker, Touch-Writer.). Reported By: RODDY DU 04-Umm-61921:51 URINE GILBERT CULTURE-IDENTIFICATN Comments: PATIENT NOT FASTINGClinical Information: [id number] PERFORMED BY: [facility] Jmkhod1658 [facility] [id number] (82203) Result 1 MUG (Normal) Comments: Mixed urogenital flora1,000 Colonies/mL Urine Culture,Comprehensive Final report (Normal) 23-Lda-095986:45 Urinalysis, Office (92852) Comments: done ak UA - BILIRUBIN Negative [...] 5.79 mg/L (Abnormal) Comments: RESULTS FAXED 01/21/09 0876 MARY GUERRA. 18 Range: 0.0-3.0 Comments: C-Reactive Protein (CRP) provides useful information for thediagnosis, therapy and monitoring of inflammatory processesand associated diseases. For the evaluation of Relative Riskfor Cardiovascular Dise ase, a High Sensitivity CRP (HSCRP)should be ordered. 18-Zkg-756618:18 CBCD,SMEAR DIFF BAND 2 % (Normal) Range: [...] 47-70 WBC 7.3 K/mm3 (Normal) Range: 4.4-11.0 65-Wik-139066:18 D-DIMER QUANT <200 ng/mL (Normal) Comments: NORMAL D-Dimer level indicates no DVT or PE. RESULTS CALLED TO DR IZAGUIRRE'S OFFICE 01/21/09 ANTHONY ROBB.REPORT READ BACK BY SAME . 14-Fpp-269240:18 ESR SED RATE 14 (Normal) Range: 0-20 36-Cxu-671400:46 Rapid Flu (44877 x 2) INFLUENZA IMMUNOASSY DIRECT OPTICAL OBSERV negative (Normal) 27-Uza-206260:46 Rapid Strep Test, Office (04207) Rapid Strep Test, Office Negative (Normal) 4-Oqj-114836:26 PELVIC (NON-PREG) (HP) Radiology Report See Note (Normal) Comments: Exam Number: [id number] Transabdominal pelvic ultrasound History: Heavy menses Findings: [...] pelvic ultrasound Reported By: KERRY WILKINSON M.D. 18-Yml-776289:10 T4, FREE (THYROXINE) (64260) Comments: PATIENT NOT FASTINGPERFORMED BY: DVDPlay6370 [address] [facility] [id number] T4,Free(Direct) 1.38 ng/dL (Normal) Range: 0.61-1.76 :10 T3, FREE (TRIDOTHYRONINE) (11603) Comments: PATIENT NOT FASTINGPERFORMED BY: [facility] Raksuq4695 [address] [facility]onAt[facility] [id number] Triiodothyronine,Free,Serum 3.4 pg/mL (Normal) Range: 2.3-4.2 :10 GONADOTROPIN-LH (19433) Comments: PATIENT NOT FASTINGPERFORMED BY: [employer] Opsxqq2097 [facility] [id number] LH 14.5 m[iU]/mL (Normal) Range: 0.0-76.3 Comments: [...] 15.9 - 54.0 Contraceptives 0.7 - 5.6 39-Sfx-814626:10 GONADOTROPIN-FSH (37123) Comments: PATIENT NOT FASTINGPERFORMED BY: [facility]6370 [facility] [id number] FSH 4.8 m[iU]/mL (Normal) Comments: . Age [...] - 9.1 <0.2 Postmenopausal 23.0 - 116.3 61-Dux-771954:10 TEST - SERUM Comments: PATIENT NOT FASTINGPERFORMED BY: [facility]6370 [facility] [id number] QUANTITATIVE (HCG) (22939) hCG,Beta Subunit,Qual,Serum Negative m[iU]/mL (Normal) Comments: Negative < 5 Borderline 5 - 20 Positive >20 81-Ige-071784:10 CBC (AUTO) (17592) Comments: PATIENT NOT FASTINGPERFORMED BY: [facility]6370 [facility] [id number] Hematocrit 36.3 % (Normal) Range: 34.0-44.0 Hemoglobin 11.5 g/dL (Normal) Range: 11.5-15.0 MCH 23.7 pg (Abnormal) Range: 27.0-34.0 MCHC 31.6 g/dL (Abnormal) Range: 32.0-36.0 MCV 75 fL (Abnormal) Range: 80-98 Platelets 180 {x10E3/uL} (Normal) Range: 140-415 RBC 4.84 {x10E6/uL} (Normal) Range: 3.80-5.10 RDW 14.1 % (Normal) Range: 11.7-15.0 WBC 5.2 {x10E3/uL} (Normal) Range: 4.0-10.5 61-Fnv-078988:10 METABOLIC PANEL, COMPREHENSIVE Comments: PATIENT NOT FASTINGClinical Information: ADD DRAW FEE 245115 ADD J 82694 PERFORMED BY: ROLF LabCoSt. Lawrence Rehabilitation CenterLperwg8180 [facility] [id number] (73698) A/G Ratio 1.7 (Normal) Range: 1.1-2.5 Albumin, [...] Serum 64 mg/dL (Abnormal) Range: 65-99 If -Faroese >59 mL/min/1.73 Comments: Note: Persistent reduction for [...] Sodium, Serum 141 mmol/L (Normal) Range: 135-145 67-Wny-413285:10 PROLACTIN (06246) Comments: PATIENT NOT FASTINGPERFORMED BY: [facility]-RayCh[place] 7026370 [facility] [id number] Prolactin 8.1 ng/mL (Normal) Range: 2.8-29.2 Comments: [...] 9.7 - 208.5 Postmenopausal 1.8 - 20.3 08-Xel-766676:10 PT (PROTHROMBIN TIME) (11737) Comments: PATIENT NOT FASTINGPERFORMED BY: [facility]-RaySt. Lawrence Rehabilitation CenterLstqeb8869 [facility] [id number] INR 1.0 (Normal) Range: 0.8-1.2 Comments: Reference interval is for non-anticoagulated patients. . Suggested INR therapeutic range for Vitamin K anta gonist therapy: Standard Dose (moderate intensity therapeutic range): 2.0 - 3.0 Higher intensity therapeutic range 2.5 - 3.5 Prothrombin Time 10.4 {sec} (Normal) Range: 8.7-11.5 23-Jpz-117926:10 PTT (ACTIVATED PARTIAL Comments: PATIENT NOT FASTINGPERFORMED BY: [facility]RayCh[place] 7026370 [facility] [id number] THROMBOPLASTIN TIME) (38281) aPTT 25 {sec} (Normal) Range: 24-33 Comments: This test has not been validated for monitoring unfractionated heparintherapy. aPTT-based therapeutic ranges for unfractionated heparintherapy have not been established. For general guidelines onHeparin monitoring, refer to the [facility] Directory of Services. 05-Vaj-011976:10 TSH (89430) Comments: PATIENT NOT FASTINGPERFORMED BY: [facility]6370 [facility] [id number] TSH 0.426 {uIU/mL} (Abnormal) Range: 0.450-4.500 :48 TSH 0.352 {uIU/mL} (Abnormal) Comments: PERFORMED BY: [address] [id number] Range: 0.450-4.500 1-Dkq-948381:48 TSH 29.50 {uIU/mL} (Abnormal) Range: 0.34-4.82 3-Sbx-909102:10 Rapid Strep Test, Office (79111) Rapid Strep Test, Office Negative (Normal) 30-Jun-20070:00 CULTURE, THROAT See Note (Normal) Comments: Normal throat dez isolated. No beta-hemolyticstreptococcus isolated. 9-Bur-922060:40 HAND,MIN 3 VIEWS Radiology Report See Note (Normal) Comments: Exam Number: [id number] RIGHT HAND HISTORYHand pain. 3 views of [...] ORGANISM 1: GROUP A BETA STREPTOCOCCUS :00 82-Kcv-174406:32 Rapid Strep Test, Office (39323) Comments: ABN signedpositive Rapid Strep Test, Office Positive (Normal) 21-Tgu-376738:24 T3UP Comments: ADD ON T3 UPTAKE 32 % (Normal) Range: 30-39 T7 (FTI) 2.0 (Normal) Range: 1.4-4.5 54-Vqm-491245:24 T4 THYROXIN 6.1 ug/dL (Normal) Comments: ADD [...] UP NEEDED Indication: Hypothyroidism Planned Observations CALCIFEDIOL (04011)Indication: Vitamin D deficiency On: 47-Gfc-517675:03 Request HEPATIC FUNCTION PANEL (80869)Indication: Hyperlipidemia On: 73-Ogn-366054:03 Request Lipid Panel (77655)Indication: Hyperlipidemia On: :02 Request LIPID PANEL (99926)Indication: Hyperlipidemia On: 09-Hjv-352761:19 Request D-Dimer (98135)Indication: SOB On: :56 Request METABOLIC PANEL, COMPREHENSIVE (47143)Indication: Elevated blood-pressure reading without diagnosis of hypertension On: :21 Request CBC WITH MANUAL DIFF (77902)Indication: Elevated blood-pressure reading without diagnosis of hypertension On: :21 Request D-Dimer (90912)Indication: SOB On: :20 Request TSH (78684)Indication: Hypothyroidism On: :18 Request TSH (38830)Indication: Hypothyroidism On: 36-Raq-537494:39 Request TSH (92757)Indication: Abnormal TSH On: :28 Request BACT CULTURE ANY-ANAEROBIC (06746)Indication: Pharyngitis, acute On: :35 Request TSH (THYROID STIMULATING HORMONE) (08942)Indication: Hypothyroidism On: :20 Request TSH (23275)Indication: Hypothyroidism On: :52 Request T4, FREE (THYROXINE) (84567)Indication: Hypothyroidism On: :52 Request T3, FREE (TRIDOTHYRONINE) (87569)Indication: Hypothyroidism On: :52 Request TSH (21813)Indication: Hypothyroidism On: :09 Request T4, FREE (THYROXINE) (37581)Indication: Hypothyroidism On: :09 Request T3, FREE (TRIDOTHYRONINE) (96349)Indication: Hypothyroidism On: :09 Request SED RATE ERYTHROCYTE (40812)Indication: Pruritic disorder On: 31-Kfn-036197:07 Request C-REACTIVE PROTEIN (58266)Indication: Pruritic disorder On: 64-Yvv-603525:07 Request SUZAN (ANTINUCLEAR ANTIBODY) (90978)Indication: Pruritic disorder On: 91-Hkb-050703:07 Request TSH (26905)Indication: Pruritic disorder On: 68-Sjv-767280:07 Request METABOLIC PANEL, COMPREHENSIVE (77961)Indication: Pruritic disorder On: 68-Dvl-511647:07 Request CBC WITH MANUAL DIFF (82050)Indication: Pruritic disorder On: 44-Xrc-003262:07 Request C-REACTIVE PROTEIN (50650)Indication: Chest pain On: :56 Request CBC WITH MANUAL DIFF (20295)Indication: Chest pain On: 58-Uiv-302935:56 Request Comments: stat call D-Dimer (85131)Indication: Chest pain On: :56 Request Comments: statcall results GILBERT CULTURE-OTHER (84165)Indication: Pharyngitis, acute On: 4-Klu-213063:10 Request GILBERT CULTURE-OTHER (68008)Indication: Pharyngitis, acute On: 90-Aep-406664:45 Request Thin prep Pap (93781)Indication: Well woman exam with routine gynecological exam On: 2-Zpz-719953:05 Request TSH (05040)Indication: Hypothyroidism On: 48-Mpr-942901:35 Request T4, FREE (THYROXINE) (74919)Indication: Hypothyroidism On: 17-Wbu-208317:35 Request T3, FREE (TRIDOTHYRONINE) (35495)Indication: Hypothyroidism On: 27-Xbz-077070:35 Request Planned Encounters Medical; 2 Week FU - On: 07-Feb-2018 14:15 [facility] Raysa De Guzman DO, DO, Kathleen Planned Procedures ELECTROCARDIOGRAM, COMPLETE (ECG) On: 23-Jan-2018 Intent (67406)By: Mita Montanez Comments: NSR-HR 63 MAMMOGRAM BREAST BILATERAL SCREENING On: 24-Dec-2017 Intent DIGITAL (46668)By: Raysa De Guzman DO, DO, Kathleen SCREENING DIGITAL TOMOSYNTHESIS OF On: 27-Dec-2016 Intent BREAST (34128)By: Raysa De Guzman DO, DO, Raysa Aerosol Treatment (41166)By: Solomon BLAND, On: 28-Mar-2016 Intent Keysha A BILATERAL MAMMOGRAMS (44170)By: Gab On: 16-Jan-2016 Intent Raysa BLAND DO, Raysa BILATERAL MAMMOGRAMS (12595)By: Gab On: 31-Dec-2014 Intent Raysa BLAND DO, Raysa BILATERAL MAMMOGRAMS (94470)By: Gab On: 01-Jan-2014 Intent Raysa BLAND DO, Kathleen Radiology - Lumbar SpineBy: Fabiana JONES, On: 12-Oct-2013 Intent Violetta Alves Toradol Injection, 30 mg (J1885)By: On: 12-Oct-2013 Intent Fabiana JONES Violetta Alves Comments: lot: 63-279-QUujo: 05/24/15ite/route: RGM/IMamt: 30mgVIS signed when applicableChelsRUFINO dove Eprescribed prescriptions (G8553)By: On: 06-May-2013 Intent Fabiana JONES Violetta Alves Breast Screening - BilateralBy: Gab On: 25-Dec-2012 Intent Raysa BLAND DO, Kathleen EKG (63022)By: Raysa De Guzman DO On: 11-Apr-2012 Intent Raysa De Guzman DO Comments: nsr no acute sinus changes Pulse Oximetry (94399)By: Gab BLAND, On: 11-Apr-2012 Intent Raysa Fountain DO MRI /MRA- Brain (IV Contrast On: 11-Apr-2012 Intent Needed)By: Raysa De Guzman DO, DO, Kathleen Eprescribed prescriptions (G8553)By: On: 10-Mar-2012 Intent Mita Salinas LPN Doppler Ultrasound b/lBy: Gab BLAND, On: 06-Sep-2011 Intent Raysa Fountain DO Breast Screening - BilateralBy: Gab On: 17-Aug-2011 Intent Raysa BLAND DO, Raysa MAMMOGRAM, SCREENING, BOTH BREASTS On: 19-Jul-2010 Intent (84201)By: Raysa De Guzman DO, DO, Kathleen MAMMOGRAM, SCREENING, BOTH BREASTS On: 27-Jul-2009 Intent (90984)By: Violetta Jung CNP Radiology - Chest- PA and LatBy: Fast On: 21-Jan-2009 Intent Keysha BLAND Pulse Oximetry (75538)By: Maryuri, On: 21-Jan-2009 Intent Katia Comments: 99% Spirometry (68637)By: Maryuri, On: 21-Jan-2009 Intent Katia Comments: good effort and curve normal EKG (13046)By: Katia Wahl On: 21-Jan-2009 Intent Comments: ekg showed normal sinus fay, normal axis, no acute st/t wave changes Ultrasound - PelvisBy: Gab BLAND, On: 15-Jul-2008 Intent Raysa Fountain DO SPECIMEN HNDLNG/TRNSPRT, OFFC > LAB On: 30-Jun-2007 Intent (12231)By: Raysa De Guzman DO, DO, Kathleen Radiology - Hand - RightBy: Bonezzi On: 01-May-2007 Intent Roma GIBBS Comments: attention 5 th digit ? avulsion fracturecall wet read to office SPECIMEN HNDLNG/TRNSPRT, OFFC > LAB On: 05-Jul-2006 Intent (39715)By: Raysa De Guzman DO, DO, Kathleen MAMMOGRAM, SCREENING, BOTH BREASTS On: 01-May-2006 Intent (00152)By: MEDARDO DEL VALLE CNP Comments: Screening for [...]
--- OUTSIDE RECORDS SUMMARY | 2018-04-19 10:12 | XMS RPT_ITS ---
:1970 Author Organization OHIP Care Team Providers Name Role Phone Raysa De Guzman DO Attending Unavailable Gab DORaysa Referring Unavailable Gab DORaysa Consulting Unavailable Aravind Silveira Attending Unavailable Gab, Raysa Primary Care Unavailable Aravind Silveira Attending Unavailable Aravind Silveira Referring Unavailable Gab, Raysa Primary Care Unavailable Aravind Silveira Attending Unavailable Aravind Silveira Referring Unavailable Gab, Raysa Primary Care Unavailable Gab Raysa Attending Unavailable Gab, Raysa Primary Care Unavailable Gab, Raysa Referring Unavailable Jordana Aravind Attending Unavailable Jordana, Aravind Referring Unavailable Raysa De Guzman Primary Care Unavailable PROBLEMS PROBLEMS DATE TYPE CONDITION / CODE ATTENDING STATUS SOURCE 02/24/2018 Unknown N95.1 - Menopausal [place], Active [place] and female [facility] climacteric states / Hospital N95.1(ICD-10) Repository 02/24/2018 Unknown E03.8 - Other [place], Active [place] specified [facility] hypothyroidism / Hospital E03.8(ICD-10) Repository 02/24/2018 Unknown E55.9 - Vitamin D [place], Active [place] deficiency, [facility] unspecified / Hospital E55.9(ICD-10) Repository 11/23/2017 Unknown N95.8 - Other [place], Active [place] specified menopausal [facility] and perimenopausal Hospital disorders / Repository N95.8(ICD-10) PROCEDURES PROCEDURES No Procedure Records FoundRESULTS RESULTS FREE T3 Collected: 02/24/2018 Status: F Source: [place] 8:50 AM [facility] REPOSITORY TYPE CODE TESTS RESULT OUT OF RANGE REFERENCE UNITS LAB L501.49498 2.18-3.98 pg/mL High FREE T3 5.0 Performed By: #### L501.28739, L3300.1750 #### [facility] [address] [place], [address] ESTRADIOL Collected: 02/24/2018 Status: F Source: [place] 8:50 AM [facility] REPOSITORY TYPE CODE TESTS RESULT OUT OF RANGE REFERENCE UNITS LAB L3300.1750 pg/mL Normal ESTRADIOL 47.8 Result Comment: NORMAL REFERENCE RANGES FEMALE FOLLICULAR 21.4 - 164.8 pg/mL MID-CYCLE PEAK 49.9 - 367.2 pg/mL LUTEAL 40.2 - 259.0 pg/mL POST-MENOPAUSAL ON MHT <11.0 - 462.1 pg/mL NOT ON MHT <11.0 - 58.3 pg/mL MALE <11.0 - 52.5 pg/mL NOTE: [facility] HAS CONFIRMED THE DRUG FULVETRANT (FASLODEX) MAY CAUSE FALSELY ELEVATED ESTRADIOL RESULTS WHEN USING THIS TEST METHOD. IF PATIENT IS TAKING FULVESTRANT AN ALTERNATIVE METHOD SHOULD BE USED TO DETERMINE ESTRADIOL CONCENTRATION. Performed By: #### L501.97069, L3300.1750 #### [facility] [address] [place], [address] VITAMIN D,25 HYDROXY Collected: 02/24/2018 Status: F Source: B[place] 8:50 AM [facility] REPOSITORY TYPE CODE TESTS RESULT OUT OF REFERENCE UNITS RANGE LAB L506.1000 29.95-100.01 ng/mL Low Vitamin D 22.9 25-OH Result Comment: Vitamin D 25(OH) Status Range Deficiency <20 ng/mL (50nmol/L) Insuffciency 20 - 30 ng/mL (50 - 75 nmol/L) Sufficiency 30 - 100 ng/mL (75 - 250 nmol/L) Toxicity >100 ng/mL (>250 nmol/L) Performed By: #### L506.1000, L509.3000, L509.4001 #### [facility] [address] [place], [address] TESTOSTERONE, SERUM TOTAL Collected: 02/24/2018 Status: F Source: [place] 8:50 AM [facility] REPOSITORY TYPE CODE TESTS RESULT OUT OF REFERENCE UNITS RANGE LAB L509.3000 ng/dL Testosterone Normal 19.57 Result Comment: NORMAL REFERENCE RANGES MALE AGE <50 123.06 - 813.86 ng/dL MALE AGE >50 89.98 - 780.10 ng/dL FEMALE PREMENOPAUSE AGE 21 - 60 9.01 - 47.94 ng/dL FEMALE POSTMENOPAUSE AGE 45 - 89 <7.00 - 45.62 ng/dL REFERENCE RANGE AND METHODOLOGY CHANGED 03/13/2017 Performed By: #### L506.1000, L509.3000, L509.4001 #### [facility] [address] [place], [address] PROGESTERONE LEVEL Collected: 02/24/2018 Status: F Source: [place] 8:50 AM [facility] REPOSITORY TYPE CODE TESTS RESULT OUT OF REFERENCE UNITS RANGE LAB L509.4001 See Comment ng/mL Progesterone Normal 15.60 Result Comment: Progesterone Reference Table: UNITS Female: Follicular 0.15 - 1.40 ng/mL Luteal 3.34 - 25.56 ng/mL Mid-luteal 4.44 - 28.03 ng/mL Postmenopausal 0.0 - 0.73 ng/mL : 1st Trimester 11.22 - 90.00 ng/mL 2nd Trimester 25.55 - 89.40 ng/mL 3rd Trimester 48.40 -422.50 ng/mL Performed By: #### L506.1000, L509.3000, L509.4001 #### [facility] [address] [place], [address] THYROID PEROXIDASE AB Collected: 02/24/2018 Status: F Source: [place] 8:50 AM [facility] REPOSITORY TYPE CODE TESTS RESULT OUT OF RANGE REFERENCE UNITS LAB L3300.6900 0-34 IU/mL High TPO AB 43 6676 Result Comment: Performed at: - [facility] [address] [id number] Auto [employer] Buffer: Deven Morris PhD, Phone: [phone] Performed By: #### L3300.6900 #### [facility] (refer to report for specific site) refer to report for address and phone number SCREENING MAMM (CAD), Observed: 01/13/2018 Status: F Source: BOLIV[place] BILAT 7:39 AM [facility] REPOSITORY [facility] Services [address] [place] [address] SCREENING MAMM (CAD), BIL MR#: [id number] Acct: [id number] Name: TITA KING Rep #: [id number] : 1970 F 47 From: Roddy Dennis MD PCP: Raysa De Guzman DO Status: [facility] CLI Study: SCREENING MAMM (CAD), BILAT Date of Exam: 01/13/18 Exam# [id number] Ordering Dr: Raysa De Guzman DO MAMMOGRAPHY [...] 27, 2016. FINDINGS: Breast Composition: There are scattered areas of fibroglandular density. There are no dominant masses or suspicious calcifications. Stable benign-appearing bilateral axillary lymph nodes. No other significant abnormalities are identified. There [...] delay biopsy of a clinically suspicious abnormality. [id number] Electronically Signed: Roddy Dennis MD at 15:51 EDT Tel [phone], Service support , CC: Raysa De Guzman DO Certified Energy Manager: Signed FREE T3 Collected: 11/23/2017 Status: F Source: B[place] 10:33 AM [facility] REPOSITORY TYPE CODE TESTS RESULT OUT OF RANGE REFERENCE UNITS LAB L501.84848 2.18-3.98 pg/mL High FREE T3 4.7 Performed By: #### L501.34011, L501.9520, L506.0400, L3300.1750 #### [place] [facility] [address] [place], [address] THYROID STIM HORMONE Collected: 11/23/2017 Status: F Source: [place] (TSH) 10:33 AM [facility] REPOSITORY TYPE CODE TESTS RESULT OUT OF RANGE REFERENCE UNITS LAB L501.9520 0.358-3.74 uIU/mL Normal TSH 0.77 Performed By: #### L501.98262, L501.9520, L506.0400, L3300.1750 #### [facility] [address] [place], [address] T4 FREE DIRECT Collected: 11/23/2017 Status: F Source: [place] 10:33 AM [facility] REPOSITORY TYPE CODE TESTS RESULT OUT OF REFERENCE UNITS RANGE LAB L506.0400 0.76-1.46 ng/dL Low T4 FREE 0.70 DIRECT Performed By: #### L501.78113, L501.9520, L506.0400, L3300.1750 #### [facility] [address] [facility] [place], [address] ESTRADIOL Collected: 11/23/2017 Status: F Source: [place] 10:33 [facility] [place]POS[place] TYPE CODE TESTS RESULT OUT OF RANGE REFERENCE UNITS LAB L3300.1750 pg/mL Normal ESTRADIOL 43.5 Result Comment: NORMAL REFERENCE RANGES FEMALE FOLLICULAR 21.4 - 164.8 pg/mL MID-CYCLE PEAK 49.9 - 367.2 pg/mL LUTEAL 40.2 - 259.0 pg/mL POST-MENOPAUSAL ON MHT <11.0 - 462.1 pg/mL NOT ON MHT <11.0 - 58.3 pg/mL MALE <11.0 - 52.5 pg/mL NOTE: [facility] HAS CONFIRMED THE DRUG FULVETRANT (FASLODEX) MAY CAUSE FALSELY ELEVATED ESTRADIOL RESULTS WHEN USING THIS TEST METHOD. IF PATIENT IS TAKING FULVESTRANT AN ALTERNATIVE METHOD SHOULD BE USED TO DETERMINE ESTRADIOL CONCENTRATION. Performed By: #### L501.73899, L501.9520, L506.0400, L3300.1750 #### [facility] [address] [place], [address] DHEA SULFATE Collected: 11/23/2017 Status: F Source: [place] 10:33 AM [facility] REPOSITORY Order Comment: Has Patient had Radioactive Injection for X-ray?: N TYPE CODE TESTS RESULT OUT OF RANGE REFERENCE UNITS LAB L3300.1500 41.2-243.7 ug/dL Normal DHEA SULF 226.9 4020 Performed By: #### L3300.1500, L3300.6900 #### [facility] (refer to report for specific site) refer to report for address and phone number THYROID PEROXIDASE AB Collected: 11/23/2017 Status: F Source: [place] 10:33 AM [facility] REPOSITORY Order Comment: Has Patient had Radioactive Injection for X-ray?: N TYPE CODE TESTS RESULT OUT OF RANGE REFERENCE UNITS LAB L3300.6900 0-34 IU/mL High TPO AB 56 6676 Result Comment: Performed at: [address] [id number] Auto [employer] Buffer: Deven Morris PhD, Phone: [phone] Performed By: #### L3300.1500, L3300.6900 #### [facility] (refer to report for specific site) refer to report for address and phone number TESTOSTERONE, SERUM TOTAL Collected: 11/23/2017 Status: F Source: [place] 10:33 AM [facility] REPOSITORY TYPE CODE TESTS RESULT OUT OF REFERENCE UNITS RANGE LAB L509.3000 ng/dL Testosterone Normal 24.47 Result Comment: NORMAL REFERENCE RANGES MALE AGE <50 123.06 - 813.86 ng/dL MALE AGE >50 89.98 - 780.10 ng/dL FEMALE PREMENOPAUSE AGE 21 - 60 9.01 - 47.94 ng/dL FEMALE POSTMENOPAUSE AGE 45 - 89 <7.00 - 45.62 ng/dL REFERENCE RANGE AND METHODOLOGY CHANGED 03/13/2017 Performed By: #### L509.3000, L509.4001 #### [facility] [address] [place], [place], [address] PROGESTERONE LEVEL Collected: 11/23/2017 Status: F Source: [place] 10:33 [facility] REPOSITORY TYPE CODE TESTS RESULT OUT OF REFERENCE UNITS RANGE LAB L509.4001 See Comment ng/mL Progesterone Normal 12.93 Result Comment: Progesterone Reference Table: UNITS Female: Follicular 0.15 - 1.40 ng/mL Luteal 3.34 - 25.56 ng/mL Mid-luteal 4.44 - 28.03 ng/mL Postmenopausal 0.0 - 0.73 ng/mL : 1st Trimester 11.22 - 90.00 ng/mL 2nd Trimester 25.55 - 89.40 ng/mL 3rd Trimester 48.40 -422.50 ng/mL Performed By: #### L509.3000, L509.4001 #### [facility] [address] [place], [address] TESTOSTERONE, SERUM TOTAL Collected: 07/29/2017 Status: F Source: BOLIVAR 7:[address] [place] [address] REPOSITORY TYPE CODE TESTS RESULT OUT OF REFERENCE UNITS RANGE LAB L509.3000 ng/dL Testosterone Normal 22.30 Result Comment: NORMAL REFERENCE RANGES MALE AGE <50 123.06 - 813.86 ng/dL MALE AGE >50 89.98 - 780.10 ng/dL FEMALE PREMENOPAUSE AGE 21 - 60 9.01 - 47.94 ng/dL FEMALE POSTMENOPAUSE AGE 45 - 89 <7.00 - 45.62 ng/dL REFERENCE RANGE AND METHODOLOGY CHANGED 03/13/2017 Performed By: #### L509.3000, L509.4001 #### [facility] [address] [place], [address] PROGESTERONE LEVEL Collected: 07/29/2017 Status: F Source: BOLIVAR 7:[address] [place] [address] REPOSITORY TYPE CODE TESTS RESULT OUT OF REFERENCE UNITS RANGE LAB L509.4001 See Comment ng/mL Progesterone Normal 25.74 Result Comment: Progesterone Reference Table: UNITS Female: Follicular 0.15 - 1.40 ng/mL Luteal 3.34 - 25.56 ng/mL Mid-luteal 4.44 - 28.03 ng/mL Postmenopausal 0.0 - 0.73 ng/mL : 1st Trimester 11.22 - 90.00 ng/mL 2nd Trimester 25.55 - 89.40 ng/mL 3rd Trimester 48.40 -422.50 ng/mL Performed By: #### L509.3000, L509.4001 #### [facility] [address] [place], [address] FREE T3 Collected: 07/29/2017 Status: F Source: BOLIVAR 7:[address] [place] [address] REPOSITORY TYPE CODE TESTS RESULT OUT OF RANGE REFERENCE UNITS LAB L501.75237 2.18-3.98 pg/mL High FREE T3 7.5 Performed By: #### L501.82272, L501.9520, L506.0400, L3300.1750 #### [facility] [address] [place], [address] THYROID STIM HORMONE Collected: 07/29/2017 Status: F Source: B[place]Y (TSH) 7:01 AM [facility] REPOSITORY TYPE CODE TESTS RESULT OUT OF RANGE REFERENCE UNITS LAB L501.9520 0.358-3.74 uIU/mL Low TSH < 0.01 Performed By: #### L501.34373, L501.9520, L506.0400, L3300.1750 #### [facility] [address] [place], [address] T4 FREE DIRECT Collected: 07/29/2017 Status: F Source: BILLY 7:01 AM [facility] REPOSITORY TYPE CODE TESTS RESULT OUT OF RANGE REFERENCE UNITS LAB L506.0400 0.76-1.46 ng/dL Normal T4 FREE 1.02 DIRECT Performed By: #### L501.60493, L501.9520, L506.0400, L3300.1750 #### [facility] [address] [place], [address] ESTRADIOL Collected: 07/29/2017 Status: F Source: [place]ILLY 7:01 [facility] [place] TYPE CODE TESTS RESULT OUT OF RANGE REFERENCE UNITS LAB L3300.1750 pg/mL Normal ESTRADIOL 66.1 Result Comment: NORMAL REFERENCE RANGES FEMALE FOLLICULAR 21.4 - 164.8 pg/mL MID-CYCLE PEAK 49.9 - 367.2 pg/mL LUTEAL 40.2 - 259.0 pg/mL POST-MENOPAUSAL ON MHT <11.0 - 462.1 pg/mL NOT ON MHT <11.0 - 58.3 pg/mL MALE <11.0 - 52.5 pg/mL NOTE: [facility] HAS CONFIRMED THE DRUG FULVETRANT (FASLODEX) MAY CAUSE FALSELY ELEVATED ESTRADIOL RESULTS WHEN USING THIS TEST METHOD. IF PATIENT IS TAKING FULVESTRANT AN ALTERNATIVE METHOD SHOULD BE USED TO DETERMINE ESTRADIOL CONCENTRATION. Performed By: #### L501.82623, L501.9520, L506.0400, L3300.1750 #### [facility] [address] [place], [address] THYROGLOBULIN W/ANTI-TG Collected: 07/29/2017 Status: F Source: BILLY AB 7:01 AM [facility] REPOSITORY TYPE CODE TESTS RESULT OUT OF RANGE REFERENCE UNITS LAB L3300.7025 0.0-0.9 IU/mL High ANTI-TG 153.0 AB Result Comment: Thyroglobulin Antibody measured by [facility] LAB L3300.7030 . ng/mL Normal TG-SHARYN 2.9 Result Comment: Reference Range: Pubertal Children and Adults: <40 According to the National Academy of Clinical Biochemistry, the reference interval for Thyroglobulin (TG) should be related to euthyroid patients and not for patients who underwent thyroidectomy. TG reference intervals for these patients depend on the residual mass of the thyroid tissue left after surgery. Establishing a post-operative baseline is recommended. The assay quantitation limit is 2.0 ng/mL. Performed at: [facility] [address] [id number] Auto [employer] Buffer: Deven Morris PhD, Phone: [phone] Performed at: [facility] [address] [place] [id number] [employer] Buffer: Jd Vernon MD, Phone: [phone] Performed By: #### L3300.6820 #### [facility] refer to report for address and phone number FREE T3 Collected: 03/19/2017 Status: F Source: BILLY 12:29 PM [facility] REPOSITORY TYPE CODE TESTS RESULT OUT OF RANGE REFERENCE UNITS LAB L501.48044 2.18-3.98 pg/mL High FREE T3 4.3 Performed By: #### L501.41193, L501.9520, L506.0400, L3300.1750 #### [facility] [address] [place], [address] THYROID STIM HORMONE Collected: 03/19/2017 Status: F Source: BILLY (TSH) 12:29 PM [facility] REPOSITORY TYPE CODE TESTS RESULT OUT OF RANGE REFERENCE UNITS LAB L501.9520 0.358-3.74 uIU/mL Normal TSH 0.64 Performed By: #### L501.21292, L501.9520, L506.0400, L3300.1750 #### [facility] [address] [place], [place], [address] T4 FREE DIRECT Collected: 03/19/2017 Status: F Source: [place] 12:29 PM [facility] REPOSITORY TYPE CODE TESTS RESULT OUT OF RANGE REFERENCE UNITS LAB L506.0400 0.76-1.46 ng/dL Normal T4 FREE 0.80 DIRECT Performed By: #### L501.58078, L501.9520, L506.0400, L3300.1750 #### [facility] [address] [place], [address] ESTRADIOL Collected: 03/19/2017 Status: F Source: [place] 12:29 PM [facility] REPOSITORY TYPE CODE TESTS RESULT OUT OF RANGE REFERENCE UNITS LAB L3300.1750 pg/mL Normal ESTRADIOL 40.8 Result Comment: NORMAL REFERENCE RANGES FEMALE FOLLICULAR 21.4 - 164.8 pg/mL MID-CYCLE PEAK 49.9 - 367.2 pg/mL LUTEAL 40.2 - 259.0 pg/mL POST-MENOPAUSAL ON MHT <11.0 - 462.1 pg/mL NOT ON MHT <11.0 - 58.3 pg/mL MALE <11.0 - 52.5 pg/mL NOTE: [facility] HAS CONFIRMED THE DRUG FULVETRANT (FASLODEX) MAY CAUSE FALSELY ELEVATED ESTRADIOL RESULTS WHEN USING THIS TEST METHOD. IF PATIENT IS TAKING FULVESTRANT AN ALTERNATIVE METHOD SHOULD BE USED TO DETERMINE ESTRADIOL CONCENTRATION. Performed By: #### L501.36973, L501.9520, L506.0400, L3300.1750 #### [facility] [address] [place], [address] TESTOSTERONE, SERUM TOTAL Collected: 03/19/2017 Status: F Source: [place] 12:29 PM [facility] REPOSITORY TYPE CODE TESTS RESULT OUT OF REFERENCE UNITS RANGE LAB L509.3000 ng/dL Testosterone Normal 21.72 Result Comment: NORMAL REFERENCE RANGES MALE AGE <50 123.06 - 813.86 ng/dL MALE AGE >50 89.98 - 780.10 ng/dL FEMALE PREMENOPAUSE AGE 21 - 60 9.01 - 47.94 ng/dL FEMALE POSTMENOPAUSE AGE 45 - 89 <7.00 - 45.62 ng/dL REFERENCE RANGE AND METHODOLOGY CHANGED 03/13/2017 Performed By: #### L509.3000, L509.4001 #### [facility] [address] [place], [address] PROGESTERONE LEVEL Collected: 03/19/2017 Status: F Source: [place] 12:29 PM [facility] REPOSITORY TYPE CODE TESTS RESULT OUT OF REFERENCE UNITS RANGE LAB L509.4001 See Comment ng/mL Progesterone Normal 11.02 Result Comment: Progesterone Reference Table: UNITS Female: Follicular 0.15 - 1.40 ng/mL Luteal 3.34 - 25.56 ng/mL Mid-luteal 4.44 - 28.03 ng/mL Postmenopausal 0.0 - 0.73 ng/mL : 1st Trimester 11.22 - 90.00 ng/mL 2nd Trimester 25.55 - 89.40 ng/mL 3rd Trimester 48.40 -422.50 ng/mL Performed By: #### L509.3000, L509.4001 #### [facility] [address] [place], [address] ALLERGIES ALLERGIES No Allergies Records FoundENCOUNTERS ENCOUNTERS ADMIT/DISCHARGE ACCOUNT ADMITTING ENCOUNTER LOCATION SOURCE NUMBER CLASS 02/24/2018 [id number] Ambulatory [facility] 2 [facility] ing:LAB Repository 02/21/2018 [id number] Ambulatory Building:[facility] Practices Repository 01/13/2018 [id number] Ambulatory [place] 0 [facility] ing:OPBI Repository 11/23/2017 [id number] Ambulatory [facility] ing:LAB Repository 07/29/2017 [id number] [facility] ing:LAB Repository 03/19/2017 [id number] [facility] ing:LAB.FUTUR Repository E PAYERS PAYERS ENCOUNTER GUARANTOR PAYER SUBSCRIBER SOURCE 02/24/2018 TITA [place] Primary TITA Villalbaoster [id number] Insurance:Riddhi ALMAZAN: Suzette FLOWERS icy [place]: [id number] [id number] Repository [address]Wad: (330) Date:1478-07-20[phone] (HP) [address] [address]RM: 02/24/2018 Secondary NOT GIVENUNK [place] Insurance:SELF PAY [facility] Number: Effective Repository Date:2018-02-24 02/21/2018 Tita L Primary Tita L [facility] Repository [id number] W icy Number: [id number] Devin [id number] W [facility] [place] Date:2622-07-63Yxju [facility] Centeroscar[place] [address]Ljf: 330) Name:[facility] [address] [address]Exw: [address], [place] [phone] (HP) (HP)Tel: [phone]: [phone] 02/21/2018 Secondary [facility] Practices Insurance:Luis Fernando [id number] Repository /BSPolicy Number: Fabian Flowers [id number] St[place]abi[place], [place] Date:2005-03-25 [address]Qfv: [phone] [phone] Name:[address] Box (HP)Tel: [phone], [place] () [id number]: 02/21/2018 Tertiary Tita L OHIP Practices [facility] [id number] Number: Fabian Devin [id number] St[place], [place] Date:2007-03-25Tel: [id number] ~(3 Name:[address] (HP) [address], [place] [address]SY: 02/21/2018 Tertiary Tita L OHIP Practices Insurance:[facility]Kind[facility] HospitalOB: Repository Number: [id number] W Flowers Date:2011-03-25 - [place], [place] [id number] [phone]: Name:Elenita ESTES [id number] ~(3 [place] [phone]: 30 (HP) 01/13/2018 TITA L Primary TITA L [place] [id number] Insurance:AULTCAREPol FRANKSDOB: Community FLOWERS icy Number: [id number], [place] [id number] Repository [address]Jbu: (330) Date:2937-93-26OV [phone] (HP) [address] [address]MZ: 01/13/2018 Secondary NOT GIVENUNK [place] Insurance:SELF PAY [facility] Number: Effective Repository Date:2017-12-25 11/23/2017 TITA L Primary TITA L [place] [id number] Insurance:AULTCAREPol FRANKSDOB: Community FLOWERS icy Number: [id number], [place] [id number] Repository [address]Bqs: (330) Date:5563-64-25KW [phone] (HP) [address] [address]AL: 11/23/2017 Secondary NOT GIVENUNK [place] Insurance:SELF PAY [facility] Number: Effective Repository Date:2017-11-23 07/29/2017 TITA L Primary TITA L [facility] [id number] Insurance:AULTCAREPol FRANKSDOB: Community FLOWERS icy Number: [id number], [place] [id number] Repository [address]Dyr: (330) Date:3607-28-70FY [phone] (HP) [address] [address]QQ: 07/29/2017 Secondary NOT GIVENUNK [place] Insurance:SELF PAY [facility] Number: Effective Repository Date:2017-07-29 03/19/2017 TITA L Primary TITA L [facility] [id number] Insurance:AULTCAREPol FRANKVIDAOB: [facility] icy Number: [id number] [place], [place] [id number] Repository [address]Gcw: 330) Date:2009-86-63WZ [phone] () [address] [address]RU: 03/19/2017 Secondary NOT GIVENUNK [place] Insurance:SELF PAY [facility] Number: Effective Repository Date:2017-03-19
== END ==
PROVIDERS: Family Provider Internal Medicine; PCP Internal Medicine; Referring Provider Specialist; Visit Provider Specialist
DX: E03.8 Other specified hypothyroidism (principal); N95.1 Menopausal and female climacteric states; E55.9 Vitamin D deficiency, unspecified
CPT/HCPCS: 36415; 82306; 82670; 84144; 84403; 84481; 86376

== ENCOUNTER → 2018-06-26 08:59 | Outpatient (CLI) | payer OTHER, SELFPAY ==
[2018-06-26 10:46] LABS: Estradiol 45.7 pg/mL; Free T3 5.1 pg/mL (2.18-3.98); T4 Free Direct 0.74 ng/dL (0.76-1.46)
[2018-06-26 11:10] LABS: Progesterone Level 19.37 ng/mL (See Comment)
== END ==
LOC: LAB 09:02
PROVIDERS: Family Provider Internal Medicine; PCP Internal Medicine; Referring Provider Specialist; Visit Provider Specialist
DX: E03.8 Other specified hypothyroidism (principal)
CPT/HCPCS: 36415; 82670; 84144; 84403; 84439; 84481

== ENCOUNTER → 2018-12-29 | Outpatient (CLI) | payer OTHER, SELFPAY ==
[2018-12-29 10:51] LABS: Progesterone Level 17.59 ng/mL (See Comment)
[2018-12-29 10:58] LABS: Estradiol 113.2 pg/mL; Free T3 4.6 pg/mL (2.18-3.98)
== END | disposition home or self-care (01) ==
LOC: LAB 09:51
PROVIDERS: Family Provider Internal Medicine; PCP Internal Medicine; Referring Provider Specialist; Visit Provider Specialist
DX: E03.9 Hypothyroidism, unspecified (principal); N95.8 Other specified menopausal and perimenopausal disorders
CPT/HCPCS: 36415; 82670; 84144; 84403; 84481

== ENCOUNTER → 2019-01-15 | Outpatient (CLI) | payer OTHER, SELFPAY ==
--- NOTE | 2019-01-15 13:14 | BI_ITS ---
MAMMOGRAPHY - BILATERAL SCREENING REASON FOR EXAM: Female, 48 years old. Routine annual screening examination. PERTINENT HISTORY: Non-contributory. TECHNIQUE: Digital bilateral breast sarah (3D mammographic acquisition) in the CC and MLO projections. 2-D mediolateral oblique (MLO) and craniocaudad (CC) views of both breasts were obtained. CAD: Full Field Digital Mammography with Computer Added Detection was performed. COMPARISON: Comparison is made with prior study dated January 13, 2018 and January 10, 2017. FINDINGS: Breast Composition: There are scattered areas of fibroglandular density. There are no dominant masses or suspicious calcifications. Stable small benign-appearing bilateral axillary lymph nodes. No other significant abnormalities are identified. There has been no significant change since the prior study. BI/SCREEN MAMM (CAD) W/SARAH BILAT IMPRESSION: Stable bilateral screening mammogram. Yearly follow-up mammogram recommended. (A) ASSESSMENT CATEGORY: BIRADS Category 1: Negative. A letter regarding these results will be sent to the patient by the facility within 30 days. Approximately 10% of breast cancers are not detected by mammography. A normal mammogram should not delay biopsy of a clinically suspicious abnormality. [id number] Electronically Signed: Roddy Dennis, at 8:01 EDT , Service support ,
== END | disposition home or self-care (01) ==
LOC: OPBI 13:12
PROVIDERS: Family Provider Internal Medicine; PCP Internal Medicine; Referring Provider Internal Medicine; Visit Provider Internal Medicine
DX: Z12.31 Encounter for screening mammogram for malignant neoplasm of breast (principal)
CPT/HCPCS: 77063; 77067

== ENCOUNTER → 2019-03-12 16:12 | Outpatient (CLI) | payer OTHER, SELFPAY ==
[2019-03-12 18:02] LABS: Estradiol 59.6 pg/mL; Free T3 2.9 pg/mL (2.18-3.98)
[2019-03-12 18:05] LABS: Progesterone Level 14.19 ng/mL (See Comment)
[2019-03-14 13:43] LABS: Thyroid Peroxidase AB 63 IU/mL (0-34)
== END ==
PROVIDERS: Family Provider Internal Medicine; PCP Internal Medicine; Referring Provider Specialist; Visit Provider Specialist
DX: N95.1 Menopausal and female climacteric states (principal); E03.9 Hypothyroidism, unspecified
CPT/HCPCS: 36415; 82670; 84144; 84403; 84481; 86376

== ENCOUNTER → 2019-10-15 | Outpatient (CLI) | payer OTHER, SELFPAY ==
[2019-10-15 09:21] LABS: Estradiol 129.9 pg/mL; Free T3 4.5 pg/mL (2.18-3.98)
[2019-10-15 09:41] LABS: Progesterone Level 22.86 ng/mL (See Comment)
== END | disposition home or self-care (01) ==
LOC: LAB 08:14
PROVIDERS: PCP Internal Medicine; Referring Provider Specialist; Visit Provider Specialist
DX: E27.9 Disorder of adrenal gland, unspecified (principal); N95.8 Other specified menopausal and perimenopausal disorders; E03.9 Hypothyroidism, unspecified
CPT/HCPCS: 36415; 82627; 82670; 84144; 84403; 84481; 82626

== ENCOUNTER → 2020-01-29 14:57 | Outpatient (CLI) | payer OTHER, SELFPAY ==
--- NOTE | 2020-01-29 14:58 | BI_ITS ---
MAMMOGRAPHY - BILATERAL SCREENING REASON FOR EXAM: Female, 49 years old. Routine annual screening examination. PERTINENT HISTORY: Aunt with breast cancer. TECHNIQUE: Digital bilateral breast sarah (3D mammographic acquisition) in the CC and MLO projections. 2-D mediolateral oblique (MLO) and craniocaudad (CC) views of both breasts were obtained. CAD: Full Field Digital Mammography with Computer Added Detection was performed. COMPARISON: Comparison is made with prior examination dated 01/15/2019 and 01/14/2016. FINDINGS: Breast Composition: There are scattered areas of fibroglandular density. There are no dominant masses or suspicious calcifications. No other significant abnormalities are identified. There has been no significant change since the prior study. BI/SCREEN MAMM (CAD) W/SARAH BILAT IMPRESSION: Stable bilateral screening mammogram. Yearly follow-up mammogram recommended. (A) ASSESSMENT CATEGORY: BIRADS Category 1: Negative. A letter regarding these results will be sent to the patient by the facility within 30 days. Approximately 10% of breast cancers are not detected by mammography. A normal mammogram should not delay biopsy of a clinically suspicious abnormality. [id number] Electronically Signed: Roddy Dennis, at 15:54 EST , Service support ,
== END ==
PROVIDERS: PCP Internal Medicine; Referring Provider Internal Medicine; Visit Provider Internal Medicine
DX: Z12.31 Encounter for screening mammogram for malignant neoplasm of breast (principal)
CPT/HCPCS: 77063; 77067

== ENCOUNTER 2020-04-29 17:48 | Observation (INO) | payer OTHER, SELFPAY ==
[2020-04-29] VITALS (7 sets, daily range): BP systolic 144–171; BP diastolic 72–101; PULSE 62–76; RESP 16–18; TEMP 36.8–37.2; O2SAT 98–99; BMI 37.4; BMI 37.0; BMI 37.1
--- NOTE | 2020-04-29 17:53 | EKG12_ITS ---
Test Reason : Blood Pressure : / mmHG Vent. Rate : 055 BPM Atrial Rate : 055 BPM P-R Int : 166 ms QRS Dur : 082 ms QT Int : 428 ms P-R-T Axes : 062 036 031 degrees QTc Int : 409 ms Sinus bradycardia Otherwise normal ECG Confirmed by ALFONSO GIBBS, JOAQUÍN ([id number]), medical transcription editor MARISOL BLACKWOOD ([id number]) on 05/02/2020 2:21:31 PM Referred By: RIGO Confirmed By:JOAQUÍN HAMILTON MD
--- NOTE | 2020-04-29 17:54 | ED.RN ---
NO OLD EKGS
[2020-04-29 18:26] LABS: Absolute Neutrophil Count 4.4 X10^3/uL (2.0-7.7); Basophil# 0.04 X10^3/uL; Basophil% 0.6 % (0-1); Eosinophil# 0.13 X10^3/uL; Eosinophils% 1.9 % (0-5); Hematocrit 42.5 % (37-47); Hemoglobin 13.6 g/dL (12.0-15.0); Lymphocyte % 26.4 % (19-41); Mean Corpuscular Hgb 26.9 pg (27.0-32.0); Mean Corpuscular Volume 84.2 fL (81-99); Mean Platelet Vol. 13.4 fl (6.2-12.0); Monocyte# 0.47 X10^3/uL; Monocyte% 6.9 % (0-10); NRBC Flagged by Analyzer 0 % (0-5); Neutrophil # 4.36 X10^3/uL (2.7-7.7); Neutrophil % 63.8 % (47-70); Platelet Count 195 K/mm3 (150-450); RBC Distribution Width CV 12.3 % (11.6-14.6); RBC Distribution Width SD 37.4 fl (35.1-43.9); Red Blood Count 5.05 M/mm3 (4.2-5.4); White Blood Count 6.8 K/mm3 (4.4-11.0)
[2020-04-29 18:39] LABS: Anion Gap 4 (5-15); BUN 10 mg/dL (7-18); BUN/Creat Ratio 14.2 RATIO (10-20); Calcium,Total 9.2 mg/dL (8.5-10.1); Chloride 106 mmol/L (98-107); EST Glomerular Filtration Rate 94 mL/min (>60); Est Glom Filt Rate - Afr Amer 113 mL/min (>60); Estimated Creatinine Clearance 87.48 ml/min; Glucose 87 mg/dL (74-106); Potassium 3.8 mmol/L (3.5-5.1); Sodium Level 139 mmol/L (136-145)
--- NOTE | 2020-04-29 18:40 | RAD_ITS ---
STUDY: X-RAY CHEST REASON FOR EXAM: Female, 49 years old. chest pain since 2pm TECHNIQUE: Frontal view COMPARISON: None. FINDINGS: The lungs are clear and expanded. There is no demonstrated pleural abnormality. Normal size heart. Normal mediastinum and kaity. Normal visualized pulmonary arteries. Normal visualized aortic arch and descending thoracic aorta. Normal visualized thoracic spine. Normal visualized ribs, clavicles, and shoulders. There is no demonstrated abnormality of the visualized soft tissue structures of the upper abdomen. RAD/Chest 1 View (Portable) IMPRESSION: Normal x-ray examination of the chest. Electronically Signed: Sony Rodriguez DO at 19:06 EST Tel [phone], Service support ,
[2020-04-29] MEDS: Aspirin 81 MG TAB.CHEW PO (19:37)
--- NOTE | 2020-04-29 20:12 | PCM.HP.STD ---
Problem List (1) Chest pain Status: Acute History of Present Illness Date of Admission: 04/29/20 Chief Complaint: epigastric pain The patient is a 49 year old F with a significant history of hypertension; hyperlipidemia; Deann hypothyroidism who presents to the emergency department with moderate progressively worsening epigastric pain. She described the pain as aching. Associated with his symptom is nausea and shortness of breath. Her pain was nonradiating. She denies any ameliorating or aggravating factors. She reports eating a heavy breakfast and thinks that her epigastric pain may be from indigestion. However she took tums which did not help with her pain. She took Excedrin which contains aspirin before coming to emergency department. At the time of examination patient denied any pain. Past Medical History Medical History: Medical History (Last Updated 04/29/20 @ 20:[address] Fabio Sotomayor MD) Hypertension I10 Allergies No Known Allergies Allergy (Verified 04/29/20 17:51) Home Medications: Ambulatory Orders Medication Instructions Recorded Aspirin [Aspirin, Baby] 81 mg PO DAILY@0800 04/29/20 Cholecalciferol (Vitamin D3) 5,000 units PO QHS 04/29/20 [Vitamin D3] Mecobalamin [B12 Active] 1,000 mcg SL DAILY 04/29/20 Metoprolol Succinate 25 mg PO QHS 04/29/20 Naltrexone 6 mg PO QHS 04/29/20 Progesterone, Micronized 200 mg PO QHS 04/29/20 [Progesterone] Rosuvastatin Calcium 10 mg PO DAILY 04/29/20 Selenium 200 mcg PO QHS 04/29/20 Thyroid [[place] Thyroid] 90 mg PO DAILY 04/29/20 Surgical History: - - Uterine ablation; tubal ligation Smoking Status: Never smoker Tobacco Use: Non-smoker - *Family History Maternal History Items: COPD, Heart Disease - Her mother from a heart attack in her 60s. Paternal History Items: Heart Disease, Hypertension Review of Systems Constitutional: Denies: Chills, Fever, Weight Change HEENT: Denies: Head Aches, Sinus Congestion, Sinus Drainage Cardiovascular: Denies: Palpitations, Syncope Respiratory: Reports: Shortness of Breath. Denies: Cough, Shortness of breath at rest, Sputum production Gastrointestinal: Reports: Abdominal Pain - Epigastric pain, Nausea. Denies: Vomiting Genitourinary: Denies: Dysuria Musculoskeletal: Denies: Joint Pain, Joint Tenderness Skin: Denies: Rash, Wounds Neurological: Denies: Numbness, Tingling, Focal weakness Psychiatric: Denies: Anxiety, Depression, Homicidal Ideations, Suicidal Ideations Hematologic/ Lymphatic: Denies: Easy Bruising, Easy Bleeding VTE Information - Inpt Only VTE Present on Admission: No VTE Mechan Device Prophylaxis: SCD's VTE Pharm Prophylaxis ordered?: No Patient Problems: Active and Suspected Problems (Last Updated 04/29/20 @ 20:[address] Fabio Sotomayor MD) Chest pain (Acute) - Physical Exam Vitals/I&O's: Vital Signs Temp Pulse Resp BP Pulse Ox 98.2 F 74 18 171/75 H 99 04/29/20 17:49 04/29/20 20:00 04/29/20 19:27 04/29/20 20:00 04/29/20 19:27 Oxygen Delivery Method Room Air Weight: 102.058 kg Body Mass Index (BMI) 37.4 General: Alert, Oriented x3, Cooperative HEENT: Atraumatic, PERRLA, EOMI, Normocephalic Neck: Supple, No JVD, Negative Carotid Bruits Lungs: Clear to auscultation, Normal air movement Cardiovascular: Regular rate, No murmurs Abdomen: Bowel Sounds Present, Soft, Non Tender Extremities: No edema, Capillary Refill Less than 3 Seconds Skin: No rashes, No breakdown Musculoskeletal: No Tenderness to Palpation of Joints or Extremities Neurological: Cranial nerves II-XII grossly intact Psych/Mental Status: Normal Affect, Appropriate Laboratory Results 04/29/20 18:05: WBC 6.8, RBC 5.05, Hgb 13.6, Hct 42.5, MCV 84.2, MCH 26.9 L, MCHC 32.0, RDW Std Deviation 37.4, RDW Coeff of Bar 12.3, Plt Count 195, MPV 13.4 H, Immature Gran % (Auto) 0.400, Neut % (Auto) 63.8, Lymph % (Auto) 26.4, [place] % (Auto) 6.9, Eos % (Auto) 1.9, Baso % (Auto) 0.6, Absolute Neuts (auto) 4.4, Absolute Lymphs (auto) 1.80, Nucleated RBC % 0 04/29/20 18:05: Sodium 139, Potassium 3.8, Chloride 106, Carbon Dioxide 29.0, Anion Gap 4 L, BUN 10, Creatinine 0.70, Estim Creat Clear Calc 87.48, Est GFR (MDRD) Af Amer 113, Est GFR (MDRD) Non-Af 94, BUN/Creatinine Ratio 14.2, Glucose 87, Calcium 9.2, Troponin I < 0.015 Assessment/Plan All Active Problems (Last Updated 04/29/20 @ 20:[address] Fabio Sotomayor MD) Chest pain (Acute) The patient is a 49 year old F with a significant history of hypertension; hyperlipidemia; Deann hypothyroidism who presents emergency department with moderate progressively worsening epigastric pain. Chest pain Likely secondary to dyspepsia. However will rule out cardiac cause of chest pain. Place on a monitored bed at PCU Radiology impression of chest x-ray: Normal x-ray examination of the chest. Actual CXR image was independently visualized. No acute cardiopulmonary process was noted. Actual EKG tracing was independently visualized. EKG tracing showed sinus bradycardia. ASA 81 mg p.o. daily ordered SL NTG 0.4 mg prn as needed for chest pain ordered Morphine as needed for pain ordered We will check lipid panel. Statin: Home rosuvastatin continued Initial troponin was negative. Serial cardiac enzymes ordered Stat EKG as needed for chest pain Treadmill stress test in the AM if the cardiac enzymes are negative Hypothyroidism Thyroid medication continued. Morbid Obesity: BMI: 37.1. Complicates care. Lifestyle modification recommended. DVT prophylaxis SCD in the setting of cardiac work-up for chest pain. OBSV E&M: 30119 Initial observation care L2
--- NOTE | 2020-04-29 20:21 | ED.VISSUMM ---
- ER Visit Summary Date of Service: 04/29/20 Chief Complaint: Chest pain History of Present Illness: The patient is a 49 F presenting with chest pain. Patient states she began having midsternal chest pain around 2 PM today. At worst it was 8 out of 10., Currently 0 out of 10. She took aspirin in route. She had Covid in January and has recovered. She tried Tums with no relief. She had chest pain, shortness of breath, nausea. She denies PE/DVT risk factors. She has a history of hypertension, hypercholesteremia. She has a family history of heart disease in her mother after age 55. Physical Examination: Vitals are stable. Patient is afebrile. Alert no acute distress. HEENT exam is unremarkable. Neck is supple. Lungs are clear and equal bilaterally. Heart is regular rate and rhythm. Abdomen is soft nontender nondistended. Extremities are unremarkable. Skin is warm and dry. No focal neurologic deficit. Remainder of exam is unremarkable. Emergency Department Course and Treatment: EKG is sinus rate of 55 with no acute ischemic changes. Chest x-ray shows no acute process. CBC, chemistries unremarkable. Troponin is negative. Patient is pain-free in the ED. Due to multiple risk factors recommend observation for stress test. Patient is agreeable to this plan. Discussed with the hospitalist for observation. Disposition: Observation Impression: Chest pain This note was generated with [employer] dictation software. It may contain incorrect words, spelling, and punctuation that were not noted in review of the chart prior to signing ED Disposition - Plan for ED Patient: Referrals: Raysa De Guzman DO [Primary Care Provider] -
--- NOTE | 2020-04-29 21:24 | EKG12_ITS ---
Test Reason : CP ADMISSION Blood Pressure : / mmHG Vent. Rate : 068 BPM Atrial Rate : 068 BPM P-R Int : 180 ms QRS Dur : 078 ms QT Int : 412 ms P-R-T Axes : 055 -02 014 degrees QTc Int : 438 ms Normal sinus rhythm Normal ECG When compared with ECG of 29-APR-2020 17:59, MANUAL COMPARISON REQUIRED, DATA IS UNCONFIRMED Confirmed by ALFONSO GIBBS, JOAQUÍN ([id number]), sports editor MARISOL BLACKWOOD ([id number]) on 05/03/2020 8:30:58 AM Referred By: TASHA Confirmed By:JOAQUÍN HAMILTON MD
[2020-04-29] MEDS: Atorvastatin Calcium 20 MG Tablet PO (22:24)
[2020-04-29] MEDS: Metoprolol(XL)Succ 25 MG Tablet PO (22:24)
[2020-04-30 02:59] VITALS: PULSE 56
[2020-04-30 04:15] LABS: Cholesterol 111 mg/dL (200); High Density Lipoprotein 64 mg/dL; Triglycerides 92 mg/dL; Very Low Density Lipoprotein 18 mg/dL (5-40)
[2020-04-30] MEDS: Aspirin E.C. 81 MG Tablet PO (05:24)
[2020-04-30] MEDS: Thyroid 60 MG Tablet 90 MG PO (05:26)
[2020-04-30 05:28] VITALS: BP 133/77; PULSE 57; PULSE 59; RESP 19; TEMP 36.8; O2SAT 98
--- NOTE | 2020-04-30 06:22 | PCS.PANDOC ---
PANDEMIC DOCUMENTATION INITIATED: Date: 04/29/2020 Time: 2114
[2020-04-30 07:00] VITALS: PULSE 48
[2020-04-30 10:50] VITALS: BP 136/71; PULSE 51; RESP 16; TEMP 36.7; O2SAT 100
--- NOTE | 2020-04-30 11:38 | PCM.DC ---
- Discharge Diagnoses Current Active Problems: Current Active and Chronic Problems (Last Updated 04/29/20 @ 20:[address] Fabio Sotomayor MD) Chest pain (Acute) You will use the following diet at home:: Cardiac Your food should be the consistency of: Regular Your liquids should be the consistency of: Regular/Thin Discharge Activity: Return to Normal Activity Call your doctor if you observe: Chest pain Instructions: ED Chest Pain, Noncardiac Allergies/Adverse Reactions: Allergies levofloxacin [From Levaquin] Adverse Reaction (Verified 04/29/20 22:05) Other Medications to take at Discharge Aspirin [Aspirin, Baby] 81 mg PO DAILY@0800 04/29/20 Cholecalciferol (Vitamin D3) [Vitamin D3] 5,000 units PO QHS 04/29/20 Mecobalamin [B12 Active] 1,000 mcg SL DAILY 04/29/20 Metoprolol Succinate 25 mg PO QHS 04/29/20 Naltrexone 6 mg PO QHS 04/29/20 Progesterone, Micronized [Progesterone] 200 mg PO QHS 04/29/20 Rosuvastatin Calcium 10 mg PO DAILY 04/29/20 Selenium 200 mcg PO QHS 04/29/20 Thyroid [[place] Thyroid] 90 mg PO DAILY 04/29/20 Primary Care Physician: Raysa De Guzman DO [Primary Care Provider] - Please follow up with your Primary Care Physician in: 1-2 weeks Test Results: Test results from this visit will be discussed in further detail at your follow-up appointment, if applicable. Proposed Discharge Date: 04/30/20
--- NOTE | 2020-04-30 11:47 | STRESSREP_ITS ---
Stress Test Report Treadmill sestamibi nocardial perfusion study Indication; Patient is a 49-year-old female who had epigastric and chest pain. Has cardiac work-up with electrocardiogram and a series of high sensitive troponin x4 which is negative. Patient has been on medical therapy for hyperlipidemia with the rosuvastatin and she is on beta-lanie metoprolol aspirin. Patient exercised according to standard Júnior protocol Protocol, treadmill standard Júnior protocol with sestamibi myocardial fusion study; Resting heart rate 48 bpm, with resting blood pressure 130/76 mmHg. Evidently patient was on beta-lanie with sinus bradycardia at rest Patient exercise up to stage III of Júnior protocol total of 7.16-minute, with meds 8.9 No symptoms of chest pain reported, at maximal stress heart rate is 166bpm, with blood pressure of 188/78 mmHg During recovery heart rate is 82 bpm with a blood pressure 118/80 mmHg. Rest patient received 15 ?Ci of sestamibi intravenously, following maximal stress she received 44 mCi of sestamibi. Electrocardiographic interpretation; Resting electrocardiogram revealed normal sinus rhythm with sinus bradycardia,/patient was on beta-lanie metoprolol. At maximal stress and during recovery no significant ST?T abnormality noted and no significant arrhythmia. Scintigraphic and gated SPECT images interpretation; Various tomographic images were obtained as well as gated SPECT images. There are no perfusion abnormalities noted with homogeneous tracer uptake at rest and during maximal stress with no evidence of prior myocardial infarction or reversible myocardial ischemia. Diaphragmatic attenuation artifact is noted of no clinical significance. The gated SPECT images revealed normal left ventricular wall motion, with calculated ejection fraction of 75% with no evidence of prior myocardial infarction or reversible myocardial ischemia. Conclusion and recommendation; 1. Negative treadmill sestamibi myocardial perfusion study for significant ischemia, with normal LV wall motion and normal LV systolic function 2. Normal blood pressure response to exercise #3 no symptoms of chest pain reported 4. Conservative treatment and medical management of risk factors. Pietro Smith MD,FACC,[facility]
--- NOTE | 2020-04-30 13:04 | PCM.DC.SUM ---
<Bony Dhaliwal - Last Filed: 04/30/20 13:04> Discharge Date and Diagnosis - Problem List Patient Problems: Active and Suspected Problems (Last Updated 04/29/20 @ 20:[address] Fabio Sotomayor MD) Chest pain (Acute) Date of Admission: 04/29/20 Date of Discharge: 04/30/20 - Primary Discharge Diagnosis Acute Problems: Active Problems (Last Updated 04/29/20 @ 20:[address] Fabio Sotomayor MD) Chest pain 2/2 indigestion Hospital Course and Treatment Imaging Results: 04/30/20 05:55 Nuclear Stress Test - Treadmil [NM] AM (NON MEDS) Conclusion and recommendation; 1. Negative treadmill sestamibi myocardial perfusion study for significant ischemia, with normal LV wall motion and normal LV systolic function 2. Normal blood pressure response to exercise #3 no symptoms of chest pain reported 4. Conservative treatment and medical management of risk factors. Operations: None Procedures: Stress test Summary of Care Provided: Hospital Course: The patient is a 49 year old F past medical history of hyperlipidemia, hypertension, hypothyroidism, obesity who presented to the emergency room with complaints of chest pain. This started in the morning after eating a large breakfast. It was described as a midsternal pain similar to indigestion. Occurred while she was sitting. Not associated with shortness of breath, lightheadedness, dizziness,. Did have some associated nausea. No vomiting. Patient was brought to the emergency room had negative EKG, negative chest x-ray, negative troponin. She was admitted to the PCU and placed on telemetry. No events on telemetry. The following day she underwent a stress test after having troponin negative x3. This was negative for any evidence of ischemia. Patient had no further chest pain after her admission into the PCU. Is likely the patient had some indigestion. She was advised to try [id number] reflux medications if this returns however she has not had any return of symptoms at this point. She was advised to follow-up with her PCP in 1 to 2 weeks. She was discharged home in stable condition. This patient was seen by Bony Dhaliwal PA-C under the supervision of Doctor Castellon. [] Patient Problems: Active and Suspected Problems (Last Updated 04/29/20 @ 20:[address] Fabio Sotomayor MD) Chest pain (Acute) - Physical Exam Vitals/I&O's: Vital Signs Temp Pulse Resp BP Pulse Ox 98.0 F 51 L 16 136/71 H 100 04/30/20 10:50 04/30/20 10:50 04/30/20 10:50 04/30/20 10:50 04/30/20 10:50 Oxygen Delivery Method Room Air Weight: 222 lb 10.67 oz Body Mass Index (BMI) 37.0 Intake and Output for Last 24 Hours 04/28/20 04/29/20 04/30/20 23:59 23:59 23:59 Intake Total 220 / 220 600 / 600 Balance 220 / 220 600 / 600 General: Alert, Oriented x3, Cooperative HEENT: Atraumatic, PERRLA, EOMI, Normocephalic Neck: Supple, No JVD, Negative Carotid Bruits Lungs: Clear to auscultation, Normal air movement Cardiovascular: Regular rate, No murmurs Abdomen: Bowel Sounds Present, Soft, Non Tender Extremities: No edema, Capillary Refill Less than 3 Seconds Skin: No rashes, No breakdown Musculoskeletal: No Tenderness to Palpation of Joints or Extremities Neurological: Cranial nerves II-XII grossly intact Psych/Mental Status: Normal Affect, Appropriate, Alert and oriented to time, place, person, mood and affect Laboratory Results 04/29/20 18:05: WBC 6.8, RBC 5.05, Hgb 13.6, Hct 42.5, MCV 84.2, MCH 26.9 L, MCHC 32.0, RDW Std Deviation 37.4, RDW Coeff of Bar 12.3, Plt Count 195, MPV 13.4 H, Immature Gran % (Auto) 0.400, Neut % (Auto) 63.8, Lymph % (Auto) 26.4, [place] % (Auto) 6.9, Eos % (Auto) 1.9, Baso % (Auto) 0.6, Absolute Neuts (auto) 4.4, Absolute Lymphs (auto) 1.80, Nucleated RBC % 0 04/29/20 18:05: Sodium 139, Potassium 3.8, Chloride 106, Carbon Dioxide 29.0, Anion Gap 4 L, BUN 10, Creatinine 0.70, Estim Creat Clear Calc 87.48, Est GFR (MDRD) Af Amer 113, Est GFR (MDRD) Non-Af 94, BUN/Creatinine Ratio 14.2, Glucose 87, Calcium 9.2, Troponin I < 0.015 04/29/20 21:43: Troponin I < 0.015 04/30/20 00:14: Troponin I < 0.015 04/30/20 03:01: Troponin I < 0.015 04/30/20 03:01: Triglycerides 92, Cholesterol 111, LDL Cholesterol 29, VLDL Cholesterol 18, HDL Cholesterol 64 Discharge Diet: Low fat/ Low Cholesterol, 2000 mg Sodium Diet Discharge Activity: Return to Normal Activity Call your doctor if you observe: Chest pain Home Medications: Medications to take at Discharge Aspirin [Aspirin, Baby] 81 mg PO DAILY@0800 04/29/20 Cholecalciferol (Vitamin D3) [Vitamin D3] 5,000 units PO QHS 04/29/20 Mecobalamin [B12 Active] 1,000 mcg SL DAILY 04/29/20 Metoprolol Succinate 25 mg PO QHS 04/29/20 Naltrexone 6 mg PO QHS 04/29/20 Progesterone, Micronized [Progesterone] 200 mg PO QHS 04/29/20 Rosuvastatin Calcium 10 mg PO DAILY 04/29/20 Selenium 200 mcg PO QHS 04/29/20 Thyroid [[place] Thyroid] 90 mg PO DAILY 04/29/20 Primary Care Physician: Raysa De Guzman DO [Primary Care Provider] - Please follow up with your Primary Care Physician in: 1-2 weeks Patient Instructions: ED Chest Pain, Noncardiac Disposition: Home Minutes spent on discharge:: 35 Patient Condition:: Stable Medical Necessity - Tobacco Use Smoking Status: Never smoker Tobacco Use: Non-smoker Meaningful Use Info Meaningful Use Diagnoses (Choose all that apply): None applicable <Aravind Castellon F - Last Filed: 04/30/20 14:31> Discharge Date and Diagnosis - Primary Discharge Diagnosis Acute Problems: Active Problems (Last Updated 04/29/20 @ 20:[address] Fabio Sotomayor MD) Chest pain (Acute) Hospital Course and Treatment Imaging Results: 04/30/20 05:55 Nuclear Stress Test - Treadmil [NM] AM (NON MEDS) Summary of Care Provided: The patient is a 49 year old F [] - Physical Exam Vitals/I&O's: Vital Signs Temp Pulse Resp BP Pulse Ox 98.0 F 51 L 16 136/71 H 100 04/30/20 10:50 04/30/20 10:50 04/30/20 10:50 04/30/20 10:50 04/30/20 10:50 Oxygen Delivery Method Room Air Weight: 222 lb 10.67 oz Body Mass Index (BMI) 37.0 Intake and Output for Last 24 Hours 04/28/20 04/29/20 04/30/20 23:59 23:59 23:59 Intake Total 220 / 220 600 / 600 Balance 220 / 220 600 / 600 Laboratory Results 04/29/20 18:05: WBC 6.8, RBC 5.05, Hgb 13.6, Hct 42.5, MCV 84.2, MCH 26.9 L, MCHC 32.0, RDW Std Deviation 37.4, RDW Coeff of Bar 12.3, Plt Count 195, MPV 13.4 H, Immature Gran % (Auto) 0.400, Neut % (Auto) 63.8, Lymph % (Auto) 26.4, [place] % (Auto) 6.9, Eos % (Auto) 1.9, Baso % (Auto) 0.6, Absolute Neuts (auto) 4.4, Absolute Lymphs (auto) 1.80, Nucleated RBC % 0 04/29/20 18:05: Sodium 139, Potassium 3.8, Chloride 106, Carbon Dioxide 29.0, Anion Gap 4 L, BUN 10, Creatinine 0.70, Estim Creat Clear Calc 87.48, Est GFR (MDRD) Af Amer 113, Est GFR (MDRD) Non-Af 94, BUN/Creatinine Ratio 14.2, Glucose 87, Calcium 9.2, Troponin I < 0.015 04/29/20 21:43: Troponin I < 0.015 04/30/20 00:14: Troponin I < 0.015 04/30/20 03:01: Troponin I < 0.015 04/30/20 03:01: Triglycerides 92, Cholesterol 111, LDL Cholesterol 29, VLDL Cholesterol 18, HDL Cholesterol 64 Addendum: Dr. Castellon I personally reviewed the chart. I agree with the above. 49-year-old female who presented from home with chest pain. Initial work-up was unremarkable with normal EKG and normal troponins. She did have a stress test on the day of discharge which was also unremarkable. Her chest pain had resolved prior to her stress test this morning. She does have a stressful job which has been causing significant burden to her psychologically. She would benefit from outpatient mental health and possibly initiation of antidepressant. OBSV E&M: 42276 Observation care discharge
== END 2020-04-30 11:38 | disposition home or self-care (01) ==
LOC: ED 19:33 → PCU 21:02
PROVIDERS: Admitting Provider Hospitalist; Emergency Provider Emergency Medicine; PCP Internal Medicine; Visit Provider Family Medicine
DX: K30 Functional dyspepsia (principal); E78.5 Hyperlipidemia, unspecified; Z23 Encounter for immunization; E66.01 Morbid (severe) obesity due to excess calories; I10 Essential (primary) hypertension; E03.9 Hypothyroidism, unspecified; R06.02 Shortness of breath; Z79.899 Other long term (current) drug therapy; Z79.82 Long term (current) use of aspirin; Z68.37 Body mass index [BMI] 37.0-37.9, adult; Z82.49 Family history of ischemic heart disease and other diseases of the circulatory system
CPT/HCPCS: 36415; 71045; 78452; 80048; 80061; 84484; 85025; 93005; 93017; 99218; 99285; A9500; 90686; A4216; G0378

== ENCOUNTER 2020-05-26 05:12 | Observation (INO) | payer OTHER, SELFPAY ==
[2020-04-29 22:11] VITALS: BMI 37.0
[2020-05-26] VITALS (13 sets, daily range): BP systolic 146–202; BP diastolic 72–98; PULSE 45–68; RESP 12–19; TEMP 36.2–36.8; O2SAT 46–100; BMI 37.0; BMI 37.3
--- NOTE | 2020-05-26 05:37 | ED.DCSUM_ITS ---
History of Present Illness Chief Complaint: Abd Pain Informant: Patient Narrative: 49-year-old female presenting with right upper quadrant pain. Patient states this has been going on for 8 hours. This was after she ate food. She does have a gallbladder. Patient states she has not had any fever but states she has chills. She has mild nausea. Patient states she was recently admitted for similar pain and thought it was cardiac related. This was ruled out. She does not have any shortness of breath or chest pain at this time. Past Medical History - Allergies and Home Meds Allergies/Adverse Reactions: Allergies levofloxacin [From Levaquin] Adverse Reaction (Verified 05/26/20 05:23) Other Primary Care Physician: Raysa De Guzman DO [Primary Care Provider] - Past Medical History: - - Hyperlipidemia, hypertension, hypothyroid Surgical History: - - Uterine ablation; tubal ligation Lives: Spouse/ Significant Other Smoking Status: Never smoker Alcohol: None Drugs: None - Family History Paternal Family History: Reports: Heart Disease, Hypertension Maternal Family History: Reports: COPD, Heart Disease - Her mother from a heart a ttack in her 60s. Review of Systems General: Reports: Chills. Denies: Fever, Malaise Eyes: Denies: Visual changes - bilaterally, Diplopia ENT: Denies: Rhinorrhea, Sore throat Cardiovascular: Denies: Chest pain, Palpitations Respiratory: Denies: Dyspnea, Cough, Dyspnea on exertion Gastrointestinal: Reports: Abdominal pain, Nausea Genitourinary: Denies: Dysuria, Hematuria, Frequency Musculoskeletal: Denies: Back pain, Extremity Pain Skin: Denies: Rash, Wounds Neurological: Denies: Headache, Weakness, Numbness Endocrine: Denies: Polyuria, Polydipsia, Heat intolerance, Cold intolerance, -, - Physical Exam Vital Signs/Narrative: Vital Signs Temp Pulse Resp BP Pulse Ox 05/26/20 05:13 97.8 F 57 L 18 202/90 H 96 Inital Vital Signs reviewed: Yes General: Obese, No Acute Distress Head: Normocephalic, Atraumatic Eyes: Perrl, EOMI. Negative for: Scleral icterus ENT: Moist mucous membranes, No rhinorrhea Cardiovascular: Regular rate, Regular rhythm Respiratory: No distress, CTA bilaterally Abdomen: Soft, Nondistended, Espinosa's sign Extremities: Nontender, No edema Skin: Normal color, No rash. Negative for: Cyanosis, Diaphoresis Neurological: Alert, Oriented x3, Cranial nerves II-XII grossly intact Psychological: Normal affect, Normal Mood Diagnostic/Tx/Re-eval Laboratory Data 05/26/20 05/26/20 05:18 05:18 WBC 6.7 RBC 5.15 Hgb 13.8 Hct 43.2 MCV 83.9 MCH 26.8 L MCHC 31.9 L RDW Std Deviation 36.4 RDW Coeff of Bar 12.1 Plt Count 195 MPV 13.9 H Immature Gran % (Auto) 0.300 Neut % (Auto) 77.0 H Lymph % (Auto) 13.8 L [place] % (Auto) 8.2 Eos % (Auto) 0.4 Baso % (Auto) 0.3 Absolute Neuts (auto) 5.2 Absolute Lymphs (auto) 0.92 Nucleated RBC % 0 Sodium 139 Potassium 4.1 Chloride 107 Carbon Dioxide 25.0 Anion Gap 7 BUN 14 Creatinine 0.81 Estim Creat Clear Calc 75.60 Est GFR (MDRD) Af Amer 96 Est GFR (MDRD) Non-Af 80 BUN/Creatinine Ratio 17.3 Glucose 127 H Calcium 9.5 Total Bilirubin 2.00 H Direct Bilirubin 1.03 H AST 871 H ALT 575 H Alkaline Phosphatase 169 H Total Protein 7.4 Albumin 3.7 Globulin 3.7 Albumin/Globulin Ratio 1.0 - Medical Decision Making 49-year-old female presenting with right upper quadrant pain. She does have a positive Espinosa sign. White blood cell count 6.7 hemoglobin 30.8, platelets 195. GFR and electrolytes are normal. Patient has total bili 10.0, direct 1.03, AST 871, ALT 575. Dr. Payton Notified of abnormal enzymes. Ultrasound does not officially read yet but appears to have stones and sludge. Patient's pain controlled with morphine and Zofran. Patient will signed out to incoming ED physician for management. Impression: 1. Right upper quadrant pain 2. Transaminitis ED Disposition - Plan for ED Patient: Referrals: Raysa De Guzman DO [Primary Care Provider] -
--- NOTE | 2020-05-26 05:42 | US_ITS ---
STUDY: ABDOMINAL ULTRASOUND - RIGHT UPPER QUADRANT REASON FOR VISIT: Female, 49 years old PAIN TECHNIQUE: Ultrasound evaluation of the right upper quadrant was performed with real-time and static whitt-scale imaging. TECHNICAL QUALITY: Adequate. COMPARISON: None. FINDINGS: Liver: The liver measures 14.3 cm. There is normal echogenicity of the liver. The bile ducts are within normal limits. There is hepatic color flow. The direction of portal flow is hepatopetal. There is no demonstrated mass lesion. Gallbladder: Normal distended gallbladder. The gallbladder wall measures 2.9 mm. There is a negative sonographic Espinosa''s sign. There is no pericholecystic fluid. There multiple gallstones layering in the gallbladder near the neck of the gallbladder. Common Bile Duct (C.B.D.): The common bile duct measures 3.7 mm. Pancreas: Normal size of the head, body of the pancreas. There is normal echogenicity of the pancreas. There is no demonstrated pancreatic mass or cyst. The tail the pancreas is obscured by bowel gas. Right Kidney: Normal size of the right kidney. The right kidney measures 11.4 x 5.9 x 4.7 cm. Normal renal cortex. The right cortex measures 1.6 cm. There is no demonstrated renal mass or cyst. There is no right hydronephrosis. US/Gallbladder IMPRESSION: Cholelithiasis. No ultrasound evidence of cholecystitis. The sonographic Espinosa''s sign is described as negative. Electronically Signed: Sheryl Torres MD at 8:14 EST Tel , Service support ,
[2020-05-26 05:50] LABS: Absolute Lymphocyte Count 0.92 X10^3/uL (0.83-4.51); Absolute Neutrophil Count 5.2 X10^3/uL (2.0-7.7); Basophil# 0.02 X10^3/uL; Basophil% 0.3 % (0-1); Eosinophil# 0.03 X10^3/uL; Eosinophils% 0.4 % (0-5); Hematocrit 43.2 % (37-47); Hemoglobin 13.8 g/dL (12.0-15.0); Lymphocyte # 0.92 X10^3/ul (4.0); Lymphocyte % 13.8 % (19-41); Mean Corp Hgb Conc 31.9 g/dL (32-36); Mean Corpuscular Hgb 26.8 pg (27.0-32.0); Mean Corpuscular Volume 83.9 fL (81-99); Mean Platelet Vol. 13.9 fl (6.2-12.0); Monocyte# 0.55 X10^3/uL; Monocyte% 8.2 % (0-10); NRBC Flagged by Analyzer 0 % (0-5); Neutrophil # 5.15 X10^3/uL (2.7-7.7); Platelet Count 195 K/mm3 (150-450); RBC Distribution Width CV 12.1 % (11.6-14.6); RBC Distribution Width SD 36.4 fl (35.1-43.9); Red Blood Count 5.15 M/mm3 (4.2-5.4); White Blood Count 6.7 K/mm3 (4.4-11.0)
[2020-05-26] MEDS: Morphine 4 MG/ML Syringe IV ×3 (05:51→22:25)
[2020-05-26] MEDS: Ondansetron 4 MG/2 ML Vial IV ×2 (05:51→17:12)
[2020-05-26 06:02] LABS: AST(SGOT) 871 U/L (15-37); Alanine Aminotransfer ALT/SGPT 575 U/L (13-56); Albumin, Serum 3.7 g/dL (3.2-5.0); Alkaline Phosphatase 169 U/L (45-117); Anion Gap 7 (5-15); BUN 14 mg/dL (7-18); BUN/Creat Ratio 17.3 RATIO (10-20); Bilirubin, Direct 1.03 mg/dL (0.00-0.30); Calcium,Total 9.5 mg/dL (8.5-10.1); Chloride 107 mmol/L (98-107); Creatinine, Serum 0.81 mg/dL (0.55-1.02); EST Glomerular Filtration Rate 80 mL/min (>60); Est Glom Filt Rate - Afr Amer 96 mL/min (>60); Globulin 3.7 g/dL (2.2-4.2); Glucose 127 mg/dL (74-106); Potassium 4.1 mmol/L (3.5-5.1); Protein, Total 7.4 g/dL (6.4-8.2); Sodium Level 139 mmol/L (136-145)
--- NOTE | 2020-05-26 07:54 | CT_ITS ---
EXAM: CT ABDOMEN AND PELVIS WITH INTRAVENOUS CONTRAST CLINICAL INDICATION: Right upper quadrant pain TECHNIQUE: Helically acquired images were obtained of the abdomen and pelvis with intravenous contrast. This CT exam was performed using one or more of the following dose reduction techniques: automated exposure control, adjustment of the mA and/or kV according to patient size, and/or use of iterative reconstruction technique. This report was created using [employer] report generation technology. CONTRAST: IV 100mL Isovue-300 COMPARISON: None. FINDINGS: LOWER THORAX: Unremarkable. Lung bases are clear. No cardiomegaly. No significant pericardial effusion. ABDOMEN: LIVER: Unremarkable. Homogeneous. No focal mass. GALLBLADDER AND BILE DUCTS: Mild intrahepatic bile duct dilation. Common duct measures 7.2 mm. Distended gallbladder without gallbladder wall thickening or pericholecystic fluid. PANCREAS: Unremarkable. No focal cystic or solid mass. SPLEEN: Unremarkable. Normal size without focal cystic or solid mass. ADRENALS: Unremarkable. No nodules. KIDNEYS AND URETERS: Unremarkable. Normal renal size and position. No hydronephrosis. STOMACH AND BOWEL: Unremarkable. No stomach or bowel distention. No focal inflammatory change. PELVIS: APPENDIX: No evidence of acute appendicitis. BLADDER: Unremarkable. REPRODUCTIVE: 3.1 cm uterine fundal mass compatible with a fibroid. ABDOMEN and PELVIS: INTRAPERITONEAL SPACE: Unremarkable. No ascites or other fluid collection. No free air. BONES/JOINTS: Unremarkable. No suspicious lytic or blastic abnormality. SOFT TISSUES: Unremarkable. No discrete abdominal or pelvic wall hernia. VASCULATURE: Unremarkable. Abdominal aorta is non-dilated. LYMPH NODES: Unremarkable. No enlarged lymph nodes. CT/Abdomen/Pelvis W IV Cont ONLY IMPRESSION: Mild intrahepatic bile duct dilation. Common duct measures 7.2 mm. Distal obstruction/choledocholithiasis possible. MRCP or ERCP advised. Electronically Signed: Andrew Marte MD ([place]) at 9:03 EST , Service support ,
[2020-05-26 08:06] LABS: Lipase 101 U/L (73-393)
--- NOTE | 2020-05-26 09:57 | PCM.HP.STD ---
Problem List (1) Right upper quadrant pain Status: Acute History of Present Illness Date of Admission: 05/26/20 Chief Complaint: Right upper quadrant pain The patient is a 49 year old F who presented to the ED with 1 month history of right upper quadrant pain. Patient states she presented to the ED 4 weeks ago with similar pain. A full cardiac work up including a stress test was completed and unremarkable. Patient states she has had 4-5 episodes since this ED trip of right upper quadrant pain. She notes last night the pain was the most severe. She notes having home made chick-julee-a chicken. She notes this being greasy and fatty. Patient stated she typically avoids gluten secondary to her Deann's however last night she had company over and this meal was consumed. She noted approximately 23 hours after eating she felt the effects. She noted at hour #3 the pain became so severe. She stated she tired Mylanta, Tums without relief. She attempted different positions of laying without relief. She finally decided the pain was not letting up and cam to the ED. She noted associated symptoms were nausea, belching, bloating, dry heaving. She states she has not had a previous work-up for gallbladder. She notes only abdominal surgery was tubal ligation. Patient states she had COVID in January. She gave blood in March and her antibodies were still present. She denies any resildual side effects from COVID. She notes high blood pressure otherwise normal cardiac history. She denies previous stroke. RUQ u/s demonstrated cholelithiasis. CBD showed dilatation of 3.[address] scan of ab/pel demonstrated the following Mild intrahepatic bile duct dilation. Common duct measures 7.2 mm. Distal obstruction/choledocholithiasis possible. MRCP or ERCP advised. Liver enzymes consistent with Total bili 2.00, AST 871, ALT 575, Alk Phos 169. Past Medical History Medical History: Medical History (Last Updated 04/29/20 @ 20:[address] Fabio Sotomayor MD) Hypertension I10 Allergies levofloxacin [From Levaquin] Adverse Reaction (Verified 05/26/20 05:23) Other Home Medications: Ambulatory Orders Medication Instructions Recorded Aspirin [Aspirin, Baby] 81 mg PO DAILY@0800 04/29/20 Cholecalciferol (Vitamin D3) 5,000 units PO QHS 04/29/20 [Vitamin D3] Mecobalamin [B12 Active] 1,000 mcg SL DAILY 04/29/20 Metoprolol Succinate 25 mg PO QHS 04/29/20 Naltrexone 6 mg PO QHS 04/29/20 Progesterone, Micronized 200 mg PO QHS 04/29/20 [Progesterone] Rosuvastatin Calcium 10 mg PO DAILY 04/29/20 Selenium 200 mcg PO QHS 04/29/20 Thyroid [[place] Thyroid] 90 mg PO DAILY 04/29/20 Surgical History: - - Uterine ablation; tubal ligation Psychiatric History: No pertinent psych hx [employer] History: No pertinent [employer] history Lives: Spouse/ Significant Other Smoking Status: Never smoker Tobacco Use: Non-smoker Alcohol: None Drugs: None - *Family History Maternal History Items: COPD, Heart Disease - Her mother from a heart attack in her 60s. Paternal History Items: Heart Disease, Hypertension Review of Systems Constitutional: Denies: Chills, Fever, Weight Change HEENT: Denies: Head Aches, Sinus Congestion, Sinus Drainage Cardiovascular: Denies: Chest Pain, Palpitations Respiratory: Denies: Cough, Shortness of breath at rest, Sputum production Gastrointestinal: Reports: Abdominal Pain, Constipation, Nausea. Denies: Vomiting Genitourinary: Denies: Dysuria Musculoskeletal: Denies: Joint Pain, Joint Tenderness Skin: Denies: Rash, Wounds Neurological: Denies: Numbness, Tingling, Focal weakness Psychiatric: Denies: Anxiety, Depression, Homicidal Ideations, Suicidal Ideations Hematologic/ Lymphatic: Denies: Easy Bruising, Easy Bleeding VTE Information - Inpt Only VTE Present on Admission: Yes Patient Problems: Active and Suspected Problems (Last Updated 04/29/20 @ 20:[address] Fabio Sotomayor MD) Right upper quadrant pain (Acute) - Physical Exam Vitals/I&O's: Vital Signs Temp Pulse Resp BP Pulse Ox 98.1 F 50 L 19 H 159/72 H 98 05/26/20 09:07 05/26/20 09:07 05/26/20 09:07 05/26/20 09:07 05/26/20 09:07 Oxygen Delivery Method Room Air Weight: 222 lb 10.67 oz Body Mass Index (BMI) 37.0 General: Alert, Oriented x3, Cooperative HEENT: Atraumatic, PERRLA, EOMI, Normocephalic Neck: Supple, No JVD, Negative Carotid Bruits Lungs: Clear to auscultation, Normal air movement Cardiovascular: Regular rate, No murmurs Abdomen: Soft, Non-Distended, Obese, Tender - RUQ. Positive Espinosa's sign Extremities: No edema, Capillary Refill Less than 3 Seconds Skin: No rashes, No breakdown Musculoskeletal: No Tenderness to Palpation of Joints or Extremities Neurological: Neuro grossly intact Psych/Mental Status: Normal Affect, Appropriate Microbiology Past 72 Hours 05/26/20 09:00 Mucosa - Nose SARS-CoV-2 Antigen (Rapid) - Final Laboratory Results 05/26/20 05:18: WBC 6.7, RBC 5.15, Hgb 13.8, Hct 43.2, MCV 83.9, MCH 26.8 L, MCHC 31.9 L, RDW Std Deviation 36.4, RDW Coeff of Bar 12.1, Plt Count 195, MPV 13.9 H, Immature Gran % (Auto) 0.300, Neut % (Auto) 77.0 H, Lymph % (Auto) 13.8 L, [place] % (Auto) 8.2, Eos % (Auto) 0.4, Baso % (Auto) 0.3, Absolute Neuts (auto) 5.2, Absolute Lymphs (auto) 0.92, Nucleated RBC % 0 05/26/20 05:18: Sodium 139, Potassium 4.1, Chloride 107, Carbon Dioxide 25.0, Anion Gap 7, BUN 14, Creatinine 0.81, Estim Creat Clear Calc 75.60, Est GFR (MDRD) Af Amer 96, Est GFR (MDRD) Non-Af 80, BUN/Creatinine Ratio 17.3, Glucose 127 H, Calcium 9.5, Total Bilirubin 2.00 H, Direct Bilirubin 1.03 H, AST 871 H, ALT 575 H, Alkaline Phosphatase 169 H, Total Protein 7.4, Albumin 3.7, Globulin 3.7, Albumin/Globulin Ratio 1.0 05/26/20 05:18: Lipase 101 Assessment/Plan All Active Problems (Last Updated 04/29/20 @ 20:[address] Fabio Sotomayor MD) Chest pain (Acute) Right upper quadrant pain (Acute) I am following this patient in conjunction with Dr. Payton. She will independently evaluate this patient. Impression: Acute cholecystitis with possible choledocholithiasis Plan: I have discussed this patient with Dr. Payton. Dr. Payton will plan to perform a laparoscopic cholecystectomy with intraoperative cholangiogram. Procedure details, risks and benefits have been explained. Patient has had the opportunity to ask and have questions answered. Patient is also aware that an ERCP may need to be performed tomorrow pending cholangiogram results. Patient will be admitted to the floor for observation. We will proceed with the lap jade as OR time permits. Thank you for allowing us to participate in this patient care. Office Visits / Consults: [id number] IP Consult L3
[2020-05-26] MEDS: Lactated Ringers 1,000 ML 100 ML IV (10:34)
--- NOTE | 2020-05-26 10:36 | PCM.PN.HOSP ---
Patient Problems: Active and Suspected Problems (Last Updated 04/29/20 @ 20:[address] Fabio Sotomayor MD) Right upper quadrant pain (Acute) Reason for Visit: Consult on post-op medical management Subjective: 49-year-old with past medical history of hypertension who was recently admitted on 04/29 to 04/30 with complaints of chest pain. In the admission, acute coronary syndrome was ruled out, stress test was negative. It was felt that patient had indigestion. She presented with sudden onset of right upper quadrant pain that has been ongoing for about 8 hours. This occurred after eating food. He admitted to some chills but no fever. She admitted to nausea but no diarrhea. This feels similar to what she had previously. Vitals in the emergency department initially was elevated. Admitting CBCD was unremarkable. CMP showed total bilirubin of 2.0, direct bilirubin 1.03, AST is a 71, ALT 575, ALP 169. Albumin is 3.7. Pathology gallbladder showed cholelithiasis. No ultrasound evidence of cholecystitis. Espinosa sign sonographically was negative. CT Abd/pelvis showed mild intrahepatic bile duct dilation. Common bile duct measure 7.2mm. Gallbladder is distended with gallbladder wall thinckening or pericholecystic fluid. Vitals/I&O's: Vital Signs Temp Pulse Resp BP Pulse Ox 98.0 F 45 L 18 157/75 H 95 05/26/20 10:01 05/26/20 10:01 05/26/20 10:01 05/26/20 10:01 05/26/20 10:01 Oxygen Delivery Method Room Air Weight: 101.786 kg Body Mass Index (BMI) 37.3 General: Alert, Oriented x3, Cooperative, No apparent distress HEENT: Atraumatic, PERRLA, EOMI, Normocephalic Oral: Moist Mucosa Neck: Supple Lungs: Clear to auscultation Cardiovascular: Regular rate, Regular Rhythm, Normal S1, Normal S2, No murmurs Abdomen: Bowel Sounds Present, Soft, Non Tender, Non-Distended, No Hepato-splenomegaly Extremities: No edema Skin: No rashes Musculoskeletal: No Tenderness to Palpation of Joints or Extremities Lymphatic: No Cervical, Supraclavicular, or Inguinal Adenopathy Neurological: Cranial nerves II-XII grossly intact, Neuro grossly intact Psych/Mental Status: Normal Affect, Appropriate Microbiology Past 72 Hours 05/26/20 09:00 Mucosa - Nose SARS-CoV-2 Antigen (Rapid) - Final Laboratory Results 05/26/20 05:18: WBC 6.7, RBC 5.15, Hgb 13.8, Hct 43.2, MCV 83.9, MCH 26.8 L, MCHC 31.9 L, RDW Std Deviation 36.4, RDW Coeff of Bar 12.1, Plt Count 195, MPV 13.9 H, Immature Gran % (Auto) 0.300, Neut % (Auto) 77.0 H, Lymph % (Auto) 13.8 L, [place] % (Auto) 8.2, Eos % (Auto) 0.4, Baso % (Auto) 0.3, Absolute Neuts (auto) 5.2, Absolute Lymphs (auto) 0.92, Nucleated RBC % 0 05/26/20 05:18: Sodium 139, Potassium 4.1, Chloride 107, Carbon Dioxide 25.0, Anion Gap 7, BUN 14, Creatinine 0.81, Estim Creat Clear Calc 75.60, Est GFR (MDRD) Af Amer 96, Est GFR (MDRD) Non-Af 80, BUN/Creatinine Ratio 17.3, Glucose 127 H, Calcium 9.5, Total Bilirubin 2.00 H, Direct Bilirubin 1.03 H, AST 871 H, ALT 575 H, Alkaline Phosphatase 169 H, Total Protein 7.4, Albumin 3.7, Globulin 3.7, Albumin/Globulin Ratio 1.0 05/26/20 05:18: Lipase 101 Current Medications Acetaminophen (Acetaminophen 325 Mg Tablet) 650 mg PO Q6H PRN PRN PRN Reason: Pain Score 1-10/Temp > 100.7 F Lactated Ringer's () 1,000 mls @ 100 mls/hr IV .Q10H [place] Last Admin: 05/26/20 10:34 Dose: 100 mls/hr Documented by: Cefazolin Sodium 2 gm/ Sodium (Chloride) 110 mls @ 150 mls/hr IV X1 ONE Stop: 05/26/20 15:43 Sodium Chloride () 500 mls @ 15 mls/hr IV PRN PRN PRN Reason: Blood Transfusion Sodium Chloride () 250 mls @ 15 mls/hr IV .[id number] PRN PRN Reason: Saline Flush Sodium Chloride () 250 mls @ 15 mls/hr IV .[id number] PRN PRN Reason: Additional IVPB Infusion Morphine Sulfate (Morphine 4 Mg/Ml Syringe) 4 mg IV Q3H PRN PRN PRN Reason: Pain Score 6-10 Ondansetron HCl (Ondansetron 4 Mg/2 Ml Vial) 4 mg IV Q8H PRN PRN PRN Reason: NAUSEA/VOMITING Oxycodone HCl (Oxycodone 5 Mg Tablet) 5 mg PO Q4H PRN PRN PRN Reason: Pain Score 4-5 Sodium Chloride (0.9% Saline Lock 10 Ml Syringe) 10 - 40 ml IV UD PRN PRN Reason: SALINE FLUSH Throat Lozenges (Benzocaine/Menthol 1 Lozenge) 1 lozenge MUCOUS MEM Q2H PRN PRN PRN Reason: SORE THROAT STROKE Vital Signs/Narrative: Vital Signs Temp Pulse Resp BP Pulse Ox 05/26/20 10:01 98.0 F 45 L 18 157/75 H 95 05/26/20 09:07 98.1 F 50 L 19 H 159/72 H 98 Medical Necessity - Tobacco Use Smoking Status: Never smoker Tobacco Use: Non-smoker, Secondhand Assessment/Plan All Active Problems (Last Updated 04/29/20 @ 20:[address] Fabio Sotomayor MD) Chest pain (Acute) Right upper quadrant pain (Acute) 1. Elevated liver enzymes secondary to likely acute choledocholithiasis/possible acute cholecystitis LFTs are elevated mostly in the biliary pattern. Ultrasound of the liver shows cholelithiasis. Ultrasound evidence of cholecystitis. Espinosa sign was negative CT of the abdomen and pelvis suggestive of common biliary duct dilatation. General surgery taking patient to the OR for cholecystectomy and cholangiograms We will follow up with repeat blood work in a.m. 2. Elevated blood pressure likely secondary to pain Patient has history of hypertension chronically on metoprolol Continue on home metoprolol as well as hydralazine as needed 3. Hyperlipidemia, continue on statin 4. Hypothyroidism, continue on levothyroxine 5. DVT PPx- Per primary team - general surgery Inpatient E&M: [id number] [facility] Hosp L2
--- NOTE | 2020-05-26 10:55 | EKG12_ITS ---
Test Reason : PREOP Blood Pressure : / mmHG Vent. Rate : 043 BPM Atrial Rate : 043 BPM P-R Int : 178 ms QRS Dur : 080 ms QT Int : 456 ms P-R-T Axes : 024 012 029 degrees QTc Int : 385 ms Marked sinus bradycardia with sinus arrhythmia Abnormal ECG Confirmed by GOOD GIBBS, LEXIS ([id number]), technical editor MARISOL BLACKWOOD ([id number]) on 05/30/2020 2:55:37 PM Referred By: JB Confirmed By:LEXIS FUNK MD
--- NOTE | 2020-05-26 11:00 | GALL_PTH ---
PATIENT: AMBER KING LOC: MS3 U#:[id number] AGE/SX: 49/F [place] [facility] [place]: Dr. Maeve Payton MD : 1970 BED: 1 DIS: 05/28/2020 SPEC #: [id number] RECD: 05/26/20 14:22 STATUS: MAGDA RECandace #: [id number] BENNETT: 05/26/20 11:[address]: Maeve Payton DEPT: SURGICAL PATHOLOGY RECD BY: Betsy Fallon ENTERED: 05/27/20 08:34 SP TYPE: BEULAH FALL DR: MD Dr. Raysa Beavers DO Amanda Griffith, PA-C Tissues: Gallbladder, NOS Procedures: Surgery Specimen Level III HEADER OPERATION: Laparoscopic cholecystectomy with IOC PRE-OP DIAGNOSIS: Acute cholecystitis with possible choledocholithiasis TISSUE SUBMITTED: Gallbladder MICROSCOPIC DIAGNOSIS Gallbladder, cholecystectomy: Chronic cholecystitis and cholelithiasis. AM:mattie 05/30/2020 MICROSCOPIC DESCRIPTION Slides are reviewed. GROSS DESCRIPTION Received is one container labeled with the patient's name and designated gallbladder. The specimen consists of a gallbladder measuring 11.5 cm in length and up to 3.5 cm in diameter. The external surface is pink-brower, smooth and glistening for the most part. Focally it is granular, hemorrhagic and contains cautery artifact. The gallbladder contains a scant amount of brower-light yellow mucoid bile. Present in the container and gallbladder are multiple brower-brown, multifaceted stones measuring in aggregate 7.5 x 7 x 2.5 cm and 0.5 to 1 cm in greatest dimension. The mucosa is bile-stained and without any mass lesions. The gallbladder wall measures up to 0.2 cm in thickness. Relish Blender sections from the gallbladder and the cystic duct are submitted in one cassette. / SJ:mattie 05/27/20 TC:3 CPT: 61155
[2020-05-26] MEDS: Cefazolin 2 GM in 0.9% Normal Saline 100 ML IV (11:09)
--- NOTE | 2020-05-26 11:38 | RAD_ITS ---
STUDY: INTRAOPERATIVE CHOLANGIOGRAM. REASON FOR EXAM: Female, 49 years old. LAP MALCOLM FLUOROSCOPY TIME (if supplied): ( 32 seconds ) minutes/seconds. A cine loop of 34 images was submitted. TECHNIQUE: An intraoperative Cholangiogram was performed by the surgeon. Imaging was submitted. COMPARISON: None. FINDINGS: The intra and extrahepatic biliary ducts are unremarkable. No intraluminal filling defect is seen. There is free flow of contrast into the duodenum. RAD/Cholangiogram/ O R,Initial IMPRESSION: Unremarkable intraoperative cholangiogram. Electronically Signed: Roddy Dennis MD at 13:07 EST , Service support ,
[2020-05-26] MEDS: Bupivacaine Mpf 0.5% 30 ML VIAL (11:40)
--- NOTE | 2020-05-26 12:47 | PCM.OPRPT ---
Report of Operation Date of Procedure: 05/26/20 Pre-Operative Diagnosis: Cholelithiasis, elevated liver functions Post-Operative Diagnosis: Cholelithiasis, choledocholithiasis, elevated liver functions Surgery/Procedure Performed:: Laparoscopic cholecystectomy with cholangiograms new product trainer: sandra - lupe harper Type of Anesthesia:: General/Supplemental Anesthesiologist: Vinnie Zarate Special Medications: Ancef 2 g IV x1 Specimen's removed: Gallbladder and stones Estimated Blood Loss (mL): 10 cc Fluids Replaced: 1200 cc Description of Procedure: Indications this is a 49 year-old Female who developed abdominal pain and on workup was found to have cholelithiasis, Elevated liver functions with a 7.6 mm common bile duct on CT. Laparoscopic cholecystectomy with cholangiograms was elected. Description procedure: The patient was placed on operating table in supine position. General Anesthesia was induced. A timeout was completed verifying correct patient, procedure, site, position and special equipment prior to beginning procedure. The abdomen was prepped and draped in usual sterile fashion. An incision was made in the natural skin line above the umbilicus. The fascia was elevated and incised. The peritoneum was elevated and incised. Entry into the peritoneum was confirmed visually and no bowel was noted in the vicinity of the incision. Marie trocar was placed. The abdomen was insufflated with carbon dioxide to a pressure of 12-15 mmHg. Patient tolerated insufflation well. The laparoscope was then inserted and abdomen inspected. No injuries from initial trocar placement were noted. Additional trochars were then inserted in the following locations 5 mm trocar in the epigastrium and 2 more 5 mm trochars along the right costal margin. The abdomen was inspected no abnormalities were found. The table is placed in reverse Trendelenburg position with the right side up. The adhesions between the gallbladder and omentum were lysed sharply. The dome of the gallbladder was grasped with atraumatic grasper passed through the lateral port and retracted over the dome of the liver. Infundibulum was then grasped with atraumatic grasper through the midclavicular port and retracted to the right lower quadrant. This maneuver exposed Calot's triangle. The peritoneum overlying the gallbladder infundibulum was then incised and cystic duct and artery identified and circumferentially dissected. Wilson catheter was used for cholangiograms. The cholangiogram showed filling defect of the mid common bile duct, but contrast to go into the duodenum and good filling of the right and left bile ducts as well. The cystic duct and artery were then doubly clipped and divided close to the gallbladder. The gallbladder then dissected from its peritoneal attachments by electrocautery. Hemostasis was checked and the gallbladder and contained stones were removed using the endoscopic retrieval bag through the umbilical port. The gallbladder is passed off table as specimen. The gallbladder fossa was copiously irrigated with saline and hemostasis obtained. There is no evidence of bleeding from the gallbladder fossa or cystic artery leakage of bile from the cystic duct stump. Secondary trochars removed under direct vision. No bleeding was noted the trocar sites. The laparoscope was withdrawn and umbilical trocar removed. The abdomen was allowed to collapse. The fascia of the 12 mm trocar was closed with a [id number] 0 Vicryl suture. The skin was closed with sutures of 4-0 Monocryl and Steri-Strips. The orogastric tube was removed and the patient was extubated. The patient tolerated procedure well and was taken to the postanesthesia care unit in stable condition. - Complications none
[2020-05-26] MEDS: hydrALAZINE 20 MG/ML Vial 5 MG IV (16:02)
[2020-05-26] MEDS: BENZOCAINE/MENTHOL 1 LOZENGE MUCOUS MEM (16:02)
[2020-05-26] MEDS: 0.9% Normal Saline 1,000 ML 100 ML IV (16:15)
[2020-05-26] MEDS: oxyCODONE 5 MG Tablet PO (17:12)
--- NOTE | 2020-05-26 18:56 | NURSING ---
talked with pt regarding pain and vital sign correlation. pt agreeing to try morphine to see if would help bp any. dr. fairchild also ordered sched tylenol for pt to start.
[2020-05-26] MEDS: Acetaminophen 500 MG Tablet 1000 MG PO (21:33)
[2020-05-26] MEDS: Metoprolol(XL)Succ 25 MG Tablet PO (21:34)
[2020-05-26] MEDS: NON-FORMULARY 200 PO (22:22)
[2020-05-27] VITALS (13 sets, daily range): BP systolic 106–157; BP diastolic 62–85; PULSE 51–96; RESP 14–18; TEMP 36.6–37.2; O2SAT 96–100
[2020-05-27] MEDS: 0.9% Normal Saline 1,000 ML 100 ML IV (02:20)
[2020-05-27 06:34] LABS: Absolute Lymphocyte Count 0.99 X10^3/uL (0.83-4.51); Absolute Neutrophil Count 3.4 X10^3/uL (2.0-7.7); Basophil# 0.03 X10^3/uL; Basophil% 0.6 % (0-1); Eosinophil# 0.13 X10^3/uL; Eosinophils% 2.5 % (0-5); Hematocrit 37.9 % (37-47); Hemoglobin 11.7 g/dL (12.0-15.0); Lymphocyte # 0.99 X10^3/ul (4.0); Lymphocyte % 19.4 % (19-41); Mean Corp Hgb Conc 30.9 g/dL (32-36); Mean Corpuscular Hgb 27.2 pg (27.0-32.0); Mean Corpuscular Volume 88.1 fL (81-99); Mean Platelet Vol. 13.7 fl (6.2-12.0); Monocyte# 0.58 X10^3/uL; Monocyte% 11.4 % (0-10); NRBC Flagged by Analyzer 0 % (0-5); Neutrophil # 3.37 X10^3/uL (2.7-7.7); Neutrophil % 65.9 % (47-70); Platelet Count 153 K/mm3 (150-450); RBC Distribution Width CV 12.9 % (11.6-14.6); White Blood Count 5.1 K/mm3 (4.4-11.0)
[2020-05-27 07:09] LABS: ALB/GLOB Ratio 0.9 RATIO (0.9-2.4); AST(SGOT) 358 U/L (15-37); Alanine Aminotransfer ALT/SGPT 504 U/L (13-56); Albumin, Serum 2.7 g/dL (3.2-5.0); Alkaline Phosphatase 191 U/L (45-117); Anion Gap 6 (5-15); BUN 7 mg/dL (7-18); BUN/Creat Ratio 8.9 RATIO (10-20); Bilirubin, Direct 2.98 mg/dL (0.00-0.30); Calcium,Total 7.9 mg/dL (8.5-10.1); Chloride 107 mmol/L (98-107); Creatinine, Serum 0.79 mg/dL (0.55-1.02); EST Glomerular Filtration Rate 82 mL/min (>60); Est Glom Filt Rate - Afr Amer 99 mL/min (>60); Estimated Creatinine Clearance 77.51 ml/min; Glucose 93 mg/dL (74-106); Potassium 3.6 mmol/L (3.5-5.1); Protein, Total 5.7 g/dL (6.4-8.2); Sodium Level 141 mmol/L (136-145)
--- NOTE | 2020-05-27 07:38 | PN.SURG_ITS ---
Patient Problems: Active and Suspected Problems (Last Updated 04/29/20 @ 20:[address] Fabio Sotomayor MD) Right upper quadrant pain (Acute) Subjective: Patient states she is only having the muscular pain denies her previous pain from before surgery. Patient's LFTs have elevated likely due to the filling defect in the common bile duct. Plan for ERCP this afternoon - Physical Exam Vitals/I&O's: Vital Signs Temp Pulse Resp BP Pulse Ox 98.4 F 58 L 16 140/80 H 96 05/27/20 02:23 05/27/20 02:23 05/27/20 02:23 05/27/20 02:23 05/27/20 07:27 Oxygen Delivery Method Room Air Weight: 224 lb 6.4 oz Body Mass Index (BMI) 37.3 Intake and Output for Last 24 Hours 05/25/20 05/26/20 05/27/20 23:59 23:59 23:59 Intake Total 1173.58 / 1173.58 1111 / 1111 Output Total 350 / 350 450 / 450 Balance 823.58 / 823.58 661 / 661 General: Alert, Oriented x3, Cooperative, No apparent distress HEENT: Atraumatic Lungs: Normal air movement Cardiovascular: Regular rate Abdomen: Soft, Non-Distended, Tender - Near incision clean dry and intact with op sites, no peritoneal signs Extremities: No clubbing, No cyanosis, No edema Microbiology Past 72 Hours 05/26/20 09:00 Mucosa - Nose SARS-CoV-2 Antigen (Rapid) - Final Laboratory Results 05/26/20 05:18: Lipase 101 05/27/20 06:22: WBC 5.1, RBC 4.30, Hgb 11.7 L, Hct 37.9, MCV 88.1 D, MCH 27.2, MCHC 30.9 L, RDW Std Deviation 41.0, RDW Coeff of Bar 12.9, Plt Count 153, MPV 13.7 H, Immature Gran % (Auto) 0.200, Neut % (Auto) 65.9, Lymph % (Auto) 19.4, [place] % (Auto) 11.4 H, Eos % (Auto) 2.5, Baso % (Auto) 0.6, Absolute Neuts (auto) 3.4, Absolute Lymphs (auto) 0.99, Nucleated RBC % 0 05/27/20 06:22: Sodium 141, Potassium 3.6, Chloride 107, Carbon Dioxide 28.0, Anion Gap 6, BUN 7, Creatinine 0.79, Estim Creat Clear Calc 77.51, Est GFR (MDRD) Af Amer 99, Est GFR (MDRD) Non-Af 82, BUN/Creatinine Ratio 8.9 L, Glucose 93, Calcium 7.9 L, Total Bilirubin 5.30 H, Direct Bilirubin 2.98 H, AST 358 H, ALT 504 H, Alkaline Phosphatase 191 H, Total Protein 5.7 L, Albumin 2.7 L, Globulin 3.0, Albumin/Globulin Ratio 0.9, TSH 0.90 Current Medications Acetaminophen (Acetaminophen 500 Mg Tablet) 1,000 mg PO TID [facility] Last Admin: 05/27/20 05:51 Dose: Not Given Documented by: Atorvastatin Calcium (Atorvastatin Calcium 20 Mg Tablet) 20 mg PO DAILY [facility] Hydralazine HCl (Hydralazine 20 Mg/Ml Vial) 5 mg IV Q4H PRN PRN PRN Reason: BLOOD PRESSURE Last Admin: 05/26/20 16:02 Dose: 5 mg Documented by: Sodium Chloride () 500 mls @ 15 mls/hr IV PRN PRN PRN Reason: Blood Transfusion Sodium Chloride () 250 mls @ 15 mls/hr IV .[id number] PRN PRN Reason: Saline Flush Last Infusion: 05/27/20 05:38 Dose: 0 mls/hr Documented by: Sodium Chloride () 250 mls @ 15 mls/hr IV .[id number] PRN PRN Reason: Additional IVPB Infusion Piperacillin Sod/Tazobactam (Sod 3.375 gm/ Sodium Chloride) 50 mls @ 12.5 mls/hr IV Q8 [facility] Last Admin: 05/27/20 05:38 Dose: 12.5 mls/hr Documented by: Sodium Chloride () 1,000 mls @ 100 mls/hr IV .Q10H [facility] Last Admin: 05/27/20 02:20 Dose: 100 mls/hr Documented by: Metoprolol Succinate (Metoprolol(Xl)Succ 25 Mg Tablet) 25 mg PO QHS [facility] Last Admin: 05/26/20 21:34 Dose: 25 mg Documented by: Morphine Sulfate (Morphine 4 Mg/Ml Syringe) 4 mg IV Q3H PRN PRN PRN Reason: Pain Score 6-10 Last Admin: 05/26/20 22:25 Dose: 4 mg Documented by: Non-Formulary Medication (Non-Formulary) 200 PO QHS [facility] Last Admin: 05/26/20 22:22 Dose: 200 Documented by: Ondansetron HCl (Ondansetron 4 Mg/2 Ml Vial) 4 mg IV Q8H PRN PRN PRN Reason: NAUSEA/VOMITING Last Admin: 05/26/20 17:12 Dose: 4 mg Documented by: Oxycodone HCl (Oxycodone 5 Mg Tablet) 5 mg PO Q4H PRN PRN PRN Reason: Pain Score 4-5 Last Admin: 05/26/20 17:12 Dose: 5 mg Documented by: Sodium Chloride (0.9% Saline Lock 10 Ml Syringe) 10 - 40 ml IV UD PRN PRN Reason: SALINE FLUSH Throat Lozenges (Benzocaine/Menthol 1 Lozenge) 1 lozenge MUCOUS MEM Q2H PRN PRN PRN Reason: SORE THROAT Last Admin: 05/26/20 16:02 Dose: 1 lozenge Documented by: Thyroid (Thyroid 60 Mg Tablet) 90 mg PO DAILY [facility] Medical Necessity - Tobacco Use Smoking Status: Never smoker Tobacco Use: Non-smoker, Secondhand Assessment/Plan All Active Problems (Last Updated 04/29/20 @ 20:[address] Fabio Sotomayor MD) Chest pain (Acute) Right upper quadrant pain (Acute) 49-year-old female status post laparoscopic cholecystectomy with biliary obstruction 1. We will plan for an ERCP today with Dr. Novoa. Patient no further questions about the procedure. 2. Patient currently on Zosyn GISSEL Payton M.D. Pager: [phone] [facility] [address] [place] [address], [facility], [address] [place] [address] Office: [phone]
[2020-05-27] MEDS: Thyroid 60 MG Tablet 90 MG PO (09:07)
--- NOTE | 2020-05-27 09:43 | PCM.PN.HOSP ---
Patient Problems: Active and Suspected Problems (Last Updated 04/29/20 @ 20:[address] Fabio Sotomayor MD) Right upper quadrant pain (Acute) Reason for Visit: Consult on post-op medical management Subjective: Patient was seen and examined. She complains of slight abdominal pain. She is going for ERCP today. Denied any fever or chills. Objective: Physical exam: General: Alert, Oriented x3, Cooperative, No apparent distress HEENT: Atraumatic, PERRLA, EOMI, Normocephalic Oral: Moist Mucosa Neck: Supple Lungs: Clear to auscultation Cardiovascular: Regular rate, Regular Rhythm, Normal S1, Normal S2, No murmurs Abdomen: Bowel Sounds hypoactive, Soft, Non Tender, Non-Distended, No Hepato-splenomegaly Extremities: No edema Skin: No rashes Musculoskeletal: No Tenderness to Palpation of Joints or Extremities Lymphatic: No Cervical, Supraclavicular, or Inguinal Adenopathy Neurological: Cranial nerves II-XII grossly intact, Neuro grossly intact Psych/Mental Status: Normal Affect, Appropriate Vitals/I&O's: Vital Signs Temp Pulse Resp BP Pulse Ox 98.1 F 96 14 106/64 96 05/27/20 07:39 05/27/20 07:48 05/27/20 07:48 05/27/20 07:39 05/27/20 07:48 Oxygen Delivery Method Room Air Weight: 101.786 kg Body Mass Index (BMI) 37.3 Intake and Output for Last 24 Hours 05/25/20 05/26/20 05/27/20 23:59 23:59 23:59 Intake Total 1173.58 / 1173.58 1111 / 1111 Output Total 350 / 350 450 / 450 Balance 823.58 / 823.58 661 / 661 Microbiology Past 72 Hours 05/26/20 09:00 Mucosa - Nose SARS-CoV-2 Antigen (Rapid) - Final Laboratory Results 05/27/20 06:22: WBC 5.1, RBC 4.30, Hgb 11.7 L, Hct 37.9, MCV 88.1 D, MCH 27.2, MCHC 30.9 L, RDW Std Deviation 41.0, RDW Coeff of Bar 12.9, Plt Count 153, MPV 13.7 H, Immature Gran % (Auto) 0.200, Neut % (Auto) 65.9, Lymph % (Auto) 19.4, [place] % (Auto) 11.4 H, Eos % (Auto) 2.5, Baso % (Auto) 0.6, Absolute Neuts (auto) 3.4, Absolute Lymphs (auto) 0.99, Nucleated RBC % 0 05/27/20 06:22: Sodium 141, Potassium 3.6, Chloride 107, Carbon Dioxide 28.0, Anion Gap 6, BUN 7, Creatinine 0.79, Estim Creat Clear Calc 77.51, Est GFR (MDRD) Af Amer 99, Est GFR (MDRD) Non-Af 82, BUN/Creatinine Ratio 8.9 L, Glucose 93, Calcium 7.9 L, Total Bilirubin 5.30 H, Direct Bilirubin 2.98 H, AST 358 H, ALT 504 H, Alkaline Phosphatase 191 H, Total Protein 5.7 L, Albumin 2.7 L, Globulin 3.0, Albumin/Globulin Ratio 0.9, TSH 0.90 Current Medications Acetaminophen (Acetaminophen 500 Mg Tablet) 1,000 mg PO TID [facility] Last Admin: 05/27/20 05:51 Dose: Not Given Documented by: Atorvastatin Calcium (Atorvastatin Calcium 20 Mg Tablet) 20 mg PO DAILY [facility] Hydralazine HCl (Hydralazine 20 Mg/Ml Vial) 5 mg IV Q4H PRN PRN PRN Reason: BLOOD PRESSURE Last Admin: 05/26/20 16:02 Dose: 5 mg Documented by: Sodium Chloride () 500 mls @ 15 mls/hr IV PRN PRN PRN Reason: Blood Transfusion Sodium Chloride () 250 mls @ 15 mls/hr IV .[id number] PRN PRN Reason: Saline Flush Last Infusion: 05/27/20 05:38 Dose: 0 mls/hr Documented by: Sodium Chloride () 250 mls @ 15 mls/hr IV .[id number] PRN PRN Reason: Additional IVPB Infusion Piperacillin Sod/Tazobactam (Sod 3.375 gm/ Sodium Chloride) 50 mls @ 12.5 mls/hr IV Q8 [facility] Last Admin: 05/27/20 05:38 Dose: 12.5 mls/hr Documented by: Sodium Chloride () 1,000 mls @ 100 mls/hr IV .Q10H [facility] Last Admin: 05/27/20 02:20 Dose: 100 mls/hr Documented by: Metoprolol Succinate (Metoprolol(Xl)Succ 25 Mg Tablet) 25 mg PO QHS [facility] Last Admin: 05/26/20 21:34 Dose: 25 mg Documented by: Morphine Sulfate (Morphine 4 Mg/Ml Syringe) 4 mg IV Q3H PRN PRN PRN Reason: Pain Score 6-10 Last Admin: 05/26/20 22:25 Dose: 4 mg Documented by: Non-Formulary Medication (Non-Formulary) 200 PO QHS [facility] Last Admin: 05/26/20 22:22 Dose: 200 Documented by: Ondansetron HCl (Ondansetron 4 Mg/2 Ml Vial) 4 mg IV Q8H PRN PRN PRN Reason: NAUSEA/VOMITING Last Admin: 05/26/20 17:12 Dose: 4 mg Documented by: Oxycodone HCl (Oxycodone 5 Mg Tablet) 5 mg PO Q4H PRN PRN PRN Reason: Pain Score 4-5 Last Admin: 05/26/20 17:12 Dose: 5 mg Documented by: Sodium Chloride (0.9% Saline Lock 10 Ml Syringe) 10 - 40 ml IV UD PRN PRN Reason: SALINE FLUSH Throat Lozenges (Benzocaine/Menthol 1 Lozenge) 1 lozenge MUCOUS MEM Q2H PRN PRN PRN Reason: SORE THROAT Last Admin: 05/26/20 16:02 Dose: 1 lozenge Documented by: Thyroid (Thyroid 60 Mg Tablet) 90 mg PO DAILY [facility] Last Admin: 05/27/20 09:07 Dose: 90 mg Documented by: STROKE Vital Signs/Narrative: Vital Signs Temp Pulse Resp BP Pulse Ox 05/27/20 07:48 96 14 96 05/27/20 07:39 98.1 F 96 14 106/64 96 05/27/20 07:27 96 Medical Necessity - Tobacco Use Smoking Status: Never smoker Tobacco Use: Non-smoker, Secondhand Assessment/Plan All Active Problems (Last Updated 04/29/20 @ 20:[address] Fabio Sotomayor MD) Chest pain (Acute) Right upper quadrant pain (Acute) 1. Elevated liver enzymes secondary to likely acute choledocholithiasis/possible acute cholecystitis Status post laparoscopic cholecystectomy, postop day #1. LFTs marginally improved except for biliary pattern. Ultrasound of the liver shows cholelithiasis, evidence of cholecystitis. Espinosa sign was negative CT of the abdomen and pelvis suggestive of common biliary duct dilatation. Patient going for ERCP today; will follow up with repeat blood work in a.m. 2. Hypertension, controlled, continue on home metoprolol as well as hydralazine as needed 3. Hyperlipidemia, continue on statin 4. Hypothyroidism, continue on levothyroxine 5. DVT PPx- Per primary team - general surgery Inpatient E&M: [id number] [facility] L2
--- NOTE | 2020-05-27 11:00 | PCM.PN.SRG ---
Patient Problems: Active and Suspected Problems (Last Updated 04/29/20 @ 20:[address] Fabio Sotomayor MD) Right upper quadrant pain (Acute) Subjective: No issues overnight - Physical Exam Vitals/I&O's: Vital Signs Temp Pulse Resp BP Pulse Ox 98.1 F 96 14 106/64 96 05/27/20 07:39 05/27/20 07:48 05/27/20 07:48 05/27/20 07:39 05/27/20 07:48 Oxygen Delivery Method Room Air Weight: 224 lb 6.4 oz Body Mass Index (BMI) 37.3 Intake and Output for Last 24 Hours 05/25/20 05/26/20 05/27/20 23:59 23:59 23:59 Intake Total 1173.58 / 1173.58 1111 / 1111 Output Total 350 / 350 450 / 450 Balance 823.58 / 823.58 661 / 661 General: Alert, Oriented x3 Neck: No JVD Lungs: Normal air movement Cardiovascular: Regular rate, Regular Rhythm Abdomen: Soft, Non Tender, Non-Distended Microbiology Past 72 Hours 05/26/20 09:00 Mucosa - Nose SARS-CoV-2 Antigen (Rapid) - Final Laboratory Results 05/27/20 06:22: WBC 5.1, RBC 4.30, Hgb 11.7 L, Hct 37.9, MCV 88.1 D, MCH 27.2, MCHC 30.9 L, RDW Std Deviation 41.0, RDW Coeff of Bar 12.9, Plt Count 153, MPV 13.7 H, Immature Gran % (Auto) 0.200, Neut % (Auto) 65.9, Lymph % (Auto) 19.4, [place] % (Auto) 11.4 H, Eos % (Auto) 2.5, Baso % (Auto) 0.6, Absolute Neuts (auto) 3.4, Absolute Lymphs (auto) 0.99, Nucleated RBC % 0 05/27/20 06:22: Sodium 141, Potassium 3.6, Chloride 107, Carbon Dioxide 28.0, Anion Gap 6, BUN 7, Creatinine 0.79, Estim Creat Clear Calc 77.51, Est GFR (MDRD) Af Amer 99, Est GFR (MDRD) Non-Af 82, BUN/Creatinine Ratio 8.9 L, Glucose 93, Calcium 7.9 L, Total Bilirubin 5.30 H, Direct Bilirubin 2.98 H, AST 358 H, ALT 504 H, Alkaline Phosphatase 191 H, Total Protein 5.7 L, Albumin 2.7 L, Globulin 3.0, Albumin/Globulin Ratio 0.9, TSH 0.90 Current Medications Acetaminophen (Acetaminophen 500 Mg Tablet) 1,000 mg PO TID [facility] Last Admin: 05/27/20 05:51 Dose: Not Given Documented by: Atorvastatin Calcium (Atorvastatin Calcium 20 Mg Tablet) 20 mg PO DAILY [facility] Hydralazine HCl (Hydralazine 20 Mg/Ml Vial) 5 mg IV Q4H PRN PRN PRN Reason: BLOOD PRESSURE Last Admin: 05/26/20 16:02 Dose: 5 mg Documented by: Sodium Chloride () 500 mls @ 15 mls/hr IV PRN PRN PRN Reason: Blood Transfusion Sodium Chloride () 250 mls @ 15 mls/hr IV .[id number] PRN PRN Reason: Saline Flush Last Infusion: 05/27/20 05:38 Dose: 0 mls/hr Documented by: Sodium Chloride () 250 mls @ 15 mls/hr IV .[id number] PRN PRN Reason: Additional IVPB Infusion Piperacillin Sod/Tazobactam (Sod 3.375 gm/ Sodium Chloride) 50 mls @ 12.5 mls/hr IV Q8 [facility] Last Admin: 05/27/20 05:38 Dose: 12.5 mls/hr Documented by: Sodium Chloride () 1,000 mls @ 125 mls/hr IV .Q8H [facility] Last Admin: 05/27/20 02:20 Dose: 100 mls/hr Documented by: Metoprolol Succinate (Metoprolol(Xl)Succ 25 Mg Tablet) 25 mg PO QHS [facility] Last Admin: 05/26/20 21:34 Dose: 25 mg Documented by: Morphine Sulfate (Morphine 4 Mg/Ml Syringe) 4 mg IV Q3H PRN PRN PRN Reason: Pain Score 6-10 Last Admin: 05/26/20 22:25 Dose: 4 mg Documented by: Non-Formulary Medication (Non-Formulary) 200 PO QHS [facility] Last Admin: 05/26/20 22:22 Dose: 200 Documented by: Ondansetron HCl (Ondansetron 4 Mg/2 Ml Vial) 4 mg IV Q8H PRN PRN PRN Reason: NAUSEA/VOMITING Last Admin: 05/26/20 17:12 Dose: 4 mg Documented by: Oxycodone HCl (Oxycodone 5 Mg Tablet) 5 mg PO Q4H PRN PRN PRN Reason: Pain Score 4-5 Last Admin: 05/26/20 17:12 Dose: 5 mg Documented by: Sodium Chloride (0.9% Saline Lock 10 Ml Syringe) 10 - 40 ml IV UD PRN PRN Reason: SALINE FLUSH Throat Lozenges (Benzocaine/Menthol 1 Lozenge) 1 lozenge MUCOUS MEM Q2H PRN PRN PRN Reason: SORE THROAT Last Admin: 05/26/20 16:02 Dose: 1 lozenge Documented by: Thyroid (Thyroid 60 Mg Tablet) 90 mg PO DAILY [facility] Last Admin: 05/27/20 09:07 Dose: 90 mg Documented by: Medical Necessity - Tobacco Use Smoking Status: Never smoker Tobacco Use: Non-smoker, Secondhand Assessment/Plan All Active Problems (Last Updated 04/29/20 @ 20:[address] Fbaio Sotomayor MD) Chest pain (Acute) Right upper quadrant pain (Acute) 49-year-old female with possible choledocholithiasis 1. Patient had laparoscopic cholecystectomy yesterday with cholangiogram. Cholangiogram showed a filling defect but there was some flow into the duodenum. Her LFTs are more elevated today. I discussed ERCP with her. I discussed the procedure in detail as well as the risks including not limited to bleeding, infection, perforation of the bile duct or bowel, pancreatitis. Patient understands risks and is when to proceed. I will take the patient for ERCP this afternoon if she does well and there are no issues she may be discharged either this evening or tomorrow morning. Momo Novoa MD Pager: [facility] [address] [place] [address], [address] [place] [address] Office:
[2020-05-27] MEDS: Acetaminophen 500 MG Tablet 1000 MG PO ×2 (11:09→21:12)
--- NOTE | 2020-05-27 13:26 | PCM.DC.GB ---
Discharge Diet: Light diet - advance as tolerated Discharge Activity: May not drive while taking narcotic pain medications., May Shower May shower in (days): 0 Lifting Restrictions: no lifting > 20 lb x2 weeks, no strenuous exercise for 4 wk Call your doctor if your incision/area has: Continuous Slow Oozing, Sudden Increased Bleeding, Increased Pain/ Swelling, Increased Redness, Foul Smelling Discharge, Swelling at the incision site Call your doctor if you observe: Fever of 101 or Higher Remove Dressing in (days):: 0 - Op sites, Steri-Strips worsening for 7 to 10 days without follow-up okay to remove Additional Instructions: Okay to take ibuprofen 400-600 mg PO q6hr PRN along with the Percocet. Avoid Tylenol since there is already Tylenol in the Percocet. Take all pain meds with food. Percocet can cause constipation recommend taking daily stool softener (i.e. Colace/docusate) while taking the pain meds. Recommend starting some MiraLAX in 1 to 2 days if no bowel movement. If still no bowel movement the following day recommend taking magnesium citrate half the bottle and waiting 4-6 hours if still no results take the other half the bottle. Allergies/Adverse Reactions: Allergies levofloxacin [From Levaquin] Adverse Reaction (Verified 05/26/20 05:23) Other Medications to take at Discharge Aspirin [Aspirin, Baby] 81 mg PO DAILY@0800 04/29/20 Cholecalciferol (Vitamin D3) [Vitamin D3] 5,000 units PO QHS 04/29/20 Mecobalamin [B12 Active] 1,000 mcg SL DAILY 04/29/20 Metoprolol Succinate 25 mg PO QHS 04/29/20 Naltrexone 6 mg PO QHS 04/29/20 Progesterone, Micronized [Progesterone] 200 mg PO QHS 04/29/20 Rosuvastatin Calcium 10 mg PO DAILY 04/29/20 Selenium 200 mcg PO QHS 04/29/20 Thyroid [[place] Thyroid] 90 mg PO DAILY 04/29/20 Oxycodone HCl/Acetaminophen [Percocet 5/325] 1 - 2 tab PO Q6H PRN PRN 5 Days #20 tab 05/27/20 The following prescriptions were given: Oxycodone HCl/Acetaminophen [Percocet 5/325] 1 - 2 tab PO Q6H PRN PRN 5 Days #20 tab PRN Reason: Pain Transmission Status: Received by [id number] Primary Care Physician: Raysa De Guzman DO [Primary Care Provider] - Test Results: Test results from this visit will be discussed in further detail at your follow-up appointment, if applicable. Please Follow Up With: Maeve Payton MD - P.m. and on the weekends call [phone] with any concerns When: For follow-up appointment in 2 weeks. Proposed Discharge Date: 05/28/20
--- NOTE | 2020-05-27 13:28 | PCM.DC.SUM ---
<Momo Novoa - Last Filed: 05/28/20 06:52> Discharge Date and Diagnosis - Problem List Patient Problems: Active and Suspected Problems (Last Updated 05/27/20 @ 14:[address] Maeve Payton MD) Right upper quadrant pain (Acute) Date of Discharge: 05/28/20 - Primary Discharge Diagnosis Acute Problems: Active Problems (Last Updated 05/27/20 @ 14:[address] Maeve Payton MD) Right upper quadrant pain (Acute) - Secondary Discharge Diagnosis Chronic Problems: Chronic Problems (Last Updated 05/27/20 @ 14:[address] Maeve Payton MD) Hypertension (Chronic) Hospital Course and Treatment Summary of Care Provided: The patient is a 49 year old F [] Patient Problems: Active and Suspected Problems (Last Updated 05/27/20 @ 14:[address] Maeve Payton MD) Right upper quadrant pain (Acute) - Physical Exam Vitals/I&O's: Vital Signs Temp Pulse Resp BP Pulse Ox 98.5 F 60 16 158/84 H 96 05/28/20 03:00 05/28/20 03:00 05/28/20 03:00 05/28/20 03:00 05/28/20 03:00 Oxygen Delivery Method Room Air Weight: 224 lb 6.4 oz Body Mass Index (BMI) 37.3 Intake and Output for Last 24 Hours 05/26/20 05/27/20 05/28/20 23:59 23:59 23:59 Intake Total 1173.58 / 1173.58 2596 / 2596 1129.79 / 1129.79 Output Total 350 / 350 750 / 750 300 / 300 Balance 823.58 / 823.58 1846 / 1846 829.79 / 829.79 Microbiology Past 72 Hours 05/26/20 09:00 Mucosa - Nose SARS-CoV-2 Antigen (Rapid) - Final Laboratory Results 05/27/20 06:22: WBC 5.1, RBC 4.30, Hgb 11.7 L, Hct 37.9, MCV 88.1 D, MCH 27.2, MCHC 30.9 L, RDW Std Deviation 41.0, RDW Coeff of Bar 12.9, Plt Count 153, MPV 13.7 H, Immature Gran % (Auto) 0.200, Neut % (Auto) 65.9, Lymph % (Auto) 19.4, Johnston % (Auto) 11.4 H, Eos % (Auto) 2.5, Baso % (Auto) 0.6, Absolute Neuts (auto) 3.4, Absolute Lymphs (auto) 0.99, Nucleated RBC % 0 05/27/20 06:22: Sodium 141, Potassium 3.6, Chloride 107, Carbon Dioxide 28.0, Anion Gap 6, BUN 7, Creatinine 0.79, Estim Creat Clear Calc 77.51, Est GFR (MDRD) Af Amer 99, Est GFR (MDRD) Non-Af 82, BUN/Creatinine Ratio 8.9 L, Glucose 93, Calcium 7.9 L, Total Bilirubin 5.30 H, Direct Bilirubin 2.98 H, AST 358 H, ALT 504 H, Alkaline Phosphatase 191 H, Total Protein 5.7 L, Albumin 2.7 L, Globulin 3.0, Albumin/Globulin Ratio 0.9, TSH 0.90 05/28/20 06:08: WBC 6.9, RBC 4.32, Hgb 11.5 L, Hct 37.4, MCV 86.6, MCH 26.6 L, MCHC 30.7 L, RDW Std Deviation 39.5, RDW Coeff of Bar 12.5, Plt Count 144 L, MPV 14.4 H, Immature Gran % (Auto) 0.600, Neut % (Auto) 78.9 H, Lymph % (Auto) 12.2 L, Johnston % (Auto) 7.9, Eos % (Auto) 0.1, Baso % (Auto) 0.3, Absolute Neuts (auto) 5.4, Absolute Lymphs (auto) 0.84, Nucleated RBC % 0 05/28/20 06:08: Sodium Pending, Potassium Pending, Chloride Pending, Carbon Dioxide Pending, Anion Gap Pending, BUN Pending, Creatinine Pending, Est GFR (MDRD) Af Amer Pending, Est GFR (MDRD) Non-Af Pending, BUN/Creatinine Ratio Pending, Glucose Pending, Calcium Pending, Total Bilirubin Pending, AST Pending, ALT Pending, Alkaline Phosphatase Pending, Total Protein Pending, Albumin Pending Current Medications Acetaminophen (Acetaminophen 500 Mg Tablet) 1,000 mg PO TID [facility] Last Admin: 05/28/20 05:43 Dose: 1,000 mg Documented by: Atorvastatin Calcium (Atorvastatin Calcium 20 Mg Tablet) 20 mg PO DAILY [facility] Last Admin: 05/27/20 21:12 Dose: 20 mg Documented by: Hydralazine HCl (Hydralazine 20 Mg/Ml Vial) 5 mg IV Q4H PRN PRN PRN Reason: BLOOD PRESSURE Last Admin: 05/26/20 16:02 Dose: 5 mg Documented by: Sodium Chloride () 500 mls @ 15 mls/hr IV PRN PRN PRN Reason: Blood Transfusion Sodium Chloride () 250 mls @ 15 mls/hr IV .[id number] PRN PRN Reason: Saline Flush Last Infusion: 05/28/20 05:45 Dose: 0 mls/hr Documented by: Sodium Chloride () 250 mls @ 15 mls/hr IV .[id number] PRN PRN Reason: Additional IVPB Infusion Piperacillin Sod/Tazobactam (Sod 3.375 gm/ Sodium Chloride) 50 mls @ 12.5 mls/hr IV Q8 [facility] Last Infusion: 05/28/20 06:42 Dose: 100 mls/hr Documented by: Sodium Chloride () 1,000 mls @ 125 mls/hr IV .Q8H [facility] Last Admin: 05/28/20 04:16 Dose: Not Given Documented by: Metoprolol Succinate (Metoprolol(Xl)Succ 25 Mg Tablet) 25 mg PO QHS [facility] Last Admin: 05/27/20 21:12 Dose: 25 mg Documented by: Morphine Sulfate (Morphine 4 Mg/Ml Syringe) 4 mg IV Q3H PRN PRN PRN Reason: Pain Score 6-10 Last Admin: 05/26/20 22:25 Dose: 4 mg Documented by: Non-Formulary Medication (Non-Formulary) 200 PO QHS [facility] Last Admin: 05/27/20 21:12 Dose: 200 Documented by: Ondansetron HCl (Ondansetron 4 Mg/2 Ml Vial) 4 mg IV Q8H PRN PRN PRN Reason: NAUSEA/VOMITING Last Admin: 05/28/20 04:15 Dose: 4 mg Documented by: Oxycodone HCl (Oxycodone 5 Mg Tablet) 5 mg PO Q4H PRN PRN PRN Reason: Pain Score 4-5 Last Admin: 05/26/20 17:12 Dose: 5 mg Documented by: Sodium Chloride (0.9% Saline Lock 10 Ml Syringe) 10 - 40 ml IV UD PRN PRN Reason: SALINE FLUSH Throat Lozenges (Benzocaine/Menthol 1 Lozenge) 1 lozenge MUCOUS MEM Q2H PRN PRN PRN Reason: SORE THROAT Last Admin: 05/26/20 16:02 Dose: 1 lozenge Documented by: Thyroid (Thyroid 60 Mg Tablet) 90 mg PO DAILY [facility] Last Admin: 05/27/20 09:07 Dose: 90 mg Documented by: Home Medications: Medications to take at Discharge Aspirin [Aspirin, Baby] 81 mg PO DAILY@0800 04/29/20 Cholecalciferol (Vitamin D3) [Vitamin D3] 5,000 units PO QHS 04/29/20 Mecobalamin [B12 Active] 1,000 mcg SL DAILY 04/29/20 Metoprolol Succinate 25 mg PO QHS 04/29/20 Naltrexone 6 mg PO QHS 04/29/20 Progesterone, Micronized [Progesterone] 200 mg PO QHS 04/29/20 Rosuvastatin Calcium 10 mg PO DAILY 04/29/20 Selenium 200 mcg PO QHS 04/29/20 Thyroid [[place] Thyroid] 90 mg PO DAILY 04/29/20 Oxycodone HCl/Acetaminophen [Percocet 5/325] 1 - 2 tab PO Q6H PRN PRN 5 Days #20 tab 05/27/20 ondansetron HCl 4 mg tablet 4 mg PO Q6H PRN #10 tab 05/30/20 Following Prescriptions Were Given to Patient: Oxycodone HCl/Acetaminophen [Percocet 5/325] 1 - 2 tab PO Q6H PRN PRN 5 Days #20 tab PRN Reason: Pain Transmission Status: Received by [id number] Primary Care Physician: Raysa De Guzman DO [Primary Care Provider] - <Maeve Payton - Last Filed: 05/30/20 12:55> Discharge Date and Diagnosis Date of Admission: 05/26/20 Date of Discharge: 05/28/20 - Primary Discharge Diagnosis Acute Problems: Active Problems (Last Updated 04/29/20 @ 20:[address] Fabio Sotomayor MD) Right upper quadrant pain (Acute) Cholelithiasis Biliary obstruction - Secondary Discharge Diagnosis Chronic Problems: Hypertension Hospital Course and Treatment Imaging Results: 05/27/20 15:15 ERCP Biliary Only [RAD] Urgent O.R. Fluoro for C-Arm [RAD] Urgent Hospitalist?hypertension Operations: cholecystecomy, ERCP Summary of Care Provided: The patient is a 49 year admitted due to right upper quadrant pain. Patient's ultrasound did show distended gallbladder with a normal wall no pericholecystic fluid and normal common bile duct per ultrasound. CT abdomen pelvis was also done showed dilated intrahepatic ducts and a common bile duct of 7 mm. Patient's LFTs were also elevated on admission. Patient did have elevated systolic blood pressure in the 200s on admission-this may have been due to pain. Hospitalist was consulted for help with they have been also due to blood pressure management. Patient was taken for laparoscopic cholecystectomy by Dr. Dr. Payton on 05/26/2020 intraoperative cholangiogram did show a filling defect of the mid CBD. Patient underwent an ERCP with Dr. Novoa on 05/27/20.Patient had pancreatic and common bile duct stent placed.Patient was able to tolerate a diet was able be DC'd on 05/28/2020. - Physical Exam Vitals/I&O's: Vital Signs Temp Pulse Resp BP Pulse Ox 98.7 F 51 L 14 112/62 97 05/27/20 11:49 05/27/20 11:49 05/27/20 11:49 05/27/20 11:49 05/27/20 11:49 Oxygen Delivery Method Room Air Weight: 224 lb 6.4 oz Body Mass Index (BMI) 37.3 Intake and Output for Last 24 Hours 05/25/20 05/26/20 05/27/20 23:59 23:59 23:59 Intake Total 1173.58 / 1173.58 1111 / 1111 Output Total 350 / 350 450 / 450 Balance 823.58 / 823.58 661 / 661 General: Alert, Oriented x3, Cooperative, No apparent distress HEENT: Atraumatic Lungs: Normal air movement Cardiovascular: Regular rate Abdomen: Soft, Non-Distended, Tender - Near incision clean dry and intact/dressed, no peritoneal signs Extremities: No clubbing, No cyanosis, No edema Neurological: Cranial nerves II-XII grossly intact Psych/Mental Status: Normal Affect Microbiology Past 72 Hours 05/26/20 09:00 Mucosa - Nose SARS-CoV-2 Antigen (Rapid) - Final Laboratory Results 05/27/20 06:22: WBC 5.1, RBC 4.30, Hgb 11.7 L, Hct 37.9, MCV 88.1 D, MCH 27.2, MCHC 30.9 L, RDW Std Deviation 41.0, RDW Coeff of Bar 12.9, Plt Count 153, MPV 13.7 H, Immature Gran % (Auto) 0.200, Neut % (Auto) 65.9, Lymph % (Auto) 19.4, Johnston % (Auto) 11.4 H, Eos % (Auto) 2.5, Baso % (Auto) 0.6, Absolute Neuts (auto) 3.4, Absolute Lymphs (auto) 0.99, Nucleated RBC % 0 05/27/20 06:22: Sodium 141, Potassium 3.6, Chloride 107, Carbon Dioxide 28.0, Anion Gap 6, BUN 7, Creatinine 0.79, Estim Creat Clear Calc 77.51, Est GFR (MDRD) Af Amer 99, Est GFR (MDRD) Non-Af 82, BUN/Creatinine Ratio 8.9 L, Glucose 93, Calcium 7.9 L, Total Bilirubin 5.30 H, Direct Bilirubin 2.98 H, AST 358 H, ALT 504 H, Alkaline Phosphatase 191 H, Total Protein 5.7 L, Albumin 2.7 L, Globulin 3.0, Albumin/Globulin Ratio 0.9, TSH 0.90 Current Medications Acetaminophen (Acetaminophen 500 Mg Tablet) 1,000 mg PO TID [facility] Last Admin: 05/27/20 11:09 Dose: 1,000 mg Documented by: Atorvastatin Calcium (Atorvastatin Calcium 20 Mg Tablet) 20 mg PO DAILY [facility] Hydralazine HCl (Hydralazine 20 Mg/Ml Vial) 5 mg IV Q4H PRN PRN PRN Reason: BLOOD PRESSURE Last Admin: 05/26/20 16:02 Dose: 5 mg Documented by: Sodium Chloride () 500 mls @ 15 mls/hr IV PRN PRN PRN Reason: Blood Transfusion Sodium Chloride () 250 mls @ 15 mls/hr IV .[id number] PRN PRN Reason: Saline Flush Last Infusion: 05/27/20 05:38 Dose: 0 mls/hr Documented by: Sodium Chloride () 250 mls @ 15 mls/hr IV .[id number] PRN PRN Reason: Additional IVPB Infusion Piperacillin Sod/Tazobactam (Sod 3.375 gm/ Sodium Chloride) 50 mls @ 12.5 mls/hr IV Q8 [facility] Last Admin: 05/27/20 05:38 Dose: 12.5 mls/hr Documented by: Sodium Chloride () 1,000 mls @ 125 mls/hr IV .Q8H [facility] Last Admin: 05/27/20 13:15 Dose: Not Given Documented by: Metoprolol Succinate (Metoprolol(Xl)Succ 25 Mg Tablet) 25 mg PO QHS [facility] Last Admin: 05/26/20 21:34 Dose: 25 mg Documented by: Morphine Sulfate (Morphine 4 Mg/Ml Syringe) 4 mg IV Q3H PRN PRN PRN Reason: Pain Score 6-10 Last Admin: 05/26/20 22:25 Dose: 4 mg Documented by: Non-Formulary Medication (Non-Formulary) 200 PO QHS [facility] Last Admin: 05/26/20 22:22 Dose: 200 Documented by: Ondansetron HCl (Ondansetron 4 Mg/2 Ml Vial) 4 mg IV Q8H PRN PRN PRN Reason: NAUSEA/VOMITING Last Admin: 05/26/20 17:12 Dose: 4 mg Documented by: Oxycodone HCl (Oxycodone 5 Mg Tablet) 5 mg PO Q4H PRN PRN PRN Reason: Pain Score 4-5 Last Admin: 05/26/20 17:12 Dose: 5 mg Documented by: Sodium Chloride (0.9% Saline Lock 10 Ml Syringe) 10 - 40 ml IV UD PRN PRN Reason: SALINE FLUSH Throat Lozenges (Benzocaine/Menthol 1 Lozenge) 1 lozenge MUCOUS MEM Q2H PRN PRN PRN Reason: SORE THROAT Last Admin: 05/26/20 16:02 Dose: 1 lozenge Documented by: Thyroid (Thyroid 60 Mg Tablet) 90 mg PO DAILY [facility] Last Admin: 05/27/20 09:07 Dose: 90 mg Documented by: Discharge Diet: Light diet - advance as tolerated Discharge Activity: May not drive while taking narcotic pain medications., May Shower May shower in (days): 0 Call your doctor if your incision/area has: Continuous Slow Oozing, Sudden Increased Bleeding, Increased Pain/ Swelling, Increased Redness, Foul Smelling Discharge, Swelling at the incision site Call your doctor if you observe: Fever of 101 or Higher Remove Dressing in (days):: 0 - Op sites, Steri-Strips worsening for 7 to 10 days without follow-up okay to remove Please Follow Up With: Maeve Payton MD - P.m. and on the weekends call [phone] with any concerns When: For follow-up appointment in 2 weeks. Additional Instructions: Okay to take ibuprofen 400-600 mg PO q6hr PRN along with the Percocet. Avoid Tylenol since there is already Tylenol in the Percocet. Take all pain meds with food. Percocet can cause constipation recommend taking daily stool softener (i.e. Colace/docusate) while taking the pain meds. Recommend starting some MiraLAX in 1 to 2 days if no bowel movement. If still no bowel movement the following day recommend taking magnesium citrate half the bottle and waiting 4-6 hours if still no results take the other half the bottle. Disposition: Home Patient Condition:: Good Medical Necessity - Tobacco Use Smoking Status: Never smoker Tobacco Use: Non-smoker, Secondhand Meaningful Use Info Meaningful Use Diagnoses (Choose all that apply): None applicable
--- NOTE | 2020-05-27 15:15 | RAD_ITS ---
STUDY: FLUOROSCOPIC ERCP BILIARY DUCTAL SYSTEM REASON FOR EXAM: Female, 49 years old. PAIN FLUOROSCOPY TIME (if supplied): ( 8:34 ) minutes/seconds TECHNIQUE: 3 fluoroscopic spot images. COMPARISON: Prior intraoperative cholangiogram 05/26/2020 FINDINGS: A triangular-shaped filling defect is redemonstrated in the common bile duct within 2 cm of the ampulla. Subsequent imaging demonstrates removal of the filling defect. RAD/ERCP Biliary Only IMPRESSION: Reidentification of filling defect of the common bile duct and subsequent removal. Electronically Signed: Jacque Nieto MD at 16:52 EST , Service support ,
[2020-05-27] MEDS: Lactated Ringers 1,000 ML 100 ML IV (16:15)
--- NOTE | 2020-05-27 16:59 | OP.ERCP_ITS ---
Patient Name: Tita Campos Procedure Date: 05/27/2020 2:21 PM Date of : 1970 Age: 49 Procedure: ERCP Indications: Common bile duct stone(s) Providers: Momo Novoa MD Medicines: General Anesthesia Patient Profile: This is a 49 year old female. Refer to note in patient chart for documentation of history and physical. Complications: No immediate complications. Estimated blood loss: Minimal. Procedure: Pre-Anesthesia Assessment: - Prior to the procedure, a History and Physical was performed, and patient medications and allergies were reviewed. The patient's tolerance of previous anesthesia was also reviewed. The risks and benefits of the procedure and the sedation options and risks were discussed with the patient. All questions were answered, and informed consent was obtained. Prior Anticoagulants: The patient has taken no previous anticoagulant or antiplatelet agents. After reviewing the risks and benefits, the patient was deemed in satisfactory condition to undergo the procedure. After obtaining informed consent, the scope was passed under direct vision. Throughout the procedure, the patient's blood pressure, pulse, and oxygen saturations were monitored continuously. The duodenoscope was introduced through the mouth, and advanced to the duodenum and used to inject contrast into the bile duct. The ERCP was accomplished without difficulty. The patient tolerated the procedure well. Scope In: 3:40:19 PM Scope Out: 4:18:18 PM Total Procedure Duration Time 0 hours 37 minutes 59 seconds Findings: 0.035 inch x 260 cm straight Hydra Jagwire was passed into the ventral pancreatic duct. The ventral pancreatic duct was then deeply cannulated. Contrast was injected. A 0.035 inch x 260 cm straight Dreamwire was passed into the biliary tree. The bile duct was then deeply cannulated over the guidewire. Contrast was injected. Biliary sphincterotomy was made with a monofilament sphincterotome using ERBE electrocautery. There was no post-sphincterotomy bleeding. The biliary tree was swept with a 12 mm balloon starting at the bifurcation. No stones were removed. One stone remained. One 5 Fr by 7 cm plastic stent with a single external flap and a single internal flap was placed into the common bile duct. Bile flowed through the stent. The stent was in good position. One 5 Fr by 5 cm plastic stent with a 3/4 external pigtail and a single internal flap was placed into the ventral pancreatic duct. Clear fluid flowed through the stent. The stent was in good position. Impression: - Choledocholithiasis was found. Partial removal was accomplished with biliary sphincterotomy; a stent was inserted. - A biliary sphincterotomy was performed. - The biliary tree was swept. - One plastic stent was placed into the common bile duct. - One plastic stent was placed into the ventral pancreatic duct. Recommendation: - [facility]. Procedure Code(s): --- Professional --- 17206, Endoscopic retrograde cholangiopancreatography (ERCP); with placement of endoscopic stent into biliary or pancreatic duct, including pre- and post-dilation and guide wire passage, when performed, including sphincterotomy, when performed, each stent [id number], 59, Endoscopic retrograde cholangiopancreatography (ERCP); with placement of endoscopic stent into biliary or pancreatic duct, including pre- and post-dilation and guide wire passage, when performed, including sphincterotomy, when performed, each stent Diagnosis Code(s): --- Professional --- K80.50, Calculus of bile duct without cholangitis or cholecystitis without obstruction CPT copyright 2017 [employer]. All rights reserved. The codes documented in this report are preliminary and upon carpet floor layer apprentice review may be revised to meet current compliance requirements. Momo Novoa MD 05/27/2020 4:58:36 PM This report has been signed electronically. Number of Addenda: 0 Note Initiated On: 05/27/2020 2:21 PM
--- NOTE | 2020-05-27 16:59 | OP.CCLET_ITS ---
05/27/2020 Raysa De Guzman [address] [facility] [address] [place] [address] Re : ERCP procedure for Tita Campos Dear Dr. De Guzman This procedure was performed on Wednesday, May 27, 2020. My impressions and recommendations are as follows: Impressions : - Choledocholithiasis was found. Partial removal was accomplished with biliary sphincterotomy; a stent was inserted. - A biliary sphincterotomy was performed. - The biliary tree was swept. - One plastic stent was placed into the common bile duct. - One plastic stent was placed into the ventral pancreatic duct. Recommendations : - Return [facility] care. My findings are described in the full procedure note, which is enclosed. If I can be of further assistance, please feel free to contact me at Doctor phone number(s): , Work: . Sincerely, Momo Novoa MD 05/27/2020 4:58:36 PM This report has been signed electronically.
[2020-05-27] MEDS: 0.9% Normal Saline 1,000 ML 125 ML IV (17:37)
[2020-05-27] MEDS: Metoprolol(XL)Succ 25 MG Tablet PO (21:12)
[2020-05-27] MEDS: NON-FORMULARY 200 PO (21:12)
[2020-05-27] MEDS: Atorvastatin Calcium 20 MG Tablet PO (21:12)
[2020-05-28 03:00] VITALS: BP 158/84; PULSE 60; RESP 16; TEMP 36.9; O2SAT 96
[2020-05-28] MEDS: Ondansetron 4 MG/2 ML Vial IV (04:15)
[2020-05-28] MEDS: Acetaminophen 500 MG Tablet 1000 MG PO (05:43)
--- NOTE | 2020-05-28 06:23 | NURSING ---
Dr. Novoa ordered pt to be on reg diet and ok to run zosyn wide open. pt can be d/c anytime.
[2020-05-28 06:42] LABS: Absolute Lymphocyte Count 0.84 X10^3/uL (0.83-4.51); Absolute Neutrophil Count 5.4 X10^3/uL (2.0-7.7); Basophil# 0.02 X10^3/uL; Basophil% 0.3 % (0-1); Eosinophil# 0.01 X10^3/uL; Eosinophils% 0.1 % (0-5); Hematocrit 37.4 % (37-47); Hemoglobin 11.5 g/dL (12.0-15.0); Lymphocyte # 0.84 X10^3/ul (4.0); Lymphocyte % 12.2 % (19-41); Mean Corp Hgb Conc 30.7 g/dL (32-36); Mean Corpuscular Hgb 26.6 pg (27.0-32.0); Mean Corpuscular Volume 86.6 fL (81-99); Mean Platelet Vol. 14.4 fl (6.2-12.0); Monocyte# 0.54 X10^3/uL; Monocyte% 7.9 % (0-10); NRBC Flagged by Analyzer 0 % (0-5); Neutrophil # 5.41 X10^3/uL (2.7-7.7); Neutrophil % 78.9 % (47-70); Platelet Count 144 K/mm3 (150-450); RBC Distribution Width CV 12.5 % (11.6-14.6); RBC Distribution Width SD 39.5 fl (35.1-43.9); Red Blood Count 4.32 M/mm3 (4.2-5.4); White Blood Count 6.9 K/mm3 (4.4-11.0)
[2020-05-28 07:10] LABS: ALB/GLOB Ratio 0.9 RATIO (0.9-2.4); AST(SGOT) 192 U/L (15-37); Alanine Aminotransfer ALT/SGPT 377 U/L (13-56); Albumin, Serum 2.7 g/dL (3.2-5.0); Alkaline Phosphatase 189 U/L (45-117); Anion Gap 7 (5-15); BUN 8 mg/dL (7-18); Chloride 108 mmol/L (98-107); Creatinine, Serum 0.54 mg/dL (0.55-1.02); EST Glomerular Filtration Rate 129 mL/min (>60); Est Glom Filt Rate - Afr Amer 156 mL/min (>60); Globulin 3.1 g/dL (2.2-4.2); Glucose 88 mg/dL (74-106); Potassium 3.8 mmol/L (3.5-5.1); Protein, Total 5.8 g/dL (6.4-8.2); Sodium Level 139 mmol/L (136-145)
[2020-05-28 07:29] VITALS: BP 167/82; PULSE 62; RESP 16; TEMP 36.5; O2SAT 97
== END 2020-05-28 09:16 | disposition home or self-care (01) ==
LOC: ED 08:58 → MS3 10:16
PROVIDERS: Internal Medicine; Physician Assistant; Surgery; Admitting Provider Surgery; Emergency Provider Student in an Organized Health Care Education/Training Program; PCP Internal Medicine; Visit Provider Surgery
PROC: (CPT 47610; principal; 2020-05-26 10:40)
DX: K80.10 Calculus of gallbladder with chronic cholecystitis without obstruction (principal); I10 Essential (primary) hypertension; E78.5 Hyperlipidemia, unspecified; E06.3 Autoimmune thyroiditis; R00.1 Bradycardia, unspecified; R94.31 Abnormal electrocardiogram [ECG] [EKG]; R79.89 Other specified abnormal findings of blood chemistry; K80.50 Calculus of bile duct without cholangitis or cholecystitis without obstruction; Z79.899 Other long term (current) drug therapy; Z86.16 Personal history of COVID-19; Z79.82 Long term (current) use of aspirin
CPT/HCPCS: 43274 ×2; 47563; 36415; 74177; 74300; 74328; 76000; 76705; 80053; 80076; 82248; 83690; 84443; 85025; 87426; 88304; 93005; 96361; 96365; 96366; 96375; 96376; 99218; 99251; 99284; J7030; J7050; J7120; Q9967; A4216; C1769; G0378; G0463; J2405

== ENCOUNTER 2020-07-14 07:30 | Day surgery (SDC) | payer OTHER, SELFPAY ==
[2020-05-26 09:49] VITALS: BMI 37.3
[2020-07-08 13:03] VITALS: BMI 36.1
--- NOTE | 2020-07-13 13:50 | EKG12_ITS ---
Test Reason : PRE OP Blood Pressure : / mmHG Vent. Rate : 064 BPM Atrial Rate : 064 BPM P-R Int : 162 ms QRS Dur : 074 ms QT Int : 390 ms P-R-T Axes : 071 046 056 degrees QTc Int : 402 ms Normal sinus rhythm with sinus arrhythmia Normal ECG Confirmed by GOOD GIBBS, LEXIS ([id number]), non linear editor DONYA PITTS ([id number]) on 07/14/2020 9:26:45 AM Referred By: Raysa De Guzman Confirmed By:LEXIS FUNK MD
[2020-07-14] VITALS (7 sets, daily range): BP systolic 121–149; BP diastolic 73–89; PULSE 52–72; RESP 16; TEMP 36.2–36.7; O2SAT 96–100; BMI 36.6
--- NOTE | 2020-07-14 07:00 | HP_ITS ---
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 Is patient in pain?: No Allergies levofloxacin [From Levaquin] Adverse Reaction (Verified 07/08/20 13:04) Other Medications Aspirin [Aspirin, Baby] 81 mg PO DAILY@0800 04/29/20 [History Confirmed 07/08/20] Cholecalciferol (Vitamin D3) [Vitamin D3] 5,000 units PO QHS 04/29/20 [History Confirmed 07/08/20] Mecobalamin [B12 Active] 1,000 mcg SL DAILY 04/29/20 [History Confirmed 07/08/20] Naltrexone 6 mg PO QHS 04/29/20 [History Confirmed 07/08/20] Progesterone, Micronized [Progesterone] 200 mg PO QHS 04/29/20 [History Confirmed 07/08/20] Rosuvastatin Calcium 10 mg PO DAILY 04/29/20 [History Confirmed 07/08/20] Selenium 200 mcg PO QHS 04/29/20 [History Confirmed 07/08/20] Thyroid [Fulda Thyroid] 90 mg PO DAILY 04/29/20 [History Confirmed 07/08/20] ondansetron HCl 4 mg tablet 4 mg PO Q6H PRN #10 tab 05/30/20 [Rx Confirmed 07/08/20] amlodipine 5 mg tablet 5 mg PO DAILY 07/08/20 [History Confirmed 07/08/20] PFSH Medical History (Updated 07/08/20 @ 13:09 by Bisi Brown) Chest pain (Acute) Right upper quadrant pain (Acute) Hypercholesteremia (Acute) Hypertension (Chronic) Deann's disease (Acute) Hypothyroidism (Acute) Surgical History (Updated 07/08/20 @ 13:10 by Bisi Brown) History of laparoscopic cholecystectomy (Acute) History of endoscopic retrograde cholangiopancreatography (Acute ~05/27/20) History of tubal ligation (Acute) Social History (Updated 07/08/20 @ 14:[address] Momo Novoa MD) Smoking Status: Never smoker HPI HPI HPI: AMBER KING, is a 49 F who presents to the office today for HPI HPI Surgical H&P: Yes HPI: AMBER KING, is a 49 F who presents to the office today for follow-up. The patient had ERCP with stent placement in early May. She reports she is doing well with no nausea or vomiting and no abdominal pain. She is tolerating a diet. ROS General General: Yes fatigue; no weight change, appetite, colon cancer, breast cancer or weakness HEENT HEENT: No difficulty swallowing, eye injury, eye surgery, swollen glands or hoarseness Endo Endocrine: Yes thyroid disease; no diabetes mellitus, thyroid cancer, Hair loss, heat intolerance or cold intolerance Skin Skin: No rash or changing moles Breast Breast: No left breast lump, right breast lump, nipple discharge, breast pain, abnormal mammogram, abnormal US or breast enlargement Musc Musculoskeletal: No back problems, arthritis, rheumatoid arthritis, gout or joint pain Cardio Cardiovascular: No murmur, pacemaker, heart disease, atrial fibrillation, high blood pressure, heart attack, heart stent, palpitations, shortness of breat with exertion or chest pain Psych Psychiatric: No depression, anxiety or hearing voices Resp Respiratory: No shortness of breath, No sleep apnea, No cough, No COPD, No asthma, No emphysema, No wheezing Gastro Gastrointestinal: No abdominal pain, No nausea or vomiting, No diarrhea, No constipation, No blood in stool, No acid reflux, No hemorrhoids, No ulcers, No gallbladder problem, No black,tarry stools Agusto Hematologic: No blood thinners, No blood disorders, No bleeding, No anemia, No blood clots Neuro Neurologic: No system reviewed and no additional complaints, except as docu, No as per HPI, No abnormal walking, No abnormal hearing, No abnormal movements, No abnormal speech, No behavioral changes, No burning sensations, No confusion, No seizure-like activity, No unsteadiness, No dizziness, No localized weakness, No frequent falls, No headache(s), No lack of coordination, No loss of vision, No memory loss, No numbness, No other visual disturbances, No radiating pain, No restless legs, No sensory deficit, No fainting, No tingling, No tremor(s), No weakness, No other Exam Const General: cooperative Orientation: alert, oriented x3 Chest Breast Palpation: No nipple discharge Resp Effort & Inspection: normal respiratory effort Auscultation: clear to auscultation bilaterally Cardio Rate: regular rate Rhythm: regular rhythm Heart Sounds: no murmurs GI Inspection: non-distended Palpation: soft, nontender Assessment & Plan Problems 1. Choledocholithiasis K80.50 Plan The patient had choledocholithiasis and I was unable to remove one of the stones and a stent was placed. The patient needs repeat ERCP with stent and stone removal. I discussed ERCP once again with her in detail. I discussed the risks including but not limited to bleeding, infection, perforation of bile duct or bowel, pancreatitis. Patient understands all the risks and is scheduled for ERCP with stent and stone removal next week. I explained endoscopy in detail to the patient. I explained the risks including but not limited to stroke or heart attack with anesthesia, perforation of the GI tract, bleeding, infection. I explained that any of these could necessitate further emergency surgery. The patient understands and all questions were answered sufficiently. The patient wishes to proceed with procedure. Momo Novoa MD Pager: [facility] [address] [place] [address], [address] [place] [phone] Office: Orders Orders: ERCP Biliary Only Today K80.50 Coding Level of Care Code Global Post Op Diagnoses Choledocholithiasis K80.50 I have re-examined the patient. There are no clinical changes since date of exam.
[2020-07-14] MEDS: Lactated Ringers 1,000 ML 100 ML IV (08:01)
--- NOTE | 2020-07-14 08:30 | RAD_ITS ---
STUDY: ERCP REASON FOR EXAM: Female, 49 years old. PAIN FLUOROSCOPY TIME (if supplied): ( 3 minutes and 4 seconds ) minutes/seconds. A single loop of 4 images were submitted. TECHNIQUE: An ERCP was performed by the surgeon. Imaging was submitted. COMPARISON: Comparison is made with prior study dated 05/27/2020. FINDINGS: The indwelling stent has been removed. There was successful removal of the distal common bile duct stone. RAD/ERCP Biliary Only IMPRESSION: Status post biliary stent removal with removal of the distal common bile duct stone. Electronically Signed: Roddy Dennis MD at 14:33 EDT , Service support ,
--- NOTE | 2020-07-14 09:46 | OP.CCLET_ITS ---
07/14/2020 Raysa De Guzman [address] [place] [address] Re : ERCP procedure for Tita Campos Dear Dr. De Guzman This procedure was performed on June. My impressions and recommendations are as follows: Impressions : - Choledocholithiasis was found. Complete removal was accomplished by balloon extraction. - Two stents were removed from the biliary tree and the pancreatic duct. - The biliary tree was swept. Recommendations : - Discharge patient to home. - Resume previous diet. - Continue present medications. My findings are described in the full procedure note, which is enclosed. If I can be of further assistance, please feel free to contact me at Doctor phone number(s): , Work: . Sincerely, Momo Novoa MD 07/14/2020 9:45:53 AM This report has been signed electronically.
--- NOTE | 2020-07-14 09:46 | OP.ERCP_ITS ---
Patient Name: Tita Campos Procedure Date: 07/14/2020 9:14 AM Date of : 1970 Age: 49 Procedure: ERCP Indications: Common bile duct stone(s) Providers: Momo Novoa MD Referring MD: Raysa De Guzman Medicines: General Anesthesia Patient Profile: This is a 49 year old female. Refer to note in patient chart for documentation of history and physical. Complications: No immediate complications. Procedure: Pre-Anesthesia Assessment: - Prior to the procedure, a History and Physical was performed, and patient medications and allergies were reviewed. The patient's tolerance of previous anesthesia was also reviewed. The risks and benefits of the procedure and the sedation options and risks were discussed with the patient. All questions were answered, and informed consent was obtained. Prior Anticoagulants: The patient has taken no previous anticoagulant or antiplatelet agents. After reviewing the risks and benefits, the patient was deemed in satisfactory condition to undergo the procedure. After obtaining informed consent, the scope was passed under direct vision. Throughout the procedure, the patient's blood pressure, pulse, and oxygen saturations were monitored continuously. The duodenoscope was introduced through the mouth, and advanced to the duodenum and used to inject contrast into the bile duct. The ERCP was accomplished without difficulty. The patient tolerated the procedure well. Scope In: 9:30:42 AM Scope Out: 9:41:52 AM Total Procedure Duration Time 0 hours 11 minutes 10 seconds Findings: Two stents were removed from the biliary tree and the pancreatic duct using a snare. A 0.035 inch x 260 cm straight Dreamwire was passed into the biliary tree. The bile duct was then deeply cannulated over the guidewire. Contrast was injected. I personally interpreted the bile duct images. There was brisk flow of contrast through the ducts. The lower third of the main bile duct contained one stone mm. The biliary tree was swept with a 12 mm balloon starting at the bifurcation. One stone was removed. No stones remained. The endoscope was withdrawn from the patient. Impression: - Choledocholithiasis was found. Complete removal was accomplished by balloon extraction. - Two stents were removed from the biliary tree and the pancreatic duct. - The biliary tree was swept. Recommendation: - Discharge patient to home. - Resume previous diet. - Continue present medications. Procedure Code(s): --- Professional --- 26249, Endoscopic retrograde cholangiopancreatography (ERCP); with removal of foreign body(s) or stent(s) from biliary/pancreatic duct(s) 10263, Endoscopic retrograde cholangiopancreatography (ERCP); with removal of calculi/debris from biliary/pancreatic duct(s) Diagnosis Code(s): --- Professional --- K80.50, Calculus of bile duct without cholangitis or cholecystitis without obstruction Z46.59, Encounter for fitting and adjustment of other gastrointestinal appliance and device CPT copyright 2017 [employer]. All rights reserved. The codes documented in this report are preliminary and upon fairing man review may be revised to meet current compliance requirements. Momo Novoa MD 07/14/2020 9:45:53 AM This report has been signed electronically. Number of Addenda: 0 Note Initiated On: 07/14/2020 9:14 AM
== END 2020-07-14 11:50 | disposition home or self-care (01) ==
LOC: EN 07:31 → AC 07:32
PROVIDERS: PCP Internal Medicine; Referring Provider Internal Medicine; Visit Provider Surgery
PROC: (CPT 43260; principal; 2020-07-14 08:00)
DX: K80.50 Calculus of bile duct without cholangitis or cholecystitis without obstruction (principal); E78.00 Pure hypercholesterolemia, unspecified; E06.3 Autoimmune thyroiditis; I10 Essential (primary) hypertension; Z79.899 Other long term (current) drug therapy; Z20.822 Contact with and (suspected) exposure to COVID-19
CPT/HCPCS: 43264; 43275; 74328; 76000; 87426; 93005; C9803; J7120; J2405

== ENCOUNTER → 2020-10-12 14:07 | Outpatient (CLI) | payer OTHER, SELFPAY ==
[2020-07-14 07:53] VITALS: BMI 36.6
--- NOTE | 2020-10-12 14:11 | MRI_ITS ---
STUDY: MRI RIGHT FOREFOOT WITHOUT CONTRAST REASON FOR EXAM: Right foot pain under second toe for several weeks. TECHNIQUE: Standardized fat and water weighted pulse sequences were obtained in all 3 orthogonal planes. COMPARISON: None. FINDINGS: Normal metatarsophalangeal joint of the hallux. Normal tibial and fibular sesamoids, with normal sesamoids-first metatarsal articulations. Normal interphalangeal joint of the hallux. Normal proximal and distal phalanges of the great toe. Normal medial and lateral heads of the flexor hallucis brevis tendons. Normal flexor and extensor hallucis longus tendons. There is mild capsulitis of the second metatarsophalangeal joint (inversion recovery short axis series 4 images 17, 18). Normal third through fifth metatarsophalangeal (MTP) joints. There is capsulitis of the second proximal phalanx (inversion recovery short axis series 4 image 26). Normal interphalangeal joints of the third through fifth toes. Normal proximal, middle and distal phalanges of the second through fifth toes. There is a soft tissue mass at the plantar aspect of the second webspace (T1 short axis series 2 images 17, 18) measuring 0.55 cm in transverse dimension. Normal flexor and extensor tendons of the second through fifth toes. Normal metatarsals. Normal intrinsic muscles of the forefoot. There are small ganglion cysts at the plantar aspect of the second and third metatarsophalangeal joints (T2 short axis series 3 image 16), the larger measuring 0.4 cm in transverse dimension. MRI/Lower Ext/No Jt/w/o IMPRESSION: Intermetatarsal neuroma of the second webspace. Capsulitis of the second metatarsophalangeal and second proximal interphalangeal joints. Small ganglion cysts at the plantar aspect of the second and third metatarsophalangeal joints. Electronically Signed: Sherman Deluca MD at 9:19 EDT Tel , Service support ,
== END ==
PROVIDERS: PCP Internal Medicine; Referring Provider Podiatrist; Visit Provider Podiatrist
DX: M77.41 Metatarsalgia, right foot (principal); G57.81 Other specified mononeuropathies of right lower limb
CPT/HCPCS: 73718

== ENCOUNTER → 2020-11-26 09:13 | Outpatient (CLI) | payer OTHER, SELFPAY ==
[2020-11-26 11:15] LABS: Estradiol 104.8 pg/mL; Follicle Stimulating Hormone 2.9 mIU/mL; Free T3 3.7 pg/mL (2.18-3.98); T4 Free Direct 0.66 ng/dL (0.76-1.46); Thyroid Stim Hormone (TSH) 1.02 uIU/mL (0.358-3.74)
[2020-11-29 08:26] LABS: Progesterone Level 18.46 ng/mL (See Comment)
== END ==
PROVIDERS: PCP Internal Medicine
DX: E03.8 Other specified hypothyroidism (principal); N95.1 Menopausal and female climacteric states
CPT/HCPCS: 36415; 82670; 83001; 84144; 84403; 84439; 84443; 84481

== ENCOUNTER → 2021-01-02 13:03 | Outpatient (CLI) | payer OTHER, SELFPAY ==
--- NOTE | 2021-01-02 13:11 | EKG12_ITS ---
Test Reason : PRE OP Blood Pressure : / mmHG Vent. Rate : 069 BPM Atrial Rate : 069 BPM P-R Int : 158 ms QRS Dur : 076 ms QT Int : 380 ms P-R-T Axes : 067 061 049 degrees QTc Int : 407 ms Normal sinus rhythm Normal ECG Confirmed by ALFONSO GIBBS, JOAQUÍN ([id number]), editor school photograph MARISOL BLACKWOOD ([id number]) on 01/03/2021 9:30:18 AM Referred By: Bakari Witt Confirmed By:JOAQUÍN HAMILTON MD
[2021-01-02 13:51] LABS: Hematocrit 40.4 % (37-47); Hemoglobin 13.1 g/dL (12.0-15.0); Mean Corp Hgb Conc 32.4 g/dL (32-36); Mean Corpuscular Hgb 27.7 pg (27.0-32.0); Mean Corpuscular Volume 85.4 fL (81-99); Mean Platelet Vol. 13.3 fl (6.2-12.0); Platelet Count 184 K/mm3 (150-450); RBC Distribution Width CV 12.1 % (11.6-14.6); RBC Distribution Width SD 38.1 fl (35.1-43.9); Red Blood Count 4.73 M/mm3 (4.2-5.4)
[2021-01-02 14:20] LABS: Anion Gap 5 (5-15); BUN 14 mg/dL (7-18); BUN/Creat Ratio 18.2 RATIO (10-20); Calcium,Total 8.9 mg/dL (8.5-10.1); Chloride 107 mmol/L (98-107); Creatinine, Serum 0.77 mg/dL (0.55-1.02); EST Glomerular Filtration Rate 84 mL/min (>60); Est Glom Filt Rate - Afr Amer 102 mL/min (>60); Glucose 87 mg/dL (74-106); Potassium 3.9 mmol/L (3.5-5.1); Sodium Level 140 mmol/L (136-145)
== END ==
PROVIDERS: PCP Internal Medicine; Referring Provider Otolaryngology; Visit Provider Otolaryngology
DX: Z01.818 Encounter for other preprocedural examination (principal)
CPT/HCPCS: 36415; 80048; 85027; 93005

== ENCOUNTER → 2021-01-30 14:54 | Outpatient (CLI) | payer OTHER, SELFPAY ==
--- NOTE | 2021-01-30 14:56 | BI_ITS ---
MAMMOGRAPHY - BILATERAL SCREENING REASON FOR EXAM: Female, 50 years old. Routine annual screening examination. PERTINENT HISTORY: Aunt with breast cancer. TECHNIQUE: Digital bilateral breast sarah (3D mammographic acquisition) in the CC and MLO projections. 2-D mediolateral oblique (MLO) and craniocaudad (CC) views of both breasts were obtained. CAD: Full Field Digital Mammography with Computer Added Detection was performed. COMPARISON: Comparison is made with prior study dated 01/29/2020 and 01/15/2019. FINDINGS: Breast Composition: There are scattered areas of fibroglandular density. There are no dominant masses or suspicious calcifications. No other significant abnormalities are identified. There has been no significant change since the prior study. BI/SCRN MAMM (CAD)W/SARAH BILAT IMPRESSION: Stable bilateral screening mammogram. Yearly follow-up mammogram recommended. (A) ASSESSMENT CATEGORY: BIRADS Category 1: Negative. A letter regarding these results will be sent to the patient by the facility within 30 days. Approximately 10% of breast cancers are not detected by mammography. A normal mammogram should not delay biopsy of a clinically suspicious abnormality. [id number] Electronically Signed: Roddy Dennis MD at 8:54 EST , Service support ,
== END ==
PROVIDERS: PCP Internal Medicine; Referring Provider Internal Medicine; Visit Provider Internal Medicine
DX: Z12.31 Encounter for screening mammogram for malignant neoplasm of breast (principal)
CPT/HCPCS: 77063; 77067

== ENCOUNTER → 2021-03-23 12:25 | Outpatient (CLI) | payer OTHER, SELFPAY ==
[2021-03-23 16:35] LABS: Estradiol 43.3 pg/mL; Follicle Stimulating Hormone 11.5 mIU/mL; Free T3 5.2 pg/mL (2.18-3.98); T4 Free Direct 0.95 ng/dL (0.76-1.46); Thyroid Stim Hormone (TSH) < 0.01 uIU/mL (0.358-3.74)
== END ==
PROVIDERS: PCP Internal Medicine
DX: E06.3 Autoimmune thyroiditis (principal); E28.8 Other ovarian dysfunction
CPT/HCPCS: 36415; 82670; 83001; 84144; 84403; 84439; 84443; 84481

== ENCOUNTER → 2021-09-02 | Outpatient (CLI) | payer OTHER, SELFPAY ==
[2021-09-02 08:55] LABS: Estradiol 53.8 pg/mL; Free T3 5.6 pg/mL (2.18-3.98); Thyroid Stim Hormone (TSH) < 0.01 uIU/mL (0.358-3.74)
[2021-09-04 09:10] LABS: Progesterone Level 59.41 ng/mL (See Comment)
== END | disposition home or self-care (01) ==
LOC: LAB 07:28
PROVIDERS: PCP Internal Medicine
DX: E03.8 Other specified hypothyroidism (principal); E28.8 Other ovarian dysfunction; R53.81 Other malaise
CPT/HCPCS: 36415; 82627; 82670; 84144; 84403; 84443; 84481; 82626

== ENCOUNTER → 2021-12-16 | Outpatient (CLI) | payer OTHER, SELFPAY ==
[2021-12-16 10:08] LABS: Free T3 5.9 pg/mL (2.18-3.98); Thyroid Stim Hormone (TSH) 0.03 uIU/mL (0.358-3.74)
== END | disposition home or self-care (01) ==
LOC: LAB 08:38
PROVIDERS: PCP Internal Medicine
DX: E03.8 Other specified hypothyroidism (principal)
CPT/HCPCS: 36415; 84443; 84481

== ENCOUNTER → 2022-02-21 | Outpatient (CLI) | payer OTHER, SELFPAY ==
--- NOTE | 2022-02-21 07:12 | BI_ITS ---
MAMMOGRAPHY - BILATERAL SCREENING REASON FOR EXAM: Female, 51 years old. Routine annual screening examination. PERTINENT HISTORY: Aunt with breast cancer. TECHNIQUE: Digital bilateral breast sarah (3D mammographic acquisition) in the CC and MLO projections. 2-D mediolateral oblique (MLO) and craniocaudad (CC) views of both breasts were obtained. CAD: Full Field Digital Mammography with Computer Added Detection was performed. COMPARISON: Comparison is made with prior study dated 01/30/2021 and 01/29/2020. FINDINGS: Breast Composition: There are scattered areas of fibroglandular density. There are no dominant masses or suspicious calcifications. Stable small benign-appearing bilateral axillary No other significant abnormalities are identified. There has been no significant change since the prior study. BI/SCRN MAMM (CAD)W/SARAH BILAT IMPRESSION: Stable bilateral screening mammogram. Yearly follow-up mammogram recommended. (A) ASSESSMENT CATEGORY: BIRADS Category 2: Benign. A letter regarding these results will be sent to the patient by the facility within 30 days. Approximately 10% of breast cancers are not detected by mammography. A normal mammogram should not delay biopsy of a clinically suspicious abnormality. [id number] Electronically Signed: Roddy Dennis MD at 8:42 EST ,
== END | disposition home or self-care (01) ==
LOC: OPBI 07:09
PROVIDERS: PCP Internal Medicine; Visit Provider Internal Medicine
DX: Z12.31 Encounter for screening mammogram for malignant neoplasm of breast (principal)
CPT/HCPCS: 77063; 77067

== ENCOUNTER 2022-04-04 21:01 | Emergency (ER) | payer OTHER, SELFPAY ==
[2022-04-04 21:01] VITALS: BP 150/71; PULSE 74; RESP 18; TEMP 36.6; O2SAT 98; BMI 39.1
[2022-04-04 21:18] LABS: Mucous, Urine 0 SEEN /hpf (<or=2+); Red Blood Cells-Urine 0 SEEN /hpf (0-5)
[2022-04-04 21:19] LABS: Absolute Lymphocyte Count 1.47 X10^3/uL (0.83-4.51); Basophil# 0.04 X10^3/uL; Basophil% 0.4 % (0-1); Eosinophil# 0.08 X10^3/uL; Eosinophils% 0.7 % (0-5); Hematocrit 41.6 % (37-47); Hemoglobin 13.7 g/dL (12.0-15.0); Lymphocyte # 1.47 X10^3/ul (0.83-4.51); Lymphocyte % 12.9 % (19-41); Mean Corp Hgb Conc 32.9 g/dL (32-36); Mean Corpuscular Hgb 27.2 pg (27.0-32.0); Mean Corpuscular Volume 82.5 fL (81-99); Mean Platelet Vol. 13.2 fl (6.2-12.0); Monocyte# 0.72 X10^3/uL; Monocyte% 6.3 % (0-10); NRBC Flagged by Analyzer 0 % (0-5); Neutrophil # 9.04 X10^3/uL (2.7-7.7); Neutrophil % 79.3 % (47-70); Platelet Count 209 K/mm3 (150-450); RBC Distribution Width CV 12.6 % (11.6-14.6); RBC Distribution Width SD 38.1 fl (35.1-43.9); Red Blood Count 5.04 M/mm3 (4.2-5.4); White Blood Count 11.4 K/mm3 (4.4-11.0)
[2022-04-04 21:35] LABS: Color, Urine Yellow (Yellow); Glucose, Dipstick Normal (Normal); Ketone-Dipstick 50 mg/dl (Negative); Leukocyte Esterase-Dipstick 100 /ul (Negative); Nitrite-Dipstick Negative (Negative); Occult Blood-Urine 10 /ul (Negative); Protein-Dipstick 15 mg/dl (Negative); Urine Bilirubin Dipstick Negative (Negative); Urine Clarity Sl. Cloudy (Clear); Urine Urobilinogen 1 mg/dl (Normal)
[2022-04-04 21:37] LABS: Internal QC Validated? YES +Cl - CLEAR BKGD; Pregnancy, Serum, hCG Quali. NEGATIVE Negative
[2022-04-04 21:40] LABS: Anion Gap 7 (5-15); BUN 12 mg/dL (7-18); BUN/Creat Ratio 19.2 RATIO (10-20); Calcium,Total 9.4 mg/dL (8.5-10.1); Chloride 107 mmol/L (98-107); Creatinine, Serum 0.63 mg/dL (0.55-1.02); EST Glomerular Filtration Rate 106 mL/min (>60); Est Glom Filt Rate - Afr Amer 129 mL/min (>60); Estimated Creatinine Clearance 95.06 ml/min; Glucose 103 mg/dL (74-106); Potassium 3.9 mmol/L (3.5-5.1); Sodium Level 138 mmol/L (136-145)
[2022-04-04 21:48] LABS: Bacteria 1+ /hpf (None Seen); Squamous Epithelial Cells - UA 5-10 SEEN /hpf (5-10); White Blood Cells 0-5 SEEN /hpf (0-5)
--- NOTE | 2022-04-04 22:12 | EDS_ITS ---
HPI HPI - GI History of Present Illness Chief Complaint: Abd Pain Informant: patient Abdominal Pain/Flank Pain Onset: Hours (5-6) Context: Gradual Onset Timing: Continuous and Waxes and wanes Quality: Aching Location: Epigastric Current Severity: Gone Maximum Severity: Severe Worsened by: Nothing Relieved by: Nothing Nausea/Vomiting/Emesis GI Symptom: Positive for Nausea; Negative for Vomiting Diarrhea/Melena/Hematochezia GI Symptom: Negative for Diarrhea, Melena or Hematochezia Associated Symptoms Associated Symptoms: Negative for Dysuria, Frequency or Hematuria Narrative Narrative: 51-year-old female had a prior laparoscopic cholecystectomy, states late this afternoon she started feeling the same pain that she did prior to having that. It was colicky and severe without radiation, however upon coming to the ER she states the pain is gone away and not returned. She denies any itching or jaundice. No fevers or chills. No other recent symptoms or illness. No cough or shortness of breath or chest discomfort associated with this, no back pain or urinary symptoms. Pain was epigastric only. She states the pain was severe like labor. 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 [facility] Medical History Chest pain Deann's disease Hypercholesteremia Hypertension Hypothyroidism Right upper quadrant pain Home Medications Cholecalciferol (Vitamin D3) [Vitamin D3] 5,000 units PO QHS supplement 04/29/20 [History Last Taken 04/28/20] Naltrexone 6 mg PO QHS 04/29/20 [History Last Taken 04/28/20] aspirin 81 mg chewable tablet 81 mg PO DAILY@0800 04/29/20 [History Last Taken Unknown] mecobalamin (vitamin B12) 1,000 mcg chewable tablet 1,000 mcg sublingual DAILY 04/29/20 [History Last Taken 04/29/20] progesterone micronized 200 mg capsule 200 mg PO QHS 04/29/20 [History Last Taken 04/28/20] rosuvastatin 10 mg tablet 10 mg PO DAILY 04/29/20 [History Last Taken 04/28/20] selenium 200 mcg tablet 200 mcg PO QHS 04/29/20 [History Last Taken 04/28/20] thyroid (pork) 90 mg tablet 90 mg PO DAILY thyroid 04/29/20 [History Last Taken 04/29/20] ondansetron HCl 4 mg tablet (Zofran) 4 mg PO Q6H PRN nausea and vomiting ##10 05/30/20 [Rx Last Taken Unknown] amlodipine 5 mg tablet 5 mg PO DAILY 07/08/20 [History Last Taken Unknown] Allergy/AdvReac Type Severity Reaction Status Date / Time levofloxacin [From Levaquin] AdvReac Other Verified 04/04/22 21:03 Surgical History History of endoscopic retrograde cholangiopancreatography (~05/27/20) History of laparoscopic cholecystectomy History of tubal ligation Social History Smoking Status: Never smoker ROS ROS ED Constitutional Constitutional ED: Denies chills or fever(s) Eyes Eyes: Denies change in vision or diplopia ENT ENT ED: Denies rhinorrhea or sore throat Cardiovascular Cardiovascular: Denies chest pain or palpitations Respiratory/Chest Respiratory/Chest: Denies cough or dyspnea Gastrointestinal Gastrointestinal: Reports abdominal pain and nausea; Denies diarrhea or vomiting Genitourinary Genitourinary ED: Denies dysuria or hematuria Musculoskeletal Musculoskeletal: Denies back pain or neck pain Integumentary Denies abscess or rash Neurologic Neurologic: Denies headache(s), paresthesias or weakness Psychiatric Psychiatric: Denies anxiety or suicidal thoughts EXAM Physical Exam Const Vital Signs: 04/04/22 21:01 Temperature 97.9 F Temperature Source Temporal Pulse Rate 74 Respiratory Rate 18 Blood Pressure 150/71 H Blood Pressure Mean 97 Pulse Ox 98 Oxygen Delivery Method Room Air Positive well nourished and well developed General Appearance ED: well developed and NAD HEENT Reports moist mucous membranes normocephalic and atraumatic Eyes PERRL and EOMs intact bilaterally Neck full ROM and supple Resp normal respiratory effort and clear to auscultation bilaterally Cardio regular rate, regular rhythm and no murmurs GI non-tender and non-distended GI Narrative: abdominal obesity Auscultation: normoactive bowel sounds Palpation: soft Back/Spine no CVA tenderness General Back: other FROM Extremity normal to inspection General Extremety ED: Negative for edema, pulses abnormal or tenderness General Extremity: Negative for edema or pulses abnormal Neuro oriented x3, CN's II-XII intact bilaterally and no sensory deficits noted Sensorium / Orientation: awake and alert Motor Exam: strength 5/5 throughout Skin no rashes or lesions noted and no wounds MDM MDM MDM Narrative Medical decision making narrative: Patient continued to have resolution of her symptoms, they did not recur. Her labs show a mild nonspecific leukocytosis without a strong left shift or bandemia, I added liver enzymes to the basic metabolic panel that the nurses initially ordered on my behalf, as well as a lipase. All of this is normal. negative as well. The concern initially would have been biliary colic due to choledocholithiasis after having had her gallbladder out, since she has no more pain and there is no evidence based on these tests of a biliary obstruction, I feel she can be safely discharged home to either follow-up or return if things recur to have her liver enzymes rechecked. We discussed all this at length. The other possibility would be that this was some type of GI discomfort. She states she ate fairly healthy today. We discussed functional GI etiologies such as leaky gut syndrome involving lectin intake which occur in healthy foods, as well as gluten from a meal from a different day, since she states she has a tendency to react that. She admits this felt different than the typical gluten-related discomfort she has had in the past. I do not think this is cardiac related nor do I think she needs to have further emergent work- up right now or emergent imaging since her abdomen is very benign and she has pain-free and not jaundiced. Lab Data Attestation: I reviewed the patient's lab results. Labs: Laboratory Results - last 24 hr 04/04/22 04/04/22 04/04/22 21:10 21:10 21:10 WBC 11.4 H RBC 5.04 Hgb 13.7 Hct 41.6 MCV 82.5 MCH 27.2 MCHC 32.9 RDW Std Deviation 38.1 RDW Coeff of Bar 12.6 Plt Count 209 MPV 13.2 H Immature Gran % (Auto) 0.400 Neut % (Auto) 79.3 H Lymph % (Auto) 12.9 L [place] % (Auto) 6.3 Eos % (Auto) 0.7 Baso % (Auto) 0.4 Absolute Neuts (auto) 9.0 H Absolute Lymphs (auto) 1.47 Nucleated RBC % 0 Sodium 138 Potassium 3.9 Chloride 107 Carbon Dioxide 24.0 Anion Gap 7 BUN 12 Creatinine 0.63 Estim Creat Clear Calc 95.06 Est GFR (MDRD) Af Amer 129 Est GFR (MDRD) Non-Af 106 BUN/Creatinine Ratio 19.2 Glucose 103 Calcium 9.4 Total Bilirubin Direct Bilirubin AST ALT Alkaline Phosphatase Total Protein Albumin Globulin Lipase Serum , Qual NEGATIVE Urine Color Urine Clarity Urine pH Ur Specific [place] Urine Protein Urine Glucose (UA) Urine Ketones Urine Occult Blood Urine Nitrite Urine Bilirubin Urine Urobilinogen Ur Leukocyte Esterase Urine RBC Urine WBC Ur Squamous Epith Cells Urine Bacteria Urine Mucus 04/04/22 04/04/22 21:10 21:14 WBC RBC Hgb Hct MCV MCH MCHC RDW Std Deviation RDW Coeff of Bar Plt Count MPV Immature Gran % (Auto) Neut % (Auto) Lymph % (Auto) [place] % (Auto) Eos % (Auto) Baso % (Auto) Absolute Neuts (auto) Absolute Lymphs (auto) Nucleated RBC % Sodium Potassium Chloride Carbon Dioxide Anion Gap BUN Creatinine Estim Creat Clear Calc Est GFR (MDRD) Af Amer Est GFR (MDRD) Non-Af BUN/Creatinine Ratio Glucose Calcium Total Bilirubin 0.90 Direct Bilirubin 0.24 AST 9 L ALT 17 Alkaline Phosphatase 102 Total Protein 7.2 Albumin 3.7 Globulin 3.5 Lipase 66 L Serum , Qual Urine Color Yellow Urine Clarity Sl. Cloudy Urine pH 6.0 Ur Specific [place] 1.020 Urine Protein 15 H Urine Glucose (UA) Normal Urine Ketones 50 H Urine Occult Blood 10 H Urine Nitrite Negative Urine Bilirubin Negative Urine Urobilinogen 1 H Ur Leukocyte Esterase 100 H Urine RBC 0 SEEN Urine WBC 0-5 SEEN Ur Squamous Epith Cells 5-10 SEEN Urine Bacteria 1+ Urine Mucus 0 SEEN Discharge Plan Triage Chief Complaint: Abd Pain ED Provider: Dom Ríos Dx/Rx/DC Orders Clinical Impression: Epigastric abdominal pain Instructions: ED Epigastric Pain Uncertain Cause Prescriptions: No Action amlodipine 5 mg tablet 5 mg PO DAILY selenium 200 MCG tablet 200 mcg PO QHS progesterone micronized 200 MG capsule 200 mg PO QHS rosuvastatin 10 MG tablet 10 mg PO DAILY thyroid (pork) 90 MG tablet 90 mg PO DAILY mecobalamin (vitamin B12) 1,000 MCG tablet,chewable 1,000 mcg SL DAILY Cholecalciferol (Vitamin D3) [Vitamin D3] 5,000 UNIT capsule 5,000 units PO QHS Naltrexone 6 mg PO QHS aspirin 81 MG tablet,chewable 81 mg PO DAILY@0800 ondansetron HCl [Zofran] 4 mg tablet 4 mg PO Q6H PRN (Reason: nausea and vomiting) Qty: 10 0RF Primary Care Provider: Raysa De Guzman Referrals: Raysa De Guzman DO [Primary Care Provider] - 1-2 Days if not improving Disposition Disposition: Home, Self Care
[2022-04-04 22:35] LABS: AST(SGOT) 9 U/L (15-37); Alanine Aminotransfer ALT/SGPT 17 U/L (13-56); Albumin, Serum 3.7 g/dL (3.2-5.0); Alkaline Phosphatase 102 U/L (45-117); Bilirubin, Direct 0.24 mg/dL (0.00-0.30); Globulin 3.5 g/dL (2.2-4.2); Lipase 66 U/L (73-393); Protein, Total 7.2 g/dL (6.4-8.2)
[2022-04-04 23:20] VITALS: BP 136/74; PULSE 65; RESP 15; O2SAT 99
== END 2022-04-04 23:30 | disposition home or self-care (01) ==
PROVIDERS: Emergency Provider Emergency Medicine; PCP Internal Medicine; Visit Provider Emergency Medicine
DX: R10.13 Epigastric pain (principal); R11.0 Nausea; E78.00 Pure hypercholesterolemia, unspecified; I10 Essential (primary) hypertension
CPT/HCPCS: 80048; 80076; 81001; 83690; 84703; 85025; 99282; A4216

== ENCOUNTER → 2022-06-16 | Outpatient (CLI) | payer OTHER, SELFPAY ==
[2022-06-17 18:03] LABS: Estradiol 18.3 pg/mL; Free T3 4.8 pg/mL (2.18-3.98)
== END | disposition home or self-care (01) ==
LOC: LAB 07:25
PROVIDERS: PCP Internal Medicine; Visit Provider Specialist
DX: N95.1 Menopausal and female climacteric states (principal); E03.8 Other specified hypothyroidism
CPT/HCPCS: 36415; 82670; 84443; 84481

== ENCOUNTER → 2022-12-12 | Outpatient (CLI) | payer OTHER, SELFPAY ==
[2022-12-12 09:13] LABS: Progesterone Level 20.78 ng/mL (See Comment); Vitamin D,25 Hydroxy 48.8 ng/mL
[2022-12-12 09:22] LABS: Estradiol 20.7 pg/mL; Follicle Stimulating Hormone 7.1 mIU/mL; T4 Free Direct 0.65 ng/dL (0.76-1.46); Thyroid Stim Hormone (TSH) 2.43 uIU/mL (0.358-3.74)
[2022-12-13 16:09] LABS: Thyroglobulin Antibody 194.4 IU/mL (0.0-0.9); Thyroid Peroxidase AB 21 IU/mL (0-34)
== END | disposition home or self-care (01) ==
LOC: LAB 08:12
PROVIDERS: PCP Internal Medicine; Referring Provider Nurse Practitioner Women's Health; Visit Provider Nurse Practitioner Women's Health
DX: N95.1 Menopausal and female climacteric states (principal); R53.81 Other malaise; E55.9 Vitamin D deficiency, unspecified; E06.3 Autoimmune thyroiditis
CPT/HCPCS: 36415; 82306; 82627; 82670; 83001; 84144; 84403; 84439; 84443; 84481; 86376; 86800; 82626

== ENCOUNTER 2023-01-10 07:42 | Emergency (ER) | payer OTHER, SELFPAY ==
[2023-01-10 07:43] VITALS: BP 159/84; PULSE 72; RESP 16; TEMP 36.6; O2SAT 98; BMI 38.3
--- NOTE | 2023-01-10 07:58 | EKG12_ITS ---
Test Reason : CP Blood Pressure : / mmHG Vent. Rate : 071 BPM Atrial Rate : 071 BPM P-R Int : 170 ms QRS Dur : 082 ms QT Int : 398 ms P-R-T Axes : 058 003 035 degrees QTc Int : 432 ms Normal sinus rhythm Normal ECG Confirmed by JOSIE GIBBS, AVTAR ([id number]), editor & co founder DONYA PITTS ([id number]) on 01/15/2023 12:50:44 PM Referred By: Confirmed By:ALISON GALINDO MD
[2023-01-10] MEDS: Aspirin 81 MG TAB.CHEW 324 MG PO (08:05)
--- NOTE | 2023-01-10 08:10 | RAD_ITS ---
INDICATION: chest pain EXAMINATION/TECHNIQUE: X-RAY - XR Chest 2 Views COMPARISON: Prior study dated: 04/29/2020. FINDINGS: LINES/DEVICES: None. LUNGS: No consolidation, edema or effusion. No pneumothorax. MEDIASTINUM AND CARDIOVASCULAR STRUCTURES: Cardiac silhouette not enlarged. Central airways and mediastinal contour are unremarkable. BONES AND SOFT TISSUES: Unremarkable. RAD/Chest PA and Lateral IMPRESSION: No radiographic evidence of acute cardiopulmonary disease. Electronically Signed: Sukumar Carlson MD at 8:43 EDT ,
[2023-01-10 08:14] LABS: Absolute Lymphocyte Count 1.39 X10^3/uL (0.83-4.51); Basophil# 0.04 X10^3/uL; Basophil% 0.6 % (0-1); Eosinophil# 0.11 X10^3/uL; Eosinophils% 1.6 % (0-5); Hematocrit 42.2 % (37-47); Hemoglobin 13.3 g/dL (12.0-15.0); Lymphocyte # 1.39 X10^3/ul (0.83-4.51); Lymphocyte % 19.6 % (19-41); Mean Corp Hgb Conc 31.5 g/dL (32-36); Mean Corpuscular Hgb 26.4 pg (27.0-32.0); Mean Corpuscular Volume 83.9 fL (81-99); Mean Platelet Vol. 13.1 fl (6.2-12.0); Monocyte# 0.56 X10^3/uL; Monocyte% 7.9 % (0-10); NRBC Flagged by Analyzer 0 % (0-5); Neutrophil # 4.96 X10^3/uL (2.7-7.7); Platelet Count 178 K/mm3 (150-450); RBC Distribution Width CV 13.2 % (11.6-14.6); RBC Distribution Width SD 40.2 fl (35.1-43.9); Red Blood Count 5.03 M/mm3 (4.2-5.4); White Blood Count 7.1 K/mm3 (4.4-11.0)
[2023-01-10 08:43] LABS: Anion Gap 6 (5-15); BUN 15 mg/dL (7-18); BUN/Creat Ratio 21.5 RATIO (10-20); Chloride 107 mmol/L (98-107); EST Glomerular Filtration Rate 94 mL/min (>60); Est Glom Filt Rate - Afr Amer 113 mL/min (>60); Glucose 99 mg/dL (74-106); Potassium 3.6 mmol/L (3.5-5.1); Sodium Level 139 mmol/L (136-145); Troponin-I HS (w/2H Reflex) 4 pg/mL (3.0-54.0)
--- NOTE | 2023-01-10 08:44 | ED.VIS.CHEST ---
HPI History of Present Illness Chief Complaint: Chest Pain Informant: patient and spouse/S.O. Onset/Context/Timing Onset: Today (Overall the patient is asleep at approximately 0300) Activity at onset: sudden Timing: Continuous Quality: Positive for Aching Location: Substernal Current Severity: Mild Maximum Severity: Moderate Worsened By: Nothing Relieved By: Nothing and - (Patient reported improvement when she sat upright.) Associated Symptoms: Negative for Nausea, Vomiting, Diaphoresis, Dyspnea, Cough, Fever, Lightheadedness, Acid Reflux or Palpitations Narrative Narrative: Is a 52-year-old woman who was awakened to sleep because aching discomfort in the middle of her chest. She did report radiation to the back upper dorsal region. There is no associated symptoms of nausea, dyspnea, or diaphoresis. stated it looked like she was having difficulty exhaling. She has no history of PE or DVT. She has no risk factors for PE or DVT. She denies leg pain, swelling discoloration. She denies fever, chills night sweats. She denies cough. She denies dyspnea on exertion. Denies orthopnea or PND. She denies intolerance to greasy or fried foods. She is status post cholecystectomy by Dr. Payton earlier this year. She denies black or maroon-colored stool. She denies urologic symptoms. Prior Similar Symptoms: No Recent Illness/Hospitalization: No CVD Risk Factors: Positive for Hypertension and Hypercholesterolemia; Negative for Diabetes, Family History 1' </=55 or Smoking PE Risk Factors: Negative for Recent Travel/Surgery, Recent Immobilization, Prior DVT or PE, Cancer or OCP + Smoking + >/=35 TAD Risk Factors: Negative for Marfan's Syndrome or Family History [facility] Medical History Chest pain Deann's disease Hypercholesteremia Hypertension Hypothyroidism Right upper quadrant pain Home Medications Cholecalciferol (Vitamin D3) [Vitamin D3] 5,000 units PO QHS supplement 04/29/20 [History Last Taken 04/28/20] Naltrexone 6 mg PO QHS 04/29/20 [History Last Taken 04/28/20] aspirin 81 mg chewable tablet 81 mg PO DAILY@0800 04/29/20 [History Last Taken Unknown] mecobalamin (vitamin B12) 1,000 mcg chewable tablet 1,000 mcg sublingual DAILY 04/29/20 [History Last Taken 04/29/20] progesterone micronized 200 mg capsule 200 mg PO QHS 04/29/20 [History Last Taken 04/28/20] rosuvastatin 10 mg tablet 10 mg PO DAILY 04/29/20 [History Last Taken 04/28/20] selenium 200 mcg tablet 200 mcg PO QHS 04/29/20 [History Last Taken 04/28/20] thyroid (pork) 90 mg tablet 90 mg PO DAILY thyroid 04/29/20 [History Last Taken 04/29/20] ondansetron HCl 4 mg tablet (Zofran) 4 mg PO Q6H PRN nausea and vomiting ##10 05/30/20 [Rx Last Taken Unknown] amlodipine 5 mg tablet 5 mg PO DAILY 07/08/20 [History Last Taken Unknown] Allergy/AdvReac Type Severity Reaction Status Date / Time levofloxacin [From Levaquin] AdvReac Other Verified 04/04/22 21:03 Surgical History History of endoscopic retrograde cholangiopancreatography (~05/27/20) History of laparoscopic cholecystectomy History of tubal ligation Social History (Updated 01/10/23 @ 09:[address] Houston Segura MD) household members: spouse Smoking Status: Never smoker substance use type: does not use ROS ROS ED Constitutional Constitutional ED: Denies chills, fever(s), subjective, sweats or weight loss Eyes Eyes: Reports none ENT ENT ED: Denies ear pain, rhinorrhea or sore throat Cardiovascular Cardiovascular: Reports as per HPI and chest pain; Denies orthopnea or paroxysmal nocturnal dyspnea Respiratory/Chest Respiratory/Chest: Denies cough, dyspnea, dyspnea on exertion, orthopnea, paroxysmal nocturnal dyspnea or sputum Gastrointestinal Gastrointestinal: Denies abdominal pain, constipation, nausea or vomiting Genitourinary Genitourinary ED: Denies dysuria or hematuria Musculoskeletal Musculoskeletal: Reports back pain; Denies arthralgias, myalgias or neck pain Integumentary Denies abscess, Abrasions or rash Neurologic Neurologic: Denies headache(s) or paresthesias Psychiatric Psychiatric: Reports anxiety; Denies depression Endocrine Endocrinology: Reports cold intolerance; Denies heat intolerance, polydipsia, polyphagia or polyuria Hematologic/Lymphatic Hematologic/Lymphatic: Denies easy bleeding or easy bruising EXAM Physical Exam Const Vital Signs: 01/10/23 07:43 01/10/23 08:02 01/10/23 09:09 Temperature 98 F Temperature Source Temporal Pulse Rate 72 57 L Respiratory Rate 16 16 Blood Pressure 159/84 H 115/71 Blood Pressure Mean 109 85 Pulse Ox 98 99 Oxygen Delivery Method Room Air Room Air Room Air Positive well nourished, well developed and obese General Appearance ED: well developed and NAD; Negative for pallor Nutritional Appearance: obese HEENT Reports moist mucous membranes normocephalic and atraumatic Eyes PERRL and EOMs intact bilaterally General Eye ED: Negative for pale conjunctiva or scleral icterus Neck no lymphadenopathy, supple and no JVD Chest Wall palpation of chest normal Resp normal respiratory effort and clear to auscultation bilaterally Cardio regular rate, regular rhythm, S1 normal heart sound, S2 normal heart sound and no murmurs Peripheral Pulses: pulses 2+ throughout GI normal to inspection, nondistended, normoactive bowel sounds, soft to palpation, non-tender, non-distended and no masses; Negative for hepatosplenomegaly Back/Spine no CVA tenderness and no thoracic nor lumbar tenderness Extremity normal to inspection Extremity Narrative: There is no asymmetry, swelling, discoloration, leg vein distention, palpable cords or tenderness along the distribution of the deep venous system. General Extremety ED: Negative for edema General Extremity: Negative for edema Neuro oriented x3, CN's II-XII intact bilaterally, no sensory deficits noted and gait normal Sensorium / Orientation: awake and alert Motor Exam: strength 5/5 throughout Psych mental status grossly normal Skin no rashes or lesions noted and no wounds General Skin Exam: Negative for jaundice or pallor Heart Score History: Slightly/Non-Suspicious ECG: Normal Age: >45 - <65 years Risk Factors: 1 or 2 Risk Factors Troponin: </= Normal Limit Score: 2 MDM MDM Lab Data Attestation: I reviewed the patient's lab results. Lab results narrative: CBC is unremarkable. Basic metabolic panel is unremarkable. First troponin is normal at 4. Repeat troponin is 4. Both are less than 7. 100% negative predictive value posted algorithm for high-sensitivity troponin at [facility]. Labs: Laboratory Results - last 24 hr 01/10/23 01/10/23 07:52 10:29 WBC 7.1 RBC 5.03 Hgb 13.3 Hct 42.2 MCV 83.9 MCH 26.4 L MCHC 31.5 L RDW Std Deviation 40.2 RDW Coeff of Bar 13.2 Plt Count 178 MPV 13.1 H Immature Gran % (Auto) 0.300 Neut % (Auto) 70.0 Lymph % (Auto) 19.6 [place] % (Auto) 7.9 Eos % (Auto) 1.6 Baso % (Auto) 0.6 Absolute Neuts (auto) 5.0 Absolute Lymphs (auto) 1.39 Nucleated RBC % 0 Sodium 139 Potassium 3.6 Chloride 107 Carbon Dioxide 26.0 Anion Gap 6 BUN 15 Creatinine 0.70 Estim Creat Clear Calc 84.60 Est GFR (MDRD) Af Amer 113 Est GFR (MDRD) Non-Af 94 BUN/Creatinine Ratio 21.5 H Glucose 99 Calcium 9.0 Troponin I High Sens 4 4 Radiography Chest X-Ray - ED: 2 View, Read by ED Physician (Independently reviewed interpreted by me at 0844.), Normal, Heart, Lungs, Mediastinum, Bony Structures and No Acute Disease Diagnostic Testing: Clinical Impression(s) from Imaging Studies Chest X-Ray 01/10/23 08:10 IMPRESSION: No radiographic evidence of acute cardiopulmonary disease. Electronically Signed: Sukumar Carlson MD at 8:43 EDT , EKG Initial EKG: Attestation: I personally reviewed and interpreted this EKG as follows: Interpretation: Sinus Rhythm (Rate is 71 and EKG is normal. TX interval is 170 ms per cures duration 82 ms. QT duration 398 ms. [place] is normal.) Comments: Had a prehospital EKG which was normal other than motion artifact. Rate was 88. Was independently reviewed and and interpreted by me at 0709. Differential Diagnosis Chest pain/SOB: pulmonary embolism Reason(s) PE less likely: Positive for Well's <3, not tachycardic and not hypoxic, pneumothorax Reason(s) pneumothorax less likely: Positive for bilateral breath sounds and [employer] withhout PTX, pneumonia Reason(s) pneumonia less likely: Positive for no infiltrate on CXR, no elevation in WBC count, no noted fever and symptoms not consistent with acute infection, aortic dissection Reason(s) Aortic dissection less likely:: Positive for normal vascular exam, normal neurological exam, no significant risk factors for dissection, no widened mediastinum on CXR, pain not sudden onset, no ripping/tearing pain and blood pressure appropriate in ED and CHF Reason(s) CHF less likely: Positive for no significant peripheral edema, no orthopnea and no evidence of fluid overload on CXR Treatment and Re-Evaluation :: Reevaluated and informed of initial test results. She presently states the pain is gone. She believes it was a musculoskeletal component since movement of her head and torso did affect the severity of the pain. Patient was told based on her initial history and the fact that it woke her from sleep and better when she was in upright position raises concern this may represent GERD. Discharge Plan Triage Chief Complaint: Chest Pain ED Provider: Houston Segura Dx/Rx/DC Orders Clinical Impression: Hypercholesteremia, Hypertension, Central chest pain Instructions: ED Chest Pain, Noncardiac Prescriptions: No Action amlodipine 5 mg tablet 5 mg PO DAILY selenium 200 MCG tablet 200 mcg PO QHS progesterone micronized 200 MG capsule 200 mg PO QHS rosuvastatin 10 MG tablet 10 mg PO DAILY thyroid (pork) 90 MG tablet 90 mg PO DAILY mecobalamin (vitamin B12) 1,000 MCG tablet,chewable 1,000 mcg SL DAILY Cholecalciferol (Vitamin D3) [Vitamin D3] 5,000 UNIT capsule 5,000 units PO QHS Naltrexone 6 mg PO QHS aspirin 81 MG tablet,chewable 81 mg PO DAILY@0800 ondansetron HCl [Zofran] 4 mg tablet 4 mg PO Q6H PRN (Reason: nausea and vomiting) Qty: 10 0RF Primary Care Provider: Raysa De Guzman Referrals: Raysa De Guzman DO [Primary Care Provider] - 5-7 Days Disposition Disposition: Home, Self Care
[2023-01-10 09:09] VITALS: BP 115/71; PULSE 57; RESP 16; O2SAT 99
[2023-01-10 10:27] LABS: Reflex Troponin-HS? (from REC) Y
[2023-01-10 10:57] LABS: Troponin-I HS 4 pg/mL (3.0-54.0)
[2023-01-10 11:35] VITALS: BP 127/79; PULSE 65; RESP 14; O2SAT 98
== END 2023-01-10 11:40 | disposition home or self-care (01) ==
PROVIDERS: Emergency Provider Emergency Medicine; PCP Internal Medicine; Visit Provider Emergency Medicine
DX: R07.89 Other chest pain (principal); I10 Essential (primary) hypertension; E78.00 Pure hypercholesterolemia, unspecified; F41.9 Anxiety disorder, unspecified; E66.9 Obesity, unspecified
CPT/HCPCS: 71046; 80048; 84484; 85025; 93005; 99284; A4216

== ENCOUNTER → 2023-03-11 | Outpatient (CLI) | payer OTHER, SELFPAY ==
--- NOTE | 2023-03-11 12:54 | BI_ITS ---
MAMMOGRAPHY - BILATERAL SCREENING REASON FOR EXAM: Female, 52 years old. Routine annual screening examination. PERTINENT HISTORY: Aunt with breast cancer. TECHNIQUE: Digital bilateral breast sarah (3D mammographic acquisition) in the CC and MLO projections. 2-D mediolateral oblique (MLO) and craniocaudad (CC) views of both breasts were obtained. CAD: Full Field Digital Mammography with Computer Added Detection was performed. COMPARISON: Comparison is made with prior study dated February 21, 2022 and January 30, 2021. FINDINGS: Breast Composition: There are scattered areas of fibroglandular density. There are no dominant masses or suspicious calcifications. Stable bilateral fat containing axillary lymph nodes. No other significant abnormalities are identified. There has been no significant change since the prior study. BI/SCRN MAMM (CAD)W/SARAH BILAT IMPRESSION: Stable bilateral screening mammogram. Yearly follow-up mammogram recommended. (A) ASSESSMENT CATEGORY: BIRADS Category 2: Benign. A letter regarding these results will be sent to the patient by the facility within 30 days. Approximately 10% of breast cancers are not detected by mammography. A normal mammogram should not delay biopsy of a clinically suspicious abnormality. [id number] Electronically Signed: Roddy Dennis MD at 13:41 EST ,
== END | disposition home or self-care (01) ==
PROVIDERS: PCP Internal Medicine; Visit Provider Internal Medicine
DX: Z12.31 Encounter for screening mammogram for malignant neoplasm of breast (principal); Z80.3 Family history of malignant neoplasm of breast
CPT/HCPCS: 77063; 77067

== ENCOUNTER → 2023-06-15 | Outpatient (CLI) | payer OTHER, SELFPAY ==
[2023-06-15 11:51] LABS: Estradiol 46.6 pg/mL; Free T3 3.8 pg/mL (2.18-3.98); Thyroid Stim Hormone (TSH) 1.25 uIU/mL (0.358-3.74)
== END | disposition home or self-care (01) ==
LOC: LAB 10:42
PROVIDERS: PCP Internal Medicine; Referring Provider Nurse Practitioner Women's Health; Visit Provider Nurse Practitioner Women's Health
DX: E28.8 Other ovarian dysfunction (principal); E03.8 Other specified hypothyroidism
CPT/HCPCS: 36415; 82670; 84443; 84481

== ENCOUNTER → 2023-07-31 | Outpatient (CLI) | payer OTHER, SELFPAY ==
[2023-07-31 15:38] LABS: Potassium 5.1 mmol/L (3.5-5.1)
== END | disposition home or self-care (01) ==
LOC: LABSPEC 15:17
PROVIDERS: PCP Internal Medicine; Referring Provider Internal Medicine; Visit Provider Internal Medicine
DX: E87.5 Hyperkalemia (principal)
CPT/HCPCS: 84132

== ENCOUNTER → 2023-12-14 | Outpatient (CLI) | payer OTHER, SELFPAY ==
[2023-12-14 10:00] LABS: Estradiol 110.8 pg/mL; Follicle Stimulating Hormone 10.8 mIU/mL; Free T3 4.2 pg/mL (2.18-3.98)
== END | disposition home or self-care (01) ==
LOC: LAB 08:42
PROVIDERS: PCP Internal Medicine; Referring Provider Nurse Practitioner Women's Health; Visit Provider Nurse Practitioner Women's Health
DX: E03.8 Other specified hypothyroidism (principal); E28.8 Other ovarian dysfunction; R53.81 Other malaise
CPT/HCPCS: 36415; 82627; 82670; 83001; 84144; 84403; 84443; 84481; 82626

== ENCOUNTER → 2024-03-12 | Outpatient (CLI) | payer OTHER, SELFPAY ==
--- NOTE | 2024-03-12 16:22 | BI_ITS ---
MAMMOGRAPHY - BILATERAL SCREENING REASON FOR EXAM: Female, 53 years old. Routine annual screening examination. PERTINENT HISTORY: Aunt with breast cancer. TECHNIQUE: Digital bilateral breast sarah (3D mammographic acquisition) in the CC and MLO projections. 2-D mediolateral oblique (MLO) and craniocaudad (CC) views of both breasts were obtained. CAD: Full Field Digital Mammography with Computer Added Detection was performed. COMPARISON: Comparison is made with prior study dated March 11, 2023 and February 21, 2022. FINDINGS: Breast Composition: There are scattered areas of fibroglandular density. There are no dominant masses or suspicious calcifications. Stable bilateral fat containing axillary lymph nodes. No other significant abnormalities are identified. There has been no significant change since the prior study. BI/SCRN MAMM (CAD)W/SARAH BILAT IMPRESSION: Stable bilateral screening mammogram. Yearly follow-up mammogram recommended. (A) ASSESSMENT CATEGORY: BIRADS Category 2: Benign. A letter regarding these results will be sent to the patient by the facility within 30 days. Approximately 10% of breast cancers are not detected by mammography. A normal mammogram should not delay biopsy of a clinically suspicious abnormality. [id number] Electronically Signed: Roddy Dennis MD at 8:19 EST ,
== END | disposition home or self-care (01) ==
LOC: OPBI 16:21
PROVIDERS: PCP Internal Medicine; Referring Provider Internal Medicine; Visit Provider Internal Medicine
DX: Z12.31 Encounter for screening mammogram for malignant neoplasm of breast (principal)
CPT/HCPCS: 77063; 77067

== ENCOUNTER → 2024-05-30 | Outpatient (CLI) | payer OTHER, SELFPAY ==
[2024-05-30 12:15] LABS: Estradiol 20.8 pg/mL; Free T3 6.1 pg/mL (2.18-3.98); Testosterone, Total 5.19 ng/dL (9-55)
[2024-05-31 09:08] LABS: PROGESTERONE 3.6 ng/mL (.)
[2024-06-01 18:07] LABS: DHEA Sulfate 88.6 ug/dL (41.2-243.7); Thyroglobulin Antibody 80.6 IU/mL (0.0-0.9); Thyroid Peroxidase AB 20 IU/mL (0-34)
== END | disposition home or self-care (01) ==
LOC: LAB 09:26
PROVIDERS: PCP Internal Medicine; Referring Provider Nurse Practitioner Women's Health; Visit Provider Nurse Practitioner Women's Health
DX: E28.8 Other ovarian dysfunction (principal); R53.81 Other malaise; E06.3 Autoimmune thyroiditis
CPT/HCPCS: 36415; 82627; 82670; 83001; 84144; 84403; 84439; 84443; 84481; 86376; 86800; 82626

== ENCOUNTER → 2024-11-18 | Outpatient (CLI) | payer OTHER, SELFPAY ==
[2024-11-18 09:12] LABS: Mucous, Urine 0 SEEN /hpf (<or=2+); Red Blood Cells-Urine 0 SEEN /hpf (0-5)
[2024-11-18 10:02] LABS: Hematocrit 41.0 % (37-47); Hemoglobin 12.4 g/dL (12.0-15.0); Immature Granulocytes Count 0.020 X10^3/uL (0.0-0.0); Mean Corp Hgb Conc 30.2 g/dL (32-36); Mean Corpuscular Volume 75.4 fL (81-99); NRBC Flagged by Analyzer 0 % (0-5); Platelet Count 181 K/mm3 (150-450); RBC Distribution Width CV 16.2 % (11.6-14.6); RBC Distribution Width SD 43.7 fl (35.1-43.9); Red Blood Count 5.44 M/mm3 (4.2-5.4); White Blood Count 6.0 K/mm3 (4.4-11.0)
[2024-11-18 10:10] LABS: Color, Urine Yellow (Yellow); Glucose, Dipstick Normal (Normal); Ketone-Dipstick 5 mg/dl (Negative); Leukocyte Esterase-Dipstick 25 /ul (Negative); Nitrite-Dipstick Negative (Negative); Occult Blood-Urine Negative /ul (Negative); Protein-Dipstick 30 mg/dl (Negative); Specific Gravity, Urine 1.015 (1.002-1.030); Urine Bilirubin Dipstick Negative (Negative)
[2024-11-18 10:33] LABS: Squamous Epithelial Cells - UA 0-5 SEEN /hpf (5-10)
[2024-11-18 10:46] LABS: Free T3 4.9 pg/mL (2.18-3.98)
[2024-11-18 10:53] LABS: AST(SGOT) 16 U/L (<=31); Alanine Aminotransfer ALT/SGPT 9 U/L (<=34); Albumin, Serum 4.2 g/dL (3.5-5.0); Alkaline Phosphatase 100 U/L (35-104); Anion Gap 13 (5-15); BUN 12 mg/dL (4-19); BUN/Creat Ratio 14.7 RATIO (10-20); Calcium,Total 9.3 mg/dL (7.6-11.0); Carbon Dioxide 23.4 mmol/L (21.0-32.0); Chloride 100 mmol/L (98-108); Cholesterol 127 mg/dL (<=200); Globulin 3.0 g/dL (2.2-4.2); Glucose 85 mg/dL (70-99); Low Density Lipoprotein Calc. 49 mg/dL; Potassium 4.2 mmol/L (3.3-5.1); Triglycerides 72 mg/dL; Very Low Density Lipoprotein 14 mg/dL (5-40); Vitamin D,25 Hydroxy 72.2 ng/mL (30-100); cholesterol:hdl ratio screen 2.00
[2024-11-18 14:56] LABS: Creatinine, Urine (random) 196.00 mg/dL (28.00-217.00)
[2024-11-18 14:57] LABS: Microalbumin,Random Urine < 12.0 mg/L (<20 mg/L)
[2024-11-19 03:58] LABS: Ferritin 10 ng/mL (22-378); Iron 60 ug/dL (50-170); Iron Binding Capacity,Total 401 ug/dL (250-450); Iron Binding Capacity,Unsat 341 ug/dL (228-428)
[2024-11-19 04:07] LABS: PROGESTERONE 0.5 ng/mL (.)
== END | disposition home or self-care (01) ==
LOC: LAB 09:04
PROVIDERS: PCP Internal Medicine; Visit Provider Nurse Practitioner Women's Health
DX: E06.3 Autoimmune thyroiditis (principal); N95.1 Menopausal and female climacteric states; E78.5 Hyperlipidemia, unspecified; E55.9 Vitamin D deficiency, unspecified; I10 Essential (primary) hypertension; D75.89 Other specified diseases of blood and blood-forming organs
CPT/HCPCS: 36415; 80053; 80061; 81001; 82043; 82306; 82570; 82670; 82728; 83540; 83550; 84144; 84403; 84432; 84439; 84443; 84481; 85025; 86376; 86800